=== PATIENT | female | born 1960 ===

== ENCOUNTER 2017-01-12 03:43 | Emergency (ER) | payer MEDICAID, OTHER ==
[2017-01-12 03:43] VITALS: BMI 54.4
[2017-01-12 03:50] VITALS: BP 117/86; PULSE 93; RESP 18; TEMP 98.6; O2SAT 98
--- NOTE | 2017-01-12 03:56 | ED PDOC ---
HPI: CCC, URI, Sore Throat Time Seen by Provider: 01/12/17 03:54 Chief Complaint (Nursing): ENT Problem Chief Complaint (Provider): ear pain History Per: Patient (56 y/o female here with left ear pain today. Patient has accidentally placed earbud deep within ear.) Past Medical History Reviewed: Historical Data, Nursing Documentation, Vital Signs Vital Signs: Last Vital Signs Temp 98.6 F 01/12/17 03:49 Pulse 93 H 01/12/17 03:49 Resp 18 01/12/17 03:49 BP 117/86 01/12/17 03:49 Pulse Ox 98 01/12/17 03:49 - Medical History PMH: Anxiety, Arthritis, Asthma, Back Problems (c-spine, l-spine herniated discs ), Depression, HTN, Schizophrenia Denies: HIV - Family History Family History: States: No Known Family Hx - Immunization History Hx Tetanus Toxoid Vaccination: No Hx Influenza Vaccination: No Hx Pneumococcal Vaccination: No - Home Medications Home Medications: Ambulatory Orders Medication Instructions Recorded Albuterol HFA [Ventolin HFA 90 2 puff IH [id number] PRN #1 puff 07/16/14 mcg/actuation (8 g)] Gabapentin [Neurontin] 300 mg PO TID 07/20/14 Latanoprost 0.005% Opht [Xalatan 1 drop EACHEYE HS 07/20/14 Opht] Bupropion HCl [Wellbutrin] 75 mg PO DAILY 09/03/15 DiphenhydrAMINE [Benadryl] 25 mg PO QID PRN 09/03/15 Etodolac 500 mg PO BID PRN 09/03/15 Naproxen 500 mg PO BID 09/03/15 Famotidine [Pepcid] 20 mg PO BID #0 tab 09/05/15 Multivitamin [Multi-Delyn Liquid] 5 ml PO DAILY #0 syr 09/05/15 Thiamine [Vitamin B1 Tab] 100 mg PO DAILY #0 tab 09/05/15 Albuterol 0.083% [Albuterol 3 ml IH Q4 PRN #50 neb 10/11/15 Sulfate 3 Ml] Albuterol HFA [Ventolin HFA 90 2 puff IH Q4H PRN #1 inh 10/11/15 mcg/actuation (8 g)] Azithromycin [Zithromax] 250 mg PO DAILY #6 dose 10/11/15 Promethazine/Dextromethorphan 120 ml PO Q6 PRN #10 ml 10/11/15 [Promethazine-Dm Syrup] Acetaminophen with Codeine 1 tab PO Q8 PRN #20 tab 11/11/15 [Tylenol with Codeine No. 3 300 mg-30 mg] traMADol [Ultram] 50 mg PO TID PRN #20 tab 11/14/15 Albuterol 0.083% [Albuterol 3 ml IH Q4 PRN #50 neb 04/28/16 Sulfate 3 Ml] Albuterol HFA [Ventolin HFA 90 2 puff IH Q4H PRN #1 inh 04/28/16 mcg/actuation (8 g)] Azithromycin [Zithromax] 250 mg PO DAILY #6 dose 04/28/16 Promethazine HCl/Codeine 10 ml PO Q6 PRN #120 ml 04/28/16 [Prometh-Codein 6.25-10 mg/5 ml] hydrOXYzine HCl [Atarax] 25 mg PO BID #10 tab 05/09/16 Triamcinolone 0.1% [Triamcinolone 0.1 .8 TP BID #0 tube 06/04/16 0.1% Cream] Cephalexin [cephalexin] 500 mg PO BID #14 cap 07/22/16 - Allergies Allergies/Adverse Reactions: Allergies Allergy/AdvReac Type Severity Reaction Status Date / Time prednisone Allergy unknown Verified 06/04/16 16:06 Review of Systems ROS Statement: Except As Marked, All Systems Reviewed And Found Negative ENT: Positive for: Ear Pain Physical Exam - Reviewed Nursing Documentation Reviewed: Yes Vital Signs Reviewed: Yes - Physical Exam Appears: Positive for: Well, Non-toxic, No Acute Distress Head Exam: Positive for: ATRAUMATIC, NORMAL INSPECTION, NORMOCEPHALIC Skin: Positive for: Normal Color, Warm, DRY Eye Exam: Positive for: EOMI, Normal appearance, PERRL ENT: Negative for: Normal ENT Inspection (right earbud within ear canal) Neck: Positive for: Normal, Painless ROM Cardiovascular/Chest: Positive for: Regular Rate, Rhythm Respiratory: Positive for: CNT, Normal Breath Sounds Gastrointestinal/Abdominal: Positive for: Normal Exam, Bowel Sounds, Soft Back: Positive for: Normal Inspection Extremity: Positive for: Normal ROM Neurologic/Psych: Positive for: Alert, Oriented - ECG O2 Sat by Pulse Oximetry: 98 - Progress ED Course And Treament: Verbal consent prior to removal of foreign body. Earbud removed without difficulty. Disposition - Clinical Impression Clinical Impression: Foreign body in ear - Patient ED Disposition Is Patient to be Admitted: No - Disposition Disposition: Routine/Home Disposition Time: 03:57 Condition: FAIR Instructions: Ear Foreign Body (ED)
== END 2017-01-12 04:08 | disposition home or self-care (01) ==
LOC: H.ER 03:43
DX: T16.9XXA Foreign body in ear, unspecified ear, initial encounter (principal); F20.9 Schizophrenia, unspecified; F32.9 Major depressive disorder, single episode, unspecified; F41.9 Anxiety disorder, unspecified; I10 Essential (primary) hypertension

== ENCOUNTER 2017-01-28 15:28 | Emergency (ER) | payer OTHER ==
[2017-01-28 15:29] VITALS: BMI 54.4
[2017-01-28 15:44] VITALS: BP 115/61; PULSE 93; RESP 18; TEMP 97.9; O2SAT 98
[2017-01-28] MEDS ORDERED: Albuterol-Ipratrop 3 mg / 0.5 (3 ml) UD INH STA (16:02)
[2017-01-28] MEDS ORDERED: Albuterol-Ipratrop 3 mg / 0.5 (3 ml) UD ONE (16:15)
--- NOTE | 2017-01-28 16:19 | ED PDOC ---
HPI: SOB/CHF/COPD Time Seen by Provider: 01/28/17 15:49 Chief Complaint (Nursing): Shortness Of Breath Chief Complaint (Provider): Shortness of Breath History Per: Patient History/Exam Limitations: no limitations Onset/Duration Of Symptoms: Days (3x) Current Symptoms Are (Timing): Still Present Initiating Event: Out Of Medications (patient is unable to use home nebulizer due to an issue with the equipment) Quality: Tightness (chest tightness) Current Respiratory Medications: See Home Med List Severity: Moderate Associated Symptoms: Other (rhinorrhea, chills, cough productive of green phlegm ). denies: Fever, Bloody Cough Additional Complaint(s): 56 year old female with a pertinent medical history of asthma, anxiety, and arthritis presents to the ED with complaints of a cough that started 3x days ago and has been worsening since onset. She reports that the cough is productive of green phlegm and she has associated symptoms of rhinorrhea, chills , and chest tightness (that is consistent with asthma). She denies having hematemesis and fevers. She reports that she has a home nebulizer, but has been having issues with the equipment so she is unable to use it. Of note: Patient also reports having a headache on the back left side of her head which radiates to her neck that started 1x week ago. She reports that it worsens when she moves it a certain way. Patient denies numbness and weakness, and injuries and trauma to the area. PMD: Antonia Green MD Past Medical History Reviewed: Historical Data, Nursing Documentation, Vital Signs Vital Signs: Last Vital Signs Temp 97.9 F 01/28/17 15:42 Pulse 93 H 01/28/17 15:42 Resp 18 01/28/17 15:42 BP 115/61 01/28/17 15:42 Pulse Ox 98 01/28/17 16:35 - Medical History PMH: Anxiety, Arthritis, Asthma, Back Problems (c-spine, l-spine herniated discs ), Depression, HTN, Schizophrenia Denies: HIV - Surgical History Surgical History: No Surg Hx - Family History Family History: States: No Known Family Hx - Social History Current smoker - smoking cessation education provided: Yes Alcohol: None Drugs: Denies - Immunization History Hx Tetanus Toxoid Vaccination: No Hx Influenza Vaccination: No Hx Pneumococcal Vaccination: No - Home Medications Home Medications: Ambulatory Orders Medication Instructions Recorded Albuterol HFA [Ventolin HFA 90 2 puff IH [id number] PRN #1 puff 07/16/14 mcg/actuation (8 g)] Gabapentin [Neurontin] 300 mg PO TID 07/20/14 Latanoprost 0.005% Opht [Xalatan 1 drop EACHEYE HS 07/20/14 Opht] Bupropion HCl [Wellbutrin] 75 mg PO DAILY 09/03/15 DiphenhydrAMINE [Benadryl] 25 mg PO QID PRN 09/03/15 Etodolac 500 mg PO BID PRN 09/03/15 Naproxen 500 mg PO BID 09/03/15 Famotidine [Pepcid] 20 mg PO BID #0 tab 09/05/15 Multivitamin [Multi-Delyn Liquid] 5 ml PO DAILY #0 syr 09/05/15 Thiamine [Vitamin B1 Tab] 100 mg PO DAILY #0 tab 09/05/15 Albuterol 0.083% [Albuterol 3 ml IH Q4 PRN #50 neb 10/11/15 Sulfate 3 Ml] Albuterol HFA [Ventolin HFA 90 2 puff IH Q4H PRN #1 inh 10/11/15 mcg/actuation (8 g)] Azithromycin [Zithromax] 250 mg PO DAILY #6 dose 10/11/15 Promethazine/Dextromethorphan 120 ml PO Q6 PRN #10 ml 10/11/15 [Promethazine-Dm Syrup] Acetaminophen with Codeine 1 tab PO Q8 PRN #20 tab 11/11/15 [Tylenol with Codeine No. 3 300 mg-30 mg] traMADol [Ultram] 50 mg PO TID PRN #20 tab 11/14/15 Albuterol 0.083% [Albuterol 3 ml IH Q4 PRN #50 neb 04/28/16 Sulfate 3 Ml] Albuterol HFA [Ventolin HFA 90 2 puff IH Q4H PRN #1 inh 04/28/16 mcg/actuation (8 g)] Azithromycin [Zithromax] 250 mg PO DAILY #6 dose 04/28/16 Promethazine HCl/Codeine 10 ml PO Q6 PRN #120 ml 10/08/16 [Prometh-Codein 6.25-10 mg/5 ml] hydrOXYzine HCl [Atarax] 25 mg PO BID #10 tab 05/09/16 Triamcinolone 0.1% [Triamcinolone 0.1 .8 TP BID #0 tube 06/04/16 0.1% Cream] Cephalexin [cephalexin] 500 mg PO BID #14 cap 07/22/16 Acetaminophen/Butalbital/Caf 1 tab PO TID PRN #15 tab 01/28/17 [Fioricet] Albuterol 0.083% [Albuterol 3 ml IH Q4 PRN #50 neb 01/28/17 Sulfate 3 Ml] Azithromycin [Zithromax] 250 mg PO DAILY #6 dose 01/28/17 - Allergies Allergies/Adverse Reactions: Allergies Allergy/AdvReac Type Severity Reaction Status Date / Time prednisone Allergy unknown Verified 06/04/16 16:06 Review of Systems ROS Statement: Except As Marked, All Systems Reviewed And Found Negative Constitutional: Positive for: Chills. Negative for: Fever ENT: Positive for: Nose Discharge (non bloody) Respiratory: Positive for: Cough (productive of green phlegm) Gastrointestinal: Negative for: Hematemesis Neurological: Positive for: Headache (back left side, radiates down to her neck) . Negative for: Weakness, Numbness Physical Exam - Reviewed Nursing Documentation Reviewed: Yes Vital Signs Reviewed: Yes - Physical Exam Appears: Positive for: Well, Non-toxic, In Acute Distress (mild respiratory distress, but patient does not appear to be in pain) Head Exam: Positive for: ATRAUMATIC (tenderness to palpation of the left occiput radiates down to left paraspinal cervical muscles), NORMOCEPHALIC Skin: Positive for: Normal Color, Warm, Dry Neck: Positive for: Supple. Negative for: Painless ROM (range of motion illicits pain) Cardiovascular/Chest: Positive for: Regular Rate, Rhythm Respiratory: Positive for: Wheezing (diffuse expiratory wheeze and rhonchi), Respiratory Distress (mild respiratory distress) Lymphatic: Negative for: Adenopathy Neurologic/Psych: Positive for: Alert, Oriented (3x) - ECG ECG Rhythm: Positive for: Normal QRS, Normal ST Segment, Sinus Rhythm (normal sinus rhythm at 94 beats per minute) O2 Sat by Pulse Oximetry: 98 (RA) Pulse Ox Interpretation: Normal Nebulizer Treatments/Peak Flow - Duonebs Number of Bronchodilator Doses given?: 3 - Pre/Post Peak Flow Pre Treatment Peak Flow: 3 Post treatment Peak Flow: 3 - Steroid Treatment Steroid: Not Clinically Indicated - Clinical Response Clinical Response: Improved Medical Decision Making Medical Decision Makin:49 Initial impression: 56 year old female with asthma exacerbation and a tension headache. Initial plan: * XRay chest 2 views * XRay cervical spine AP and lat * XRay skull 4 views * duoneb 9m INH * felxeril 10mg PO * tylenol 975mg PO * ultram 50mg PO * peak flow pre and post treatment 3x * reevaluation Accession No. : [id number] Patient Name / ID : VASHTI KEENAN / [id number] Exam Date : 01/28/2017 16:35:15 ( Approved ) Study Comment : Sex / Age : Y Creator : Deon Goodrich MD Dictator : Deon Goodrich MD [employer] Department Supervisor : Merchandise Processor : Deon Goodrich MD Approver2 : Report Date : 01/28/2017 17:49:38 My Comment : PROCEDURE: Skull series HISTORY: LEFT sided occipital pain COMPARISON: None TECHNIQUE: Standard protocol for this study/examination. FINDINGS: Unremarkable calvarium and skullbase. IMPRESSION: Negative seventy Accession No. : [id number] Patient Name / ID : VASHTI KEENAN / [id number] Exam Date : 01/28/2017 16:50:24 ( Approved ) Study Comment : Sex / Age : F Y Creator : Deon Goodrich MD Dictator : Deon Goodrich MD [employer] Department Supervisor : Merchandise Processor : Deon Goodrich MD Approver2 : Report Date : 01/28/2017 17:51:44 My Comment : HISTORY: Cough, shortness of breath. COMPARISON: 06/04/2016 TECHNIQUE: Chest PA and lateral FINDINGS: LUNGS: No active pulmonary disease. PLEURA: No significant pleural effusion identified. No pneumothorax apparent. CARDIOVASCULAR: No radiographic findings to suggest acute or significant cardiovascular disease. OSSEOUS STRUCTURES: No significant abnormalities. VISUALIZED UPPER ABDOMEN: Normal. OTHER FINDINGS: None. IMPRESSION: No active disease. No significant interval change compared to the prior examination(s). Cervical spine:Multilevel DJD, no dislocation Pt has known cervical spine herniation Scribe Attestation: Documented by Caitlyn Vivas, acting as a scribe for Mercy Pabon MD. Provider Scribe Attestation: All medical record entries made by the Scribe were at my direction and personally dictated by me. I have reviewed the chart and agree that the record accurately reflects my personal performance of the history, physical exam, medical decision making, and the department course for this patient. I have also personally directed, reviewed, and agree with the discharge instructions and disposition. Disposition - Clinical Impression Clinical Impression: Asthma exacerbation, Headache Counseled Patient/Family Regarding: Studies Performed, Diagnosis, Need For Followup, Rx Given - Disposition Referrals: Antonia Green MD [Medical Doctor] - 01/29/17 (SEE DR GREEN TOMORROW FOR REEVALUATION) Disposition: Routine/Home Disposition Time: 18:09 Condition: STABLE Prescriptions: Acetaminophen/Butalbital/Caf [Fioricet] 1 tab PO TID PRN #15 tab PRN Reason: Headache Albuterol 0.083% [Albuterol Sulfate 3 Ml] 3 ml IH Q4 PRN #50 neb PRN Reason: asthma Azithromycin [Zithromax] 250 mg PO DAILY #6 dose Instructions: Asthma (ED), Acute Bronchitis (ED), General Headache (ED)
--- NOTE | 2017-01-28 17:51 | RAD ---
PROCEDURE: Skull series HISTORY: LEFT sided occipital pain COMPARISON: None TECHNIQUE: Standard protocol for this study/examination. FINDINGS: Unremarkable calvarium and skullbase. IMPRESSION: Negative seventy
--- NOTE | 2017-01-28 17:53 | RAD ---
HISTORY: Cough, shortness of breath. COMPARISON: 06/04/2016 TECHNIQUE: Chest PA and lateral FINDINGS: LUNGS: No active pulmonary disease. PLEURA: No significant pleural effusion identified. No pneumothorax apparent. CARDIOVASCULAR: No radiographic findings to suggest acute or significant cardiovascular disease. OSSEOUS STRUCTURES: No significant abnormalities. VISUALIZED UPPER ABDOMEN: Normal. OTHER FINDINGS: None. IMPRESSION: No active disease. No significant interval change compared to the prior examination(s).
--- NOTE | 2017-01-29 12:40 | RAD ---
PROCEDURE: Cervical Spine Radiographs. HISTORY: Pain. COMPARISON: None. FINDINGS: BONES: Vertebral bodies are maintained in height. There is grade 1 retrolisthesis at C5-6, likely degenerative. Normal alignment is maintained elsewhere. There is straightening of the normal lordotic curvature indicating possible muscular spasm. The odontoid process is suboptimally evaluated. DISC SPACES: There is narrowing of the C5-6 and C6-7 intervertebral disc spaces consistent with degenerative disc disease. Osteophytes are seen about the C5-6 disc space. SOFT TISSUES: Normal. No prevertebral soft tissue swelling. OTHER FINDINGS: None. IMPRESSION: Degenerative disc disease at C5-6 and C6-7. Grade 1 retrolisthesis at C5-6. Possible muscular spasm. No acute fracture.
== END 2017-01-28 18:32 | disposition home or self-care (01) ==
LOC: H.ER 15:28
DX: J45.901 Unspecified asthma with (acute) exacerbation (principal); R51 Headache; F20.9 Schizophrenia, unspecified; I10 Essential (primary) hypertension; M50.321 Other cervical disc degeneration at C4-C5 level

== ENCOUNTER 2017-08-09 03:28 | Emergency (ER) | payer OTHER ==
[2017-08-09 03:28] VITALS: BMI 54.4
[2017-08-09] MEDS ORDERED: Albuterol-Ipratrop 3 mg / 0.5 (3 ml) UD INH STA ×3 (03:54→04:19)
[2017-08-09] MEDS ORDERED: Albuterol-Ipratrop 3 mg / 0.5 (3 ml) UD ONE ×2 (03:59→04:36)
[2017-08-09 04:17] LABS: VENOUS BLOOD GAS BASE EXCESS 0.6 mmol/L (0.0-2.0); VENOUS BLOOD GAS PCO2 36 mmHg (40-60); VENOUS BLOOD GAS PO2 49 mm/Hg (30-55); VENOUS BLOOD PH 7.44 (7.32-7.43)
[2017-08-09] MEDS ORDERED: Promethazine/Cod 6.25mg-10mg/5ml Syr UD PO STA (04:20)
[2017-08-09] MEDS ORDERED: Promethazine/Cod 6.25mg-10mg/5ml Syr UD ONE (04:36)
[2017-08-09 04:43] LABS: BLOOD UREA NITROGEN 9 mg/dl (7-17); CALCIUM 9.5 mg/dL (8.4-10.2); GFR AFRICAN-AMERICAN > 60; GFR NON-AFRICAN AMERICAN > 60
[2017-08-09 04:44] VITALS: O2SAT 96
[2017-08-09 04:47] LABS: BASO % 0.7 % (0.0-2.0); EOS % 0.2 % (0.0-4.0); HEMOGLOBIN 13.1 g/dL (12.0-16.0); LYMPH # 0.5 K/uL (1.0-4.3); LYMPH % 10.4 % (20.0-40.0); MEAN CELL VOLUME 97.6 fl (81.0-99.0); MEAN CORPUSCULAR HEMOGLOBIN 33.6 pg (27.0-31.0); MEAN CORPUSCULAR HGB CONC 34.4 g/dL (33.0-37.0); MEAN PLATELET VOLUME 7.6 fl (7.2-11.7); MONO # 0.5 K/uL (0.0-0.8); MONO % 9.4 % (0.0-10.0); NEUT # 3.9 K/uL (1.8-7.0); NEUT % 79.3 % (50.0-75.0); NRBC % 0.3 % (0.0-0.0); RBC 3.91 Mil/uL (3.80-5.20); RED CELL DISTRIBUTION WIDTH 12.5 % (11.5-14.5); WHITE BLOOD COUNT 4.9 K/uL (4.8-10.8)
--- NOTE | 2017-08-09 04:47 | ED PDOC ---
HPI: SOB/CHF/COPD Time Seen by Provider: 08/09/17 03:41 Chief Complaint (Nursing): Respiratory Distress Chief Complaint (Provider): Shortness of Breath History Per: Patient History/Exam Limitations: no limitations Onset/Duration Of Symptoms: Days (x3) Current Symptoms Are (Timing): Still Present Additional Complaint(s): 57 year old female presents to the emergency department complaining of fever, cough, wheezing, nasal congestion, and difficulty breathing for the past 2-3 days. Symptoms worsened tonight. Of note, patient is a smoker. Reports using her albuterol nebulizer since yesterday. Denies any associated chest pain. Cough is dry but intense. Patient reports history of bronchitis and asthma in the past. PMD: Dr. Jack Rivera Past Medical History Reviewed: Historical Data, Nursing Documentation, Vital Signs Vital Signs: Last Vital Signs Temp 100.2 F H 08/09/17 05:14 Pulse 121 H 08/09/17 05:14 Resp 18 08/09/17 05:14 BP 122/78 08/09/17 05:14 Pulse Ox 96 08/09/17 05:23 - Medical History PMH: Anxiety, Arthritis, Asthma, Back Problems (c-spine, l-spine herniated discs ), Depression, Gastritis, HTN, Schizophrenia Denies: HIV - Surgical History Other surgeries: Hysterectomy - Family History Family History: States: Unknown Family Hx - Social History Current smoker - smoking cessation education provided: Yes - Immunization History Hx Tetanus Toxoid Vaccination: No Hx Influenza Vaccination: No Hx Pneumococcal Vaccination: No - Home Medications Home Medications: Ambulatory Orders Medication Instructions Recorded Gabapentin [Neurontin] 300 mg PO TID 07/20/14 Latanoprost 0.005% Opht [Xalatan 1 drop EACHEYE HS 07/20/14 Opht] Bupropion HCl [Wellbutrin] 75 mg PO DAILY 09/03/15 DiphenhydrAMINE [Benadryl] 25 mg PO QID PRN 09/03/15 Etodolac 500 mg PO BID PRN 09/03/15 Naproxen 500 mg PO BID 09/03/15 Famotidine [Pepcid] 20 mg PO BID #0 tab 09/05/15 Multivitamin [Multi-Delyn Liquid] 5 ml PO DAILY #0 syr 09/05/15 Thiamine [Vitamin B1 Tab] 100 mg PO DAILY #0 tab 09/05/15 Albuterol HFA [Ventolin HFA 90 2 puff IH Q4H PRN #1 inh 10/11/15 mcg/actuation (8 g)] Azithromycin [Zithromax] 250 mg PO DAILY #6 dose 10/11/15 Promethazine/Dextromethorphan 120 ml PO Q6 PRN #10 ml 10/11/15 [Promethazine-Dm Syrup] Acetaminophen with Codeine 1 tab PO Q8 PRN #20 tab 11/11/15 [Tylenol with Codeine No. 3 300 mg-30 mg] traMADol [Ultram] 50 mg PO TID PRN #20 tab 11/14/15 Albuterol 0.083% [Albuterol 3 ml IH Q4 PRN #50 neb 04/28/16 Sulfate 3 Ml] Albuterol HFA [Ventolin HFA 90 2 puff IH Q4H PRN #1 inh 04/28/16 mcg/actuation (8 g)] hydrOXYzine HCl [Atarax] 25 mg PO BID #10 tab 05/09/16 Triamcinolone 0.1% [Triamcinolone 0.1 .8 TP BID #0 tube 06/04/16 0.1% Cream] Cephalexin [cephalexin] 500 mg PO BID #14 cap 07/22/16 Acetaminophen/Butalbital/Caf 1 tab PO TID PRN #15 tab 01/28/17 [Fioricet] Albuterol 0.083% [Albuterol 3 ml IH Q4 PRN #50 neb 01/28/17 Sulfate 3 Ml] Azithromycin [Zithromax] 250 mg PO DAILY #6 dose 01/28/17 Acetaminophen 650 mg PO Q6 PRN #50 tablet 08/09/17 Albuterol 0.083% [Albuterol 3 ml IH Q4 PRN #50 neb 08/09/17 Sulfate 3 Ml] Albuterol HFA [Ventolin HFA 90 2 puff IH [id number] PRN #1 puff 08/09/17 mcg/actuation (8 g)] Azithromycin [Zithromax] 250 mg PO DAILY #6 dose 08/09/17 Oseltamivir [Tamiflu] 75 mg PO BID #10 cap 08/09/17 Promethazine HCl/Codeine 10 ml PO Q6 PRN #120 ml 08/09/17 [Prometh-Codein 6.25-10 mg/5 ml] - Allergies Allergies/Adverse Reactions: Allergies Allergy/AdvReac Type Severity Reaction Status Date / Time prednisone Allergy unknown Verified 08/09/17 03:53 Review of Systems ROS Statement: Except As Marked, All Systems Reviewed And Found Negative Constitutional: Positive for: Fever ENT: Positive for: Nose Congestion Cardiovascular: Negative for: Chest Pain Respiratory: Positive for: Cough, Shortness of Breath, Wheezing. Negative for: Sputum Physical Exam - Reviewed Nursing Documentation Reviewed: Yes Vital Signs Reviewed: Yes - Physical Exam Appears: Positive for: Non-toxic, No Acute Distress Head Exam: Positive for: ATRAUMATIC, NORMAL INSPECTION, NORMOCEPHALIC Skin: Positive for: Normal Color, Warm, Dry Eye Exam: Positive for: EOMI, Normal appearance, PERRL Neck: Positive for: Normal, Painless ROM Cardiovascular/Chest: Positive for: Tachycardia (with regular rhythm) Respiratory: Positive for: Wheezing (mild wheezing bilaterally). Negative for: Respiratory Distress Gastrointestinal/Abdominal: Positive for: Normal Exam, Soft. Negative for: Tenderness Extremity: Positive for: Normal ROM. Negative for: Deformity Neurologic/Psych: Positive for: Alert, Oriented - Laboratory Results Result Diagrams: 08/09/17 04:06 08/09/17 04:06 - ECG ECG: Positive for: Interpreted By Me, Viewed By Me ECG Rhythm: Positive for: Normal QRS, Normal ST Segment, Sinus Rhythm, Sinus Tachycardia Rate: 121 O2 Sat by Pulse Oximetry: 96 (RA) Pulse Ox Interpretation: Normal - Radiology X-Ray: Interpreted by Me, Viewed By Me X-Ray Interpretation: No Acute Disease Medical Decision Making Medical Decision Making: Initial Impression: Dyspnea, fever, wheezing, and cough Differential includes URI, acute bronchitis, pneumonia, influenza Time: 03:49 Initial Plan: --VBG --EKG --BMP --CBC w/ differential --Chest x-ray --Duoneb 3ml INH x3 --Promethazine/Codeine 5 ml PO --Peak Flow pre/post treatment --Solu Medrol 125 mg IVP --Tylenol 650 mg PO --Blood culture --Influenza A B --Reevaluation Scribe Attestation: Documented by Supriya Beckwith, acting as a scribe for Molly uGtiérrez MD Provider Scribe Attestation: All medical record entries made by the Scribe were at my direction and personally dictated by me. I have reviewed the chart and agree that the record accurately reflects my personal performance of the history, physical exam, medical decision making, and the department course for this patient. I have also personally directed, reviewed, and agree with the discharge instructions and disposition. Disposition - Clinical Impression Clinical Impression: Acute bronchitis with chronic obstructive pulmonary disease (COPD), Influenza - Patient ED Disposition Is Patient to be Admitted: No Doctor Will See Patient In The: Office Counseled Patient/Family Regarding: Studies Performed, Diagnosis, Need For Followup - Disposition Referrals: Jack Rivera MD [Primary Care Provider] - Disposition: Routine/Home Disposition Time: 06:00 Condition: GOOD Additional Instructions: Take your medications as instructed. Follow up with your PCP in 2-3 days. Prescriptions: Albuterol HFA [Ventolin HFA 90 mcg/actuation (8 g)] 2 puff IH [id number] PRN #1 puff PRN Reason: Shortness Of Breath Acetaminophen 650 mg PO Q6 PRN #50 tablet PRN Reason: Fever >100.4 F Albuterol 0.083% [Albuterol Sulfate 3 Ml] 3 ml IH Q4 PRN #50 neb PRN Reason: asthma Azithromycin [Zithromax] 250 mg PO DAILY #6 dose Oseltamivir [Tamiflu] 75 mg PO BID #10 cap Promethazine HCl/Codeine [Prometh-Codein 6.25-10 mg/5 ml] 10 ml PO Q6 PRN #120 ml PRN Reason: SEVERE COUGH ONLY Instructions: Influenza (ED), COPD (Chronic Obstructive Pulmonary Disease) (ED)
[2017-08-09 04:57] VITALS: PULSE 121
[2017-08-09 05:15] VITALS: BP 122/78; RESP 18; TEMP 100.2
--- NOTE | 2017-08-09 11:20 | CARD ---
APPROVED REPORT EKG Measurement Heart [id number] <Conclusion> Sinus tachycardia Nonspecific ST abnormality Abnormal ECG
--- NOTE | 2017-08-09 11:49 | RAD ---
PROCEDURE: CHEST RADIOGRAPH, 1 VIEW HISTORY: dyspnea COMPARISON: Chest radiograph dated 01/28/2017. FINDINGS: LUNGS: Clear. PLEURA: No pneumothorax or pleural fluid seen. CARDIOVASCULAR: Cardiomediastinal silhouette within normal limits. OSSEOUS STRUCTURES: Unchanged. VISUALIZED UPPER ABDOMEN: Normal. OTHER FINDINGS: None. IMPRESSION: No active disease.
== END 2017-08-09 06:27 | disposition home or self-care (01) ==
LOC: H.ER 03:28
DX: J44.0 Chronic obstructive pulmonary disease with (acute) lower respiratory infection (principal); J11.1 Influenza due to unidentified influenza virus with other respiratory manifestations; F20.9 Schizophrenia, unspecified; F32.9 Major depressive disorder, single episode, unspecified; F41.9 Anxiety disorder, unspecified; I10 Essential (primary) hypertension

== ENCOUNTER 2017-08-18 16:07 | Emergency (ER) | payer MEDICAID, OTHER ==
[2017-08-18 16:08] VITALS: BMI 54.4
[2017-08-18 16:29] VITALS: BP 131/90; PULSE 71; RESP 16; TEMP 97.8; O2SAT 99
--- NOTE | 2017-08-18 16:41 | ED PDOC ---
HPI: General Adult Time Seen by Provider: 08/18/17 16:32 Chief Complaint (Nursing): ENT Problem Chief Complaint (Provider): Foreign Body History Per: Patient History/Exam Limitations: no limitations Onset/Duration Of Symptoms: Hrs (earlier today) Additional Complaint(s): 57 year old female presents to ED with complaints of possible foreign body in right ear since earlier today and has no relevant past medical history. Notes that she had her headphones in her ears and that when they fell off she could not find the right ear piece. Believes the right ear piece is stuck in her right ear. (-) pain, bleeding, or hearing changes. PCP: Does not remember Past Medical History Reviewed: Historical Data, Nursing Documentation, Vital Signs Vital Signs: Last Vital Signs Temp 97.8 F 08/18/17 16:26 Pulse 71 08/18/17 16:26 Resp 16 08/18/17 16:26 BP 131/90 08/18/17 16:26 Pulse Ox 99 08/18/17 16:41 - Medical History PMH: Anxiety, Arthritis, Asthma, Back Problems (c-spine, l-spine herniated discs ), Depression, Gastritis, HTN, Schizophrenia Denies: HIV - Family History Family History: States: Unknown Family Hx - Living Arrangements Living Arrangements: With Family - Immunization History Hx Tetanus Toxoid Vaccination: No Hx Influenza Vaccination: No Hx Pneumococcal Vaccination: No - Home Medications Home Medications: Ambulatory Orders Medication Instructions Recorded Gabapentin [Neurontin] 300 mg PO TID 07/20/14 Latanoprost 0.005% Opht [Xalatan 1 drop EACHEYE HS 07/20/14 Opht] Bupropion HCl [Wellbutrin] 75 mg PO DAILY 09/03/15 DiphenhydrAMINE [Benadryl] 25 mg PO QID PRN 09/03/15 Etodolac 500 mg PO BID PRN 09/03/15 Naproxen 500 mg PO BID 09/03/15 Famotidine [Pepcid] 20 mg PO BID #0 tab 09/05/15 Multivitamin [Multi-Delyn Liquid] 5 ml PO DAILY #0 syr 09/05/15 Thiamine [Vitamin B1 Tab] 100 mg PO DAILY #0 tab 09/05/15 Albuterol HFA [Ventolin HFA 90 2 puff IH Q4H PRN #1 inh 10/11/15 mcg/actuation (8 g)] Azithromycin [Zithromax] 250 mg PO DAILY #6 dose 10/11/15 Promethazine/Dextromethorphan 120 ml PO Q6 PRN #10 ml 10/11/15 [Promethazine-Dm Syrup] Acetaminophen with Codeine 1 tab PO Q8 PRN #20 tab 11/11/15 [Tylenol with Codeine No. 3 300 mg-30 mg] traMADol [Ultram] 50 mg PO TID PRN #20 tab 11/14/15 Albuterol 0.083% [Albuterol 3 ml IH Q4 PRN #50 neb 04/28/16 Sulfate 3 Ml] Albuterol HFA [Ventolin HFA 90 2 puff IH Q4H PRN #1 inh 04/28/16 mcg/actuation (8 g)] hydrOXYzine HCl [Atarax] 25 mg PO BID #10 tab 05/09/16 Triamcinolone 0.1% [Triamcinolone 0.1 .8 TP BID #0 tube 06/04/16 0.1% Cream] Cephalexin [cephalexin] 500 mg PO BID #14 cap 07/22/16 Acetaminophen/Butalbital/Caf 1 tab PO TID PRN #15 tab 01/28/17 [Fioricet] Albuterol 0.083% [Albuterol 3 ml IH Q4 PRN #50 neb 01/28/17 Sulfate 3 Ml] Azithromycin [Zithromax] 250 mg PO DAILY #6 dose 01/28/17 Acetaminophen 650 mg PO Q6 PRN #50 tablet 08/09/17 Albuterol 0.083% [Albuterol 3 ml IH Q4 PRN #50 neb 08/09/17 Sulfate 3 Ml] Albuterol HFA [Ventolin HFA 90 2 puff IH [id number] PRN #1 puff 08/09/17 mcg/actuation (8 g)] Azithromycin [Zithromax] 250 mg PO DAILY #6 dose 08/09/17 Oseltamivir [Tamiflu] 75 mg PO BID #10 cap 08/09/17 Promethazine HCl/Codeine 10 ml PO Q6 PRN #120 ml 08/09/17 [Prometh-Codein 6.25-10 mg/5 ml] - Allergies Allergies/Adverse Reactions: Allergies Allergy/AdvReac Type Severity Reaction Status Date / Time prednisone Allergy unknown Verified 08/09/17 03:53 Review of Systems ROS Statement: Except As Marked, All Systems Reviewed And Found Negative ENT: Positive for: Other ((+) possible foreign body in right ear. (-) hearing changes). Negative for: Ear Pain, Ear Discharge (no bleeding from ear) Physical Exam - Reviewed Nursing Documentation Reviewed: Yes Vital Signs Reviewed: Yes - Physical Exam Appears: Positive for: Non-toxic, No Acute Distress Skin: Positive for: Normal Color, Warm, Dry ENT: Positive for: Normal ENT Inspection, TM Is/Are (right TM intact.), Other ( Right ear canal clear, no foreign body present.) Neurologic/Psych: Positive for: Alert, Oriented. Negative for: Motor/Sensory Deficits - ECG O2 Sat by Pulse Oximetry: 99 (RA) Pulse Ox Interpretation: Normal Medical Decision Making Medical Decision Makin Initial impression: right ear foreign body sensation Scribe Attestation: Documented by Aria Wilson, acting as a scribe for Tito Saravia PA-C. Provider Scribe Attestation: All medical record entries made by the Scribe were at my direction and personally dictated by me. I have reviewed the chart and agree that the record accurately reflects my personal performance of the history, physical exam, medical decision making, and the department course for this patient. I have also personally directed, reviewed, and agree with the discharge instructions and disposition. Disposition - Clinical Impression Clinical Impression: Foreign body sensation in left ear canal - Patient ED Disposition Is Patient to be Admitted: No - Disposition Disposition: Routine/Home Disposition Time: 16:41 Condition: STABLE Forms: [employer] (K[place]itian)
== END 2017-08-18 16:53 | disposition home or self-care (01) ==
LOC: H.ER 16:07
DX: T16.1XXA Foreign body in right ear, initial encounter (principal); I10 Essential (primary) hypertension; J45.909 Unspecified asthma, uncomplicated; Z86.59 Personal history of other mental and behavioral disorders

== ENCOUNTER 2017-11-15 01:42 | Emergency (ER) | payer MEDICAID, OTHER ==
[2017-11-15 01:42] VITALS: BMI 54.4
[2017-11-15] MEDS ORDERED: Magnesium Sulfate 2 gm/50 ml 2 GM/50 ML BAG IVPB ONE (01:54)
[2017-11-15] MEDS ORDERED: Albuterol-Ipratrop 3 mg / 0.5 (3 ml) UD INH STA ×2 (01:54)
--- NOTE | 2017-11-15 02:01 | ED PDOC ---
HPI: SOB/CHF/COPD Time Seen by Provider: 11/15/17 01:52 Chief Complaint (Nursing): Shortness Of Breath History Per: Patient History/Exam Limitations: no limitations Onset/Duration Of Symptoms: Days Current Symptoms Are (Timing): Still Present Initiating Event: Upper Respiratory Illness Severity: None Additional Complaint(s): Hx of asthma, anxiety presenting with asthma exacerbation, states she has been sick for one month with cold symptoms of nasal congestion, cough, and runny nose , for the past week she has had worsening dry cough and "rib pain" that she thinks may be pneumonia, but denies chills and fever. Patient is an active heavy smoker. Past Medical History Reviewed: Historical Data, Nursing Documentation Vital Signs: Last Vital Signs Temp 98.3 F 11/15/17 01:50 Pulse 101 H 11/15/17 01:50 Resp 19 11/15/17 01:50 BP 104/68 11/15/17 01:50 Pulse Ox 92 L 11/15/17 04:00 - Medical History PMH: Anxiety, Arthritis, Asthma, Back Problems (c-spine, l-spine herniated discs ), Depression, Gastritis, HTN, Schizophrenia Denies: HIV - Family History Family History: States: Unknown Family Hx - Immunization History Hx Tetanus Toxoid Vaccination: No Hx Influenza Vaccination: No Hx Pneumococcal Vaccination: No - Home Medications Home Medications: Ambulatory Orders Medication Instructions Recorded Gabapentin [Neurontin] 300 mg PO TID 07/20/14 Latanoprost 0.005% Opht [Xalatan 1 drop EACHEYE HS 07/20/14 Opht] Bupropion HCl [Wellbutrin] 75 mg PO DAILY 09/03/15 DiphenhydrAMINE [Benadryl] 25 mg PO QID PRN 09/03/15 Etodolac 500 mg PO BID PRN 09/03/15 Naproxen 500 mg PO BID 09/03/15 Famotidine [Pepcid] 20 mg PO BID #0 tab 09/05/15 Multivitamin [Multi-Delyn Liquid] 5 ml PO DAILY #0 syr 09/05/15 Thiamine [Vitamin B1 Tab] 100 mg PO DAILY #0 tab 09/05/15 Albuterol HFA [Ventolin HFA 90 2 puff IH Q4H PRN #1 inh 10/11/15 mcg/actuation (8 g)] Azithromycin [Zithromax] 250 mg PO DAILY #6 dose 10/11/15 Promethazine/Dextromethorphan 120 ml PO Q6 PRN #10 ml 10/11/15 [Promethazine-Dm Solution] Acetaminophen with Codeine 1 tab PO Q8 PRN #20 tab 11/11/15 [Tylenol with Codeine No. 3 300 mg-30 mg] traMADol [Ultram] 50 mg PO TID PRN #20 tab 11/14/15 Albuterol 0.083% [Albuterol 3 ml IH Q4 PRN #50 neb 04/28/16 Sulfate 3 Ml] Albuterol HFA [Ventolin HFA 90 2 puff IH Q4H PRN #1 inh 04/28/16 mcg/actuation (8 g)] hydrOXYzine HCl [Atarax] 25 mg PO BID #10 tab 05/09/16 Triamcinolone 0.1% [Triamcinolone 0.1 .8 TP BID #0 tube 06/04/16 0.1% Cream] Cephalexin [cephalexin] 500 mg PO BID #14 cap 07/22/16 Acetaminophen/Butalbital/Caf 1 tab PO TID PRN #15 tab 01/28/17 [Fioricet] Albuterol 0.083% [Albuterol 3 ml IH Q4 PRN #50 neb 01/28/17 Sulfate 3 Ml] Azithromycin [Zithromax] 250 mg PO DAILY #6 dose 01/28/17 Acetaminophen 650 mg PO Q6 PRN #50 tablet 08/09/17 Albuterol 0.083% [Albuterol 3 ml IH Q4 PRN #50 neb 08/09/17 Sulfate 3 Ml] Albuterol HFA [Ventolin HFA 90 2 puff IH [id number] PRN #1 puff 08/09/17 mcg/actuation (8 g)] Azithromycin [Zithromax] 250 mg PO DAILY #6 dose 08/09/17 Oseltamivir [Tamiflu] 75 mg PO BID #10 cap 08/09/17 Promethazine HCl/Codeine 10 ml PO Q6 PRN #120 ml 08/09/17 [Prometh-Codein 6.25-10 mg/5 ml] Albuterol Sulfate [Ventolin Hfa] 1 puff IH Q4 PRN #1 ml 11/15/17 Benzonatate [Tessalon Perle] 100 mg PO TID #20 capsule 11/15/17 - Allergies Allergies/Adverse Reactions: Allergies Allergy/AdvReac Type Severity Reaction Status Date / Time prednisone Allergy unknown Verified 08/09/17 03:53 Review of Systems ROS Statement: Except As Marked, All Systems Reviewed And Found Negative Respiratory: Positive for: Cough, Shortness of Breath, Wheezing Physical Exam - Reviewed Nursing Documentation Reviewed: Yes Vital Signs Reviewed: Yes - Physical Exam Appears: Positive for: Well, Non-toxic, No Acute Distress Head Exam: Positive for: ATRAUMATIC, NORMAL INSPECTION, NORMOCEPHALIC Skin: Positive for: Normal Color, Warm, DRY Eye Exam: Positive for: EOMI, Normal appearance, PERRL ENT: Positive for: Normal ENT Inspection Neck: Positive for: Normal, Painless ROM Cardiovascular/Chest: Positive for: Regular Rate, Rhythm Respiratory: Positive for: Wheezing, Respiratory Distress (mild) Gastrointestinal/Abdominal: Positive for: Normal Exam, Soft Back: Positive for: Normal Inspection Extremity: Positive for: Normal ROM Neurologic/Psych: Positive for: Alert, Oriented - ECG O2 Sat by Pulse Oximetry: 92 Pulse Ox Interpretation: Abnormal Medical Decision Making Medical Decision MakinAM A/P: Hx of asthma, anxiety, psych d/o presenting with asthma exacerbation -patient having moderate exacerbation, likely secondary to URI and smoking -patient with some respiratory distress and mild hypoxia, will give futher treatments and Mag -cannot give steroids given allergy to prednisone -will continue to monitor 345 -Patient feeling much better, no longer wheezing -PAtient requesting cough medicine, will precribe tessalon perles -Advised patient to followup with PMd -Return precautions given Disposition - Clinical Impression Clinical Impression: Asthma attack - Patient ED Disposition Is Patient to be Admitted: No - Disposition Referrals: [facility] [Outside] Disposition: Routine/Home Disposition Time: 04:03 Condition: IMPROVED Prescriptions: Albuterol Sulfate [Ventolin Hfa] 1 puff IH Q4 PRN #1 ml PRN Reason: Wheezing Benzonatate [Tessalon Perle] 100 mg PO TID #20 capsule Instructions: Asthma in Adults Forms: [employer] ([place])
[2017-11-15] MEDS ORDERED: Albuterol-Ipratrop 3 mg / 0.5 (3 ml) UD ONE (02:02)
[2017-11-15] MEDS ORDERED: Magnesium Sulfate 2 gm/50 ml 2 GM/50 ML BAG ONE (02:02)
[2017-11-15 07:23] VITALS: RESP 24
[2017-11-15 07:24] VITALS: BP 109/51; PULSE 93; TEMP 98.4; O2SAT 95
--- NOTE | 2017-11-15 09:30 | RAD ---
HISTORY: asthma exacerbation COMPARISON: Chest radiograph dated 08/09/2017. FINDINGS: LUNGS: No active pulmonary disease. PLEURA: No significant pleural effusion identified, no pneumothorax apparent. CARDIOVASCULAR: Cardiomediastinal silhouette unchanged. OSSEOUS STRUCTURES: Unchanged. VISUALIZED UPPER ABDOMEN: Normal. OTHER FINDINGS: None. IMPRESSION: No active disease.
== END 2017-11-15 04:31 | disposition home or self-care (01) ==
LOC: H.ER 01:42
DX: J45.901 Unspecified asthma with (acute) exacerbation (principal)
CPT/HCPCS: 71045; 94150; 94640; 96365; 96375; 99285; J1885

== ENCOUNTER 2017-11-16 22:51 | Inpatient (IN) | payer OTHER ==
[2017-11-16 22:51] VITALS: BMI 54.4
[2017-11-16] MEDS ORDERED: Albuterol-Ipratrop 3 mg / 0.5 (3 ml) UD INH STA ×3 (23:34→23:35)
[2017-11-16] MEDS ORDERED: Albuterol-Ipratrop 3 mg / 0.5 (3 ml) UD ONE ×2 (23:55→23:56)
[2017-11-16 23:58] LABS: BASO # 0.1 K/uL (0.0-0.2); BASO % 0.6 % (0.0-2.0); EOS # 0.1 K/uL (0.0-0.7); EOS % 1.1 % (0.0-4.0); HEMOGLOBIN 12.2 g/dL (12.0-16.0); LYMPH % 18.9 % (20.0-40.0); MEAN CELL VOLUME 98.1 fl (81.0-99.0); MEAN CORPUSCULAR HEMOGLOBIN 33.9 pg (27.0-31.0); MEAN CORPUSCULAR HGB CONC 34.5 g/dL (33.0-37.0); MEAN PLATELET VOLUME 7.1 fl (7.2-11.7); MONO # 1.3 K/uL (0.0-0.8); MONO % 11.9 % (0.0-10.0); NEUT # 7.3 K/uL (1.8-7.0); NEUT % 67.5 % (50.0-75.0); NRBC % 0.1 % (0.0-0.0); RBC 3.6 Mil/uL (3.80-5.20); WHITE BLOOD COUNT 10.7 K/uL (4.8-10.8)
[2017-11-17] MEDS ORDERED: DiphenhydrAMINE 50 mg/ml Inj ONE (00:07)
[2017-11-17 00:12] LABS: BLOOD UREA NITROGEN 12 mg/dl (7-17); CALCIUM 9.4 mg/dL (8.4-10.2); GFR AFRICAN-AMERICAN > 60; GFR NON-AFRICAN AMERICAN > 60
[2017-11-17] MEDS ORDERED: Propofol 10 mg/ml 2,000 MG/200 ML VIAL ONE (00:52)
[2017-11-17] MEDS ORDERED: Albuterol-Ipratrop 3 mg / 0.5 (3 ml) UD ONE (00:55)
[2017-11-17] MEDS ORDERED: Magnesium Sulfate 2 gm/50 ml 2 GM/50 ML BAG IVPB ONE (01:12)
[2017-11-17] MEDS ORDERED: Propofol 10 mg/ml Inj (20 ML) IV STA (01:13)
[2017-11-17] MEDS ORDERED: Propofol 10 mg/ml 1,000 MG/100 ML VIAL IV SCH (01:15)
[2017-11-17] MEDS ORDERED: Fentanyl Citrate 2,500 MCG in Dextrose 5% In Water 200 ML IV SCH (01:30)
--- NOTE | 2017-11-17 01:37 | ED PDOC ---
HPI: SOB/CHF/COPD Time Seen by Provider: 11/16/17 23:05 Chief Complaint (Nursing): Shortness Of Breath History Per: Patient History/Exam Limitations: no limitations Onset/Duration Of Symptoms: Days Current Symptoms Are (Timing): Still Present Initiating Event: Upper Respiratory Illness Additional Complaint(s): HX of COPD, psych disorder presenting with shortness of breath x 1 day, was in the ER recently for similar, initially improved but then she states she got worse today. States that she was using her albuterol pump without relief as well as pain medication at home for rib pain. Denies fevers today, but states a few days ago she did have fever. States cough but cannot expectorate the phlegm. Of note, patient states she does not have allergy to prednisone/ steroid. Past Medical History Reviewed: Historical Data, Nursing Documentation, Vital Signs Vital Signs: Last Vital Signs Temp 98.2 F 11/16/17 23:01 Pulse 112 H 11/17/17 03:50 Resp 20 11/17/17 03:50 BP 64/44 L 11/17/17 03:50 Pulse Ox 97 11/17/17 06:12 - Medical History PMH: Anxiety, Arthritis, Asthma, Back Problems (c-spine, l-spine herniated discs ), Depression, Gastritis, HTN, Schizophrenia Denies: HIV - Family History Family History: States: Unknown Family Hx - Immunization History Hx Tetanus Toxoid Vaccination: No Hx Influenza Vaccination: No Hx Pneumococcal Vaccination: No - Home Medications Home Medications: Ambulatory Orders Medication Instructions Recorded Gabapentin [Neurontin] 300 mg PO TID 07/20/14 Latanoprost 0.005% Opht [Xalatan 1 drop EACHEYE HS 07/20/14 Opht] Bupropion HCl [Wellbutrin] 75 mg PO DAILY 09/03/15 DiphenhydrAMINE [Benadryl] 25 mg PO QID PRN 09/03/15 Etodolac 500 mg PO BID PRN 09/03/15 Naproxen 500 mg PO BID 09/03/15 Famotidine [Pepcid] 20 mg PO BID #0 tab 09/05/15 Multivitamin [Multi-Delyn Liquid] 5 ml PO DAILY #0 syr 09/05/15 Thiamine [Vitamin B1 Tab] 100 mg PO DAILY #0 tab 09/05/15 Albuterol HFA [Ventolin HFA 90 2 puff IH Q4H PRN #1 inh 10/11/15 mcg/actuation (8 g)] Azithromycin [Zithromax] 250 mg PO DAILY #6 dose 10/11/15 Promethazine/Dextromethorphan 120 ml PO Q6 PRN #10 ml 10/11/15 [Promethazine-Dm Solution] Acetaminophen with Codeine 1 tab PO Q8 PRN #20 tab 11/11/15 [Tylenol with Codeine No. 3 300 mg-30 mg] traMADol [Ultram] 50 mg PO TID PRN #20 tab 11/14/15 Albuterol 0.083% [Albuterol 3 ml IH Q4 PRN #50 neb 04/28/16 Sulfate 3 Ml] Albuterol HFA [Ventolin HFA 90 2 puff IH Q4H PRN #1 inh 04/28/16 mcg/actuation (8 g)] hydrOXYzine HCl [Atarax] 25 mg PO BID #10 tab 05/09/16 Triamcinolone 0.1% [Triamcinolone 0.1 .8 TP BID #0 tube 06/04/16 0.1% Cream] Cephalexin [cephalexin] 500 mg PO BID #14 cap 07/22/16 Acetaminophen/Butalbital/Caf 1 tab PO TID PRN #15 tab 01/28/17 [Fioricet] Albuterol 0.083% [Albuterol 3 ml IH Q4 PRN #50 neb 01/28/17 Sulfate 3 Ml] Azithromycin [Zithromax] 250 mg PO DAILY #6 dose 01/28/17 Acetaminophen 650 mg PO Q6 PRN #50 tablet 08/09/17 Albuterol 0.083% [Albuterol 3 ml IH Q4 PRN #50 neb 08/09/17 Sulfate 3 Ml] Albuterol HFA [Ventolin HFA 90 2 puff IH [id number] PRN #1 puff 08/09/17 mcg/actuation (8 g)] Azithromycin [Zithromax] 250 mg PO DAILY #6 dose 08/09/17 Oseltamivir [Tamiflu] 75 mg PO BID #10 cap 08/09/17 Promethazine HCl/Codeine 10 ml PO Q6 PRN #120 ml 08/09/17 [Prometh-Codein 6.25-10 mg/5 ml] Albuterol Sulfate [Ventolin Hfa] 1 puff IH Q4 PRN #1 ml 11/15/17 Benzonatate [Tessalon Perle] 100 mg PO TID #20 capsule 11/15/17 - Allergies Allergies/Adverse Reactions: Allergies Allergy/AdvReac Type Severity Reaction Status Date / Time prednisone Allergy unknown Verified 08/09/17 03:53 Review of Systems Respiratory: Positive for: Cough, Shortness of Breath Physical Exam - Physical Exam Appears: Positive for: Well, Non-toxic, No Acute Distress Head Exam: Positive for: ATRAUMATIC, NORMAL INSPECTION, NORMOCEPHALIC Skin: Positive for: Normal Color, Warm, DRY Eye Exam: Positive for: EOMI, Normal appearance, PERRL ENT: Positive for: Normal ENT Inspection Neck: Positive for: Normal, Painless ROM Cardiovascular/Chest: Positive for: Regular Rate, Rhythm Respiratory: Positive for: Rhonchi, Wheezing. Negative for: Respiratory Distress Gastrointestinal/Abdominal: Positive for: Normal Exam Neurologic/Psych: Positive for: Alert, director clinical operations II-XII, Oriented. Negative for: Motor/Sensory Deficits - Laboratory Results Result Diagrams: 11/17/17 03:33 11/17/17 03:33 - ECG O2 Sat by Pulse Oximetry: 97 Pulse Ox Interpretation: Normal - Critical Care Total Time (In Min): 240 Documented Critical Care: Time excludes all time spent performint seperately billable procedures Medical Decision Making Medical Decision MakinPM A/P: Patient with history of COPD and pysch disorder presenting with shortness of breath -Patient likely with COPD exacerbation, also possibly ACS/PNA/bronchitis -will provide treatments, check labs, EKG, CXR -likely will require admission 0000 Patient became increasingly labored in breathing, confused, was wandering the hallways and then collapsed. Patient was having agonal gasping and poor respiratory movement, patient then went into repiratory and cardiac arrest. Patient was immediatley intubated and high quality CPR initiated. 0200 Patient is starting to wake up, moving all extremeties, pupils reactive. Will place on propofol and levophed drip. Dr. Gillespie aware. 0400 Trop elevated but drawn s/p compressions, likely secondary to compressions, will repeat EKG [address] is broken, cannot obtain CTA. Will treat empirically for PE with lovenox. Disposition - Clinical Impression Clinical Impression: COPD (chronic obstructive pulmonary disease), Respiratory arrest - Patient ED Disposition Is Patient to be Admitted: Yes - Disposition Disposition Time: 02:00 Condition: CRITICAL Central Line Placement - Central Line Placement Indication: Emergent IV Access Central Line Placement: Right: Femoral The Area Was Thoroughly Prepared With: Betadine Procedure: Triple Lumen, Placed Using Standard Seldinger Technique, Sterile Dressing Placed Over Line, Procedure Tolerated Well Endotracheal Intubation - Endotracheal Intubation Intubated With ETT Size: 7 Blade Type Used: Curved Indication: Respiratory Failure Intubated: Orally Pre-Intubation Airway Assessment: Ventilated And Oxygenated, Does Not Appear To Have A Difficult Airway Post-Intubation Assessment: ETT Secured AT (cm): (24), Breath Sounds Equal Bilat , Placement Confirmed Via CXR, Color Change W/End Tidal CO2 Detector, Oxygen Saturation: (100)
--- NOTE | 2017-11-17 01:37 | CP.PCM.CON ---
History of Present Illness - History of Present Illness History of Present Illness: Attending: Kamari Ro MD Reason for Consult: Critical care management Chief Complaint: SOB/Cardiac Arrest The patient was seen and examined in the ED HPI: The hx was obtained from review of the medical records and discussion with the ED physician. This is a 57 years old female with hx of Anxiety, Depression, Gastritis, and Asthma. She was at the ED on 10/15/17 with SOB, treated and discharged. She returned on 10/16/17 referring that the Shortness of Breath initially improved but later became worse and associated with rib pain and a barking cough. She used her Albuterol pump without relief. No fever, headaches nor dizziness. In the ED she was treated with Duoneb with little relief. She became increasingly labored breathing and while wondering down the hallway, she collapsed with gasping respiration and went into respiratory and cardiac arrest. Code Blue was called in the ED and CPR was begun. She received two doses of Epinephrine before return of Pulse. She was intubated by the ED physician. PMH: Anxiety, Arthritis, Asthma, Back Problems (c-spine, l-spine herniated discs), Depression, Gastritis, HTN, Schizophrenia PSH: Tubal ligation; Hysterectomy; Bilateral cataract surgery SH: Live with family, No illegal drug use; Light smoker; occasional Alcohol FH: States: Unknown Family Hx Allergies: Prednisone Mediation: Reviewed Review of Systems - Review of Systems Systems not reviewed;Unavailable: Respiratory Distress Review of Systems: review of systems limited because the patient is intubated and sedated. - Constitutional Constitutional: absent: Fever - Respiratory Respiratory: Cough, Dyspnea - Gastrointestinal Gastrointestinal: absent: Vomiting Past Patient History - Infectious Disease Hx of Infectious Diseases: None - Past Medical History & Family History Past Medical History?: Yes - Past Social History Smoking Status: Light Smoker < 10 Cigarettes Daily Chewing Tobacco Use: No Cigar Use: No Alcohol: Occasional Home Situation {Lives}: With Family - CARDIAC Hx Hypertension: Yes - PULMONARY Hx Asthma: Yes - NEUROLOGICAL Hx Neurological Disorder: No - HEENT Hx HEENT Problems: Yes Hx Cataracts: Yes - RENAL Hx Chronic Kidney Disease: No - ENDOCRINE/METABOLIC Hx Endocrine Disorders: No - HEMATOLOGICAL/ONCOLOGICAL Hx Blood Disorders: No Hx Human Immunodeficiency Virus (HIV): No - INTEGUMENTARY Hx Dermatological Problems: No - MUSCULOSKELETAL/RHEUMATOLOGICAL Hx Arthritis: Yes - GASTROINTESTINAL Hx Gastritis: Yes - GENITOURINARY/GYNECOLOGICAL Hx Genitourinary Disorders: No - PSYCHIATRIC Hx Anxiety: Yes Hx Depression: Yes Hx Schizophrenia: Yes Hx Substance Use: No - SURGICAL HISTORY Hx Surgeries: Yes Hx Cataract Extraction: Yes (bilateral) Hx Hysterectomy: Yes Hx Tubal Ligation: Yes - ANESTHESIA Hx Anesthesia: Yes Hx Anesthesia Reactions: No Meds Allergies/Adverse Reactions: Allergies Allergy/AdvReac Type Severity Reaction Status Date / Time prednisone Allergy unknown Verified 08/09/17 03:53 - Medications Medications: Current Medications Propofol (Diprivan) 1,000 mg in 100 mls @ 2.245 mls/hr IV .Q24H PENELOPE; 5 MCG/KG/ MIN PRN Reason: Protocol Stop: 11/18/17 01:13 Magnesium Sulfate (Magnesium Sulfate 2 Gm/50 Ml Water) 2 gm in 50 mls @ 50 mls/ hr IVPB ONCE ONE PRN Reason: 2 GM/HR Stop: 11/17/17 02:11 Fentanyl Citrate 2,500 mcg/ (Dextrose) 250 mls @ 7.48 mls/hr IV .Q24H PENELOPE; 1 MCG/KG/HR PRN Reason: Protocol Physical Exam - Constitutional Additional comments: Intubated - Head Exam Head Exam: ATRAUMATIC, NORMAL INSPECTION, NORMOCEPHALIC - Eye Exam Eye Exam: absent: Periorbital swelling, Scleral icterus Additional comments: Pupils reacting sluggish to light - ENT Exam ENT Exam: Mucous Membranes Moist, Normal External Ear Exam - Neck Exam Neck exam: Positive for: Full Rom, Normal Inspection. Negative for: Lymphadenopathy, Thyromegaly - Respiratory Exam Respiratory Exam: absent: Rales Additional comments: Good air entry bilateral , diffuse rhonchi - Cardiovascular Exam Cardiovascular Exam: Tachycardia, REGULAR RHYTHM, +S1, +S2 - GI/Abdominal Exam Additional comments: Obese, Doft, decreased bowel sounds, no mass nor viceromegaleas. - Rectal Exam Rectal Exam: Deferred - Extremities Exam Extremities exam: Positive for: normal inspection. Negative for: pedal edema - Back Exam Back exam: NORMAL INSPECTION. absent: CVA tenderness (L), CVA tenderness (R) - Neurological Exam Additional comments: Intubated, sedated, no facial droop, motor tone conserved, DTR conserved - Psychiatric Exam Additional comments: Sedated, intubated - Skin Skin Exam: Dry, Intact, Normal Color, Warm Results - Vital Signs Recent Vital Signs: Last Vital Signs Temp 98.2 F 11/16/17 23:01 Pulse 94 H 11/16/17 23:01 Resp 18 11/16/17 23:01 BP 97/63 L 11/16/17 23:01 Pulse Ox 97 11/16/17 23:01 - Labs Result Diagrams: 11/17/17 03:33 11/17/17 03:33 Labs: Laboratory Results - last 24 hr 11/16/17 11/16/17 11/16/17 23:53 23:53 23:53 WBC 10.7 D RBC 3.60 L Hgb 12.2 Hct 35.3 MCV 98.1 MCH 33.9 H MCHC 34.5 RDW 12.0 Plt Count 211 MPV 7.1 L Neut % (Auto) 67.5 Lymph % (Auto) 18.9 L [place] % (Auto) 11.9 H Eos % (Auto) 1.1 Baso % (Auto) 0.6 Neut # (Auto) 7.3 H Lymph # (Auto) 2.0 [place] # (Auto) 1.3 H Eos # (Auto) 0.1 Baso # (Auto) 0.1 Sodium 141 Potassium 3.6 Chloride 101 Carbon Dioxide 20 L Anion Gap 24 H BUN 12 Creatinine 0.6 L Est GFR ( Amer) > 60 Est GFR (Non-Af Amer) > 60 Random Glucose 94 Calcium 9.4 Influenza Typ A,B (EIA) Negative for flu a/b - EKG Data EKG comments: 1st EKG before CODE NSR 94/min - Imaging and Cardiology Chest x-ray Status: Image reviewed by me Additional comment: ET above gómez No infiltrate Assessment & Plan - Assessment and Plan (Free Text) Assessment: #. Cardiopulmonary arrest #. Status Asthmaticus #. Lactic Acidosis #. Leukocytosis #. Hypokalemia Plan: 57 years old female with hx of Anxiety, Depression, Gastritis, and Asthma. She was at the ED on 10/15/17 with SOB, treated and discharged. She returned on referring worsening SOB. In the ED she was treated with Duoneb with little relief. While wondering down the hallway, she collapsed with gasping respiration and went into respiratory and cardiac arrest. Shana Wright was called in the ED and CPR was begun. She received two doses of Epinephrine before return of Pulse. She was intubated by the ED physician. #. Cardiopulmonary arrest most likely secondary to respiratory fatigue and arrest with return of Spontaneous Circulation after the second Epinephrine the patient is intubated. -Propofol for sedation - Levophed for hypotension - Consult cardiology Dr Abraham #. Status Asthmaticus with COPD? - Consult Dr Valentino Pulmonary - Duoneb [id number] and q2hrs PRN - No Steroids as patient has allergy to Prednisone - #. Lactic Acidosis secondary to the hypoperfusion during the Cardiac arrest - Sodium Bicarbonate - IV fluids - follow Lactate and Blood Gas #. Leukocytosis probably reactive as the initial count was within normal limits. r/o early Pneumonia - Blood Culture - Zosyn - levaquin - Procalcitonin #. Hypokalemia - IV fluids with Potassium - follow electrolytes. #. Stress ulcer prophylaxis with Pepcid #. DVT with SCD until INR and PTT are known #. Code Status: Full - Date & Time Date: 11/17/17 Time: 01:37
[2017-11-17 03:20] LABS: VENOUS BLOOD GAS BASE EXCESS -19.5 mmol/L (0.0-2.0); VENOUS BLOOD GAS PCO2 49 mmHg (40-60); VENOUS BLOOD GAS PO2 58 mm/Hg (30-55); VENOUS BLOOD PH 6.99 (7.32-7.43)
[2017-11-17 03:36] LABS: BASO % 0.1 % (0.0-2.0); EOS # 0.1 K/uL (0.0-0.7); EOS % 0.4 % (0.0-4.0); LYMPH # 4.3 K/uL (1.0-4.3); LYMPH % 17.9 % (20.0-40.0); MEAN CELL VOLUME 102.4 fl (81.0-99.0); MEAN CORPUSCULAR HEMOGLOBIN 33.5 pg (27.0-31.0); MEAN CORPUSCULAR HGB CONC 32.7 g/dL (33.0-37.0); MEAN PLATELET VOLUME 7.4 fl (7.2-11.7); MONO # 1.1 K/uL (0.0-0.8); MONO % 4.7 % (0.0-10.0); NEUT # 18.2 K/uL (1.8-7.0); NEUT % 76.9 % (50.0-75.0); NRBC % 0.2 % (0.0-0.0); RBC 3.88 Mil/uL (3.80-5.20); RED CELL DISTRIBUTION WIDTH 12.6 % (11.5-14.5); WHITE BLOOD COUNT 23.7 K/uL (4.8-10.8)
[2017-11-17 03:42] LABS: VENOUS BLOOD GAS BASE EXCESS -20.8 mmol/L (0.0-2.0); VENOUS BLOOD GAS PCO2 40 mmHg (40-60); VENOUS BLOOD GAS PO2 157 mm/Hg (30-55)
[2017-11-17 03:49] LABS: BLOOD UREA NITROGEN 11 mg/dl (7-17); GFR AFRICAN-AMERICAN > 60; GFR NON-AFRICAN AMERICAN 57
[2017-11-17] MEDS ORDERED: Sodium Bicarbonate 7.5% (0.9 MEQ/ML) 50ML INJ IV ONE ×2 (04:17→09:00)
[2017-11-17] MEDS ORDERED: Iodixanol 320 MG/ML 100 ML BOTTLE IV ONE (04:25)
[2017-11-17] MEDS ORDERED: Potassium Chloride 20 MEQ in Sodium Chloride 0.45% 1,000 ML IV SCH (04:30)
[2017-11-17] MEDS ORDERED: Cefepime 2 GM in Sodium Chloride 0.9% 100 ML IVPB STA (04:31)
[2017-11-17] MEDS ORDERED: Potassium Ch 20mEq in D5-1/2NS 1,000 ML IV SCH (05:00)
[2017-11-17] MEDS ORDERED: Enoxaparin 80 mg Syringe SC STA (05:38)
[2017-11-17 05:40] LABS: INR 1.3 (0.9-1.2); PARTIAL THROMBOPLASTIN TIME 36.5 Seconds (25.6-37.1); PROTHROMBIN TIME 14.6 Seconds (9.8-13.1)
[2017-11-17] MEDS ORDERED: Potassium Chloride 20 mEq 100 ML ONE (05:55)
[2017-11-17] MEDS ORDERED: levoFLOXacin 750 mg in D5W 150 ML BAG IVPB SCH (06:00)
[2017-11-17] MEDS: Albuterol-Ipratrop 3 mg / 0.5 (3 ml) UD INH SCH ×4 (07:42→19:00)
--- NOTE | 2017-11-17 08:17 | PCM.PROC ---
Procedures Attestation:: I certify that I have explained the specified Operation(s) or Procedure(s), risks, benefits and reasonable alternatives to the Patient and/or other person responsible. The opportunity was given to ask questions and all questions answered - Extubation Clinical Parameters: Spontaneous Respirations Weaning Criteria Met: No General Weaning Approaches: Spontaneous breathing trials and use of T-Piece Patient Condition: Patient has been successfully extubated and assessed Oxygen Therapy: O2 via Venti Mask Patient Tolerated Procedure: Well Additional Comments: Extreme agitation noted upon arrival to ICU, suspect extravasation of sedative meds into Left thigh circa left femoral vein TLC ( noted not to be sutured in place). Since patient is awake, very agitated despite Ativan 2 mg IVP- (if it did go in intravenously), and staurating well at lower FiO2 of 50% and agitatraion is not related to hypoxia, decision made to extubate at this time to prevent further injury to patient. ETT removed without complications, no immediate stridor noted, placed on 50% VM with SPO2 98%. No wheezing noted and states she is agitated due to back pain. Additional sedation with Haldol 5mg IVP given ( IV routs used after ICU nurse obtained satisfactory peripheral IV access, and Left Femoral TLC removed). After giving Morphine, patient became calm.
[2017-11-17] MEDS: Potassium Ch 20mEq in D5-1/2NS 1,000 ML IV SCH (08:43)
[2017-11-17] MEDS ORDERED: DOPamine 400mg/250ml D5W IV ONE (09:00)
--- NOTE | 2017-11-17 09:14 | RAD ---
HISTORY: post extubation COMPARISON: 11/17/2017 FINDINGS: LUNGS: The lungs are well inflated. The right lung is clear. There is airspace disease in the left lower lobe. PLEURA: Small left pleural effusion, no pneumothorax apparent. CARDIOVASCULAR: Normal. OSSEOUS STRUCTURES: There are apparent deformities in the left lateral ribs. VISUALIZED UPPER ABDOMEN: Normal. OTHER FINDINGS: None. IMPRESSION: Status post extubation, suspect left lower lobe atelectasis/pneumonia and small left pleural effusion. Apparent deformities in the left lateral ribs which may be projectional, however if there is a history of trauma dedicated rib radiographs are recommended to exclude fracture.
--- NOTE | 2017-11-17 09:17 | RAD ---
HISTORY: s/p intubation and NGT COMPARISON: 11/15/2017. FINDINGS: Endotracheal tube terminates 2.5 cm proximal to the gómez. The nasogastric tube terminates in the stomach. LUNGS: The lungs are well inflated and clear. PLEURA: No significant pleural effusion identified, no pneumothorax apparent. CARDIOVASCULAR: Normal. OSSEOUS STRUCTURES: No significant abnormalities. VISUALIZED UPPER ABDOMEN: Normal. OTHER FINDINGS: None. IMPRESSION: Endotracheal tube terminates 2.5 cm proximal to the gómez. Nasogastric tube terminates in the stomach. No acute findings.
[2017-11-17] MEDS: Albuterol 0.083% Inhal Sol (2.5 mg/3 mL) UD INH PRN ×2 (09:59→20:58)
[2017-11-17] MEDS ORDERED: HYDROmorphone 0.5 mg/0.5 ml ISec ONE (10:03)
[2017-11-17 10:05] LABS: ALB/GLOB RATIO 1.1 (1.0-2.1); ALBUMIN 2.7 g/dL (3.5-5.0); CALCIUM 7.2 mg/dL (8.4-10.2)
[2017-11-17] MEDS: HYDROmorphone 0.5 mg/0.5 ml ISec IVP PRN ×2 (10:10→15:57)
--- NOTE | 2017-11-17 15:02 | CP.PCM.HP ---
History of Present Illness - History of Present Illness History of Present Illness: CC: Worsening SOB and Chest Pain History of Present Illness: A 57 years old female with hx of Anxiety, Depression, Gastritis, and Asthma. She was at the ED on 10/15/17 with SOB, treated and discharged. She returned on referring that the Shortness of Breath initially improved but later became worse and associated with rib pain and a barking cough. She used her Albuterol pump without relief. No fever, headaches nor dizziness. In the ED she was treated with Duoneb with little relief. She became increasingly labored breathing and while wondering down the hallway, she collapsed with gasping respiration and went into respiratory and cardiac arrest. Code Blue was called in the ED and CPR was begun. She received two doses of Epinephrine before return of Pulse. She was intubated by the ED physician. Present on Admission - Present on Admission Any Indicators Present on Admission: No Review of Systems - Review of Systems All systems: reviewed and no additional remarkable complaints except Past Patient History - Infectious Disease Hx of Infectious Diseases: None - Past Medical History & Family History Past Medical History?: Yes Past Family History: Reviewed and not pertinent - Past Social History Smoking Status: Heavy Smoker > 10 Cigarettes Daily Alcohol: None Drugs: Denies - CARDIAC Hx Cardiac Disorders: Yes Hx Hypertension: Yes - PULMONARY Hx Respiratory Disorders: Yes Hx Asthma: Yes - NEUROLOGICAL Hx Neurological Disorder: No - HEENT Hx HEENT Problems: Yes Hx Cataracts: Yes - RENAL Hx Chronic Kidney Disease: No - ENDOCRINE/METABOLIC Hx Endocrine Disorders: No - HEMATOLOGICAL/ONCOLOGICAL Hx Blood Disorders: Yes Hx Human Immunodeficiency Virus (HIV): No - INTEGUMENTARY Hx Dermatological Problems: No - MUSCULOSKELETAL/RHEUMATOLOGICAL Hx Musculoskeletal Disorders: Yes Hx Arthritis: Yes Hx Back Pain: Yes Hx Falls: Yes Hx Herniated Disk: Yes - GASTROINTESTINAL Hx Gastrointestinal Disorders: Yes Hx Gastritis: Yes - GENITOURINARY/GYNECOLOGICAL Hx Genitourinary Disorders: No - PSYCHIATRIC Hx Psychophysiologic Disorder: Yes Hx Anxiety: Yes Hx Depression: Yes Hx Schizophrenia: Yes Hx Substance Use: Yes (quit > 20 years ago) - SURGICAL HISTORY Hx Surgeries: Yes Hx Cataract Extraction: Yes (bilateral) Hx Hysterectomy: Yes Hx Tubal Ligation: Yes - ANESTHESIA Hx Anesthesia: Yes Hx Anesthesia Reactions: No Meds Home Medications: Home Medication List Medication Instructions Recorded Confirmed Type Albuterol Sulfate [Ventolin Hfa] 0.09 mg IH PRN PRN #1 ml 11/17/17 Rx Allergies/Adverse Reactions: Allergies Allergy/AdvReac Type Severity Reaction Status Date / Time prednisone Allergy unknown Verified 08/09/17 03:53 Physical Exam - Constitutional Appears: In Acute Distress - Head Exam Head Exam: ATRAUMATIC, NORMAL INSPECTION, NORMOCEPHALIC - Eye Exam Eye Exam: EOMI, Normal appearance, PERRL Pupil Exam: NORMAL ACCOMODATION, PERRL - ENT Exam ENT Exam: Mucous Membranes Moist, Normal Exam - Neck Exam Neck exam: Positive for: Normal Inspection - Respiratory Exam Respiratory Exam: Decreased Breath Sounds, Prolonged Expiratory Phase, Wheezes, Respiratory Distress Additional comments: Intubated and MV - Cardiovascular Exam Cardiovascular Exam: REGULAR RHYTHM, +S1, +S2 - GI/Abdominal Exam GI & Abdominal Exam: Normal Bowel Sounds, Soft. absent: Tenderness - Extremities Exam Extremities exam: Positive for: normal inspection - Back Exam Back exam: NORMAL INSPECTION - Neurological Exam Neurological exam: Reflexes Normal Additional comments: Intubated and sedated. - Skin Skin Exam: Dry, Intact, Normal Color, Warm Results - Vital Signs Recent Vital Signs: Last Vital Signs Temp 97.7 F 11/17/17 12:00 Pulse 83 11/17/17 12:00 Resp 16 11/17/17 12:00 BP 93/60 L 11/17/17 12:00 Pulse Ox 100 11/17/17 12:00 - Labs Result Diagrams: 12/01/17 04:27 12/01/17 04:27 Labs: Laboratory Results - last 24 hr 11/16/17 11/16/17 11/16/17 23:53 23:53 23:53 WBC 10.7 D RBC 3.60 L Hgb 12.2 Hct 35.3 MCV 98.1 MCH 33.9 H MCHC 34.5 RDW 12.0 Plt Count 211 MPV 7.1 L Neut % (Auto) 67.5 Lymph % (Auto) 18.9 L [place] % (Auto) 11.9 H Eos % (Auto) 1.1 Baso % (Auto) 0.6 Neut # (Auto) 7.3 H Lymph # (Auto) 2.0 [place] # (Auto) 1.3 H Eos # (Auto) 0.1 Baso # (Auto) 0.1 PT INR APTT D-Dimer, Quantitative pO2 VBG pH VBG pCO2 VBG HCO3 VBG Total CO2 VBG O2 Sat (Calc) VBG Base Excess VBG Potassium Glucose Lactate FiO2 PEEP Crit Value Called To Crit Value Called By Crit Value Read Back Blood Gas Notified Time Sodium 141 Potassium 3.6 Chloride 101 Carbon Dioxide 20 L Anion Gap 24 H BUN 12 Creatinine 0.6 L Est GFR ( Amer) > 60 Est GFR (Non-Af Amer) > 60 Random Glucose 94 Calcium 9.4 Total Bilirubin AST ALT Alkaline Phosphatase Troponin I Total Protein Albumin Globulin Albumin/Globulin Ratio Venous Blood Potassium Influenza Typ A,B (EIA) Negative for flu a/b Blood Type Blood Type Confirm Antibody Screen BBK History Checked 11/17/17 11/17/17 11/17/17 02:45 03:15 03:30 WBC RBC Hgb Hct MCV MCH MCHC RDW Plt Count MPV Neut % (Auto) Lymph % (Auto) [place] % (Auto) Eos % (Auto) Baso % (Auto) Neut # (Auto) Lymph # (Auto) [place] # (Auto) Eos # (Auto) Baso # (Auto) PT INR APTT D-Dimer, Quantitative pO2 157 H 58 H VBG pH 7.00 L* 6.99 L* VBG pCO2 40 49 VBG HCO3 8.7 9.1 VBG Total CO2 11.1 L 13.3 L VBG O2 Sat (Calc) 100.4 H 79.3 H VBG Base Excess -20.8 L -19.5 L VBG Potassium 3.2 L 3.7 Glucose 112 H 104 Lactate 10.0 H* 10.0 H* FiO2 100.0 100.0 PEEP 5 5 Crit Value Called To Dr valeriano calabrese Crit Value Called By Deejay Villalba Crit Value Read Back Y Y Blood Gas Notified Time 332 320 Sodium 140.0 140.0 Potassium Chloride 109.0 H 108.0 H Carbon Dioxide Anion Gap BUN Creatinine Est GFR ( Amer) Est GFR (Non-Af Amer) Random Glucose Calcium Total Bilirubin AST ALT Alkaline Phosphatase Troponin I Total Protein Albumin Globulin Albumin/Globulin Ratio Venous Blood Potassium 3.2 L 3.7 Influenza Typ A,B (EIA) Blood Type A POSITIVE Blood Type Confirm Antibody Screen Negative BBK History Checked No verified bt 11/17/17 11/17/17 11/17/17 03:33 03:33 03:33 WBC 23.7 H D RBC 3.88 Hgb 13.0 Hct 39.7 MCV 102.4 H D MCH 33.5 H MCHC 32.7 L RDW 12.6 Plt Count 316 D MPV 7.4 Neut % (Auto) 76.9 H Lymph % (Auto) 17.9 L [place] % (Auto) 4.7 Eos % (Auto) 0.4 Baso % (Auto) 0.1 Neut # (Auto) 18.2 H Lymph # (Auto) 4.3 [place] # (Auto) 1.1 H Eos # (Auto) 0.1 Baso # (Auto) 0.0 PT 14.6 H INR 1.3 H APTT 36.5 D-Dimer, Quantitative 44279 H pO2 VBG pH VBG pCO2 VBG HCO3 VBG Total CO2 VBG O2 Sat (Calc) VBG Base Excess VBG Potassium Glucose Lactate FiO2 PEEP Crit Value Called To Crit Value Called By Crit Value Read Back Blood Gas Notified Time Sodium 140 Potassium 3.4 L Chloride 109 H Carbon Dioxide 10 L* D Anion Gap 24 H BUN 11 Creatinine 1.0 Est GFR ( Amer) > 60 Est GFR (Non-Af Amer) 57 Random Glucose 109 H Calcium 7.0 L Total Bilirubin AST ALT Alkaline Phosphatase Troponin I 0.3550 H* Total Protein Albumin Globulin Albumin/Globulin Ratio Venous Blood Potassium Influenza Typ A,B (EIA) Blood Type Blood Type Confirm Antibody Screen BBK History Checked 11/17/17 11/17/17 04:34 09:35 WBC RBC Hgb Hct MCV MCH MCHC RDW Plt Count MPV Neut % (Auto) Lymph % (Auto) [place] % (Auto) Eos % (Auto) Baso % (Auto) Neut # (Auto) Lymph # (Auto) [place] # (Auto) Eos # (Auto) Baso # (Auto) PT INR APTT D-Dimer, Quantitative pO2 VBG pH VBG pCO2 VBG HCO3 VBG Total CO2 VBG O2 Sat (Calc) VBG Base Excess VBG Potassium Glucose Lactate FiO2 PEEP Crit Value Called To Crit Value Called By Crit Value Read Back Blood Gas Notified Time Sodium 144 Potassium 3.6 Chloride 108 H Carbon Dioxide 12 L Anion Gap 28 H BUN 19 H Creatinine 1.3 H Est GFR ( Amer) 51 Est GFR (Non-Af Amer) 42 Random Glucose 278 H Calcium 7.2 L Total Bilirubin 0.7 AST 474 H ALT 143 H D Alkaline Phosphatase 76 Troponin I Total Protein 5.2 L Albumin 2.7 L D Globulin 2.5 Albumin/Globulin Ratio 1.1 Venous Blood Potassium Influenza Typ A,B (EIA) Blood Type Blood Type Confirm A POSITIVE Antibody Screen BBK History Checked - Imaging and Cardiology Chest x-ray Status: Report reviewed by me Additional comment: IMPRESSION: Endotracheal tube terminates 2.5 cm proximal to the gómez. Nasogastric tube terminates in the stomach. No acute findings. CT scan - chest Status: Report reviewed by me Additional comment: CHEST W/O CONTRAST: Exam Date: 11/17/17 IMPRESSION: 1. Bilateral acute displaced rib fractures as described. Correlation with clinical data is recommended if flail chest is clinically suspected. No significant pneumothorax is identified. There is a right apical focal lucency seen on image 16 series 3 may represent bullous disease versus tiny loculated pneumothorax. 2. Nonspecific colonic distention with air-fluid level. These findings are incompletely characterized on this examination. Correlation with clinical data is recommended if nonspecific colitis as clinically suspected. 3. Mild parabronchial cuffing, which can be seen with bronchitis, reactive airway disease or viral pneumonitis versus mild failure. Bibasilar nonspecific infiltrates and consolidation are present, consistent with atelectasis or pneumonia versus edema in a patient with COPD.Correlation with patient's clinical hydration status versus third spacing is recommended. Assessment & Plan (1) Respiratory arrest Assessment and Plan: Cardiac Arrest S/P Intubation on Mechanical Ventilation Multiple Displaced Rib Fractures with Possible Lung Contusions IV Pain Medication Sedation IV antibiotics CArdiology, Pulmonary and CT Surgery Consult Status: Acute Priority: High (2) Schizoaffective disorder Status: Chronic Priority: Medium (3) Chest wall pain Assessment and Plan: After CPR Control Pain Status: Acute Priority: High - Assessment and Plan (Free Text) Plan: D/w her children in detail about the POC, and. Total Time spent: 70 min
[2017-11-17] MEDS ORDERED: methylPREDNISolone 40 MG in Sodium Chloride 0.9% 50 ML IVPB SCH (17:00)
[2017-11-17] MEDS ORDERED: MethylPREDNISolone 40 mg Vial IVP SCH (17:00)
[2017-11-17] MEDS: Enoxaparin 80 mg Syringe SC SCH (22:01)
--- NOTE | 2017-11-17 22:08 | CP.PCM.CON ---
History of Present Illness - History of Present Illness History of Present Illness: Patient seen, chart examined; full consult to follow. ARF s/p CA s/p Code. Short downtime. COPD/B. Asthma Cont present treatment as per ICU. Will f/u. Past Patient History - Infectious Disease Hx of Infectious Diseases: None - Past Medical History & Family History Past Medical History?: Yes - Past Social History Smoking Status: Heavy Smoker > 10 Cigarettes Daily - CARDIAC Hx Cardiac Disorders: Yes Hx Hypertension: Yes - PULMONARY Hx Respiratory Disorders: Yes Hx Asthma: Yes - NEUROLOGICAL Hx Neurological Disorder: No - HEENT Hx HEENT Problems: Yes Hx Cataracts: Yes - RENAL Hx Chronic Kidney Disease: No - ENDOCRINE/METABOLIC Hx Endocrine Disorders: No - HEMATOLOGICAL/ONCOLOGICAL Hx Blood Disorders: Yes Hx Human Immunodeficiency Virus (HIV): No - INTEGUMENTARY Hx Dermatological Problems: No - MUSCULOSKELETAL/RHEUMATOLOGICAL Hx Musculoskeletal Disorders: Yes Hx Arthritis: Yes Hx Back Pain: Yes Hx Falls: Yes Hx Herniated Disk: Yes - GASTROINTESTINAL Hx Gastrointestinal Disorders: Yes Hx Gastritis: Yes - GENITOURINARY/GYNECOLOGICAL Hx Genitourinary Disorders: No - PSYCHIATRIC Hx Psychophysiologic Disorder: Yes Hx Anxiety: Yes Hx Depression: Yes Hx Schizophrenia: Yes Hx Substance Use: Yes (quit > 20 years ago) - SURGICAL HISTORY Hx Surgeries: Yes Hx Cataract Extraction: Yes (bilateral) Hx Hysterectomy: Yes Hx Tubal Ligation: Yes - ANESTHESIA Hx Anesthesia: Yes Hx Anesthesia Reactions: No Meds Home Medications: Home Medication List Medication Instructions Recorded Confirmed Type Albuterol Sulfate [Ventolin Hfa] 0.09 mg IH PRN PRN #1 ml 11/17/17 Rx Allergies/Adverse Reactions: Allergies Allergy/AdvReac Type Severity Reaction Status Date / Time prednisone Allergy unknown Verified 08/09/17 03:53 - Medications Medications: Current Medications Albuterol Sulfate (Albuterol 0.083% Inhal Han[place] (2.5 Mg/3 Ml) Ud) 2.5 mg INH RQ2 PRN PRN Reason: Shortness of Breath Last Admin: 11/17/17 20:58 Dose: 2.5 mg Albuterol/Ipratropium (Duoneb 3 Mg/0.5 Mg (3 Ml) Ud) 3 ml INH RQ4 [facility] Last Admin: 11/17/17 19:00 Dose: 3 ml Enoxaparin Sodium (Lovenox) 70 mg SC Q12 [facility] PRN Reason: Protocol Last Admin: 11/17/17 22:01 Dose: 70 mg Famotidine (Pepcid) 20 mg IVP DAILY [facility] Last Admin: 11/17/17 10:15 Dose: 20 mg Hydromorphone HCl (Dilaudid) 1 mg IVP Q4 PRN PRN Reason: Pain, moderate (4-7) Last Admin: 11/17/17 15:57 Dose: 1 mg Piperacillin Sod/Tazobactam (Sod 2.25 gm/ Sodium Chloride) 100 mls @ 100 mls/ hr IVPB Q6 [facility] PRN Reason: Protocol Last Admin: 11/17/17 22:02 Dose: 100 mls/hr Levofloxacin/Dextrose (Levaquin 750mg) 750 mg in 150 mls @ 100 mls/hr IVPB DAILY@0600 [facility] Potassium Chloride/Dextrose/Sod Cl (Potassium Chl 20 Meq In D5-1/2ns) 1,000 mls @ 125 mls/hr IV .Q8H [facility] Stop: 11/18/17 08:22 Last Admin: 11/17/17 08:43 Dose: 125 mls/hr Lorazepam (Ativan) 2 mg IVP Q4 PRN PRN Reason: Agitation Last Admin: 11/17/17 17:21 Dose: 2 mg Methylprednisolone (Solu-Medrol) 80 mg IV Q8 [facility] Morphine Sulfate (Morphine) 4 mg IVP Q4 PRN PRN Reason: Agitation Last Admin: 11/17/17 13:23 Dose: 4 mg Results - Vital Signs Recent Vital Signs: Last Vital Signs Temp 99.0 F 11/17/17 16:00 Pulse 95 H 11/17/17 18:00 Resp 12 11/17/17 18:00 BP 94/55 L 11/17/17 18:00 Pulse Ox 98 11/17/17 18:00 - Labs Result Diagrams: 11/17/17 03:33 11/17/17 09:35 Labs: Laboratory Results - last 24 hr 11/16/17 11/16/17 11/16/17 23:53 23:53 23:53 WBC 10.7 D RBC 3.60 L Hgb 12.2 Hct 35.3 MCV 98.1 MCH 33.9 H MCHC 34.5 RDW 12.0 Plt Count 211 MPV 7.1 L Neut % (Auto) 67.5 Lymph % (Auto) 18.9 L [place] % (Auto) 11.9 H Eos % (Auto) 1.1 Baso % (Auto) 0.6 Neut # (Auto) 7.3 H Lymph # (Auto) 2.0 [place] # (Auto) 1.3 H Eos # (Auto) 0.1 Baso # (Auto) 0.1 PT INR APTT D-Dimer, Quantitative pO2 VBG pH VBG pCO2 VBG HCO3 VBG Total CO2 VBG O2 Sat (Calc) VBG Base Excess VBG Potassium Glucose Lactate FiO2 PEEP Crit Value Called To Crit Value Called By Crit Value Read Back Blood Gas Notified Time Sodium 141 Potassium 3.6 Chloride 101 Carbon Dioxide 20 L Anion Gap 24 H BUN 12 Creatinine 0.6 L Est GFR ( Amer) > 60 Est GFR (Non-Af Amer) > 60 Random Glucose 94 Lactic Acid Calcium 9.4 Total Bilirubin AST ALT Alkaline Phosphatase Troponin I Total Protein Albumin Globulin Albumin/Globulin Ratio Procalcitonin Venous Blood Potassium Influenza Typ A,B (EIA) Negative for flu a/b Blood Type Blood Type Confirm Antibody Screen BBK History Checked 11/17/17 11/17/17 11/17/17 02:45 03:15 03:30 WBC RBC Hgb Hct MCV MCH MCHC RDW Plt Count MPV Neut % (Auto) Lymph % (Auto) [place] % (Auto) Eos % (Auto) Baso % (Auto) Neut # (Auto) Lymph # (Auto) [place] # (Auto) Eos # (Auto) Baso # (Auto) PT INR APTT D-Dimer, Quantitative pO2 157 H 58 H VBG pH 7.00 L* 6.99 L* VBG pCO2 40 49 VBG HCO3 8.7 9.1 VBG Total CO2 11.1 L 13.3 L VBG O2 Sat (Calc) 100.4 H 79.3 H VBG Base Excess -20.8 L -19.5 L VBG Potassium 3.2 L 3.7 Glucose 112 H 104 Lactate 10.0 H* 10.0 H* FiO2 100.0 100.0 PEEP 5 5 Crit Value Called To Dr valeriano calabrese Crit Value Called By Deejay Villalba Crit Value Read Back Y Y Blood Gas Notified Time 332 320 Sodium 140.0 140.0 Potassium Chloride 109.0 H 108.0 H Carbon Dioxide Anion Gap BUN Creatinine Est GFR ( Amer) Est GFR (Non-Af Amer) Random Glucose Lactic Acid Calcium Total Bilirubin AST ALT Alkaline Phosphatase Troponin I Total Protein Albumin Globulin Albumin/Globulin Ratio Procalcitonin Venous Blood Potassium 3.2 L 3.7 Influenza Typ A,B (EIA) Blood Type A POSITIVE Blood Type Confirm Antibody Screen Negative BBK History Checked No verified bt 11/17/17 11/17/17 11/17/17 03:33 03:33 03:33 WBC 23.7 H D RBC 3.88 Hgb 13.0 Hct 39.7 MCV 102.4 H D MCH 33.5 H MCHC 32.7 L RDW 12.6 Plt Count 316 D MPV 7.4 Neut % (Auto) 76.9 H Lymph % (Auto) 17.9 L [place] % (Auto) 4.7 Eos % (Auto) 0.4 Baso % (Auto) 0.1 Neut # (Auto) 18.2 H Lymph # (Auto) 4.3 [place] # (Auto) 1.1 H Eos # (Auto) 0.1 Baso # (Auto) 0.0 PT 14.6 H INR 1.3 H APTT 36.5 D-Dimer, Quantitative 80922 H pO2 VBG pH VBG pCO2 VBG HCO3 VBG Total CO2 VBG O2 Sat (Calc) VBG Base Excess VBG Potassium Glucose Lactate FiO2 PEEP Crit Value Called To Crit Value Called By Crit Value Read Back Blood Gas Notified Time Sodium 140 Potassium 3.4 L Chloride 109 H Carbon Dioxide 10 L* D Anion Gap 24 H BUN 11 Creatinine 1.0 Est GFR ( Amer) > 60 Est GFR (Non-Af Amer) 57 Random Glucose 109 H Lactic Acid Calcium 7.0 L Total Bilirubin AST ALT Alkaline Phosphatase Troponin I 0.3550 H* Total Protein Albumin Globulin Albumin/Globulin Ratio Procalcitonin Venous Blood Potassium Influenza Typ A,B (EIA) Blood Type Blood Type Confirm Antibody Screen BBK History Checked 11/17/17 11/17/17 11/17/17 04:34 08:35 09:35 WBC RBC Hgb Hct MCV MCH MCHC RDW Plt Count MPV Neut % (Auto) Lymph % (Auto) [place] % (Auto) Eos % (Auto) Baso % (Auto) Neut # (Auto) Lymph # (Auto) [place] # (Auto) Eos # (Auto) Baso # (Auto) PT INR APTT D-Dimer, Quantitative pO2 VBG pH VBG pCO2 VBG HCO3 VBG Total CO2 VBG O2 Sat (Calc) VBG Base Excess VBG Potassium Glucose Lactate FiO2 PEEP Crit Value Called To Crit Value Called By Crit Value Read Back Blood Gas Notified Time Sodium 144 Potassium 3.6 Chloride 108 H Carbon Dioxide 12 L Anion Gap 28 H BUN 19 H Creatinine 1.3 H Est GFR ( Amer) 51 Est GFR (Non-Af Amer) 42 Random Glucose 278 H Lactic Acid Calcium 7.2 L Total Bilirubin 0.7 AST 474 H ALT 143 H D Alkaline Phosphatase 76 Troponin I Total Protein 5.2 L Albumin 2.7 L D Globulin 2.5 Albumin/Globulin Ratio 1.1 Procalcitonin 12.63 H Venous Blood Potassium Influenza Typ A,B (EIA) Blood Type Blood Type Confirm A POSITIVE Antibody Screen BBK History Checked 11/17/17 19:40 WBC RBC Hgb Hct MCV MCH MCHC RDW Plt Count MPV Neut % (Auto) Lymph % (Auto) [place] % (Auto) Eos % (Auto) Baso % (Auto) Neut # (Auto) Lymph # (Auto) [place] # (Auto) Eos # (Auto) Baso # (Auto) PT INR APTT D-Dimer, Quantitative pO2 VBG pH VBG pCO2 VBG HCO3 VBG Total CO2 VBG O2 Sat (Calc) VBG Base Excess VBG Potassium Glucose Lactate FiO2 PEEP Crit Value Called To Crit Value Called By Crit Value Read Back Blood Gas Notified Time Sodium Potassium Chloride Carbon Dioxide Anion Gap BUN Creatinine Est GFR ( Amer) Est GFR (Non-Af Amer) Random Glucose Lactic Acid 2.2 H Calcium Total Bilirubin AST ALT Alkaline Phosphatase Troponin I Total Protein Albumin Globulin Albumin/Globulin Ratio Procalcitonin Venous Blood Potassium Influenza Typ A,B (EIA) Blood Type Blood Type Confirm Antibody Screen BBK History Checked
--- NOTE | 2017-11-17 23:48 | CP.PCM.CON ---
History of Present Illness - History of Present Illness History of Present Illness: SURGERY CONSULT NOTE FOR DR. ADAMS 57F with hx of Anxiety, Depression, Gastritis, and Asthma. She was at the ED on 10/15/17 with SOB, treated and discharged. She returned on 10/16/17 at night stating that the Shortness of Breath initially improved but later became worse and associated with rib pain and a barking cough. She used her Albuterol pump without relief. No fever, headaches nor dizziness. In the ED she was treated with Duoneb with little relief. She became increasingly labored breathing and while wondering down the hallway, she collapsed with gasping respiration and went into respiratory and cardiac arrest. Code Blue was called in the ED and CPR was begun. She received two doses of Epinephrine before return of Pulse. She was intubated by the ED physician. Patient was extubated in the morning of the and has been on a ventilatory mask at 50%. Due to complaints of continuous chest pain, CT scan was ordered which showed....... PMH: Anxiety, Arthritis, Asthma, Back Problems (c-spine, l-spine herniated discs), Depression, Gastritis, HTN, Schizophrenia PSH: Tubal ligation; Hysterectomy; Bilateral cataract surgery SH: Live with family, No illegal drug use; Light smoker; occasional Alcohol FH: States: Unknown Family Hx Allergies: Prednisone Past Patient History - Infectious Disease Hx of Infectious Diseases: None - Past Medical History & Family History Past Medical History?: Yes - Past Social History Smoking Status: Heavy Smoker > 10 Cigarettes Daily - CARDIAC Hx Cardiac Disorders: Yes Hx Hypertension: Yes - PULMONARY Hx Respiratory Disorders: Yes Hx Asthma: Yes - NEUROLOGICAL Hx Neurological Disorder: No - HEENT Hx HEENT Problems: Yes Hx Cataracts: Yes - RENAL Hx Chronic Kidney Disease: No - ENDOCRINE/METABOLIC Hx Endocrine Disorders: No - HEMATOLOGICAL/ONCOLOGICAL Hx Blood Disorders: Yes Hx Human Immunodeficiency Virus (HIV): No - INTEGUMENTARY Hx Dermatological Problems: No - MUSCULOSKELETAL/RHEUMATOLOGICAL Hx Musculoskeletal Disorders: Yes Hx Arthritis: Yes Hx Back Pain: Yes Hx Falls: Yes Hx Herniated Disk: Yes - GASTROINTESTINAL Hx Gastrointestinal Disorders: Yes Hx Gastritis: Yes - GENITOURINARY/GYNECOLOGICAL Hx Genitourinary Disorders: No - PSYCHIATRIC Hx Psychophysiologic Disorder: Yes Hx Anxiety: Yes Hx Depression: Yes Hx Schizophrenia: Yes Hx Substance Use: Yes (quit > 20 years ago) - SURGICAL HISTORY Hx Surgeries: Yes Hx Cataract Extraction: Yes (bilateral) Hx Hysterectomy: Yes Hx Tubal Ligation: Yes - ANESTHESIA Hx Anesthesia: Yes Hx Anesthesia Reactions: No Meds Home Medications: Home Medication List Medication Instructions Recorded Confirmed Type Albuterol Sulfate [Ventolin Hfa] 0.09 mg IH PRN PRN #1 ml 11/17/17 Rx Allergies/Adverse Reactions: Allergies Allergy/AdvReac Type Severity Reaction Status Date / Time prednisone Allergy unknown Verified 08/09/17 03:53 - Medications Medications: Current Medications Albuterol Sulfate (Albuterol 0.083% Inhal Hanane (2.5 Mg/3 Ml) Ud) 2.5 mg INH RQ2 PRN PRN Reason: Shortness of Breath Last Admin: 11/17/17 20:58 Dose: 2.5 mg Albuterol/Ipratropium (Duoneb 3 Mg/0.5 Mg (3 Ml) Ud) 3 ml INH RQ4 [facility] Last Admin: 11/17/17 19:00 Dose: 3 ml Enoxaparin Sodium (Lovenox) 70 mg SC Q12 [facility] PRN Reason: Protocol Last Admin: 11/17/17 22:01 Dose: 70 mg Famotidine (Pepcid) 20 mg IVP DAILY [facility] Last Admin: 11/17/17 10:15 Dose: 20 mg Piperacillin Sod/Tazobactam (Sod 2.25 gm/ Sodium Chloride) 100 mls @ 100 mls/ hr IVPB Q6 [facility] PRN Reason: Protocol Last Admin: 11/17/17 22:02 Dose: 100 mls/hr Levofloxacin/Dextrose (Levaquin 750mg) 750 mg in 150 mls @ 100 mls/hr IVPB DAILY@0600 [facility] Potassium Chloride/Dextrose/Sod Cl (Potassium Chl 20 Meq In D5-1/2ns) 1,000 mls @ 125 mls/hr IV .Q8H [facility] Stop: 11/18/17 08:22 Last Admin: 11/17/17 08:43 Dose: 125 mls/hr Lorazepam (Ativan) 2 mg IVP Q4 PRN PRN Reason: Agitation Last Admin: 11/17/17 17:21 Dose: 2 mg Methylprednisolone (Solu-Medrol) 80 mg IV Q8 [facility] Morphine Sulfate (Morphine) 4 mg IVP Q4 PRN PRN Reason: Agitation Last Admin: 11/17/17 13:23 Dose: 4 mg Morphine Sulfate (Morphine) 6 mg IVP Q4H PRN PRN Reason: pain scale 4-10 Last Admin: 11/17/17 22:26 Dose: 6 mg Physical Exam - Constitutional Appears: Non-toxic, No Acute Distress - Eye Exam Eye Exam: EOMI, PERRL - Respiratory Exam Respiratory Exam: Clear to Auscultation Bilateral, Wheezes - Cardiovascular Exam Cardiovascular Exam: REGULAR RHYTHM, +S1, +S2 Additional comments: left chest pain - GI/Abdominal Exam GI & Abdominal Exam: Soft. absent: Distended, Firm, Guarding, Rebound, Rigid, Tenderness - Extremities Exam Extremities exam: Negative for: pedal edema, tenderness - Neurological Exam Neurological exam: Alert - Psychiatric Exam Psychiatric exam: Normal Affect, Normal Mood - Skin Skin Exam: Dry, Intact, Normal Color, Warm Results - Vital Signs Recent Vital Signs: Last Vital Signs Temp 99.0 F 11/17/17 16:00 Pulse 95 H 11/17/17 18:00 Resp 12 11/17/17 18:00 BP 94/55 L 11/17/17 18:00 Pulse Ox 98 11/17/17 18:00 - Labs Result Diagrams: 11/17/17 03:33 11/17/17 09:35 Labs: Laboratory Results - last 24 hr 11/16/17 11/16/17 11/16/17 23:53 23:53 23:53 WBC 10.7 D RBC 3.60 L Hgb 12.2 Hct 35.3 MCV 98.1 MCH 33.9 H MCHC 34.5 RDW 12.0 Plt Count 211 MPV 7.1 L Neut % (Auto) 67.5 Lymph % (Auto) 18.9 L [place] % (Auto) 11.9 H Eos % (Auto) 1.1 Baso % (Auto) 0.6 Neut # (Auto) 7.3 H Lymph # (Auto) 2.0 [place] # (Auto) 1.3 H Eos # (Auto) 0.1 Baso # (Auto) 0.1 PT INR APTT D-Dimer, Quantitative pO2 VBG pH VBG pCO2 VBG HCO3 VBG Total CO2 VBG O2 Sat (Calc) VBG Base Excess VBG Potassium Glucose Lactate FiO2 PEEP Crit Value Called To Crit Value Called By Crit Value Read Back Blood Gas Notified Time Sodium 141 Potassium 3.6 Chloride 101 Carbon Dioxide 20 L Anion Gap 24 H BUN 12 Creatinine 0.6 L Est GFR ( Amer) > 60 Est GFR (Non-Af Amer) > 60 Random Glucose 94 Lactic Acid Calcium 9.4 Total Bilirubin AST ALT Alkaline Phosphatase Troponin I Total Protein Albumin Globulin Albumin/Globulin Ratio Procalcitonin Venous Blood Potassium Influenza Typ A,B (EIA) Negative for flu a/b Blood Type Blood Type Confirm Antibody Screen BBK History Checked 11/17/17 11/17/17 11/17/17 02:45 03:15 03:30 WBC RBC Hgb Hct MCV MCH MCHC RDW Plt Count MPV Neut % (Auto) Lymph % (Auto) [place] % (Auto) Eos % (Auto) Baso % (Auto) Neut # (Auto) Lymph # (Auto) [place] # (Auto) Eos # (Auto) Baso # (Auto) PT INR APTT D-Dimer, Quantitative pO2 157 H 58 H VBG pH 7.00 L* 6.99 L* VBG pCO2 40 49 VBG HCO3 8.7 9.1 VBG Total CO2 11.1 L 13.3 L VBG O2 Sat (Calc) 100.4 H 79.3 H VBG Base Excess -20.8 L -19.5 L VBG Potassium 3.2 L 3.7 Glucose 112 H 104 Lactate 10.0 H* 10.0 H* FiO2 100.0 100.0 PEEP 5 5 Crit Value Called To Dr valeriano calabrese Crit Value Called By Deejay Villalba Crit Value Read Back Y Y Blood Gas Notified Time 332 320 Sodium 140.0 140.0 Potassium Chloride 109.0 H 108.0 H Carbon Dioxide Anion Gap BUN Creatinine Est GFR ( Amer) Est GFR (Non-Af Amer) Random Glucose Lactic Acid Calcium Total Bilirubin AST ALT Alkaline Phosphatase Troponin I Total Protein Albumin Globulin Albumin/Globulin Ratio Procalcitonin Venous Blood Potassium 3.2 L 3.7 Influenza Typ A,B (EIA) Blood Type A POSITIVE Blood Type Confirm Antibody Screen Negative BBK History Checked No verified bt 11/17/17 11/17/17 11/17/17 03:33 03:33 03:33 WBC 23.7 H D RBC 3.88 Hgb 13.0 Hct 39.7 MCV 102.4 H D MCH 33.5 H MCHC 32.7 L RDW 12.6 Plt Count 316 D MPV 7.4 Neut % (Auto) 76.9 H Lymph % (Auto) 17.9 L [place] % (Auto) 4.7 Eos % (Auto) 0.4 Baso % (Auto) 0.1 Neut # (Auto) 18.2 H Lymph # (Auto) 4.3 [place] # (Auto) 1.1 H Eos # (Auto) 0.1 Baso # (Auto) 0.0 PT 14.6 H INR 1.3 H APTT 36.5 D-Dimer, Quantitative 17045 H pO2 VBG pH VBG pCO2 VBG HCO3 VBG Total CO2 VBG O2 Sat (Calc) VBG Base Excess VBG Potassium Glucose Lactate FiO2 PEEP Crit Value Called To Crit Value Called By Crit Value Read Back Blood Gas Notified Time Sodium 140 Potassium 3.4 L Chloride 109 H Carbon Dioxide 10 L* D Anion Gap 24 H BUN 11 Creatinine 1.0 Est GFR ( Amer) > 60 Est GFR (Non-Af Amer) 57 Random Glucose 109 H Lactic Acid Calcium 7.0 L Total Bilirubin AST ALT Alkaline Phosphatase Troponin I 0.3550 H* Total Protein Albumin Globulin Albumin/Globulin Ratio Procalcitonin Venous Blood Potassium Influenza Typ A,B (EIA) Blood Type Blood Type Confirm Antibody Screen BBK History Checked 11/17/17 11/17/17 11/17/17 04:34 08:35 09:35 WBC RBC Hgb Hct MCV MCH MCHC RDW Plt Count MPV Neut % (Auto) Lymph % (Auto) [place] % (Auto) Eos % (Auto) Baso % (Auto) Neut # (Auto) Lymph # (Auto) [place] # (Auto) Eos # (Auto) Baso # (Auto) PT INR APTT D-Dimer, Quantitative pO2 VBG pH VBG pCO2 VBG HCO3 VBG Total CO2 VBG O2 Sat (Calc) VBG Base Excess VBG Potassium Glucose Lactate FiO2 PEEP Crit Value Called To Crit Value Called By Crit Value Read Back Blood Gas Notified Time Sodium 144 Potassium 3.6 Chloride 108 H Carbon Dioxide 12 L Anion Gap 28 H BUN 19 H Creatinine 1.3 H Est GFR ( Amer) 51 Est GFR (Non-Af Amer) 42 Random Glucose 278 H Lactic Acid Calcium 7.2 L Total Bilirubin 0.7 AST 474 H ALT 143 H D Alkaline Phosphatase 76 Troponin I Total Protein 5.2 L Albumin 2.7 L D Globulin 2.5 Albumin/Globulin Ratio 1.1 Procalcitonin 12.63 H Venous Blood Potassium Influenza Typ A,B (EIA) Blood Type Blood Type Confirm A POSITIVE Antibody Screen BBK History Checked 11/17/17 19:40 WBC RBC Hgb Hct MCV MCH MCHC RDW Plt Count MPV Neut % (Auto) Lymph % (Auto) [place] % (Auto) Eos % (Auto) Baso % (Auto) Neut # (Auto) Lymph # (Auto) [place] # (Auto) Eos # (Auto) Baso # (Auto) PT INR APTT D-Dimer, Quantitative pO2 VBG pH VBG pCO2 VBG HCO3 VBG Total CO2 VBG O2 Sat (Calc) VBG Base Excess VBG Potassium Glucose Lactate FiO2 PEEP Crit Value Called To Crit Value Called By Crit Value Read Back Blood Gas Notified Time Sodium Potassium Chloride Carbon Dioxide Anion Gap BUN Creatinine Est GFR ( Amer) Est GFR (Non-Af Amer) Random Glucose Lactic Acid 2.2 H Calcium Total Bilirubin AST ALT Alkaline Phosphatase Troponin I Total Protein Albumin Globulin Albumin/Globulin Ratio Procalcitonin Venous Blood Potassium Influenza Typ A,B (EIA) Blood Type Blood Type Confirm Antibody Screen BBK History Checked Assessment & Plan - Assessment and Plan (Free Text) Assessment: 57F with asthmatic attack causing cardiac arrest presents with multiple left sided rib fractures Plan: - pain control - Incentive spirometer highly encouraged - ICU management for monitoring Further recs discuss with Dr. Leandro Harry, PGY2
[2017-11-18] MEDS: Albuterol-Ipratrop 3 mg / 0.5 (3 ml) UD INH SCH ×7 (00:41→23:04)
[2017-11-18] MEDS ORDERED: methylPREDNISolone 80 MG in Sodium Chloride 0.9% 50 ML IV SCH (01:00)
[2017-11-18] MEDS: Potassium Ch 20mEq in D5-1/2NS 1,000 ML IV SCH (01:35)
[2017-11-18] MEDS: Albuterol 0.083% Inhal Sol (2.5 mg/3 mL) UD INH PRN (02:20)
[2017-11-18 05:23] LABS: LYMPH # 0.4 K/uL (1.0-4.3); LYMPH % 4.3 % (20.0-40.0); MEAN CELL VOLUME 100.1 fl (81.0-99.0); MEAN CORPUSCULAR HEMOGLOBIN 34.2 pg (27.0-31.0); MEAN CORPUSCULAR HGB CONC 34.2 g/dL (33.0-37.0); MEAN PLATELET VOLUME 7.8 fl (7.2-11.7); MONO # 0.6 K/uL (0.0-0.8); MONO % 6.8 % (0.0-10.0); NEUT # 7.4 K/uL (1.8-7.0); NEUT % 88.9 % (50.0-75.0); PLATELET COUNT 125 K/uL (130-400); RBC 2.64 Mil/uL (3.80-5.20); RED CELL DISTRIBUTION WIDTH 12.1 % (11.5-14.5); WHITE BLOOD COUNT 8.3 K/uL (4.8-10.8)
[2017-11-18 05:40] LABS: CALCIUM 7.6 mg/dL (8.4-10.2)
--- NOTE | 2017-11-18 07:16 | RAD ---
HISTORY: f/u rib frxs, r/o left PNA COMPARISON: Portable chest 11/17/2017. FINDINGS: LUNGS: A mild left pleural effusion appears to have increased slightly, up to the left apex. No right pleural effusion. Underlying airspace disease not excluded at the left base laterally with none seen at the right. Multiple left rib fractures are again seen laterally with none seen at the right. No pneumothorax bilaterally. PLEURA: As above. CARDIOVASCULAR: Cardiac silhouette remains prominent appearing which is at least in part due to frontal technique. No pulmonary vascular derangement evident. OSSEOUS STRUCTURES: As above. VISUALIZED UPPER ABDOMEN: Normal. OTHER FINDINGS: None. IMPRESSION: Mild increase left pleural effusions noted with left rib fractures again evident at the mid chest laterally. Limited increase in small left pleural effusion noted. Underlying airspace disease left base difficult to exclude.
--- NOTE | 2017-11-18 07:27 | CP.CCUPN ---
CCU Subjective - Physician Review Events Since Last Encounter (Free Text): 11/18/17 15:08 The patient was seen and examined at the bedside, medical records reviewed, and management issues were discussed and formulated with the house staff. Events reviewed. 59 year old Active Heavy Smoker Female with PMHx of HTN, Arthritis, Asthma, Back Problems (c-spine, l-spine herniated discs), Depression, Gastritis, Anxiety and Schizophrenia Who presented to the ED with shortness of breath x 1 day, Patient became increasingly labored breathing and while wondering down the hallway in ER, she collapsed with gasping respiration and went into respiratory and cardiac arrest. Code Blue was called in the ED and CPR was begun. She received two doses of Epinephrine before return of Pulse. She was intubated by the ED physician. Last 24 hour events Patient Successfully extubated patient has been confused, agitated, otherwise hemodynamically stable Started on PRN Halodol and PRN Ativan Also Psych consult called Adequate saturation of 94-98% on 2L NC Stable respiratory status Afebrile 11/18/17 15:34 Patient sustained multiple Ribs fx and Chest wall contusion. Patient scheduled for CT Angio r/o left subclavian artery injury. CCU Objective - Vital Signs / Intake & Output Vital Signs (Last 4 hours): Vital Signs Temp Pulse Resp BP Pulse Ox 11/18/17 06:00 114 H 27 H 131/95 H 100 11/18/17 04:00 98.1 F 97 H 12 95/59 L 100 Intake and Output (Last 8hrs): Intake & Output 11/17/17 11/18/17 11/18/17 22:59 06:59 14:59 Intake Total 925 975 Output Total 400 600 Balance 525 375 Intake: IV 925 875 Intake, Piggyback 100 Output: Urine 400 600 Urethral (Thrasher) 400 600 Other: # Bowel Movements 1 - Physical Exam Physical Exam Limitations: Positive for: Altered Mental Status Head: Positive for: Atraumatic, Normocephalic Pupils: Positive for: PERRL, Sluggish Extroacular Muscles: Positive for: EOMI Conjunctiva: Positive for: Normal. Negative for: Injected, Icteric Mouth: Positive for: Moist Mucous Membranes Pharnyx: Positive for: Normal Nose (Internal): Positive for: Normal Inspection Neck: Positive for: Normal Range of Motion, Trachea Midline. Negative for: Meningeal Signs, MIDLINE TENDERNESS, Paraspinal Tenderness, JVD, Lymphadenopathy , Bruit, Other Respiratory/Chest: Positive for: Wheezes, Decreased Breath Sounds, Rales, Rhonchi. Negative for: Respiratory Distress, Accessory Muscle Use Cardiovascular: Positive for: Regular Rate and Rhythm, Normal S1, S2, Peripheal Pulses Present. Negative for: Murmurs, Irregular Rhythm, Tachycardic, Bradycardic Abdomen: Positive for: Normal Bowel Sounds. Negative for: Tenderness, Distention, Peritoneal Signs, Rebound, Guarding Upper Extremity: Positive for: Normal Inspection, NORMAL PULSES, Capillary Refill < 2s. Negative for: Cyanosis, Edema Lower Extremity: Positive for: Normal Inspection, NORMAL PULSES, Capillary Refill < 2 s. Negative for: Edema, CALF TENDERNESS Neurological: Positive for: GCS=15, CN II-XII Intact, Speech Normal, Motor Func Grossly Intact, Normal Sensory Function Psychiatric: Positive for: Alert, Oriented x 3 - Medications Active Medications: Active Medications Generic Name Dose Route Start Last Admin Trade Name Freq PRN Reason Stop Dose Admin Albuterol Sulfate 2.5 mg 11/17/17 05:10 11/18/17 02:20 Albuterol 0.083% Inhal Hanane (2.5 Mg/3 Ml) Ud INH 2.5 mg RQ2 PRN Administration Shortness of Breath Albuterol/Ipratropium 3 ml 11/17/17 04:00 11/18/17 04:49 Duoneb 3 Mg/0.5 Mg (3 Ml) Ud INH 3 ml RQ4 PENELOPE Administration Enoxaparin Sodium 70 mg 11/17/17 21:00 11/17/17 22:01 Lovenox SC 70 mg Q12 PENELOPE Administration Protocol Famotidine 20 mg 11/17/17 09:00 11/17/17 10:15 Pepcid IVP 20 mg DAILY PENELOPE Administration Piperacillin Sod/Tazobactam 100 mls @ 100 mls/hr 11/17/17 05:00 11/18/17 04: 59 Sod 2.25 gm/ Sodium Chloride IVPB 100 mls/hr Q6 PENELOPE Administration Protocol Levofloxacin/Dextrose 750 mg in 150 mls @ 100 mls/hr 11/17/17 06:00 11/18/17 05:00 Levaquin 750mg IVPB 100 mls/hr DAILY@0600 PENELOPE Administration Potassium Chloride/Dextrose/Sod Cl 1,000 mls @ 125 mls/hr 11/17/17 08:30 01:35 Potassium Chl 20 Meq In D5-1/2ns IV 11/18/17 08:22 125 mls/hr .Q8H PENELOPE Administration Lorazepam 2 mg 11/17/17 09:40 11/18/17 06:04 Ativan IVP 2 mg Q4 PRN Administration Agitation Methylprednisolone 80 mg 11/18/17 01:00 11/18/17 01:27 Solu-Medrol IV 80 mg Q8 PENELOPE Administration Morphine Sulfate 4 mg 11/17/17 07:43 11/17/17 13:23 Morphine IVP 4 mg Q4 PRN Administration Agitation Morphine Sulfate 6 mg 11/17/17 22:18 11/18/17 05:05 Morphine IVP 6 mg Q4H PRN Administration pain scale 4-10 - Patient Studies Lab Studies: Lab Studies 11/18/17 11/18/17 11/17/17 Range/Units 04:40 04:40 19:40 WBC 8.3 D (4.8-10.8) K/uL RBC 2.64 L (3.80-5.20) Mil/uL Hgb 9.0 L D (12.0-16.0) g/dL Hct 26.4 L (34.0-47.0) % MCV 100.1 H D (81.0-99.0) fl MCH 34.2 H (27.0-31.0) pg MCHC 34.2 (33.0-37.0) g/dL RDW 12.1 (11.5-14.5) % Plt Count 125 L D (130-400) K/uL MPV 7.8 (7.2-11.7) fl Neut % (Auto) 88.9 H (50.0-75.0) % Lymph % (Auto) 4.3 L (20.0-40.0) % [place] % (Auto) 6.8 (0.0-10.0) % Eos % (Auto) 0.0 (0.0-4.0) % Baso % (Auto) 0.0 (0.0-2.0) % Neut # (Auto) 7.4 H (1.8-7.0) K/uL Lymph # (Auto) 0.4 L (1.0-4.3) K/uL [place] # (Auto) 0.6 (0.0-0.8) K/uL Eos # (Auto) 0.0 (0.0-0.7) K/uL Baso # (Auto) 0.0 (0.0-0.2) K/uL Sodium 142 (132-148) mmol/l Potassium 3.7 (3.6-5.0) MMOL/L Chloride 110 H (98-107) mmol/L Carbon Dioxide 18 L (22-30) mmol/L Anion Gap 18 (10-20) BUN 28 H (7-17) mg/dl Creatinine 1.7 H (0.7-1.2) mg/dl Est GFR ( Amer) 37 Est GFR (Non-Af Amer) 31 Random Glucose 224 H (65-105) mg/dL Lactic Acid 2.2 H (0.7-2.1) MMOL/L Calcium 7.6 L (8.4-10.2) mg/dL Total Bilirubin (0.2-1.3) mg/dl AST (14-36) U/L ALT (9-52) U/L Alkaline Phosphatase (38-126) U/L Total Protein (6.3-8.2) G/DL Albumin (3.5-5.0) g/dL Globulin (2.2-3.9) gm/dL Albumin/Globulin Ratio (1.0-2.1) Procalcitonin (0.19-0.49) NG/ML 11/17/17 11/17/17 Range/Units 09:35 08:35 WBC (4.8-10.8) K/uL RBC (3.80-5.20) Mil/uL Hgb (12.0-16.0) g/dL Hct (34.0-47.0) % MCV (81.0-99.0) fl MCH (27.0-31.0) pg MCHC (33.0-37.0) g/dL RDW (11.5-14.5) % Plt Count (130-400) K/uL MPV (7.2-11.7) fl Neut % (Auto) (50.0-75.0) % Lymph % (Auto) (20.0-40.0) % [place] % (Auto) (0.0-10.0) % Eos % (Auto) (0.0-4.0) % Baso % (Auto) (0.0-2.0) % Neut # (Auto) (1.8-7.0) K/uL Lymph # (Auto) (1.0-4.3) K/uL [place] # (Auto) (0.0-0.8) K/uL Eos # (Auto) (0.0-0.7) K/uL Baso # (Auto) (0.0-0.2) K/uL Sodium 144 (132-148) mmol/l Potassium 3.6 (3.6-5.0) MMOL/L Chloride 108 H (98-107) mmol/L Carbon Dioxide 12 L (22-30) mmol/L Anion Gap 28 H (10-20) BUN 19 H (7-17) mg/dl Creatinine 1.3 H (0.7-1.2) mg/dl Est GFR ( Amer) 51 Est GFR (Non-Af Amer) 42 Random Glucose 278 H (65-105) mg/dL Lactic Acid (0.7-2.1) MMOL/L Calcium 7.2 L (8.4-10.2) mg/dL Total Bilirubin 0.7 (0.2-1.3) mg/dl AST 474 H (14-36) U/L ALT 143 H D (9-52) U/L Alkaline Phosphatase 76 (38-126) U/L Total Protein 5.2 L (6.3-8.2) G/DL Albumin 2.7 L D (3.5-5.0) g/dL Globulin 2.5 (2.2-3.9) gm/dL Albumin/Globulin Ratio 1.1 (1.0-2.1) Procalcitonin 12.63 H (0.19-0.49) NG/ML Laboratory Results - last 24 hr 11/17/17 11/17/17 11/17/17 08:35 09:35 19:40 WBC RBC Hgb Hct MCV MCH MCHC RDW Plt Count MPV Neut % (Auto) Lymph % (Auto) [place] % (Auto) Eos % (Auto) Baso % (Auto) Neut # (Auto) Lymph # (Auto) [place] # (Auto) Eos # (Auto) Baso # (Auto) Sodium 144 Potassium 3.6 Chloride 108 H Carbon Dioxide 12 L Anion Gap 28 H BUN 19 H Creatinine 1.3 H Est GFR ( Amer) 51 Est GFR (Non-Af Amer) 42 Random Glucose 278 H Lactic Acid 2.2 H Calcium 7.2 L Total Bilirubin 0.7 AST 474 H ALT 143 H D Alkaline Phosphatase 76 Total Protein 5.2 L Albumin 2.7 L D Globulin 2.5 Albumin/Globulin Ratio 1.1 Procalcitonin 12.63 H 11/18/17 11/18/17 04:40 04:40 WBC 8.3 D RBC 2.64 L Hgb 9.0 L D Hct 26.4 L MCV 100.1 H D MCH 34.2 H MCHC 34.2 RDW 12.1 Plt Count 125 L D MPV 7.8 Neut % (Auto) 88.9 H Lymph % (Auto) 4.3 L [place] % (Auto) 6.8 Eos % (Auto) 0.0 Baso % (Auto) 0.0 Neut # (Auto) 7.4 H Lymph # (Auto) 0.4 L [place] # (Auto) 0.6 Eos # (Auto) 0.0 Baso # (Auto) 0.0 Sodium 142 Potassium 3.7 Chloride 110 H Carbon Dioxide 18 L Anion Gap 18 BUN 28 H Creatinine 1.7 H Est GFR ( Amer) 37 Est GFR (Non-Af Amer) 31 Random Glucose 224 H Lactic Acid Calcium 7.6 L Total Bilirubin AST ALT Alkaline Phosphatase Total Protein Albumin Globulin Albumin/Globulin Ratio Procalcitonin EKG/Cardiology Studies: Cardiology / EKG Studies 11/17/17 07:30 EKG [ELECTROCARDIOGRAM] Routine Comment: Mode Of Transportation: PORTABLE Reason For Exam: Cardiac arrest Does Patient Have a Pacemaker?: No Review of Systems - Review of Systems Systems not reviewed;Unavailable: Psychotic - Cardiovascular Cardiovascular: Chest Pain (Pleuritic, sec to Rib fracture ). absent: Chest Pain at Rest, Chest Pain with Activity - Respiratory Respiratory: Dyspnea. absent: Cough, Hemoptysis, Dyspnea on Exertion, Wheezing , Snoring - Gastrointestinal Gastrointestinal: absent: Abdominal Pain, Coffee Ground Emesis, Melena, Nausea, Vomiting Critical Care Progress Note - Extremities/Vascular Does the Patient have a Central Venous Catheter?: No Does the Patient need a Central Venous Catheter?: No Does the Patient have a Thrasher Catheter?: Yes Does the Patient need a Thrasher Catheter?: Yes - Nutrition Nutrition: Nutrition Category Date Time Status NPO Diet [DIET] Diets 11/17/17 Breakfast Active Assessment/Plan (1) Respiratory arrest Current Visit: Yes Status: Acute Comment: S/P chest compression with Rib fractures Patient Successfully extubated No PTX Pain controlled Incentive spirometer (2) COPD exacerbation Current Visit: Yes Status: Acute Comment: Methylprednisolone (Solu-Medrol) 80 mg IV Q8 Albuterol/Ipratropium (Duoneb) 3 ml INH RQ4 PENELOPE (3) Schizophrenia Current Visit: No Status: Acute Comment: Seen by Psych, started on Bupropion HCl (Wellbutrin) 75 mg PO DAILY Continue PRN Ativan and Haldol (4) Chest wall pain Current Visit: No Status: Acute Comment: Patient sustained multiple Ribs fx and Chest wall contusion. Patient scheduled for CT Angio r/o left subclavian artery injury. PRN Morphine
--- NOTE | 2017-11-18 07:52 | CT ---
EXAM: CT Chest Without Intravenous Contrast CLINICAL HISTORY: 57 years old, female; Injury or trauma; Fall; Initial encounter; Blunt trauma (contusions or hematomas); Additional info: R/O rib FX TECHNIQUE: Axial computed tomography images of the chest without intravenous contrast. All CT scans at this facility use one or more dose reduction techniques, viz.: automated exposure control; ma/kV adjustment per patient size (including targeted exams where dose is matched to indication; i.e. head); or iterative reconstruction technique. 500 images are submitted. Coronal and sagittal reformatted images were created and reviewed. COMPARISON: CR - CHEST TWO VIEWS (PA/LAT) 2015-10-11 16:42 FINDINGS: Artifacts: Limited due to motion and misregistration artifacts. Limited by respiratory motion artifact. Lungs: Mild parabronchial cuffing, which can be seen with bronchitis, reactive airway disease or viral pneumonitis versus mild failure. Bibasilar nonspecific infiltrates and consolidation are present, consistent with atelectasis or pneumonia versus edema in a patient with COPD.Correlation with patient's clinical hydration status versus third spacing is recommended. There is right apical lucency seen on image 84 series 601 most likely representing chronic lung disease/below. Pleural space: Small bilateral pleural effusions. No pneumothorax. Heart: Small pericardial effusion. Mediastinum: Possible small hiatal hernia. Bones/joints: There are acute displaced multifocal areas of rib fractures involving third through seventh rib fractures. There are acute displaced anterior lateral right-sided rib fractures involving the right second third fourth and fifth ribs. There are old healed left-sided rib fractures. There is misregistration artifact involving the sternum seen on image 75 series 602 with artifactual fracture like deformity. Correlation with clinical examination is recommended if an acute fracture is clinically suspected. There is remote fracture deformity of right mid sternum. No dislocation. Soft tissues: Unremarkable. Vasculature: Unremarkable. No thoracic aortic aneurysm. Lymph nodes: There are subcentimeter shotty mediastinal right paratracheal and prevascular lymph nodes. Liver: Enlarged fatty liver. Gallbladder and bile ducts: Nonspecific gallbladder distention.If clinically warranted, a right upper quadrant ultrasound and correlation with LFTs and patient's n.p.o. status may be helpful for further assessment. Adrenals: Normal adrenal glands. Stomach and bowel: Nonspecific colonic distention with air-fluid level. These findings are incompletely characterized on this examination. Correlation with clinical data is recommended if colitis as clinically suspected. Duodenal diverticulum. Upper abdomen: Left diaphragmatic fat-containing hernia. IMPRESSION: 1. Bilateral acute displaced rib fractures as described. Correlation with clinical data is recommended if flail chest is clinically suspected. No significant pneumothorax is identified. There is a right apical focal lucency seen on image 16 series 3 may represent bullous disease versus tiny loculated pneumothorax. 2. Nonspecific colonic distention with air-fluid level. These findings are incompletely characterized on this examination. Correlation with clinical data is recommended if nonspecific colitis as clinically suspected. 3. Mild parabronchial cuffing, which can be seen with bronchitis, reactive airway disease or viral pneumonitis versus mild failure. Bibasilar nonspecific infiltrates and consolidation are present, consistent with atelectasis or pneumonia versus edema in a patient with COPD.Correlation with patient's clinical hydration status versus third spacing is recommended.
--- NOTE | 2017-11-18 08:56 | CARD ---
APPROVED REPORT EKG Measurement Heart [id number] <Conclusion> Sinus tachycardia Low voltage QRS Nonspecific ST abnormality Prolonged QT Abnormal ECG
--- NOTE | 2017-11-18 08:57 | CARD ---
APPROVED REPORT EKG Measurement Heart [id number] <Conclusion> Sinus tachycardia Nonspecific ST abnormality Abnormal ECG
--- NOTE | 2017-11-18 08:59 | CARD ---
APPROVED REPORT EKG Measurement Heart [id number] CT [id number] <Conclusion> Normal sinus rhythm Nonspecific ST and T wave abnormality Prolonged QT Abnormal ECG
[2017-11-18] MEDS ORDERED: Enoxaparin 40 mg Syringe SC SCH (09:00)
--- NOTE | 2017-11-18 09:33 | CP.PCM.PN ---
Subjective - Date & Time of Evaluation Date of Evaluation: 11/18/17 Time of Evaluation: 07:30 - Subjective Subjective: Cardiothoracic Surgery Note for Dr. Reeves Patient seen and examined at bedside. No acute event overnight. Patient resting in bed. Patient complaining of mild pain. No other complaints. Objective - Vital Signs/Intake and Output Vital Signs (last 24 hours): Temp Pulse Resp BP Pulse Ox 98.3 F 76 22 103/56 L 100 11/18/17 08:00 11/18/17 08:00 11/18/17 08:00 11/18/17 08:00 11/18/17 08:00 Intake and Output: 11/18/17 11/18/17 06:59 18:59 Intake Total 1350 250 Output Total 600 Balance 750 250 - Medications Medications: Current Medications Albuterol Sulfate (Albuterol 0.083% Inhal Hanane (2.5 Mg/3 Ml) Ud) 2.5 mg INH RQ2 PRN PRN Reason: Shortness of Breath Last Admin: 11/18/17 02:20 Dose: 2.5 mg Albuterol/Ipratropium (Duoneb 3 Mg/0.5 Mg (3 Ml) Ud) 3 ml INH RQ4 PENELOPE Last Admin: 11/18/17 07:47 Dose: 3 ml Enoxaparin Sodium (Lovenox) 70 mg SC Q12 PENELOPE PRN Reason: Protocol Last Admin: 11/17/17 22:01 Dose: 70 mg Famotidine (Pepcid) 20 mg IVP DAILY [facility] Last Admin: 11/18/17 08:49 Dose: 20 mg Haloperidol Lactate (Haldol) 2 mg IVP Q4 PRN PRN Reason: Agitation Piperacillin Sod/Tazobactam (Sod 2.25 gm/ Sodium Chloride) 100 mls @ 100 mls/ hr IVPB Q6 PENELOPE PRN Reason: Protocol Last Admin: 11/18/17 04:59 Dose: 100 mls/hr Levofloxacin/Dextrose (Levaquin 750mg) 750 mg in 150 mls @ 100 mls/hr IVPB DAILY@0600 [facility] Last Admin: 11/18/17 05:00 Dose: 100 mls/hr Lorazepam (Ativan) 2 mg IVP Q4 PRN PRN Reason: Agitation Last Admin: 11/18/17 06:04 Dose: 2 mg Methylprednisolone (Solu-Medrol) 80 mg IV Q8 PENELOPE Last Admin: 11/18/17 08:47 Dose: 80 mg Morphine Sulfate (Morphine) 4 mg IVP Q4 PRN PRN Reason: Agitation Last Admin: 11/17/17 13:23 Dose: 4 mg Morphine Sulfate (Morphine) 6 mg IVP Q4H PRN PRN Reason: pain scale 4-10 Last Admin: 11/18/17 08:37 Dose: 6 mg - Labs Labs: 11/18/17 04:40 11/18/17 04:40 PT 14.6 Seconds (9.8-13.1) H 11/17/17 03:33 INR 1.3 (0.9-1.2) H 11/17/17 03:33 APTT 36.5 Seconds (25.6-37.1) 11/17/17 03:33 - Constitutional Appears: No Acute Distress - Head Exam Head Exam: ATRAUMATIC, NORMOCEPHALIC - Eye Exam Eye Exam: EOMI, Normal appearance Pupil Exam: PERRL - ENT Exam ENT Exam: Mucous Membranes Moist - Respiratory Exam Respiratory Exam: NORMAL BREATHING PATTERN Additional comments: tender to palpation on left side - Cardiovascular Exam Cardiovascular Exam: Tachycardia - GI/Abdominal Exam GI & Abdominal Exam: Soft. absent: Tenderness - Neurological Exam Neurological Exam: Alert, Awake, Oriented x3 - Psychiatric Exam Psychiatric exam: Normal Affect, Normal Mood - Skin Skin Exam: Dry, Intact, Warm Assessment and Plan - Assessment and Plan (Free Text) Plan: 57F with asthmatic attack causing cardiac arrest presents with multiple left sided rib fractures - pain control - Incentive spirometer - ICU management - Further recommnedations as per Dr. Leandro Razo PGY1
[2017-11-18] MEDS: Enoxaparin 80 mg Syringe SC SCH ×2 (09:43→21:38)
[2017-11-18 10:10] LABS: BANDS 6 % (0-2); LYMPHOCYTE 6 % (20-50); METAMYELOCYTE 1 % (0-0); MONOCYTE 5 % (0-10); NEUTROPHIL 82 % (42-75); TOTAL CELLS COUNTED 100
[2017-11-18 10:11] LABS: ANISOCYTOSIS SLIGHT; HYPOCHROMIC SLIGHT; LARGE PLATELETS PRESENT; PLATELET ESTIMATE SLIGHTLY DECREASED (NORMAL); TOXIC GRANULATION PRESENT
--- NOTE | 2017-11-18 11:16 | CP.PCM.CON ---
History of Present Illness - History of Present Illness History of Present Illness: Psychiatry consult called to evaluate anxiety CC: Acute anxiety/agitation HPI: 57 yo female w/ h/o Anxiety and Depression, admitted to ICU s/p respiratory and cardiac arrest. Patient is only oriented to self at this time. She reports feeling depressed and anxious. No AH/VH/SI/HI. Patient's son was present during interview; he was able to confirm that the patient was taking Klonopin and Wellbutrin prior to admission and that the patient does not have a history of schizophrenia. He states that she is not currently at her baseline as she is acutely disoriented. PPHx: H/o depression/anxiety; h/o outpatient tx w/ Dr. Kirby and tx w/ Wellbutrin and Klonopin PMH: Anxiety, Arthritis, Asthma, Back Problems (c-spine, l-spine herniated discs), Depression, Gastritis, HTN PSH: Tubal ligation; Hysterectomy; Bilateral cataract surgery SH: Live with family, No illegal drug use; Light smoker; occasional Alcohol Allergies: Prednisone MSE: A + O x 1, lethargic, falling asleep during interview, speech coherent but slurred, +depressed/anxious mood, no AH/VH/SI/HI; poor I/J Impression: 57 yo female w/ h/o depression and anxiety, acutely delirious due to acute medical issues. Recommendations: -Restart Wellbutrin 75 mg PO Daily -Hold Klonopin and other benzodiazepines as they can cause respiratory depression when given with opiates -If patient acutely agitated can give Haldol 2 mg Q6 PO/IM/IV PRN acute agitation -No acute inpatient psychiatric admission indicated at this time Past Patient History - Infectious Disease Hx of Infectious Diseases: None - Past Medical History & Family History Past Medical History?: Yes - Past Social History Smoking Status: Heavy Smoker > 10 Cigarettes Daily - CARDIAC Hx Cardiac Disorders: Yes Hx Hypertension: Yes - PULMONARY Hx Respiratory Disorders: Yes Hx Asthma: Yes - NEUROLOGICAL Hx Neurological Disorder: No - HEENT Hx HEENT Problems: Yes Hx Cataracts: Yes - RENAL Hx Chronic Kidney Disease: No - ENDOCRINE/METABOLIC Hx Endocrine Disorders: No - HEMATOLOGICAL/ONCOLOGICAL Hx Blood Disorders: Yes Hx Human Immunodeficiency Virus (HIV): No - INTEGUMENTARY Hx Dermatological Problems: No - MUSCULOSKELETAL/RHEUMATOLOGICAL Hx Musculoskeletal Disorders: Yes Hx Arthritis: Yes Hx Back Pain: Yes Hx Falls: Yes Hx Herniated Disk: Yes - GASTROINTESTINAL Hx Gastrointestinal Disorders: Yes Hx Gastritis: Yes - GENITOURINARY/GYNECOLOGICAL Hx Genitourinary Disorders: No - PSYCHIATRIC Hx Psychophysiologic Disorder: Yes Hx Anxiety: Yes Hx Depression: Yes Hx Schizophrenia: Yes Hx Substance Use: Yes (quit > 20 years ago) - SURGICAL HISTORY Hx Surgeries: Yes Hx Cataract Extraction: Yes (bilateral) Hx Hysterectomy: Yes Hx Tubal Ligation: Yes - ANESTHESIA Hx Anesthesia: Yes Hx Anesthesia Reactions: No Meds Home Medications: Home Medication List Medication Instructions Recorded Confirmed Type Albuterol Sulfate [Ventolin Hfa] 0.09 mg IH PRN PRN #1 ml 11/17/17 Rx Allergies/Adverse Reactions: Allergies Allergy/AdvReac Type Severity Reaction Status Date / Time prednisone Allergy unknown Verified 08/09/17 03:53 - Medications Medications: Current Medications Albuterol Sulfate (Albuterol 0.083% Inhal Hanane (2.5 Mg/3 Ml) Ud) 2.5 mg INH RQ2 PRN PRN Reason: Shortness of Breath Last Admin: 11/18/17 02:20 Dose: 2.5 mg Albuterol/Ipratropium (Duoneb 3 Mg/0.5 Mg (3 Ml) Ud) 3 ml INH RQ4 PENELOPE Last Admin: 11/18/17 11:02 Dose: 3 ml Enoxaparin Sodium (Lovenox) 70 mg SC Q12 PENELOPE PRN Reason: Protocol Last Admin: 11/18/17 09:43 Dose: Not Given Famotidine (Pepcid) 20 mg IVP DAILY [facility] Last Admin: 11/18/17 08:49 Dose: 20 mg Haloperidol Lactate (Haldol) 2 mg IVP Q4 PRN PRN Reason: Agitation Last Admin: 11/18/17 09:52 Dose: 2 mg Piperacillin Sod/Tazobactam (Sod 2.25 gm/ Sodium Chloride) 100 mls @ 100 mls/ hr IVPB Q6 PENELOPE PRN Reason: Protocol Last Admin: 11/18/17 09:53 Dose: 100 mls/hr Levofloxacin/Dextrose (Levaquin 750mg) 750 mg in 150 mls @ 100 mls/hr IVPB DAILY@0600 [facility] Last Admin: 11/18/17 05:00 Dose: 100 mls/hr Lorazepam (Ativan) 2 mg IVP Q4 PRN PRN Reason: Agitation Last Admin: 11/18/17 10:09 Dose: 2 mg Methylprednisolone (Solu-Medrol) 80 mg IV Q8 PENELOPE Last Admin: 11/18/17 08:47 Dose: 80 mg Morphine Sulfate (Morphine) 4 mg IVP Q4 PRN PRN Reason: Agitation Last Admin: 11/17/17 13:23 Dose: 4 mg Morphine Sulfate (Morphine) 6 mg IVP Q4H PRN PRN Reason: pain scale 4-10 Last Admin: 11/18/17 08:37 Dose: 6 mg Nicotine (Nicoderm Cq) 1 patch TD DAILY [facility] Last Admin: 11/18/17 09:52 Dose: 1 patch Results - Vital Signs Recent Vital Signs: Last Vital Signs Temp 98.3 F 11/18/17 08:00 Pulse 110 H 11/18/17 10:00 Resp 24 11/18/17 10:00 BP 141/85 11/18/17 10:00 Pulse Ox 100 11/18/17 10:00 - Labs Result Diagrams: 11/18/17 04:40 11/18/17 04:40 Labs: Laboratory Results - last 24 hr 11/17/17 11/17/17 11/18/17 08:35 19:40 04:40 WBC 8.3 D RBC 2.64 L Hgb 9.0 L D Hct 26.4 L MCV 100.1 H D MCH 34.2 H MCHC 34.2 RDW 12.1 Plt Count 125 L D MPV 7.8 Neut % (Auto) 88.9 H Lymph % (Auto) 4.3 L [place] % (Auto) 6.8 Eos % (Auto) 0.0 Baso % (Auto) 0.0 Neut # (Auto) 7.4 H Lymph # (Auto) 0.4 L [place] # (Auto) 0.6 Eos # (Auto) 0.0 Baso # (Auto) 0.0 Neutrophils % (Manual) 82 H Band Neutrophils % 6 H Lymphocytes % (Manual) 6 L Monocytes % (Manual) 5 Metamyelocytes % 1 H Toxic Granulation Present Platelet Estimate Slightly decreased L Large Platelets Present Hypochromasia (manual) Slight Anisocytosis (manual) Slight Macrocytosis (manual) Slight Sodium Potassium Chloride Carbon Dioxide Anion Gap BUN Creatinine Est GFR ( Amer) Est GFR (Non-Af Amer) Random Glucose Lactic Acid 2.2 H Calcium Procalcitonin 12.63 H 11/18/17 04:40 WBC RBC Hgb Hct MCV MCH MCHC RDW Plt Count MPV Neut % (Auto) Lymph % (Auto) [place] % (Auto) Eos % (Auto) Baso % (Auto) Neut # (Auto) Lymph # (Auto) [place] # (Auto) Eos # (Auto) Baso # (Auto) Neutrophils % (Manual) Band Neutrophils % Lymphocytes % (Manual) Monocytes % (Manual) Metamyelocytes % Toxic Granulation Platelet Estimate Large Platelets Hypochromasia (manual) Anisocytosis (manual) Macrocytosis (manual) Sodium 142 Potassium 3.7 Chloride 110 H Carbon Dioxide 18 L Anion Gap 18 BUN 28 H Creatinine 1.7 H Est GFR ( Amer) 37 Est GFR (Non-Af Amer) 31 Random Glucose 224 H Lactic Acid Calcium 7.6 L Procalcitonin
--- NOTE | 2017-11-18 12:53 | CP.PCM.PN ---
Subjective - Date & Time of Evaluation Date of Evaluation: 11/18/17 Time of Evaluation: 12:50 - Subjective Subjective: Reason for consultation: s/p CPR for cardiac arrest. multiple rib fx left(3-7), chest pain Requested by Dr. Carrillo. 57 yo female presented to ED for sob due to asthma. In the ED, cardiac arrest, cpr, recovered, to ICU where she c/o of chest pain. CT without contrast: Right-fx ribs 4 and 5; Left-fx ribs 1 to 6. There appears to be a significant separation of ist rib fx site , left. No apparent intrathoracic organ injuries. Tenderness, soft tissue chest. Hb this am is 9 and repeat is 8.9. I would like to obtain ct angio of subclavian artery to r/o injury to the vessel. a/p: Ribs fx, left(1-6) and right(4-5). Chest wall contusion. r/o subclavian artery injury left. ct angio of subclavian artery. Pain meds and incentive spirometer. Objective - Vital Signs/Intake and Output Vital Signs (last 24 hours): Temp Pulse Resp BP Pulse Ox 98.3 F 110 H 24 141/85 100 11/18/17 08:00 11/18/17 10:00 11/18/17 10:00 11/18/17 10:00 11/18/17 10:00 Intake and Output: 11/18/17 11/18/17 06:59 18:59 Intake Total 1350 450 Output Total 600 Balance 750 450 - Medications Medications: Current Medications Albuterol Sulfate (Albuterol 0.083% Inhal Hanane (2.5 Mg/3 Ml) Ud) 2.5 mg INH RQ2 PRN PRN Reason: Shortness of Breath Last Admin: 11/18/17 02:20 Dose: 2.5 mg Albuterol/Ipratropium (Duoneb 3 Mg/0.5 Mg (3 Ml) Ud) 3 ml INH RQ4 [facility] Last Admin: 11/18/17 11:02 Dose: 3 ml Bupropion HCl (Wellbutrin) 75 mg PO DAILY [facility] Enoxaparin Sodium (Lovenox) 70 mg SC Q12 [facility] PRN Reason: Protocol Last Admin: 11/18/17 09:43 Dose: Not Given Famotidine (Pepcid) 20 mg IVP DAILY [facility] Last Admin: 11/18/17 08:49 Dose: 20 mg Haloperidol Lactate (Haldol) 2 mg IVP Q4 PRN PRN Reason: Agitation Last Admin: 11/18/17 09:52 Dose: 2 mg Piperacillin Sod/Tazobactam (Sod 2.25 gm/ Sodium Chloride) 100 mls @ 100 mls/ hr IVPB Q6 [facility] PRN Reason: Protocol Last Admin: 11/18/17 09:53 Dose: 100 mls/hr Levofloxacin/Dextrose (Levaquin 750mg) 750 mg in 150 mls @ 100 mls/hr IVPB DAILY@0600 [facility] Last Admin: 11/18/17 05:00 Dose: 100 mls/hr Lorazepam (Ativan) 2 mg IVP Q4 PRN PRN Reason: Agitation Last Admin: 11/18/17 10:09 Dose: 2 mg Methylprednisolone (Solu-Medrol) 80 mg IV Q8 [facility] Last Admin: 11/18/17 08:47 Dose: 80 mg Morphine Sulfate (Morphine) 4 mg IVP Q4 PRN PRN Reason: Agitation Last Admin: 11/17/17 13:23 Dose: 4 mg Morphine Sulfate (Morphine) 6 mg IVP Q4H PRN PRN Reason: pain scale 4-10 Last Admin: 11/18/17 08:37 Dose: 6 mg Nicotine (Nicoderm Cq) 1 patch TD DAILY [facility] Last Admin: 11/18/17 09:52 Dose: 1 patch - Labs Labs: 11/18/17 04:40 11/18/17 04:40 PT 14.6 Seconds (9.8-13.1) H 11/17/17 03:33 INR 1.3 (0.9-1.2) H 11/17/17 03:33 APTT 36.5 Seconds (25.6-37.1) 11/17/17 03:33
[2017-11-18 13:58] LABS: HEMOGLOBIN 8.9 g/dL (12.0-16.0); MEAN CELL VOLUME 98.4 fl (81.0-99.0); MEAN CORPUSCULAR HEMOGLOBIN 34.2 pg (27.0-31.0); MEAN CORPUSCULAR HGB CONC 34.8 g/dL (33.0-37.0); RBC 2.61 Mil/uL (3.80-5.20); RED CELL DISTRIBUTION WIDTH 12.3 % (11.5-14.5); WHITE BLOOD COUNT 9.4 K/uL (4.8-10.8)
--- NOTE | 2017-11-18 17:36 | CT ---
PROCEDURE: CT Chest without contrast HISTORY: R/O pleural effusion, follow up Rib Fx COMPARISON: Chest CT without contrast 11/17/2017. TECHNIQUE: Contiguous axial images were obtained through the chest without intravenous contrast enhancement. Sagittal and coronal reconstructions were performed. Radiation dose (DLP): 856.54 mGy-cm. This CT exam was performed using one or more of the following dose reduction techniques: Automated exposure control, adjustment of the mA and/or kV according to patient size, and/or use of iterative reconstruction technique. FINDINGS: Examination was initially ordered with intravenous contrast however the patient was experiencing worsening renal function and was agreed on discussion of this with the referring physician that evaluation for possible posttraumatic hemorrhage could be performed without intravenous contrast initially and if significant hemorrhage was encountered then contrast CT this is could be revisited at that point. Old left-sided rib fractures are reiterated with increased edema seen at the left breast and chest wall laterally. A limited amount of fluid or reaction is identified the left subclavian region and the left 1st, 2nd and 4th intercostal/sub costal spaces or possibly the local pleura with the interval change in soft tissue not involving a volume that would significantly changed the hematocrit level in this patient if these represent small hematomas. LUNGS: History motion degrades evaluation of the lungs bilaterally however mildly position are identified affecting the bilateral upper lobes and superior segment right lower lobe. Compression atelectasis is seen mildly affecting the left lower lobe. Central airways are clear. Trace biapical emphysema reiterated. MEDIASTINUM: Cardiomegaly stable without significant pericardial effusion evident. Thoracic inlet is unremarkable exclusive of left-sided rib fractures. The thoracic aorta remains normal caliber as well as the main pulmonary artery. PLEURA: Mild left pleural effusion has developed with the density that would not suggest hemoperitoneum (17 Hounsfield units).Trace right pleural effusion is evident slightly increased in the interval. No interval pneumothorax appreciated. BONES: As above. UPPER ABDOMEN: Grossly unremarkable. OTHER FINDINGS: None. IMPRESSION: Interval left 1st, 2nd and 4th intracostal/sub costal soft tissue density changes are appreciated with minimal left subclavian soft tissue changes potentially representing limited local hemorrhage. There is no moderate or large hemorrhagic fluid collection appreciate throughout the left chest however. Active changes are relatively prominent at the left chest wall laterally and anteriorly including the left breast. Multiple upper left rib fractures are reiterated. Mild left pleural effusion has developed with trace right pleural effusion again evident. Limited scattered bilateral upper lobe and right lower lobe superior segment infiltrates identified in the interval. Continued radiographic and possible CT follow-up advised. Trace biapical emphysema reiterated. Findings discussed with Dr. Carrillo with written down and read back verification 11/18/2017 5:26 p.m..
[2017-11-18 17:44] LABS: SQUAMOUS EPITHIAL 7 /hpf (0-5); URINE AMORPHOUS SEDIMENT OCC /ul (<OCC); URINE BACTERIA FEW (<OCC); URINE BILIRUBIN NEGATIVE (NEGATIVE); URINE BLOOD LARGE (NEGATIVE); URINE CLARITY TURBID (Clear); URINE COLOR AMBER (YELLOW); URINE GLUCOSE (UA) >=500 mg/dL (Normal); URINE LEUKOCYTE ESTERASE NEG Leu/uL (Negative); URINE PROTEIN 100 mg/dL (NEGATIVE); URINE UROBILINOGEN 0.2-1.0 mg/dL (0.2-1.0)
[2017-11-18 17:58] LABS: BARBITURATES, UR NEGATIVE (NEGATIVE); BENZODIAZEPINES, UR NEGATIVE (NEGATIVE); OPIATES, UR POSITIVE (NEGATIVE); PHENCYCLIDINE, UR NEGATIVE (NEGATIVE)
--- NOTE | 2017-11-18 19:59 | CP.PCM.PN ---
Subjective - Date & Time of Evaluation Date of Evaluation: 11/18/17 Time of Evaluation: 16:15 Objective - Vital Signs/Intake and Output Vital Signs (last 24 hours): Temp Pulse Resp BP Pulse Ox 98 F 104 H 18 125/85 100 11/18/17 16:00 11/18/17 17:21 11/18/17 16:00 11/18/17 17:21 11/18/17 16:00 Intake and Output: 11/18/17 11/19/17 18:59 06:59 Intake Total 1190 Balance 1190 - Medications Medications: Current Medications Albuterol Sulfate (Albuterol 0.083% Inhal Hanane (2.5 Mg/3 Ml) Ud) 2.5 mg INH RQ2 PRN PRN Reason: Shortness of Breath Last Admin: 11/18/17 02:20 Dose: 2.5 mg Albuterol/Ipratropium (Duoneb 3 Mg/0.5 Mg (3 Ml) Ud) 3 ml INH RQ4 [facility] Last Admin: 11/18/17 19:07 Dose: 3 ml Bupropion HCl (Wellbutrin) 75 mg PO DAILY [facility] Enoxaparin Sodium (Lovenox) 70 mg SC Q12 [facility] PRN Reason: Protocol Last Admin: 11/18/17 09:43 Dose: Not Given Famotidine (Pepcid) 20 mg IVP DAILY [facility] Last Admin: 11/18/17 08:49 Dose: 20 mg Haloperidol Lactate (Haldol) 2 mg IVP Q4 PRN PRN Reason: Agitation Last Admin: 11/18/17 09:52 Dose: 2 mg Piperacillin Sod/Tazobactam (Sod 2.25 gm/ Sodium Chloride) 100 mls @ 100 mls/ hr IVPB Q6 [facility] PRN Reason: Protocol Last Admin: 11/18/17 17:25 Dose: 100 mls/hr Levofloxacin/Dextrose (Levaquin 750mg) 750 mg in 150 mls @ 100 mls/hr IVPB DAILY@0600 [facility] Last Admin: 11/18/17 05:00 Dose: 100 mls/hr Lorazepam (Ativan) 2 mg IVP Q4 PRN PRN Reason: Agitation Last Admin: 11/18/17 10:09 Dose: 2 mg Methylprednisolone (Solu-Medrol) 80 mg IV Q8 [facility] Last Admin: 11/18/17 17:29 Dose: 80 mg Morphine Sulfate (Morphine) 4 mg IVP Q4 PRN PRN Reason: Agitation Last Admin: 11/17/17 13:23 Dose: 4 mg Morphine Sulfate (Morphine) 6 mg IVP Q4H PRN PRN Reason: pain scale 4-10 Last Admin: 11/18/17 17:58 Dose: 6 mg Nicotine (Nicoderm Cq) 1 patch TD DAILY [facility] Last Admin: 11/18/17 09:52 Dose: 1 patch - Labs Labs: 11/18/17 13:38 11/18/17 04:40 PT 14.6 Seconds (9.8-13.1) H 11/17/17 03:33 INR 1.3 (0.9-1.2) H 11/17/17 03:33 APTT 36.5 Seconds (25.6-37.1) 11/17/17 03:33
--- NOTE | 2017-11-18 20:44 | PN ---
DATE: 11/18/2017 NB. My consult yesterday with placed on the wrong patient and I requested from medical records to correct it SUBJECTIVE: The patient is experiencing sharp chest pain, mildly short of breath. No reported ventricular tachycardia. PHYSICAL EXAMINATION: VITAL SIGNS: Blood pressure 125/85, heart rate 104, temperature 98, and respirations 18. HEENT: Pale conjunctivae. CHEST: Bilateral rhonchi. HEART: S1 and S2 regular. ABDOMEN: Soft. EXTREMITIES: No edema. LABORATORY DATA: Hemoglobin and hematocrit 8.9 and 25.7 and white count and platelet count are within normal limits. BUN and creatinine are 28 and 1.7. Glucose 224. Chest CT scan, there is interval left second and fourth intercostal subcostal soft tissue density changes are appreciated with minimal left subclavian soft tissue changes presenting limited local hemorrhage. There is no moderate or large hemorrhagic fluid collection appreciated throughout the left chest; however, active changes are relatively prominent, anterior chest wall are laterally and anteriorly including the left breast. Multiple upper left rib fractures are reiterated. Mild left pleural effusion as developed with trace right pleural effusion. Limited scattered bilateral upper lobe and right lower lobe superior segment infiltrate. ASSESSMENT: 1. Status post respiratory failure. 2. Chronic obstructive lung disease. 3. Sinus tachycardia with nonspecific ST-segment changes and borderline elevated troponin. 4. Left rib fractures. RECOMMENDATIONS: Continue current albuterol inhaler. Continue Levaquin at 750 mg intravenously daily. Discontinue subcutaneous Lovenox because of possible hemorrhagic changes by the left chest wall. Continue current Solu-Medrol and IV Zosyn. We will follow the echo tomorrow; however, the chances of having the echo done probably are minimal because of the patient's excluded chest wall tenderness. The study may be limited to only subcostal views. $#DTPHYNAME DD: $#DTDICT $#TMDICT([facility]:mm:ss) DT: $#DTTRAN $#TMTRAN([facility]:mm:ss) Job # $#DOCID MTDD
[2017-11-19] MEDS: Albuterol-Ipratrop 3 mg / 0.5 (3 ml) UD INH SCH ×7 (05:30→23:51)
[2017-11-19 05:38] LABS: BASO % 0.1 % (0.0-2.0); HEMOGLOBIN 8.2 g/dL (12.0-16.0); LYMPH # 0.3 K/uL (1.0-4.3); LYMPH % 3.4 % (20.0-40.0); MEAN CELL VOLUME 101.4 fl (81.0-99.0); MEAN CORPUSCULAR HEMOGLOBIN 34.6 pg (27.0-31.0); MEAN CORPUSCULAR HGB CONC 34.1 g/dL (33.0-37.0); MEAN PLATELET VOLUME 7.7 fl (7.2-11.7); MONO # 0.6 K/uL (0.0-0.8); MONO % 6.9 % (0.0-10.0); NEUT # 8.4 K/uL (1.8-7.0); NEUT % 89.6 % (50.0-75.0); NRBC % 0.1 % (0.0-0.0); RBC 2.37 Mil/uL (3.80-5.20); RED CELL DISTRIBUTION WIDTH 12.5 % (11.5-14.5); WHITE BLOOD COUNT 9.4 K/uL (4.8-10.8)
[2017-11-19 05:39] LABS: CALCIUM 8.3 mg/dL (8.4-10.2)
--- NOTE | 2017-11-19 07:53 | CP.PCM.PN ---
Subjective - Date & Time of Evaluation Date of Evaluation: 11/19/17 Time of Evaluation: 06:50 - Subjective Subjective: Pt seen and examined. Agitated this AM despite medications. Moving constantly, especially when agitated. Kicked and struggled against staff. Says her chest feels better today. Tachycardic overnight to 140s. Hgb continues to decline, 8.2 from 8.9. Objective - Vital Signs/Intake and Output Vital Signs (last 24 hours): Temp Pulse Resp BP Pulse Ox 98.2 F 137 H 16 153/80 H 98 11/19/17 04:00 11/19/17 06:00 11/19/17 06:00 11/19/17 06:00 11/19/17 06:00 Intake and Output: 11/19/17 11/19/17 06:59 18:59 Intake Total 220 Balance 220 - Medications Medications: Current Medications Albuterol Sulfate (Albuterol 0.083% Inhal Hanane (2.5 Mg/3 Ml) Ud) 2.5 mg INH RQ2 PRN PRN Reason: Shortness of Breath Last Admin: 11/18/17 02:20 Dose: 2.5 mg Albuterol/Ipratropium (Duoneb 3 Mg/0.5 Mg (3 Ml) Ud) 3 ml INH RQ4 [facility] Last Admin: 11/19/17 07:06 Dose: Not Given Bupropion HCl (Wellbutrin) 75 mg PO DAILY [facility] Enoxaparin Sodium (Lovenox) 70 mg SC Q12 [facility] PRN Reason: Protocol Last Admin: 11/18/17 21:38 Dose: 70 mg Famotidine (Pepcid) 20 mg IVP DAILY [facility] Last Admin: 11/18/17 08:49 Dose: 20 mg Haloperidol Lactate (Haldol) 2 mg IVP Q4 PRN PRN Reason: Agitation Last Admin: 11/19/17 06:35 Dose: 2 mg Piperacillin Sod/Tazobactam (Sod 2.25 gm/ Sodium Chloride) 100 mls @ 100 mls/ hr IVPB Q6 [facility] PRN Reason: Protocol Last Admin: 11/19/17 05:51 Dose: 100 mls/hr Levofloxacin/Dextrose (Levaquin 750mg) 750 mg in 150 mls @ 100 mls/hr IVPB DAILY@0600 [facility] Last Admin: 11/19/17 05:51 Dose: 100 mls/hr Lorazepam (Ativan) 2 mg IVP Q4 PRN PRN Reason: Agitation Last Admin: 11/19/17 05:56 Dose: 2 mg Methylprednisolone (Solu-Medrol) 80 mg IV Q8 [facility] Last Admin: 11/19/17 00:27 Dose: 80 mg Morphine Sulfate (Morphine) 4 mg IVP Q4 PRN PRN Reason: Agitation Last Admin: 11/17/17 13:23 Dose: 4 mg Morphine Sulfate (Morphine) 6 mg IVP Q4H PRN PRN Reason: pain scale 4-10 Last Admin: 11/18/17 22:50 Dose: 6 mg Nicotine (Nicoderm Cq) 1 patch TD DAILY [facility] Last Admin: 11/18/17 09:52 Dose: 1 patch - Labs Labs: 11/19/17 04:20 11/19/17 04:20 PT 14.6 Seconds (9.8-13.1) H 11/17/17 03:33 INR 1.3 (0.9-1.2) H 11/17/17 03:33 APTT 36.5 Seconds (25.6-37.1) 11/17/17 03:33 - Constitutional Appears: Combative, Agitated - Head Exam Head Exam: ATRAUMATIC, NORMOCEPHALIC - Eye Exam Eye Exam: EOMI - Respiratory Exam Respiratory Exam: Chest Wall Tenderness (bilaterally). absent: Respiratory Distress, NORMAL BREATHING PATTERN (tachypnic this AM) - Cardiovascular Exam Cardiovascular Exam: Tachycardia - GI/Abdominal Exam GI & Abdominal Exam: Soft. absent: Distended, Tenderness - Extremities Exam Additional comments: radial pulses palpable B/L - Neurological Exam Neurological Exam: Alert, Awake - Skin Skin Exam: Dry, Warm Assessment and Plan - Assessment and Plan (Free Text) Assessment: 57F with R 4th and 5th rib fractures and left 1st-6th rib fractures s/p asthmatic attack causing cardiac arrest with CPR Plan: - Need to r/o subclavian artery injury left. - ct angio of subclavian artery if pt can be calmed down enough. - CXR in the meantime to check for opacification of lung field. - Continue Pain meds, ativan, haldol. - incentive spirometer
--- NOTE | 2017-11-19 09:53 | RAD ---
PROCEDURE: CHEST RADIOGRAPH, 1 VIEW HISTORY: R/O hemothorax COMPARISON: Chest radiograph dated 11/18/2017. FINDINGS: LUNGS: Worsening right upper, right lower and left upper lung infiltrates. PLEURA: Small left pneumothorax not excluded. No significant pleural fluid seen. CARDIOVASCULAR: Unchanged. OSSEOUS STRUCTURES: Multiple displaced left rib fractures, unchanged. VISUALIZED UPPER ABDOMEN: Normal. OTHER FINDINGS: None. IMPRESSION: Worsening right upper, right lower and left upper lung infiltrates. Small left pneumothorax not excluded.
[2017-11-19 09:59] LABS: ABG ALLEN TEST YES; ARTERIAL BLOOD GAS HCO3 20.7 mmol/L (21-28); ARTERIAL BLOOD GAS HEMOGLOBIN 8.3 g/dL (11.7-17.4); ARTERIAL BLOOD GAS O2 CAPACITY 11.5 mL/dL (16-24); ARTERIAL BLOOD GAS O2 CONTENT 11.2 ML/dL (15-23); ARTERIAL BLOOD GAS O2 SAT 97.4 % (95-98); ARTERIAL BLOOD GAS PCO2 42 mm/Hg (35-45); ARTERIAL BLOOD GAS PO2 70 mm/Hg (80-100)
[2017-11-19] MEDS ORDERED: Dextrose 5%/0.9% NS 1,000 ML IV SCH (11:15)
[2017-11-19] MEDS: levoFLOXacin 500 mg in D5W 500 MG/100 ML BAG IVPB SCH (11:52)
[2017-11-19] MEDS: Thiamine 100 mg/ml Inj IM SCH (11:53)
[2017-11-19 13:52] LABS: HEMOGLOBIN 7.9 g/dL (12.0-16.0); MEAN CELL VOLUME 99.7 fl (81.0-99.0); MEAN CORPUSCULAR HEMOGLOBIN 33.4 pg (27.0-31.0); MEAN CORPUSCULAR HGB CONC 33.5 g/dL (33.0-37.0); RBC 2.36 Mil/uL (3.80-5.20); RED CELL DISTRIBUTION WIDTH 12.4 % (11.5-14.5); WHITE BLOOD COUNT 11.9 K/uL (4.8-10.8)
[2017-11-19 13:54] LABS: CALCIUM 8.5 mg/dL (8.4-10.2)
--- NOTE | 2017-11-19 13:54 | PN ---
DATE: 11/19/2017 SUBJECTIVE: The patient is agitated, restless, and uncooperative. She is confused to place and she is in sinus tachycardia under monitor. PHYSICAL EXAMINATION: VITAL SIGNS: Blood pressure of 128/75, heart rate of 118, temperature of 97.7, and respirations of 30. HEENT: Pale conjunctivae. CHEST: Diffuse bilateral expiratory wheezing. HEART: S1 and S2 regular. ABDOMEN: Soft. EXTREMITIES: No edema. LABORATORY DATA: Today's hemoglobin and hematocrit are 8.2 and 24.1, white count of 9.4, and platelet count of 122,000. SMA-7; sodium of 140, potassium of 4.4, chloride of 112, CO2 of 19, glucose of 161, BUN of 28, and creatinine of 1.8. DIAGNOSTIC DATA: Today's chest x-ray revealed bilateral infiltrates, diffuse infiltrate of the right upper and middle lobes as well as segments of the lower lobe, and diffuse infiltrate of the left upper lobe. ASSESSMENT: 1. Status post respiratory failure. 2. Borderline troponin elevation. 3. Bilateral pneumonia. 4. Diffuse bronchospasm. 5. Multiple left rib fractures. 6. Prerenal azotemia. 7. EtOH abuse. RECOMMENDATIONS: The patient will receive Haldol 2 mg IM now for agitation. Continue IV Solu-Medrol, IV Levaquin, and p.r.n. IV Ativan. Start thiamine 100 mg intravenously daily and start normal saline at 60 mL an hour with thiamine 100 mg intravenously daily. echo could not be done today because of the patient's persistent agitated status. Aditya Abraham MD
[2017-11-19] MEDS ORDERED: Midazolam 2 MG/2 ML VIAL ONE (15:02)
[2017-11-19] MEDS ORDERED: PROPOFOL ONE (15:03)
--- NOTE | 2017-11-19 15:32 | PCM.ANES ---
Anesthesia Emergent Intubation - Diagnosis Working Diagnosis:: Respiratory Failure and Fracture Ribs - Consult Reason for Consult:: Inubation - Intubation Attempts Previous Number of Intubation Attempts:: 0 - Pre-Intubation Vital Signs Blood Pressure: 170/92 Heart Rate: 118 Respiratory Rate: 29 O2 Sat: 90 FIO2: 100 Oxygen Delivery Method: Ambu-Bag Level Of Consciousness: Lethargic Intubation Meds Given: Propofol - Airway Management Oropharyngeal Area Suctioned: Yes Inhalation: Yes Rapid Sequence: No Cricoid Pressure: Yes Possible Aspiration: No - Method of Intubation Intubation Method: Oral ETT ETT Size: 7.5 Easy: Yes (denures) Atramatic: Yes - Intubation Devices Vivian Blade Size Used: 3 - Placement Confirmation Breath Sounds Present & Equal Bilaterally: Yes Gurgling Sounds Not Audible at Epigastrum: Yes Positive EtCO2: Yes Portable CXR: Yes Recommendations: Ventilator - Post-Intubation Vital Signs Blood Pressure: 143/85 Heart Rate: 94 Respiratory Rate: 18 O2 Sat: 100 FIO2: 100
--- NOTE | 2017-11-19 15:58 | CP.PCM.PCO ---
Assessment/Plan - Problems Patient Problems: Problem List (Active/Current) Problem Status Onset Code COPD (chronic obstructive pulmonary disease) Acute J44.9 COPD exacerbation Acute J44.1 Respiratory arrest Acute R09.2 - Critical Care Critical Care Time (Mins): 35 Critical Care Narrative (Free Text): The patient was seen and examined at the bedside, medical records reviewed, and management issues were discussed and formulated with the house staff. Mrs. Guerrero is 59 year old Active Smoker Female with PMHx of HTN, Arthritis, Asthma, Back Problems (c-spine, l-spine herniated discs), Depression, Gastritis , Anxiety and Schizophrenia Who presented to the ED with shortness of breath x 1 day, Currently in the ICU with acute respiratory failure, bilateral rib fracture and acute kidney injury. Also she went into respiratory and cardiac arrest in ER. Last 24 hour events Patient noted with continued H/H drop and worsening of the bilateral infilterate concerning for lung Parenchymal bleeding. Its medical necessary to get chest CT angiogram to R/O intercostal, subclavian or any other vascular injury We fully aware of the renal function, she was started on IV fluids and her repeat Labs revealed Improvement of renal function BUN/Cr down to 27/1.6 Also we semi-electevely intubated her for respiratory distress, airway protection, difficult to control mental/Behavioural status, also to facilitate the rib fracture healing and the required tests Sb is sedated, orally intubated and mechanically ventilated. PRVC AC16 TV450 FiO2 50% PEEP5. Resp nonlabored spontaneous resp noted. Planning to continue IV Hydrations Broaden the antibiotics coverage I feel the benefits outweigh the renal risks of doing CT chest angiogram Discussed with the family, PMD, Pulmonary, Radiology and thoracic surgery Objective - Vital Signs / Intake & Output Vital Signs (Last 12hrs): Vital Signs Temp Pulse Resp BP Pulse Ox 11/19/17 16:00 97.5 F L 112 H 19 123/82 100 11/19/17 15:43 118 H 29 H 170/92 H 90 L 11/19/17 12:00 103 H 14 136/75 98 11/19/17 10:00 114 H 21 121/68 92 L 11/19/17 07:52 97.7 F 118 H 30 H 128/75 98 11/19/17 06:00 137 H 16 153/80 H 98 Intake and Output (Last 8hrs): Intake & Output 11/19/17 11/19/17 11/19/17 06:59 14:59 22:59 Intake Total 212 470 150 Balance 212 470 150 Weight 164 lb Intake: IV 12 250 100 Intake, Piggyback 200 100 50 Oral 120 - Physical Exam Head: Positive for: Atraumatic, Normocephalic Pupils: Positive for: PERRL, Sluggish Extroacular Muscles: Positive for: EOMI Conjunctiva: Positive for: Normal. Negative for: Injected, Icteric Mouth: Positive for: Moist Mucous Membranes Pharnyx: Positive for: Normal Nose (Internal): Positive for: Normal Inspection Neck: Positive for: Normal Range of Motion, Trachea Midline. Negative for: Meningeal Signs, MIDLINE TENDERNESS, Paraspinal Tenderness, JVD, Lymphadenopathy , Bruit, Other Respiratory/Chest: Positive for: Wheezes, Decreased Breath Sounds, Rales, Rhonchi. Negative for: Respiratory Distress, Accessory Muscle Use Cardiovascular: Positive for: Regular Rate and Rhythm, Normal S1, S2, Peripheal Pulses Present. Negative for: Murmurs, Irregular Rhythm, Tachycardic, Bradycardic Abdomen: Positive for: Normal Bowel Sounds. Negative for: Tenderness, Distention, Peritoneal Signs, Rebound, Guarding Upper Extremity: Positive for: Normal Inspection, NORMAL PULSES, Capillary Refill < 2s. Negative for: Cyanosis, Edema Lower Extremity: Positive for: Normal Inspection, NORMAL PULSES, Capillary Refill < 2 s. Negative for: Edema, CALF TENDERNESS - Medications Active Medications: Active Medications Generic Name Dose Route Start Last Admin Trade Name Freq PRN Reason Stop Dose Admin Albuterol Sulfate 2.5 mg 11/17/17 05:10 11/18/17 02:20 Albuterol 0.083% Inhal Hanane (2.5 Mg/3 Ml) Ud INH 2.5 mg RQ2 PRN Administration Shortness of Breath Albuterol/Ipratropium 3 ml 11/17/17 04:00 11/19/17 15:32 Duoneb 3 Mg/0.5 Mg (3 Ml) Ud INH 3 ml RQ4 PENELOPE Administration Bupropion HCl 75 mg 11/19/17 09:00 11/19/17 09:42 Wellbutrin PO 75 mg DAILY PENELOPE Administration Famotidine 20 mg 11/17/17 09:00 11/19/17 09:40 Pepcid IVP 20 mg DAILY PENELOPE Administration Haloperidol Lactate 2 mg 11/18/17 09:13 11/19/17 11:26 Haldol IVP 2 mg Q4 PRN Administration Agitation Piperacillin Sod/Tazobactam 100 mls @ 100 mls/hr 11/17/17 05:00 11/19/17 09: 49 Sod 2.25 gm/ Sodium Chloride IVPB 100 mls/hr Q6 PENELOPE Administration Protocol Levofloxacin/Dextrose 500 mg in 100 mls @ 100 mls/hr 11/19/17 11:15 11/19/17 11:52 Levaquin 500mg IVPB 100 mls/hr DAILY PENELOPE Administration Protocol Dextrose/Sodium Chloride 1,000 mls @ 50 mls/hr 11/19/17 11:15 11/19/17 11:49 Dextrose 5%/0.9% Ns 1000 Ml IV 11/20/17 11:11 50 mls/hr .Q20H PENELOPE Administration Lorazepam 2 mg 11/17/17 09:40 11/19/17 10:20 Ativan IVP 2 mg Q4 PRN Administration Agitation Methylprednisolone 80 mg 11/18/17 01:00 11/19/17 09:41 Solu-Medrol IV 80 mg Q8 PENELOPE Administration Morphine Sulfate 4 mg 11/17/17 07:43 11/17/17 13:23 Morphine IVP 4 mg Q4 PRN Administration Agitation Morphine Sulfate 6 mg 11/17/17 22:18 11/19/17 08:12 Morphine IVP 6 mg Q4H PRN Administration pain scale 4-10 Nicotine 1 patch 11/18/17 09:45 11/19/17 09:41 Nicoderm Cq TD 1 patch DAILY PENELOPE Administration Thiamine HCl 100 mg 11/19/17 11:15 11/19/17 11:53 Vitamin B1 Inj IM 100 mg DAILY PENELOPE Administration - Patient Studies Lab Studies: Lab Studies 11/19/17 11/19/17 11/19/17 Range/Units 13:35 13:35 09:51 WBC 11.9 H (4.8-10.8) K/uL RBC 2.36 L (3.80-5.20) Mil/uL Hgb 7.9 L (12.0-16.0) g/dL Hct 23.6 L (34.0-47.0) % MCV 99.7 H (81.0-99.0) fl MCH 33.4 H (27.0-31.0) pg MCHC 33.5 (33.0-37.0) g/dL RDW 12.4 (11.5-14.5) % Plt Count 124 L (130-400) K/uL MPV (7.2-11.7) fl Neut % (Auto) (50.0-75.0) % Lymph % (Auto) (20.0-40.0) % [place] % (Auto) (0.0-10.0) % Eos % (Auto) (0.0-4.0) % Baso % (Auto) (0.0-2.0) % Neut # (Auto) (1.8-7.0) K/uL Lymph # (Auto) (1.0-4.3) K/uL [place] # (Auto) (0.0-0.8) K/uL Eos # (Auto) (0.0-0.7) K/uL Baso # (Auto) (0.0-0.2) K/uL pCO2 42 (35-45) mm/Hg pO2 70 L (80-100) mm/Hg HCO3 20.7 L (21-28) mmol/L ABG pH 7.30 L (7.35-7.45) ABG Total CO2 22.0 (22-28) mmol/L ABG O2 Saturation 97.4 (95-98) % ABG O2 Content 11.2 L (15-23) ML/dL ABG Base Excess -5.4 L (-2.0-3.0) mmol/L ABG Hemoglobin 8.3 L (11.7-17.4) g/dL ABG Carboxyhemoglobin 1.9 H (0.5-1.5) % POC ABG HHb (Measured) 2.5 (0.0-5.0) % ABG Methemoglobin 0.7 (0.0-3.0) % ABG O2 Capacity 11.5 L (16-24) mL/dL Dwight Test Yes A-a O2 Difference 134.0 mm/Hg Hgb O2 Saturation 94.9 L (95.0-98.0) % Liter Flow 4 Vent Mode Nc FiO2 36.0 % Sodium 139 (132-148) mmol/l Potassium 4.4 (3.6-5.0) MMOL/L Chloride 110 H (98-107) mmol/L Carbon Dioxide 20 L (22-30) mmol/L Anion Gap 13 (10-20) BUN 27 H (7-17) mg/dl Creatinine 1.6 H (0.7-1.2) mg/dl Est GFR ( Amer) 40 Est GFR (Non-Af Amer) 33 Random Glucose 161 H (65-105) mg/dL Calcium 8.5 (8.4-10.2) mg/dL Urine Color (YELLOW) Urine Clarity (Clear) Urine pH (5.0-8.0) Ur Specific Mackey (1.003-1.030) Urine Protein (NEGATIVE) mg/dL Urine Glucose (UA) (Normal) mg/dL Urine Ketones (NEGATIVE) mg/dL Urine Blood (NEGATIVE) Urine Nitrate (NEGATIVE) Urine Bilirubin (NEGATIVE) Urine Urobilinogen (0.2-1.0) mg/dL Ur Leukocyte Esterase (Negative) Aurora/uL Urine RBC (Auto) (0-3) /hpf Urine Microscopic WBC (0-5) /hpf Ur Squamous Epith Cells (0-5) /hpf Amorphous Sediment (<OCC) /ul Urine Bacteria (<OCC) Urine Opiates Screen (NEGATIVE) Urine Methadone Screen (NEGATIVE) Ur Barbiturates Screen (NEGATIVE) Ur Phencyclidine Scrn (NEGATIVE) Ur Amphetamines Screen (NEGATIVE) U Benzodiazepines Scrn (NEGATIVE) U Oth Cocaine Metabols (NEGATIVE) U Cannabinoids Screen (NEGATIVE) 11/19/17 11/19/17 11/17/17 Range/Units 04:20 04:20 20:00 WBC 9.4 (4.8-10.8) K/uL RBC 2.37 L (3.80-5.20) Mil/uL Hgb 8.2 L (12.0-16.0) g/dL Hct 24.1 L (34.0-47.0) % MCV 101.4 H D (81.0-99.0) fl MCH 34.6 H (27.0-31.0) pg MCHC 34.1 (33.0-37.0) g/dL RDW 12.5 (11.5-14.5) % Plt Count 122 L (130-400) K/uL MPV 7.7 (7.2-11.7) fl Neut % (Auto) 89.6 H (50.0-75.0) % Lymph % (Auto) 3.4 L (20.0-40.0) % [place] % (Auto) 6.9 (0.0-10.0) % Eos % (Auto) 0.0 (0.0-4.0) % Baso % (Auto) 0.1 (0.0-2.0) % Neut # (Auto) 8.4 H (1.8-7.0) K/uL Lymph # (Auto) 0.3 L (1.0-4.3) K/uL [place] # (Auto) 0.6 (0.0-0.8) K/uL Eos # (Auto) 0.0 (0.0-0.7) K/uL Baso # (Auto) 0.0 (0.0-0.2) K/uL pCO2 (35-45) mm/Hg pO2 (80-100) mm/Hg HCO3 (21-28) mmol/L ABG pH (7.35-7.45) ABG Total CO2 (22-28) mmol/L ABG O2 Saturation (95-98) % ABG O2 Content (15-23) ML/dL ABG Base Excess (-2.0-3.0) mmol/L ABG Hemoglobin (11.7-17.4) g/dL ABG Carboxyhemoglobin (0.5-1.5) % POC ABG HHb (Measured) (0.0-5.0) % ABG Methemoglobin (0.0-3.0) % ABG O2 Capacity (16-24) mL/dL Dwight Test A-a O2 Difference mm/Hg Hgb O2 Saturation (95.0-98.0) % Liter Flow Vent Mode FiO2 % Sodium 140 (132-148) mmol/l Potassium 4.4 (3.6-5.0) MMOL/L Chloride 112 H (98-107) mmol/L Carbon Dioxide 19 L (22-30) mmol/L Anion Gap 13 (10-20) BUN 28 H (7-17) mg/dl Creatinine 1.8 H (0.7-1.2) mg/dl Est GFR ( Amer) 35 Est GFR (Non-Af Amer) 29 Random Glucose 161 H (65-105) mg/dL Calcium 8.3 L (8.4-10.2) mg/dL Urine Color (YELLOW) Urine Clarity (Clear) Urine pH (5.0-8.0) Ur Specific Mackey (1.003-1.030) Urine Protein (NEGATIVE) mg/dL Urine Glucose (UA) (Normal) mg/dL Urine Ketones (NEGATIVE) mg/dL Urine Blood (NEGATIVE) Urine Nitrate (NEGATIVE) Urine Bilirubin (NEGATIVE) Urine Urobilinogen (0.2-1.0) mg/dL Ur Leukocyte Esterase (Negative) Aurora/uL Urine RBC (Auto) (0-3) /hpf Urine Microscopic WBC (0-5) /hpf Ur Squamous Epith Cells (0-5) /hpf Amorphous Sediment (<OCC) /ul Urine Bacteria (<OCC) Urine Opiates Screen Positive H (NEGATIVE) Urine Methadone Screen Negative (NEGATIVE) Ur Barbiturates Screen Negative (NEGATIVE) Ur Phencyclidine Scrn Negative (NEGATIVE) Ur Amphetamines Screen Negative (NEGATIVE) U Benzodiazepines Scrn Negative (NEGATIVE) U Oth Cocaine Metabols Negative (NEGATIVE) U Cannabinoids Screen Negative (NEGATIVE) 11/17/17 Range/Units 20:00 WBC (4.8-10.8) K/uL RBC (3.80-5.20) Mil/uL Hgb (12.0-16.0) g/dL Hct (34.0-47.0) % MCV (81.0-99.0) fl MCH (27.0-31.0) pg MCHC (33.0-37.0) g/dL RDW (11.5-14.5) % Plt Count (130-400) K/uL MPV (7.2-11.7) fl Neut % (Auto) (50.0-75.0) % Lymph % (Auto) (20.0-40.0) % [place] % (Auto) (0.0-10.0) % Eos % (Auto) (0.0-4.0) % Baso % (Auto) (0.0-2.0) % Neut # (Auto) (1.8-7.0) K/uL Lymph # (Auto) (1.0-4.3) K/uL [place] # (Auto) (0.0-0.8) K/uL Eos # (Auto) (0.0-0.7) K/uL Baso # (Auto) (0.0-0.2) K/uL pCO2 (35-45) mm/Hg pO2 (80-100) mm/Hg HCO3 (21-28) mmol/L ABG pH (7.35-7.45) ABG Total CO2 (22-28) mmol/L ABG O2 Saturation (95-98) % ABG O2 Content (15-23) ML/dL ABG Base Excess (-2.0-3.0) mmol/L ABG Hemoglobin (11.7-17.4) g/dL ABG Carboxyhemoglobin (0.5-1.5) % POC ABG HHb (Measured) (0.0-5.0) % ABG Methemoglobin (0.0-3.0) % ABG O2 Capacity (16-24) mL/dL Dwight Test A-a O2 Difference mm/Hg Hgb O2 Saturation (95.0-98.0) % Liter Flow Vent Mode FiO2 % Sodium (132-148) mmol/l Potassium (3.6-5.0) MMOL/L Chloride (98-107) mmol/L Carbon Dioxide (22-30) mmol/L Anion Gap (10-20) BUN (7-17) mg/dl Creatinine (0.7-1.2) mg/dl Est GFR ( Amer) Est GFR (Non-Af Amer) Random Glucose (65-105) mg/dL Calcium (8.4-10.2) mg/dL Urine Color Irene (YELLOW) Urine Clarity Turbid (Clear) Urine pH 5.0 (5.0-8.0) Ur Specific Mackey 1.015 (1.003-1.030) Urine Protein 100 (NEGATIVE) mg/dL Urine Glucose (UA) >=500 (Normal) mg/dL Urine Ketones 20 (NEGATIVE) mg/dL Urine Blood Large (NEGATIVE) Urine Nitrate Negative (NEGATIVE) Urine Bilirubin Negative (NEGATIVE) Urine Urobilinogen 0.2-1.0 (0.2-1.0) mg/dL Ur Leukocyte Esterase Neg (Negative) Aurora/uL Urine RBC (Auto) 102 H (0-3) /hpf Urine Microscopic WBC 50 H (0-5) /hpf Ur Squamous Epith Cells 7 H (0-5) /hpf Amorphous Sediment Occ H (<OCC) /ul Urine Bacteria Few H (<OCC) Urine Opiates Screen (NEGATIVE) Urine Methadone Screen (NEGATIVE) Ur Barbiturates Screen (NEGATIVE) Ur Phencyclidine Scrn (NEGATIVE) Ur Amphetamines Screen (NEGATIVE) U Benzodiazepines Scrn (NEGATIVE) U Oth Cocaine Metabols (NEGATIVE) U Cannabinoids Screen (NEGATIVE)
[2017-11-19] MEDS ORDERED: Sodium Chloride 0.9% 100 ML ONE (16:39)
[2017-11-19] MEDS ORDERED: Iodixanol 320 MG/ML 100 ML BOTTLE IV ONE (16:39)
--- NOTE | 2017-11-19 16:41 | PN ---
DATE: 11/19/2017 CRITICAL CARE PROGRESS NOTE LOCATION: The patient in ICU bed 424. TIME SPENT: 45 minutes. SUBJECTIVE: The patient is seen and evaluated at the bedside. Past medical, surgical, social and family history reviewed. A 57-year-old moderately obese female with a history of asthma and major depression, admitted with progressively worsening shortness of breath, found on the floor unresponsive status post cardiopulmonary resuscitation and intubation, extubated on oxygen 4 liters nasal cannula. Overnight agitated, very combative, requiring Haldol and Ativan. Telemetry sinus rhythm. CT chest showed multiple rib fractures and possible small hemorrhage in the parenchyma. OBJECTIVE: GENERAL: This morning alert and awake, unable to follow commands, sedated from the previous medications required for agitation. VITAL SIGNS: Temperature 97.7, heart rate 118 and regular, blood pressure 128/75, mean arterial pressure of 92, respiratory rate 30, thoracoabdominal, saturation 98% on oxygen supplement 2 liters nasal cannula. INTAKE AND OUTPUT: Intake of 1410, output 1000, positive balance . HEENT: Pupils reactive. Conjunctivae pink. Sclerae are white. NECK: Supple. Trachea central. CHEST: Bilateral breath sounds, diminished in intensity. Scattered rhonchi. Tenderness over the left anterior chest wall, no subcutaneous emphysema. HEART: Rhythm regular. S1 and S2 normal. ABDOMEN: Bowel sounds present. Soft. Liver and spleen not palpable. Bladder not distended. EXTREMITIES: Trace edema. DP palpable. NEUROLOGIC: Remains wakeful, but agitated and combative. CURRENT MEDICATIONS: Albuterol inhalation 2.5 mg every 2 hours p.r.n., albuterol/Atrovent inhalation 2.5 mg in 3 mL every 4 hours, Wellbutrin 75 mg p.o. daily, Pepcid 20 mg IV daily, Haldol 2 mg IV every 4 hours p.r.n. for agitation, levofloxacin 750 mg IV daily, lorazepam 2 mg IV every 4 hours p.r.n., Solu-Medrol 80 mg IV every 8 hours, morphine 6 IV every 4 hours p.r.n., nicotine patch one patch daily, and Zosyn 2.25 g IV every 6 hours. LABORATORY DATA: WBC 9.4, hemoglobin 8.2, hematocrit 24.1, and platelet count 122,000. PT 14.6, INR 1.3, and PTT 36.5. D-dimer 13,008. ABG; pH of 7.30, pO2 of 70, pCO2 of 42, and oxygen saturation 97.4 on oxygen 4 liters nasal cannula. SMA-7; sodium 140, potassium 4.4, chloride 112, CO2 19, BUN 28, creatinine 1.8, calcium 8.3, and procalcitonin 12.63. Troponin 0.355. Urinalysis, RBC 102, WBC 15, urine bacteria few. Toxicology urine positive for opiates, serology influenza A and B negative. Microbiology, nasal smear MRSA negative. Chest x-ray from this morning, worsening right upper, right lower and left upper lung infiltrates, small left pneumothorax not excluded, no significant pleural effusion. CAT scan of the chest without contrast, interval left first, second and fourth intercostal/subcostal soft tissue density with minimal left subclavian soft tissue changes potentially representing limited local hemorrhage. No moderate or large hemorrhagic fluid collection throughout the left chest. Multiple upper left rib fractures, mild left pleural effusion with trace right pleural effusion present. IMPRESSION AND PLAN: 1. Neuro: Remains lethargic and combative, history of major depression. Remains combative and agitated, requiring multiple sedation. Status post brief "intubation" currently extubated. ABG consistent with [id number] hypoxemia, consistent to secondary altered mental status probably related to toxic, septic metabolic encephalopathy. Seen by psychiatry consult. Appreciate recommendations. 2. Pulmonary: Hypoxic respiratory failure status post intubation, extubated now, noted to have bilateral lung infiltrate, suspected focal hemorrhage versus aspiration pneumonia. History of asthma, small probable left apical pneumothorax. Continue DuoNeb every 6 hours, Solu-Medrol. Continue antibiotics Zosyn and levofloxacin, dose adjusted for renal insufficiency. 3. Cardiac: Telemetry sinus rhythm, no acute arrhythmias, status post brief cardiorespiratory arrest. 4. Hematology: Leukocytosis trending down, probably related to pneumonia or steroid. Anemia with further drop in hemoglobin from 12.2 on admission to 8.2 now. We will hold Lovenox secondary to drop in hemoglobin, suspected focal hemorrhage and thrombocytopenia. Closely monitor hemoglobin. Transfuse as needed. 5. Renal: Renal insufficiency. Continue gentle IV hydration with D5 normal at 40 mL/hour. 6. Infectious Disease: Suspected urinary tract infection and probable aspiration pneumonia. Continue antibiotics, dose adjusted for renal insufficiency. Seen by Psychiatry consult. 7. Suspected major depression: Continue with Haldol and Ativan as needed Wellbutrin and nicotine patch. 8. Continue GI prophylaxis and DVT prophylaxis with Venodyne boots, hold anticoagulation secondary to suspected focal parenchymal hemorrhage, drop in the hemoglobin and drop in the platelet count. Tito Rodriguez MD
--- NOTE | 2017-11-19 18:50 | CT ---
PROCEDURE: CT enterography chest, abdomen and pelvis HISTORY: suspected hemorrhage COMPARISON: CT chest 11/18/2017 TECHNIQUE: Contiguous 2.5 mm axial sections were acquired from the thoracic inlet to the pelvic floor, during rapid intravenous bolus administration of contrast material. Sagittal and coronal images were reformatted. Contrast administered: Visipaque 320, 90 mL Total exam DLP: 1014.93 mGy-cm This CT exam was performed using 1 or more of the following dose reduction techniques: Automated exposure control, adjustment of the mA and/or kV according to patient size, and/or use of iterative reconstruction technique. FINDINGS: There is increasing multifocal bilateral alveolar opacity, right greater than left. This is seen in the left upper lobe and in the right upper lobe and right lower lobe. This is nonspecific and may reflect pneumonia, ARDS, pulmonary edema. There is bilateral lower lobe compressive atelectasis secondary to small pleural effusions. There is trace right pleural effusion. There is small left pleural effusion. There is no pneumothorax. The thoracic aorta is normal in caliber. There is no evidence of dissection or transsection. The left subclavian artery appears intact. The left 1st through 7th ribs are fractured. There are 2 part fractures involving the 3rd through 6th ribs. There is fracture of the right 2nd 3rd and 4th ribs anteriorly. There is nondisplaced fracture of the sternal body. There is a hematoma about the left 2nd rib fracture, increased in size compared to the prior examination of 11/18/2017. The heart is normal in size. The main pulmonary artery is normal in diameter. There is no mediastinal or hilar lymphadenopathy. An endotracheal tube is seen appropriately positioned above the tracheal gómez. The liver is normal in size and contour. It is diffusely diminished in attenuation consistent with fatty infiltration. No focal mass. No biliary dilatation. The spleen is intact. Is normal in size. There is no pancreatic mass or pancreatic ductal dilatation. There is no adrenal mass. There is no renal mass, calculus or hydronephrosis. There are no abnormal bowel loops. There is no bowel obstruction. A normal appendix is not identified. There is no evidence of acute appendicitis. The urinary bladder is decompressed around a Thrasher catheter balloon. The uterus is unremarkable. There is no acute fracture. There is grade 1 anterolisthesis at the L5-S1 intervertebral disc space without evidence of spondylolysis. IMPRESSION: Increasing size of hematoma about the left anterior 2nd rib. Multiple bilateral rib fractures as detailed above. Nondisplaced sternal fracture. No pneumothorax. Small left pleural effusion and trace right pleural effusion. Multifocal pulmonary opacities, right greater than left common nonspecific. Increased from prior examination. No evidence of left subclavian arterial injury. . Endotracheal tube. No acute abdominal abnormality.
[2017-11-19] MEDS: Propofol 10 mg/ml 1,000 MG/100 ML VIAL IV SCH (18:54)
[2017-11-19] MEDS: Piperacillin/Tazobact 3.375 GM in Sodium Chloride 0.9% 100 ML IVPB SCH (20:11)
[2017-11-19 20:28] LABS: HEMOGLOBIN 7.6 g/dL (12.0-16.0); MEAN CELL VOLUME 99.9 fl (81.0-99.0); MEAN CORPUSCULAR HEMOGLOBIN 33.6 pg (27.0-31.0); MEAN CORPUSCULAR HGB CONC 33.6 g/dL (33.0-37.0); RBC 2.26 Mil/uL (3.80-5.20); RED CELL DISTRIBUTION WIDTH 12.4 % (11.5-14.5); WHITE BLOOD COUNT 10.9 K/uL (4.8-10.8)
[2017-11-19 20:41] LABS: CALCIUM 8.4 mg/dL (8.4-10.2)
--- NOTE | 2017-11-19 22:21 | CP.PCM.PN ---
Subjective - Date & Time of Evaluation Date of Evaluation: 11/19/17 Time of Evaluation: 17:25 Objective - Vital Signs/Intake and Output Vital Signs (last 24 hours): Temp Pulse Resp BP Pulse Ox 98.3 F 77 18 118/77 100 11/19/17 20:00 11/19/17 22:00 11/19/17 22:00 11/19/17 22:00 11/19/17 22:00 Intake and Output: 11/19/17 11/20/17 18:59 06:59 Intake Total 664 440 Output Total 750 Balance -86 440 - Medications Medications: Current Medications Albuterol Sulfate (Albuterol 0.083% Inhal Hanane (2.5 Mg/3 Ml) Ud) 2.5 mg INH RQ2 PRN PRN Reason: Shortness of Breath Last Admin: 11/18/17 02:20 Dose: 2.5 mg Albuterol/Ipratropium (Duoneb 3 Mg/0.5 Mg (3 Ml) Ud) 3 ml INH RQ4 PENELOPE Last Admin: 11/19/17 19:07 Dose: 3 ml Bupropion HCl (Wellbutrin) 75 mg PO DAILY [facility] Last Admin: 11/19/17 09:42 Dose: 75 mg Famotidine (Pepcid) 20 mg IVP DAILY [facility] Last Admin: 11/19/17 09:40 Dose: 20 mg Haloperidol Lactate (Haldol) 2 mg IVP Q4 PRN PRN Reason: Agitation Last Admin: 11/19/17 11:26 Dose: 2 mg Levofloxacin/Dextrose (Levaquin 500mg) 500 mg in 100 mls @ 100 mls/hr IVPB DAILY PENELOPE PRN Reason: Protocol Last Admin: 11/19/17 11:52 Dose: 100 mls/hr Dextrose/Sodium Chloride (Dextrose 5%/0.9% Ns 1000 Ml) 1,000 mls @ 50 mls/hr IV .Q20H PENELOPE Stop: 11/20/17 11:11 Last Admin: 11/19/17 11:49 Dose: 50 mls/hr Vancomycin HCl 750 mg/ Sodium (Chloride) 250 mls @ 250 mls/hr IVPB Q12H PENELOPE PRN Reason: Protocol Last Admin: 11/19/17 20:09 Dose: 250 mls/hr Piperacillin Sod/Tazobactam (Sod 3.375 gm/ Sodium Chloride) 100 mls @ 100 mls/ hr IVPB Q8 PENELOPE PRN Reason: Protocol Last Admin: 11/19/17 20:11 Dose: 100 mls/hr Propofol (Diprivan) 1,000 mg in 100 mls @ 2.232 mls/hr IV .Q24H PENELOPE; 5 MCG/KG/ MIN PRN Reason: Protocol Stop: 11/20/17 18:24 Last Titration: 11/19/17 18:57 Dose: 15 mcg/kg/min, 6.695 mls/hr Lorazepam (Ativan) 2 mg IVP Q4 PRN PRN Reason: Agitation Last Admin: 11/19/17 19:00 Dose: 2 mg Methylprednisolone (Solu-Medrol) 80 mg IV Q8 PENELOPE Last Admin: 11/19/17 20:10 Dose: 80 mg Morphine Sulfate (Morphine) 4 mg IVP Q4 PRN PRN Reason: Agitation Last Admin: 11/17/17 13:23 Dose: 4 mg Nicotine (Nicoderm Cq) 1 patch TD DAILY [facility] Last Admin: 11/19/17 09:41 Dose: 1 patch Thiamine HCl (Vitamin B1 Inj) 100 mg IM DAILY [facility] Last Admin: 11/19/17 11:53 Dose: 100 mg - Labs Labs: 11/19/17 20:08 11/19/17 20:08 PT 14.6 Seconds (9.8-13.1) H 11/17/17 03:33 INR 1.3 (0.9-1.2) H 11/17/17 03:33 APTT 36.5 Seconds (25.6-37.1) 11/17/17 03:33
[2017-11-20] MEDS: Albuterol-Ipratrop 3 mg / 0.5 (3 ml) UD INH SCH ×5 (04:45→19:24)
[2017-11-20 05:05] LABS: ABG ALLEN TEST YES; ARTERIAL BLOOD GAS HCO3 22.4 mmol/L (21-28); ARTERIAL BLOOD GAS HEMOGLOBIN 8.3 g/dL (11.7-17.4); ARTERIAL BLOOD GAS O2 CAPACITY 11.7 mL/dL (16-24); ARTERIAL BLOOD GAS O2 CONTENT 11.8 ML/dL (15-23); ARTERIAL BLOOD GAS O2 SAT 100.7 % (95-98); ARTERIAL BLOOD GAS PCO2 33 mm/Hg (35-45); ARTERIAL BLOOD GAS PH 7.41 (7.35-7.45); ARTERIAL BLOOD GAS PO2 189 mm/Hg (80-100); ARTERIAL BLOOD GAS TCO2 21.9 mmol/L (22-28)
[2017-11-20] MEDS: Piperacillin/Tazobact 3.375 GM in Sodium Chloride 0.9% 100 ML IVPB SCH ×3 (05:29→16:27)
[2017-11-20 05:37] LABS: HEMOGLOBIN 8.1 g/dL (12.0-16.0); MEAN CELL VOLUME 100.9 fl (81.0-99.0); MEAN CORPUSCULAR HEMOGLOBIN 33.7 pg (27.0-31.0); MEAN CORPUSCULAR HGB CONC 33.4 g/dL (33.0-37.0); RBC 2.41 Mil/uL (3.80-5.20); RED CELL DISTRIBUTION WIDTH 12.3 % (11.5-14.5); WHITE BLOOD COUNT 12.6 K/uL (4.8-10.8)
[2017-11-20 05:51] LABS: CALCIUM 8.6 mg/dL (8.4-10.2)
[2017-11-20] MEDS ORDERED: Fentanyl Citrate 2,500 MCG in Dextrose 5% In Water 200 ML IV SCH ×2 (06:45→22:30)
--- NOTE | 2017-11-20 07:43 | RAD ---
HISTORY: intubated COMPARISON: Portable chest 11/19/2017. FINDINGS: LUNGS: An endotracheal tube is in place terminating 2 cm of the gómez. Bilateral upper lobe infiltrates persist and are unchanged. Right basilar atelectasis or infiltrate is unchanged with none on the left. . PLEURA: No significant pleural effusion identified, no pneumothorax apparent. CARDIOVASCULAR: Cardiomegaly is stable. No pulmonary vascular congestion appreciable peer OSSEOUS STRUCTURES: No significant abnormalities. VISUALIZED UPPER ABDOMEN: Normal. OTHER FINDINGS: None. IMPRESSION: Stable left persistent infiltrates bilaterally predominantly at the bilateral upper lobes with infiltrate or atelectasis remaining in the right base. Stable cardiomegaly. ET tube in position.
[2017-11-20] MEDS: Thiamine 100 mg/ml Inj IM SCH (09:20)
[2017-11-20] MEDS: levoFLOXacin 500 mg in D5W 500 MG/100 ML BAG IVPB SCH (09:22)
[2017-11-20] MEDS ORDERED: Dextrose 5%/0.9% NS 1,000 ML IV SCH (10:01)
[2017-11-20 10:37] LABS: INR 1.2 (0.9-1.2); PARTIAL THROMBOPLASTIN TIME 25.1 Seconds (25.6-37.1); PROTHROMBIN TIME 13.3 Seconds (9.8-13.1)
[2017-11-20] MEDS: Propofol 10 mg/ml 1,000 MG/100 ML VIAL IV SCH ×2 (10:55→21:31)
[2017-11-20] MEDS ORDERED: Chlorhexidine Gluconate 1 APPL/PKT TP ONE (11:01)
--- NOTE | 2017-11-20 11:06 | CP.PCM.PN ---
Subjective - Date & Time of Evaluation Date of Evaluation: 11/20/17 Time of Evaluation: 10:00 - Subjective Subjective: CT Surgery Pt seen and examined. Intubated for airway protection and respiratory distress yesterday. Sedated. Had CTA with no evidence of injury to the L subclavian artery. Objective - Vital Signs/Intake and Output Vital Signs (last 24 hours): Temp Pulse Resp BP Pulse Ox 99.0 F 110 H 18 118/71 94 L 11/20/17 08:00 11/20/17 10:00 11/20/17 10:00 11/20/17 10:00 11/20/17 10:00 Intake and Output: 11/20/17 11/20/17 06:59 18:59 Intake Total 1370 144 Output Total 600 Balance 770 144 - Medications Medications: Current Medications Albuterol Sulfate (Albuterol 0.083% Inhal Hanane (2.5 Mg/3 Ml) Ud) 2.5 mg INH RQ2 PRN PRN Reason: Shortness of Breath Last Admin: 11/18/17 02:20 Dose: 2.5 mg Albuterol/Ipratropium (Duoneb 3 Mg/0.5 Mg (3 Ml) Ud) 3 ml INH RQ4 [facility] Last Admin: 11/20/17 07:44 Dose: 3 ml Bupropion HCl (Wellbutrin) 75 mg PO DAILY [facility] Last Admin: 11/19/17 09:42 Dose: 75 mg Chlordiazepoxide (Librium) 50 mg PO Q6 [facility] Last Admin: 11/20/17 10:54 Dose: 50 mg Famotidine (Pepcid) 20 mg IVP DAILY [facility] Last Admin: 11/20/17 09:20 Dose: 20 mg Folic Acid (Folic Acid) 1 mg PO DAILY [facility] Haloperidol Lactate (Haldol) 2 mg IVP Q4 PRN PRN Reason: Agitation Last Admin: 11/20/17 07:38 Dose: 2 mg Levofloxacin/Dextrose (Levaquin 500mg) 500 mg in 100 mls @ 100 mls/hr IVPB DAILY [facility] PRN Reason: Protocol Last Admin: 11/20/17 09:22 Dose: 100 mls/hr Vancomycin HCl 750 mg/ Sodium (Chloride) 250 mls @ 250 mls/hr IVPB Q12H [facility] PRN Reason: Protocol Last Admin: 11/20/17 05:52 Dose: 250 mls/hr Piperacillin Sod/Tazobactam (Sod 3.375 gm/ Sodium Chloride) 100 mls @ 100 mls/ hr IVPB Q8 [facility] PRN Reason: Protocol Last Admin: 11/20/17 09:21 Dose: 100 mls/hr Propofol (Diprivan) 1,000 mg in 100 mls @ 2.232 mls/hr IV .Q24H [facility]; 5 MCG/KG/ MIN PRN Reason: Protocol Stop: 11/20/17 18:24 Last Admin: 11/20/17 10:55 Dose: 15 mcg/kg/min, 6.695 mls/hr Fentanyl Citrate 2,500 mcg/ (Dextrose) 250 mls @ 3.71 mls/hr IV .Q24H [facility]; 0.5 MCG/KG/HR PRN Reason: Protocol Last Titration: 11/20/17 10:07 Dose: 2.5 mcg/kg/hr, 18.59 mls/hr Dextrose/Sodium Chloride (Dextrose 5%/0.9% Ns 1000 Ml) 1,000 mls @ 125 mls/hr IV .Q8H [facility] Stop: 11/20/17 11:11 Lorazepam (Ativan) 2 mg IVP Q4 PRN PRN Reason: Agitation Last Admin: 11/20/17 05:27 Dose: 2 mg Methylprednisolone (Solu-Medrol) 80 mg IV Q8 [facility] Last Admin: 11/20/17 09:20 Dose: 80 mg Morphine Sulfate (Morphine) 4 mg IVP Q4 PRN PRN Reason: Agitation Last Admin: 11/20/17 05:38 Dose: 4 mg Nicotine (Nicoderm Cq) 1 patch TD DAILY [facility] Last Admin: 11/20/17 09:22 Dose: 1 patch Thiamine HCl (Vitamin B1 Tab) 100 mg PO DAILY [facility] - Labs Labs: 11/20/17 04:45 11/20/17 04:45 PT 13.3 Seconds (9.8-13.1) H 11/20/17 10:15 INR 1.2 (0.9-1.2) 11/20/17 10:15 APTT 25.1 Seconds (25.6-37.1) L 11/20/17 10:15 - Constitutional Appears: No Acute Distress - Head Exam Head Exam: ATRAUMATIC, NORMOCEPHALIC - ENT Exam Additional comments: ETT in place - Respiratory Exam Respiratory Exam: absent: Accessory Muscle Use, Respiratory Distress (on vent) Additional comments: L chest hematoma/ecchymosis - Neurological Exam Additional comments: easily arousable even on sedation - Skin Skin Exam: Dry, Warm Assessment and Plan - Assessment and Plan (Free Text) Assessment: 57F with R 2-4th rib fractures and left 1st-7th rib fractures s/p asthmatic attack causing cardiac arrest with CPR Plan: Daily AM CXRs Maintain sedation, wean FiO2 as able. Watch effusions closely, may need drainage if increasing in size. D/W Dr. Leandro Goins PGY4
--- NOTE | 2017-11-20 13:27 | CP.PCM.PN ---
Subjective - Date & Time of Evaluation Date of Evaluation: 11/20/17 Time of Evaluation: 13:17 - Subjective Subjective: Pt s/e, Inbutated and sedated. vss. hb-8.1 and stable x [address] of chest with contrast: Large right and left infiltrates. Min effusion, left. An apple size hematoma(?) around left rib one and two fx sites. Subclavian artery visualized without evidence of any leaks(left radail pulse +). a/p: 1. Hb stabilized at 8.1 today. 2. Bilateral lung infiltrates. 3. Hematoma ? fx sites left. 4. Will evalutate for possible fx of ribs after extubation. 5. Consider pain consult for possible rib injection to control pain after extubation. 6 Continue current supportive care. Objective - Vital Signs/Intake and Output Vital Signs (last 24 hours): Temp Pulse Resp BP Pulse Ox 99.0 F 104 H 18 119/67 97 11/20/17 12:00 11/20/17 12:00 11/20/17 12:00 11/20/17 12:00 11/20/17 12:00 Intake and Output: 11/20/17 11/20/17 06:59 18:59 Intake Total 1370 144 Output Total 600 Balance 770 144 - Medications Medications: Current Medications Albuterol Sulfate (Albuterol 0.083% Inhal Hanane (2.5 Mg/3 Ml) Ud) 2.5 mg INH RQ2 PRN PRN Reason: Shortness of Breath Last Admin: 11/18/17 02:20 Dose: 2.5 mg Albuterol/Ipratropium (Duoneb 3 Mg/0.5 Mg (3 Ml) Ud) 3 ml INH RQ4 [facility] Last Admin: 11/20/17 11:09 Dose: 3 ml Bupropion HCl (Wellbutrin) 75 mg PO DAILY [facility] Last Admin: 11/20/17 12:43 Dose: 75 mg Chlordiazepoxide (Librium) 50 mg PO Q6 [facility] Last Admin: 11/20/17 10:54 Dose: 50 mg Famotidine (Pepcid) 20 mg PO DAILY [facility] Folic Acid (Folic Acid) 1 mg PO DAILY [facility]S AT [facility] Last Admin: 11/20/17 12:44 Dose: 1 mg Haloperidol Lactate (Haldol) 2 mg IVP Q4 PRN PRN Reason: Agitation Last Admin: 11/20/17 07:38 Dose: 2 mg Levofloxacin/Dextrose (Levaquin 500mg) 500 mg in 100 mls @ 100 mls/hr IVPB DAILY [facility] PRN Reason: Protocol Last Admin: 11/20/17 09:22 Dose: 100 mls/hr Vancomycin HCl 750 mg/ Sodium (Chloride) 250 mls @ 250 mls/hr IVPB Q12H [facility] PRN Reason: Protocol Last Admin: 11/20/17 05:52 Dose: 250 mls/hr Piperacillin Sod/Tazobactam (Sod 3.375 gm/ Sodium Chloride) 100 mls @ 100 mls/ hr IVPB Q8 [facility] PRN Reason: Protocol Last Admin: 11/20/17 09:21 Dose: 100 mls/hr Propofol (Diprivan) 1,000 mg in 100 mls @ 2.232 mls/hr IV .Q24H [facility]; 5 MCG/KG/ MIN PRN Reason: Protocol Stop: 11/20/17 18:24 Last Admin: 11/20/17 10:55 Dose: 15 mcg/kg/min, 6.695 mls/hr Fentanyl Citrate 2,500 mcg/ (Dextrose) 250 mls @ 3.71 mls/hr IV .Q24H [facility]; 0.5 MCG/KG/HR PRN Reason: Protocol Last Titration: 11/20/17 10:07 Dose: 2.5 mcg/kg/hr, 18.59 mls/hr Lorazepam (Ativan) 2 mg IVP Q4 PRN PRN Reason: Agitation Last Admin: 11/20/17 05:27 Dose: 2 mg Methylprednisolone (Solu-Medrol) 80 mg IV Q8 [facility]S [facility] Last Admin: 11/20/17 09:20 Dose: 80 mg Morphine Sulfate (Morphine) 4 mg IVP Q4 PRN PRN Reason: Agitation Last Admin: 11/20/17 05:38 Dose: 4 mg Nicotine (Nicoderm Cq) 1 patch TD DAILY [facility] 234 B[facility]S AT [facility] Last Admin: 11/20/17 09:22 Dose: 1 patch Thiamine HCl (Vitamin B1 Tab) 100 mg PO DAILY [facility] 234 B[facility]S AT [facility] - Labs Labs: 11/20/17 04:45 11/20/17 04:45 PT 13.3 Seconds (9.8-13.1) H 11/20/17 10:15 INR 1.2 (0.9-1.2) 05/02/18 10:15 APTT 25.1 Seconds (25.6-37.1) L 11/20/17 10:15
--- NOTE | 2017-11-20 14:14 | CP.CCUPN ---
CCU Subjective - Physician Review Subjective (Free Text): Events reviewed over the past 48H since my last exam. Now intubated yesterday for control of agitation, pain and Delirium; on high dose narcotics and anxiolytics. Started on Fentanyl drip. Other VS and I/Os reviewed. No fever spikes overnight, in postitgve fluid balance last 24h +0.68L. ROS: No other pertinent negs or positives on 10+ system review obtainable from intubated and sedated patient. PMSFH: All other Nursing and physician documentation reviewed to date; no new pertinent info noted relevant to current medical problems. EXAM- HEENT: no icterus, no gaze preference, pupils equal and reactive, no icterus NECK: No JVD, supple, carotids equal upstroke bilat/no bruits CHEST: decreased BS bases, no wheezes audible, crepitus over L upper and lateral chest, bilateral ecchymoses HEART: regular tachy, distant, S1S2, no rubs. ABD: soft, no distention, no tympany, no palp tenderness, BS hypoactive. EXT: No peripheral/ digital cyanosis, no calf tenderness or palpable cords, distal pulses intact and symmetrical. NEURO: no focal motor deficits SKIN: no rashes, warm and dry. LABS: WBC= 12.6 HGB= 8.1 PLTs= 136K INR= 1.2 Cz=716 K= 4.3 UB=476 HCO3= 19 BUN/Cr= 25/1.6 YG=753 7.41 / 33 /189 CXR: (my interp) bilateral upper lobe opacities, R worse than L; ETT position OK. IMPRESSION / MAJOR PROBLEMS NOW: 1. Bilateral / Multiple Rib fractures with bilateral pneumonitis 2. Cardio-Resp Arrest 3. COPD / Asthma Exacerb 4. Acute blood loss Anemia 5. Azotemia, r/o GRETCHEN 6. H/o ETOH Abuse PLAN: 1. Consider intercostal nerve block consult with Anesthesia; appreciate ThorSurg eval and recommendations. 2. Fentanyl drip while on MV support. 3. Ativan /Librium 4. Thiamine / Folate supplements. 5. Needs PICC line, no available access via IJ nor Subclavian, avoid groin as well. 6. Wean steroids down. 7. Lovenox finally stopped on 11/18, no clinical suspicion for acute PTE. Elevated ddimer due to asthma. 8. Start enteral nutritional support. CCU Objective - Vital Signs / Intake & Output Vital Signs (Last 4 hours): Vital Signs Temp Pulse Resp BP Pulse Ox 11/20/17 12:00 99.0 F 104 H 18 119/67 97 Intake and Output (Last 8hrs): Intake & Output 11/19/17 11/20/17 11/20/17 22:59 06:59 14:59 Intake Total 634 930 144 Output Total 750 600 Balance -116 330 144 Weight 164 lb Intake: IV 234 580 100 Intake, Piggyback 400 350 44 Output: Urine 750 600 Urethral (Thrasher) 750 600
--- NOTE | 2017-11-20 14:23 | PCM.SURG1 ---
Surgeon's Initial Post Op Note - Surgeon's Notes Surgeon: Dusty Peralta MD Supervisor Doping: NONE Type of Anesthesia: Local Pre-Operative Diagnosis: Poor venous access Operative Findings: US showed patent right basilic Post-Operative Diagnosis: Poor venous access Operation Performed: Dual lumen picc placement right basilic vein. Tip is in the SVC. Specimen/Specimens Removed: NONE Estimated Blood Loss: EBL {In ML}: 2 Blood Products Given: N/A Drains Used: No Drains Post-Op Condition: Poor Date of Surgery/Procedure: 11/20/17 Time of Surgery/Procedure: 14:20
[2017-11-20 17:23] LABS: HEMOGLOBIN 7.1 g/dL (12.0-16.0); MEAN CELL VOLUME 100.8 fl (81.0-99.0); MEAN CORPUSCULAR HEMOGLOBIN 33.3 pg (27.0-31.0); MEAN CORPUSCULAR HGB CONC 33.1 g/dL (33.0-37.0); RBC 2.14 Mil/uL (3.80-5.20); RED CELL DISTRIBUTION WIDTH 12.7 % (11.5-14.5); WHITE BLOOD COUNT 11.8 K/uL (4.8-10.8)
[2017-11-20] MEDS: Dextrose 5%/0.45% NS 1,000 ML IV SCH (20:16)
--- NOTE | 2017-11-20 22:23 | CP.PCM.PN ---
Subjective - Subjective Subjective: Acute Resp Failure PNA / Sepsis COPD/B. Asthma Ex. Rib bx with splinting (probably contributed to Resp Fail. S/ Patient sedated and intubated. O/ VSS Afebrile. PE: Somewaht distant bs. Less whezzing than Saturday. Labs: See Below: a/p Cont MV. Cont deep sedation. Provide systemic and oral analgesics to prevent splinting 2/2 rib fx. Nerve blocls. Cont IV Abs, and monitor WBC#, temp curve, and pancustures. PUT and DVT PX. Objective - Vital Signs/Intake and Output Vital Signs (last 24 hours): Temp Pulse Resp BP Pulse Ox 98.5 F 93 H 14 92/60 L 96 11/20/17 21:56 11/20/17 22:00 11/20/17 22:00 11/20/17 22:00 11/20/17 22:00 Intake and Output: 11/20/17 11/21/17 18:59 06:59 Intake Total 994 605 Output Total 450 Balance 544 605 - Medications Medications: Current Medications Albuterol Sulfate (Albuterol 0.083% Inhal Hanane (2.5 Mg/3 Ml) Ud) 2.5 mg INH RQ2 PRN PRN Reason: Shortness of Breath Last Admin: 11/18/17 02:20 Dose: 2.5 mg Albuterol/Ipratropium (Duoneb 3 Mg/0.5 Mg (3 Ml) Ud) 3 ml INH RQ4 [facility] Last Admin: 11/20/17 19:24 Dose: 3 ml Bupropion HCl (Wellbutrin) 75 mg PO DAILY [facility] Last Admin: 11/20/17 12:43 Dose: 75 mg Chlordiazepoxide (Librium) 50 mg PO Q6 [facility] Last Admin: 11/20/17 16:26 Dose: 50 mg Famotidine (Pepcid) 20 mg PO DAILY [facility] Folic Acid (Folic Acid) 1 mg PO DAILY [facility] Last Admin: 11/20/17 12:44 Dose: 1 mg Haloperidol Lactate (Haldol) 2 mg IVP Q4 PRN PRN Reason: Agitation Last Admin: 11/20/17 07:38 Dose: 2 mg Levofloxacin/Dextrose (Levaquin 500mg) 500 mg in 100 mls @ 100 mls/hr IVPB DAILY [facility] PRN Reason: Protocol Last Admin: 11/20/17 09:22 Dose: 100 mls/hr Vancomycin HCl 750 mg/ Sodium (Chloride) 250 mls @ 250 mls/hr IVPB Q12H [facility] PRN Reason: Protocol Last Admin: 11/20/17 17:15 Dose: 250 mls/hr Piperacillin Sod/Tazobactam (Sod 3.375 gm/ Sodium Chloride) 100 mls @ 100 mls/ hr IVPB Q8 [facility] PRN Reason: Protocol Last Admin: 11/20/17 16:27 Dose: 100 mls/hr Fentanyl Citrate 2,500 mcg/ (Dextrose) 250 mls @ 3.71 mls/hr IV .Q24H [facility]; 0.5 MCG/KG/HR PRN Reason: Protocol Last Titration: 11/20/17 21:01 Dose: Infused Dextrose/Sodium Chloride (Dextrose 5%/0.45% Ns 1000 Ml) 1,000 mls @ 100 mls/hr IV .Q10H [facility] Stop: 11/21/17 19:41 Last Admin: 11/20/17 20:16 Dose: 100 mls/hr Propofol (Diprivan) 1,000 mg in 100 mls @ 2.232 mls/hr IV .Q24H [facility]; 5 MCG/KG/ MIN PRN Reason: Protocol Stop: 11/21/17 19:45 Last Admin: 11/20/17 21:31 Dose: 25 mcg/kg/min, 11.158 mls/hr Lorazepam (Ativan) 2 mg IVP Q4 PRN PRN Reason: Agitation Last Admin: 11/20/17 21:12 Dose: 2 mg Methylprednisolone (Solu-Medrol) 80 mg IV Q8 [facility] Last Admin: 11/20/17 16:26 Dose: 80 mg Morphine Sulfate (Morphine) 4 mg IVP Q4 PRN PRN Reason: Agitation Last Admin: 11/20/17 05:38 Dose: 4 mg Nicotine (Nicoderm Cq) 1 patch TD DAILY [facility] Last Admin: 11/20/17 09:22 Dose: 1 patch Thiamine HCl (Vitamin B1 Tab) 100 mg PO DAILY [facility] - Labs Labs: 11/20/17 17:09 11/20/17 04:45 PT 13.3 Seconds (9.8-13.1) H 11/20/17 10:15 INR 1.2 (0.9-1.2) 11/20/17 10:15 APTT 25.1 Seconds (25.6-37.1) L 11/20/17 10:15
--- NOTE | 2017-11-20 23:32 | CP.PCM.PN ---
Subjective - Date & Time of Evaluation Date of Evaluation: 11/20/17 Time of Evaluation: 11:00 Objective - Vital Signs/Intake and Output Vital Signs (last 24 hours): Temp Pulse Resp BP Pulse Ox 98.2 F 86 14 91/57 L 97 11/20/17 22:11 11/20/17 23:00 11/20/17 23:00 11/20/17 23:00 11/20/17 23:00 Intake and Output: 11/20/17 11/21/17 18:59 06:59 Intake Total 994 585 Output Total 450 Balance 544 585 - Medications Medications: Current Medications Albuterol Sulfate (Albuterol 0.083% Inhal Hanane (2.5 Mg/3 Ml) Ud) 2.5 mg INH RQ2 PRN PRN Reason: Shortness of Breath Last Admin: 11/18/17 02:20 Dose: 2.5 mg Albuterol/Ipratropium (Duoneb 3 Mg/0.5 Mg (3 Ml) Ud) 3 ml INH RQ4 [facility] Last Admin: 11/20/17 19:24 Dose: 3 ml Bupropion HCl (Wellbutrin) 75 mg PO DAILY [facility] Last Admin: 11/20/17 12:43 Dose: 75 mg Chlordiazepoxide (Librium) 50 mg PO Q6 [facility] Last Admin: 11/20/17 22:30 Dose: 50 mg Famotidine (Pepcid) 20 mg PO DAILY [facility] Folic Acid (Folic Acid) 1 mg PO DAILY [facility] Last Admin: 11/20/17 12:44 Dose: 1 mg Haloperidol Lactate (Haldol) 2 mg IVP Q4 PRN PRN Reason: Agitation Last Admin: 11/20/17 07:38 Dose: 2 mg Levofloxacin/Dextrose (Levaquin 500mg) 500 mg in 100 mls @ 100 mls/hr IVPB DAILY [facility] PRN Reason: Protocol Last Admin: 11/20/17 09:22 Dose: 100 mls/hr Vancomycin HCl 750 mg/ Sodium (Chloride) 250 mls @ 250 mls/hr IVPB Q12H [facility] PRN Reason: Protocol Last Admin: 11/20/17 17:15 Dose: 250 mls/hr Piperacillin Sod/Tazobactam (Sod 3.375 gm/ Sodium Chloride) 100 mls @ 100 mls/ hr IVPB Q8 [facility] PRN Reason: Protocol Last Admin: 11/20/17 16:27 Dose: 100 mls/hr Dextrose/Sodium Chloride (Dextrose 5%/0.45% Ns 1000 Ml) 1,000 mls @ 100 mls/hr IV .Q10H [facility] Stop: 11/21/17 19:41 Last Admin: 11/20/17 20:16 Dose: 100 mls/hr Propofol (Diprivan) 1,000 mg in 100 mls @ 2.232 mls/hr IV .Q24H [facility]; 5 MCG/KG/ MIN PRN Reason: Protocol Stop: 11/21/17 19:45 Last Admin: 11/20/17 21:31 Dose: 25 mcg/kg/min, 11.158 mls/hr Fentanyl Citrate 2,500 mcg/ (Dextrose) 250 mls @ 2,231.67 mls/hr IV .Q7M [facility]; 5 MCG/KG/MIN PRN Reason: Protocol Lorazepam (Ativan) 2 mg IVP Q4 PRN PRN Reason: Agitation Last Admin: 11/20/17 21:12 Dose: 2 mg Methylprednisolone (Solu-Medrol) 80 mg IV Q8 [facility] Last Admin: 11/20/17 16:26 Dose: 80 mg Morphine Sulfate (Morphine) 4 mg IVP Q4 PRN PRN Reason: Agitation Last Admin: 11/20/17 05:38 Dose: 4 mg Nicotine (Nicoderm Cq) 1 patch TD DAILY [facility] Last Admin: 11/20/17 09:22 Dose: 1 patch Thiamine HCl (Vitamin B1 Tab) 100 mg PO DAILY [facility] - Labs Labs: 11/20/17 17:09 11/20/17 04:45 PT 13.3 Seconds (9.8-13.1) H 11/20/17 10:15 INR 1.2 (0.9-1.2) 11/20/17 10:15 APTT 25.1 Seconds (25.6-37.1) L 11/20/17 10:15
[2017-11-21] MEDS: Albuterol-Ipratrop 3 mg / 0.5 (3 ml) UD INH SCH ×7 (00:30→23:57)
[2017-11-21] MEDS: Piperacillin/Tazobact 3.375 GM in Sodium Chloride 0.9% 100 ML IVPB SCH ×3 (01:16→16:19)
[2017-11-21] MEDS: Fentanyl Citrate 2,500 MCG in Dextrose 5% In Water 200 ML IV SCH ×3 (04:11→18:37)
[2017-11-21 05:05] LABS: ABG ALLEN TEST YES; ARTERIAL BLOOD GAS HCO3 20.4 mmol/L (21-28); ARTERIAL BLOOD GAS O2 CAPACITY 13.6 mL/dL (16-24); ARTERIAL BLOOD GAS O2 CONTENT 13.1 ML/dL (15-23); ARTERIAL BLOOD GAS O2 SAT 96.3 % (95-98); ARTERIAL BLOOD GAS PCO2 56 mm/Hg (35-45); ARTERIAL BLOOD GAS PH 7.21 (7.35-7.45); ARTERIAL BLOOD GAS PO2 69 mm/Hg (80-100); ARTERIAL BLOOD GAS TCO2 24.1 mmol/L (22-28)
[2017-11-21 05:33] LABS: BASO % 0.1 % (0.0-2.0); HEMOGLOBIN 9.8 g/dL (12.0-16.0); LYMPH # 0.3 K/uL (1.0-4.3); LYMPH % 1.8 % (20.0-40.0); MEAN CELL VOLUME 98.1 fl (81.0-99.0); MEAN CORPUSCULAR HEMOGLOBIN 32.8 pg (27.0-31.0); MEAN CORPUSCULAR HGB CONC 33.4 g/dL (33.0-37.0); MEAN PLATELET VOLUME 7.5 fl (7.2-11.7); MONO # 1.2 K/uL (0.0-0.8); MONO % 6.6 % (0.0-10.0); NEUT % 91.5 % (50.0-75.0); NRBC % 0.1 % (0.0-0.0); PLATELET COUNT 140 K/uL (130-400); RBC 2.98 Mil/uL (3.80-5.20); RED CELL DISTRIBUTION WIDTH 14.8 % (11.5-14.5); WHITE BLOOD COUNT 17.5 K/uL (4.8-10.8)
[2017-11-21 05:38] LABS: ALB/GLOB RATIO 1.1 (1.0-2.1); ALBUMIN 3.1 g/dL (3.5-5.0); CALCIUM 8.3 mg/dL (8.4-10.2)
[2017-11-21] MEDS: Propofol 10 mg/ml 1,000 MG/100 ML VIAL IV SCH ×2 (05:52→14:22)
[2017-11-21 05:56] LABS: INR 1.1 (0.9-1.2); PARTIAL THROMBOPLASTIN TIME 24.9 Seconds (25.6-37.1); PROTHROMBIN TIME 12.7 Seconds (9.8-13.1)
--- NOTE | 2017-11-21 06:35 | CP.CCUPN ---
CCU Subjective - Physician Review Subjective (Free Text): Day#3 MV, on fentanyl drip for pain control and sedation. Rec'd 2 units PRBCs overnight, tube feeds started. Other VS and I/Os reviewed. No fever spikes overnight, in postitgve fluid balance last 24h +0.68L. ROS: No other pertinent negs or positives on 10+ system review obtainable from intubated and sedated patient. PMSFH: All other Nursing and physician documentation reviewed to date; no new pertinent info noted relevant to current medical problems. EXAM- HEENT: no icterus, no gaze preference, pupils equal and reactive, no icterus NECK: No JVD, supple, carotids equal upstroke bilat/no bruits CHEST: decreased BS bases, no wheezes audible, crepitus over L upper and lateral chest, bilateral ecchymoses HEART: regular tachy, distant, S1S2, no rubs. ABD: soft, no distention, no tympany, no palp tenderness, BS hypoactive. EXT: No peripheral/ digital cyanosis, no calf tenderness or palpable cords, distal pulses intact and symmetrical. NEURO: no focal motor deficits SKIN: no rashes, warm and dry. LABS: WBC= 17.5 HGB= 9.8 PLTs= 140K INR= 1.1 Lactate = 0.9 Wo=294 K= 3.9 QP=995 HCO3= 22 BUN/Cr= 20/1.5 FY=419 7.21 / 56 /69 CXR: (my interp) bilateral upper lobe opacities, R worse than L; ETT position OK - overall pattern unchanged. IMPRESSION / MAJOR PROBLEMS NOW: 1. Bilateral / Multiple Rib fractures with bilateral pneumonitis 2. s/p Cardio-Resp Arrest 3. COPD / Asthma Exacerb 4. Acute blood loss Anemia 5. Azotemia, r/o GRETCHEN 6. H/o ETOH Abuse PLAN: 1. Adjust MV for new hyperrcapnia, check repeat ABG. CXR representlung conutsed lung from rib fractures, imtiaz R side. 2. Maintain empiric abx covergae, sputum cx obtained yesterday. On Zosyn/ Vanco/Levaquin. 3. Consider intercostal nerve block consult with Anesthesia; appreciate ThorSurg eval and recommendations. 4. Ativan /Librium; Thiamine / Folate supplements. 5. Wean steroids down. 6. Lovenox finally stopped on 11/18 after PM dose, no clinical suspicion for acute PTE. Elevated ddimer due to asthma. CCU Objective - Vital Signs / Intake & Output Vital Signs (Last 4 hours): Vital Signs Temp Pulse Resp BP Pulse Ox 11/21/17 06:00 81 20 114/73 97 11/21/17 05:00 88 20 100/75 94 L 11/21/17 04:15 98.3 F 87 14 102/63 95 11/21/17 04:00 83 14 94/64 L 94 L 11/21/17 03:13 98.7 F 92 H 14 99/65 L 96 11/21/17 03:00 92 H 14 111/66 95 Intake and Output (Last 8hrs): Intake & Output 11/20/17 11/20/17 11/21/17 14:59 22:59 06:59 Intake Total 544 1035 1549.0 Output Total 450 400 Balance 417 529 7606.0 Weight 164 lb Intake: IV 300 755 719.0 Intake, Piggyback 244 250 Tube Feeding 30 120 Blood Product 650 Free Water Flush 60 Output: Urine 450 400 Urethral (Thrasher) 450 400
[2017-11-21 07:22] LABS: ANISOCYTOSIS SLIGHT; BANDS 2 % (0-2); LARGE PLATELETS PRESENT; LYMPHOCYTE 1 % (20-50); MONOCYTE 3 % (0-10); NEUTROPHIL 94 % (42-75); PLATELET ESTIMATE NORMAL (NORMAL); TOTAL CELLS COUNTED 100
[2017-11-21 07:23] LABS: HYPOCHROMIC SLIGHT
--- NOTE | 2017-11-21 08:34 | CP.PCM.PN ---
Subjective - Date & Time of Evaluation Date of Evaluation: 11/21/17 Time of Evaluation: 08:32 - Subjective Subjective: Surgery Pt seen and examined. Intubated and sedated. Getting tube feed. Objective - Vital Signs/Intake and Output Vital Signs (last 24 hours): Temp Pulse Resp BP Pulse Ox 97.9 F 92 H 16 120/70 94 L 11/21/17 08:00 11/21/17 08:00 11/21/17 08:00 11/21/17 08:00 11/21/17 08:00 Intake and Output: 11/21/17 11/21/17 06:59 18:59 Intake Total 2134.0 Output Total 400 Balance 1734.0 - Medications Medications: Current Medications Albuterol Sulfate (Albuterol 0.083% Inhal Hanane (2.5 Mg/3 Ml) Ud) 2.5 mg INH RQ2 PRN PRN Reason: Shortness of Breath Last Admin: 11/18/17 02:20 Dose: 2.5 mg Albuterol/Ipratropium (Duoneb 3 Mg/0.5 Mg (3 Ml) Ud) 3 ml INH RQ4 [facility] Last Admin: 11/21/17 07:43 Dose: 3 ml Bupropion HCl (Wellbutrin) 75 mg PO DAILY [facility] Last Admin: 11/20/17 12:43 Dose: 75 mg Chlordiazepoxide (Librium) 50 mg PO Q6 [facility] Last Admin: 11/21/17 04:05 Dose: 50 mg Famotidine (Pepcid) 20 mg PO DAILY [facility] Folic Acid (Folic Acid) 1 mg PO DAILY [facility] Last Admin: 11/20/17 12:44 Dose: 1 mg Haloperidol Lactate (Haldol) 2 mg IVP Q4 PRN PRN Reason: Agitation Last Admin: 11/20/17 07:38 Dose: 2 mg Levofloxacin/Dextrose (Levaquin 500mg) 500 mg in 100 mls @ 100 mls/hr IVPB DAILY [facility] PRN Reason: Protocol Last Admin: 11/20/17 09:22 Dose: 100 mls/hr Vancomycin HCl 750 mg/ Sodium (Chloride) 250 mls @ 250 mls/hr IVPB Q12H [facility] PRN Reason: Protocol Last Admin: 11/21/17 05:45 Dose: 250 mls/hr Piperacillin Sod/Tazobactam (Sod 3.375 gm/ Sodium Chloride) 100 mls @ 100 mls/ hr IVPB Q8 [facility] PRN Reason: Protocol Last Admin: 11/21/17 01:16 Dose: 100 mls/hr Dextrose/Sodium Chloride (Dextrose 5%/0.45% Ns 1000 Ml) 1,000 mls @ 100 mls/hr IV .Q10H [facility] Stop: 11/21/17 19:41 Last Admin: 11/20/17 20:16 Dose: 100 mls/hr Propofol (Diprivan) 1,000 mg in 100 mls @ 2.232 mls/hr IV .Q24H [facility]; 5 MCG/KG/ MIN PRN Reason: Protocol Stop: 11/21/17 19:45 Last Admin: 11/21/17 05:52 Dose: 20 mcg/kg/min, 8.927 mls/hr Fentanyl Citrate 2,500 mcg/ (Dextrose) 250 mls @ 37.19 mls/hr IV .Q6H44M [facility]; 5 MCG/KG/HR PRN Reason: Protocol Last Titration: 11/21/17 06:04 Dose: 5 mcg/kg/hr, 37.19 mls/hr Lidocaine (Lidoderm) 2 ea TD DAILY [facility] Lorazepam (Ativan) 2 mg IVP Q4 PRN PRN Reason: Agitation Last Admin: 11/21/17 05:45 Dose: 2 mg Methylprednisolone (Solu-Medrol) 80 mg IV Q8 [facility] Last Admin: 11/21/17 01:20 Dose: 80 mg Morphine Sulfate (Morphine) 4 mg IVP Q4 PRN PRN Reason: Agitation Last Admin: 11/20/17 05:38 Dose: 4 mg Nicotine (Nicoderm Cq) 1 patch TD DAILY [facility] Last Admin: 11/20/17 09:22 Dose: 1 patch Thiamine HCl (Vitamin B1 Tab) 100 mg PO DAILY [facility] - Labs Labs: 11/21/17 04:20 11/21/17 04:20 PT 12.7 Seconds (9.8-13.1) 11/21/17 04:20 INR 1.1 (0.9-1.2) 11/21/17 04:20 APTT 24.9 Seconds (25.6-37.1) L 11/21/17 04:20 - Constitutional Appears: Non-toxic, Chronically Ill - Head Exam Head Exam: ATRAUMATIC, NORMAL INSPECTION, NORMOCEPHALIC - Eye Exam Eye Exam: Normal appearance Pupil Exam: NORMAL ACCOMODATION - ENT Exam ENT Exam: Mucous Membranes Moist, Normal Exam - Neck Exam Neck Exam: Normal Inspection - Respiratory Exam Respiratory Exam: Respiratory Distress Additional comments: On vent. - Cardiovascular Exam Cardiovascular Exam: REGULAR RHYTHM - GI/Abdominal Exam GI & Abdominal Exam: Soft, Normal Bowel Sounds. absent: Distended, Tenderness - Exam Exam: NORMAL INSPECTION - Extremities Exam Extremities Exam: Normal Inspection - Back Exam Back Exam: NORMAL INSPECTION - Neurological Exam Neurological Exam: absent: Awake, Oriented x3 - Skin Skin Exam: Dry, Erythema. absent: Normal Color (L chest ecchymosis [id number]. ) Assessment and Plan - Assessment and Plan (Free Text) Assessment: b/l multiple rib fractures with hematoma on L side vss. hgb 7.1 -> 9.8 s/p 2prbc overnight ct of chest with contrast: Large right and left infiltrates. Min effusion, left. An apple size hematoma(?) around left rib one and two fx sites. Subclavian artery visualized without evidence of any leaks(left radail pulse +). a/p: 1. Hb stabilized at 9.8 today 2. Bilateral lung infiltrates. 3. Hematoma ? fx sites left. 4. Will evalutate for possible fx of ribs after extubation. 5. Consider pain consult for possible rib injection to control pain after extubation. Will ST[facility] Reeves
[2017-11-21] MEDS: levoFLOXacin 500 mg in D5W 500 MG/100 ML BAG IVPB SCH (09:11)
[2017-11-21] MEDS: Famotidine 40 MG/5 ML PO SCH (09:14)
[2017-11-21 09:25] LABS: ABG ALLEN TEST YES; ARTERIAL BLOOD GAS HCO3 21.8 mmol/L (21-28); ARTERIAL BLOOD GAS HEMOGLOBIN 9.8 g/dL (11.7-17.4); ARTERIAL BLOOD GAS O2 CAPACITY 13.4 mL/dL (16-24); ARTERIAL BLOOD GAS O2 CONTENT 12.5 ML/dL (15-23); ARTERIAL BLOOD GAS O2 SAT 93.5 % (95-98); ARTERIAL BLOOD GAS PCO2 35 mm/Hg (35-45); ARTERIAL BLOOD GAS PH 7.38 (7.35-7.45); ARTERIAL BLOOD GAS PO2 52 mm/Hg (80-100); ARTERIAL BLOOD GAS TCO2 21.8 mmol/L (22-28)
--- NOTE | 2017-11-21 09:50 | RAD ---
HISTORY: intubated COMPARISON: Karl FINDINGS: In situ ETT, tip of which lies approximately 3.2 cm above gómez. In situ NGT, tip of which overlies right parasagittal upper abdomen. No change right-sided PICC line. LUNGS: No bilateral infiltrates with suspected bilateral effusions PLEURA: As above. No pneumothorax apparent. CARDIOVASCULAR: Cardiomegaly unchanged. OSSEOUS STRUCTURES: No significant abnormalities. VISUALIZED UPPER ABDOMEN: Normal. OTHER FINDINGS: None. IMPRESSION: Support lines and tubes as above. Bilateral infiltrates with suspected bilateral effusions
--- NOTE | 2017-11-21 11:14 | VASCULAR ---
PROCEDURE: Date of procedure: 11/20/2017 Procedure: 1. Placement of a right arm PICC with ultrasound and fluoroscopic guidance, CPT 91212 2. PICC tip confirmation with spot radiograph and is in the superior vena cava Medications: 1 percent lidocaine Total Fluoro time: 7.3 seconds Radiation: 1.38 MGy EBL: 2 cc HISTORY: Ventilatory failure. TECHNIQUE: Following informed consent and procedure time-out, the patient was placed supine on the interventional table and the right arm prepped and draped in the usual sterile fashion. Ultrasound showed a patent and compressible right basilic vein. After the skin was anesthetized with lidocaine, the basilic vein was accessed with micro micropuncture technique using ultrasound guidance. A guidewire was then advanced under fluoroscopic guidance into the superior vena cava. An image documenting ultrasound guidance for vascular access was permanently saved. The length of the dual-lumen 5 Amharic PICC was trimmed to 33 centimeters and advanced through a peel-away sheath. The PICC was position with tip of PICC confirm a spot radiograph the superior vena cava. The PICC was secured to the patient's skin. The PICC was flushed. A biopatch and sterile dressing was applied. IMPRESSION: Placement of a dual-lumen 5 Amharic PICC trimmed to 33 centimeters via right basilic vein. The tip of the PICC is confirmed with spot radiograph and is in the superior vena cava.
[2017-11-21] MEDS: Lidocaine 5% Patch TD SCH (11:27)
[2017-11-21] MEDS ORDERED: Iodixanol 320 MG/ML 100 ML BOTTLE IV ONE (12:01)
--- NOTE | 2017-11-21 13:19 | CT ---
PROCEDURE: CT chest 11/19/2017 HISTORY: Abnormal chest x-ray. Status post code COMPARISON: Comparison made with CTA chest 11/19/2017. TECHNIQUE: Contiguous axial images were obtained through the chest with intravenous contrast enhancement. Sagittal and coronal reconstructions were performed. IV contrast: 320 cc Visipaque Radiation dose (DLP): 526.86 MGy-cm. This CT exam was performed using one or more of the following dose reduction techniques: Automated exposure control, adjustment of the mA and/or kV according to patient size, and/or use of iterative reconstruction technique. Note that this study is limited due to significant streak and beam hardening artifact arising from the upper extremities which have not been moved from the field of view. FINDINGS: In situ endotracheal tube tip of which lies well above gómez. There is also in situ NGT, the tip of which lies in the distal stomach region. LUNGS: There are increased patchy atelectatic and or infiltrate changes possibly a component of parenchymal contusions. . Small to medium size left-sided effusion. MEDIASTINUM: Heart size is within range of normal. No significant pericardial effusion. Ascending thoracic aorta measures approximately 3.24 cm and descending thoracic aorta measures approximately 2.1 cm. . Three-vessel arch. Origins of the great vessels are widely patent despite some very minimal plaque at the origin of the left subclavian artery. The visualized portions of the left subclavian artery appear intact so far as can be seen with no definitive evidence of significant contrast extravasation to suggest vascular injury. . The left subclavian vein is less well visualized due to timing of injection and significant artifact. No obvious pulling of contrast material. The descending thoracic aorta as well as abdominal aorta intact. Previously noted hematoma which it, the epicenter of which appears to be in the soft tissues surrounding the 1st 2nd and 3rd with extension into the subpleural space and the adjacent subcutaneous tissues of the upper chest wall appears to have diminished in size slightly. Pulmonary trunk measures approximately 2.642 cm. Although this exam was not dedicated to evaluate for pulmonary embolus. The visualized portions of the pulmonary trunk, right and left main as well as lobar and proximal segmental branches appear patent. The distal segmental and subsegmental branches poorly seen due to aforementioned artifact as well as patchy infiltrates and atelectasis PLEURA: As above. No evidence of pneumothorax. BONES: Note again made of multiple left rib fractures involving the 1st through 7th ribs and several right-sided anterolateral rib fractures. . There is also a fracture of the sternum. UPPER ABDOMEN: Fatty hepatic infiltration. OTHER FINDINGS: Note is made of diffuse infiltration changes in the left breast which may be secondary to recent compression during CPR. Clinical correlation recommended. IMPRESSION: No definitive radiographic evidence of vascular injury. Multiple bilateral rib fractures. Interval decrease in size left upper chest wall hematoma surrounding the left 1st 2nd and 3rd ribs. Multiple bilateral rib fractures with sternal fracture Interval increase in patchy consolidation changes both lung cox right side greater than left likely due to combination of atelectasis/edema and possibly parenchymal contusions. No evidence of pneumothorax. Small to medium size left effusion Infiltration changes seen in the left breast as above. . .
--- NOTE | 2017-11-21 13:37 | CP.PCM.PN ---
Subjective - Date & Time of Evaluation Date of Evaluation: 11/21/17 Time of Evaluation: 13:23 - Subjective Subjective: Pt s/e. Remains intubated and sedated.\ Hb dropped to 7 last night-transfused with 2units of packed rbc-hb is increased to 9.8 now. wbc-17k; vss Ct chest with contrast and angio done this am again to r/o vessel injuries of neck vessels and to evaluate the status of hematoma and lung contusion: No vessel injuries, slightly decreased hematoma, markedly increased lung infiltrates and some atelctasis bilat. and min pleural effusion(low density i.e not blood). I would recommend continue current care with daily cxr and daily labs. a/p: Hemodynamically stable-no evidence of acute bleeding. Fib rx , left and right. Pulmonary contusion-bilat. Pleural effusion, left-small. Hematoma-around fx 1,2,3 left-decreasing. Continue currrent supportive care. Objective - Vital Signs/Intake and Output Vital Signs (last 24 hours): Temp Pulse Resp BP Pulse Ox 97.9 F 85 14 131/78 97 11/21/17 08:00 11/21/17 11:00 11/21/17 11:00 11/21/17 11:00 11/21/17 11:00 Intake and Output: 11/21/17 11/21/17 06:59 18:59 Intake Total 2134.0 520 Output Total 400 Balance 1734.0 520 - Medications Medications: Current Medications Albuterol Sulfate (Albuterol 0.083% Inhal Hanane (2.5 Mg/3 Ml) Ud) 2.5 mg INH RQ2 PRN PRN Reason: Shortness of Breath Last Admin: 11/18/17 02:20 Dose: 2.5 mg Albuterol/Ipratropium (Duoneb 3 Mg/0.5 Mg (3 Ml) Ud) 3 ml INH RQ4 [facility] Last Admin: 11/21/17 11:13 Dose: 3 ml Bupropion HCl (Wellbutrin) 75 mg PO DAILY [facility] Last Admin: 11/21/17 09:16 Dose: 75 mg Chlordiazepoxide (Librium) 50 mg PO Q6 [facility] Last Admin: 11/21/17 12:51 Dose: 50 mg Famotidine (Pepcid) 20 mg PO DAILY [facility] Last Admin: 11/21/17 09:14 Dose: 20 mg Folic Acid (Folic Acid) 1 mg PO DAILY [facility] Last Admin: 11/21/17 09:11 Dose: 1 mg Haloperidol Lactate (Haldol) 2 mg IVP Q4 PRN PRN Reason: Agitation Last Admin: 11/20/17 07:38 Dose: 2 mg Levofloxacin/Dextrose (Levaquin 500mg) 500 mg in 100 mls @ 100 mls/hr IVPB DAILY [facility] PRN Reason: Protocol Last Admin: 11/21/17 09:11 Dose: 100 mls/hr Vancomycin HCl 750 mg/ Sodium (Chloride) 250 mls @ 250 mls/hr IVPB Q12H [facility] PRN Reason: Protocol Last Admin: 11/21/17 05:45 Dose: 250 mls/hr Piperacillin Sod/Tazobactam (Sod 3.375 gm/ Sodium Chloride) 100 mls @ 100 mls/ hr IVPB Q8 [facility] PRN Reason: Protocol Last Admin: 11/21/17 09:16 Dose: 100 mls/hr Dextrose/Sodium Chloride (Dextrose 5%/0.45% Ns 1000 Ml) 1,000 mls @ 100 mls/hr IV .Q10H [facility] Stop: 11/21/17 19:41 Last Admin: 11/20/17 20:16 Dose: 100 mls/hr Propofol (Diprivan) 1,000 mg in 100 mls @ 2.232 mls/hr IV .Q24H [facility]; 5 MCG/KG/ MIN PRN Reason: Protocol Stop: 11/21/17 19:45 Last Admin: 11/21/17 05:52 Dose: 20 mcg/kg/min, 8.927 mls/hr Fentanyl Citrate 2,500 mcg/ (Dextrose) 250 mls @ 37.19 mls/hr IV .Q6H44M [facility]; 5 MCG/KG/HR PRN Reason: Protocol Last Admin: 11/21/17 11:23 Dose: 5 mcg/kg/hr, 37.19 mls/hr Lidocaine (Lidoderm) 2 ea TD DAILY [facility] Last Admin: 11/21/17 11:27 Dose: 2 ea Lorazepam (Ativan) 2 mg IVP Q4 PRN PRN Reason: Agitation Last Admin: 11/21/17 11:34 Dose: 2 mg Methylprednisolone (Solu-Medrol) 80 mg IV Q8 [facility] Last Admin: 11/21/17 09:15 Dose: 80 mg Morphine Sulfate (Morphine) 4 mg IVP Q4 PRN PRN Reason: Agitation Last Admin: 11/20/17 05:38 Dose: 4 mg Nicotine (Nicoderm Cq) 1 patch TD DAILY [facility] Last Admin: 11/21/17 09:14 Dose: 1 patch Thiamine HCl (Vitamin B1 Tab) 100 mg PO DAILY [facility] Last Admin: 11/21/17 09:15 Dose: 100 mg - Labs Labs: 11/21/17 04:20 11/21/17 04:20 PT 12.7 Seconds (9.8-13.1) 11/21/17 04:20 INR 1.1 (0.9-1.2) 11/21/17 04:20 APTT 24.9 Seconds (25.6-37.1) L 11/21/17 04:20
[2017-11-21] MEDS: Dextrose 5%/0.45% NS 1,000 ML IV SCH (16:14)
--- NOTE | 2017-11-21 23:14 | CP.PCM.PN ---
Subjective - Date & Time of Evaluation Date of Evaluation: 11/21/17 Time of Evaluation: 15:10 Objective - Vital Signs/Intake and Output Vital Signs (last 24 hours): Temp Pulse Resp BP Pulse Ox 97.4 F L 99 H 20 122/68 96 11/21/17 19:21 11/21/17 22:00 11/21/17 22:00 11/21/17 22:00 11/21/17 22:00 Intake and Output: 11/21/17 11/22/17 18:59 06:59 Intake Total 3531 716.6 Output Total 400 Balance 3131 716.6 - Medications Medications: Current Medications Albuterol Sulfate (Albuterol 0.083% Inhal Hanane (2.5 Mg/3 Ml) Ud) 2.5 mg INH RQ2 PRN PRN Reason: Shortness of Breath Last Admin: 11/18/17 02:20 Dose: 2.5 mg Albuterol/Ipratropium (Duoneb 3 Mg/0.5 Mg (3 Ml) Ud) 3 ml INH RQ4 [facility] Last Admin: 11/21/17 19:11 Dose: 3 ml Bupropion HCl (Wellbutrin) 75 mg PO DAILY [facility] Last Admin: 11/21/17 09:16 Dose: 75 mg Chlordiazepoxide (Librium) 50 mg PO Q6 [facility] Last Admin: 11/21/17 21:12 Dose: 50 mg Famotidine (Pepcid) 20 mg PO DAILY [facility] Last Admin: 11/21/17 09:14 Dose: 20 mg Folic Acid (Folic Acid) 1 mg PO DAILY [facility] Last Admin: 11/21/17 09:11 Dose: 1 mg Haloperidol Lactate (Haldol) 2 mg IVP Q4 PRN PRN Reason: Agitation Last Admin: 11/20/17 07:38 Dose: 2 mg Levofloxacin/Dextrose (Levaquin 500mg) 500 mg in 100 mls @ 100 mls/hr IVPB DAILY [facility] PRN Reason: Protocol Last Admin: 11/21/17 09:11 Dose: 100 mls/hr Vancomycin HCl 750 mg/ Sodium (Chloride) 250 mls @ 250 mls/hr IVPB Q12H [facility] PRN Reason: Protocol Last Admin: 11/21/17 17:42 Dose: 250 mls/hr Piperacillin Sod/Tazobactam (Sod 3.375 gm/ Sodium Chloride) 100 mls @ 100 mls/ hr IVPB Q8 [facility] PRN Reason: Protocol Last Admin: 11/21/17 16:19 Dose: 100 mls/hr Fentanyl Citrate 2,500 mcg/ (Dextrose) 250 mls @ 37.19 mls/hr IV .Q6H44M [facility]; 5 MCG/KG/HR PRN Reason: Protocol Last Admin: 11/21/17 18:37 Dose: 5 mcg/kg/hr, 37.19 mls/hr Lidocaine (Lidoderm) 2 ea TD DAILY [facility] Last Admin: 11/21/17 11:27 Dose: 2 ea Lorazepam (Ativan) 2 mg IVP Q4 PRN PRN Reason: Agitation Last Admin: 11/21/17 22:36 Dose: 2 mg Methylprednisolone (Solu-Medrol) 80 mg IV Q8 [facility] Last Admin: 11/21/17 16:17 Dose: 80 mg Morphine Sulfate (Morphine) 4 mg IVP Q4 PRN PRN Reason: Agitation Last Admin: 11/20/17 05:38 Dose: 4 mg Nicotine (Nicoderm Cq) 1 patch TD DAILY [facility] Last Admin: 11/21/17 09:14 Dose: 1 patch Thiamine HCl (Vitamin B1 Tab) 100 mg PO DAILY [facility] Last Admin: 11/21/17 09:15 Dose: 100 mg - Labs Labs: 11/21/17 04:20 11/21/17 04:20 PT 12.7 Seconds (9.8-13.1) 11/21/17 04:20 INR 1.1 (0.9-1.2) 11/21/17 04:20 APTT 24.9 Seconds (25.6-37.1) L 11/21/17 04:20 Assessment and Plan (1) Respiratory arrest Status: Acute (2) Schizoaffective disorder Status: Acute (3) Chest wall pain Status: Acute
[2017-11-22] MEDS: Piperacillin/Tazobact 3.375 GM in Sodium Chloride 0.9% 100 ML IVPB SCH ×3 (01:44→16:15)
[2017-11-22] MEDS: Propofol 10 mg/ml 1,000 MG/100 ML VIAL IV SCH ×4 (01:45→21:17)
[2017-11-22] MEDS: Fentanyl Citrate 2,500 MCG in Dextrose 5% In Water 200 ML IV SCH ×4 (01:49→23:10)
[2017-11-22] MEDS ORDERED: Sodium Chloride 0.45% 1,000 ML IV SCH (04:45)
[2017-11-22] MEDS: Albuterol-Ipratrop 3 mg / 0.5 (3 ml) UD INH SCH ×6 (05:18→23:55)
[2017-11-22 05:29] LABS: HEMOGLOBIN 9.5 g/dL (12.0-16.0); MEAN CELL VOLUME 97.6 fl (81.0-99.0); MEAN CORPUSCULAR HEMOGLOBIN 32.7 pg (27.0-31.0); MEAN CORPUSCULAR HGB CONC 33.5 g/dL (33.0-37.0); RBC 2.9 Mil/uL (3.80-5.20); RED CELL DISTRIBUTION WIDTH 15.1 % (11.5-14.5); WHITE BLOOD COUNT 13.3 K/uL (4.8-10.8)
[2017-11-22 05:42] LABS: ABG ALLEN TEST YES; ARTERIAL BLOOD GAS HCO3 21.2 mmol/L (21-28); ARTERIAL BLOOD GAS HEMOGLOBIN 9.5 g/dL (11.7-17.4); ARTERIAL BLOOD GAS O2 CAPACITY 13.1 mL/dL (16-24); ARTERIAL BLOOD GAS PCO2 45 mm/Hg (35-45); ARTERIAL BLOOD GAS PH 7.29 (7.35-7.45); ARTERIAL BLOOD GAS PO2 84 mm/Hg (80-100)
[2017-11-22 05:49] LABS: ALB/GLOB RATIO 0.9 (1.0-2.1); ALBUMIN 2.7 g/dL (3.5-5.0); CALCIUM 7.8 mg/dL (8.4-10.2)
--- NOTE | 2017-11-22 06:47 | RAD ---
PROCEDURE: CHEST RADIOGRAPH, 1 VIEW HISTORY: pt intubated COMPARISON: November 21, 2017. FINDINGS: LUNGS: Modest interval improvement and right upper lobe infiltrate. Stable right lower lobe infiltrate and left upper lobe infiltrate. PLEURA: No pneumothorax or pleural fluid seen. CARDIOVASCULAR: Cardiomegaly. No evidence of acute, significant cardiovascular disease. OSSEOUS STRUCTURES: No significant abnormalities. VISUALIZED UPPER ABDOMEN: Normal. OTHER FINDINGS: Stable, satisfactory position ventilatory, vascular and nasogastric apparatus. IMPRESSION: Modest interval improvement right upper lobe infiltrate. Remaining infiltrates are approximately stable.
--- NOTE | 2017-11-22 06:54 | CP.CCUPN ---
CCU Subjective - Physician Review Subjective (Free Text): Day#4 MV, on fentanyl drip for pain control and sedation. Unable to be completely weaned off Propofol sedation. Other VS and I/Os reviewed. No fever spikes overnight. ROS: No other pertinent negs or positives on 10+ system review obtainable from intubated and sedated patient. PMSFH: All other Nursing and physician documentation reviewed to date; no new pertinent info noted relevant to current medical problems. EXAM- HEENT: no icterus, no gaze preference, pupils equal and reactive NECK: No JVD, supple, carotids equal upstroke bilat/no bruits CHEST: decreased BS bases, no wheezes audible, crepitus over L upper and lateral chest, bilateral ecchymoses HEART: regular tachy, distant, S1S2, no rubs. ABD: soft, no distention, no tympany, no palp tenderness, BS hypoactive. EXT: No peripheral/ digital cyanosis, no calf tenderness or palpable cords, distal pulses intact and symmetrical. NEURO: no focal motor deficits SKIN: no rashes, warm and dry. LABS: WBC= 13.3 HGB= 9.5 PLTs= 143K Lactate = 0.9 yesterday Cr=682 K= 3.6 ZP=948 HCO3= 21 BUN/Cr= 20/1.4 HM=999 7.29 / 45 /84 CXR: (my interp) bilateral upper lobe opacities, R worse than L, R lung volume overall decreased, R basilar lobar atelectasis; ETT position OK. IMPRESSION / MAJOR PROBLEMS NOW: 1. Bilateral / Multiple Rib fractures with bilateral pneumonitis 2. s/p Cardio-Resp Arrest 3. COPD / Asthma Exacerb 4. Acute blood loss Anemia 5. Azotemia, r/o GRETCHEN 6. H/o ETOH Abuse PLAN: 1. Adjusted MV for new hyperrcapnia, follow repeat ABG. CXR representing lung contused lung from rib fractures, imtiaz R side. Monitor lung expansion to prevent further contusion. So far, no new hemopneumothorax. Discussed with ThorSurg. TVs adjusted for IBW. 2. Maintain empiric abx coverage, sputum cx ordered on 11/20/17 "cancelled." Repeat ordered today. On Zosyn/Vanco/Levaquin. 3. Consider intercostal nerve block consult with Anesthesia; appreciate ThorSurg eval and recommendations. 4. Ativan /Librium; Thiamine / Folate supplements. 5. Wean steroids down. 6. Lovenox finally stopped on 11/18 after PM dose, no clinical suspicion for acute PTE. Elevated ddimer due to asthma. CCU Objective - Vital Signs / Intake & Output Vital Signs (Last 4 hours): Vital Signs Temp Pulse Resp BP Pulse Ox 11/22/17 06:00 88 20 111/65 96 11/22/17 05:00 86 21 101/67 97 11/22/17 04:00 99.4 F 88 20 100/57 L 98 11/22/17 03:00 94 H 21 106/60 96 Intake and Output (Last 8hrs): Intake & Output 11/21/17 11/21/17 11/22/17 14:59 22:59 06:59 Intake Total 620 3627.6 1973.1 Output Total 400 1000 Balance 620 3227.6 973.1 Intake: IV 270 2392.6 1233.1 Intake, Piggyback 200 350 Oral 105 Tube Feeding 480 440 Free Water Flush 150 300 300 Output: Urine 400 1000 Urethral (Thrasher) 400 1000 Other: # Bowel Movements 1 1
[2017-11-22] MEDS ORDERED: Sodium Chloride 3% for Inhalation 4 ML VIAL.NEB IH PRN (06:57)
--- NOTE | 2017-11-22 07:33 | CP.PCM.PN ---
Subjective - Date & Time of Evaluation Date of Evaluation: 11/22/17 Time of Evaluation: 06:50 - Subjective Subjective: CT Surgery Pt seen and examined. Intubated and sedated. No acute events overnight, some agitation. Hgb stable. WBC trending down. Objective - Vital Signs/Intake and Output Vital Signs (last 24 hours): Temp Pulse Resp BP Pulse Ox 99.4 F 88 20 111/65 96 11/22/17 04:00 11/22/17 06:00 11/22/17 06:00 11/22/17 06:00 11/22/17 06:00 Intake and Output: 11/22/17 11/22/17 06:59 18:59 Intake Total 2689.7 Output Total 1000 Balance 1689.7 - Medications Medications: Current Medications Albuterol Sulfate (Albuterol 0.083% Inhal Hanane (2.5 Mg/3 Ml) Ud) 2.5 mg INH RQ2 PRN PRN Reason: Shortness of Breath Last Admin: 11/18/17 02:20 Dose: 2.5 mg Albuterol/Ipratropium (Duoneb 3 Mg/0.5 Mg (3 Ml) Ud) 3 ml INH RQ4 [facility] Last Admin: 11/22/17 07:11 Dose: 3 ml Bupropion HCl (Wellbutrin) 75 mg PO DAILY [facility] Last Admin: 11/21/17 09:16 Dose: 75 mg Chlordiazepoxide (Librium) 50 mg PO Q6 [facility] Last Admin: 11/22/17 04:28 Dose: 50 mg Famotidine (Pepcid) 20 mg PO DAILY [facility] Last Admin: 11/21/17 09:14 Dose: 20 mg Folic Acid (Folic Acid) 1 mg PO DAILY [facility] Last Admin: 11/21/17 09:11 Dose: 1 mg Haloperidol Lactate (Haldol) 2 mg IVP Q4 PRN PRN Reason: Agitation Last Admin: 11/20/17 07:38 Dose: 2 mg Levofloxacin/Dextrose (Levaquin 500mg) 500 mg in 100 mls @ 100 mls/hr IVPB DAILY [facility] PRN Reason: Protocol Last Admin: 11/21/17 09:11 Dose: 100 mls/hr Vancomycin HCl 750 mg/ Sodium (Chloride) 250 mls @ 250 mls/hr IVPB Q12H [facility] PRN Reason: Protocol Last Admin: 11/22/17 05:41 Dose: 250 mls/hr Piperacillin Sod/Tazobactam (Sod 3.375 gm/ Sodium Chloride) 100 mls @ 100 mls/ hr IVPB Q8 [facility] PRN Reason: Protocol Last Admin: 11/22/17 01:44 Dose: 100 mls/hr Fentanyl Citrate 2,500 mcg/ (Dextrose) 250 mls @ 37.19 mls/hr IV .Q6H44M [facility]; 5 MCG/KG/HR PRN Reason: Protocol Last Titration: 11/22/17 05:44 Dose: 5 mcg/kg/hr, 37.19 mls/hr Sodium Chloride (Sodium Chloride 0.45%) 1,000 mls @ 100 mls/hr IV .Q10H [facility] Stop: 11/23/17 04:35 Last Admin: 11/22/17 05:41 Dose: 100 mls/hr Lidocaine (Lidoderm) 2 ea TD DAILY [facility] Last Admin: 11/21/17 11:27 Dose: 2 ea Lorazepam (Ativan) 2 mg IVP Q4 PRN PRN Reason: Agitation Last Admin: 11/22/17 04:47 Dose: 2 mg Methylprednisolone (Solu-Medrol) 80 mg IV Q8 [facility] Last Admin: 11/22/17 01:43 Dose: 80 mg Morphine Sulfate (Morphine) 4 mg IVP Q4 PRN PRN Reason: Agitation Last Admin: 11/20/17 05:38 Dose: 4 mg Nicotine (Nicoderm Cq) 1 patch TD DAILY [facility] Last Admin: 11/21/17 09:14 Dose: 1 patch Thiamine HCl (Vitamin B1 Tab) 100 mg PO DAILY [facility] Last Admin: 11/21/17 09:15 Dose: 100 mg - Labs Labs: 11/22/17 05:20 11/22/17 05:20 PT 12.7 Seconds (9.8-13.1) 11/21/17 04:20 INR 1.1 (0.9-1.2) 11/21/17 04:20 APTT 24.9 Seconds (25.6-37.1) L 11/21/17 04:20 - Constitutional Appears: Non-toxic, No Acute Distress - Head Exam Head Exam: ATRAUMATIC, NORMOCEPHALIC - ENT Exam Additional comments: trachea midline - Respiratory Exam Respiratory Exam: absent: Accessory Muscle Use, Respiratory Distress (on vent) Additional comments: ETT in place - Cardiovascular Exam Additional comments: L chest wall and breast ecchymosis - GI/Abdominal Exam GI & Abdominal Exam: Soft. absent: Distended, Guarding, Rigid, Tenderness - Neurological Exam Additional comments: intubated and sedated - Skin Skin Exam: Dry, Warm Assessment and Plan - Assessment and Plan (Free Text) Assessment: 57F with R 2-4th rib fractures and left 1st-7th rib fractures s/p asthmatic attack causing cardiac arrest with CPR -B/L Pulmonary contusion. -Pleural effusion, left-small. -Hematoma around ribfx 1,2,3 left-decreasing. Plan: AM CXRs. Continue currrent supportive care. Wean FiO2 as able. D/W Dr. Leandro Goins PGY4
--- NOTE | 2017-11-22 08:55 | PQF GENQUE ---
Dr. Ro, 6 queries as follows: Consultants documented the following information with no mention of these diagnoses in your documentation. Please indicate in your next progress note your agreement with consultants or provide clarification that these diagnoses are not a current condition. 1. Diagnosis:PNA/Sepsis Documented by:Trading Specialist Location:11/20 progress note 2. If in agreemment ; Type of Pneumonia if known? ---POA? 3. Diagnosis: Toxic Septic Metabolic Encephalopathy Documented by:Toucher Up Location: 11/19 progress note 4. If in agreement was Sepsis: POA? 5. Etiology of Sepsis if known: Causative Organism if known 6 Diagnosis:.R 2-4th rib fractures and left 1st-7th rib fractures :B/L Pulmonary contusion. -Pleural effusion, left-small. -Hematoma around ribfx 1,2, 3 left Documented by Thoracic Surgeon Location: 11/22 progress note ABG: lactate:10->10 WBC: 10.7->23.7-.8.3 : Band 6 Pulse:94->.126->124 B/P:97/63->145/122->80/53->68/45 Respirations:18->24->26-> 26->25 11/17 CXR: Impression: Status post extubation, suspect left lower lobe atelectasis/pneumonia and small left pleural effusion. Apparent deformities in the left lateral ribs which may be projectional, however if there is a history of trauma dedicated rib radiographs are recommended to exclude fracture. 11/19 Angio Chest:Impression: Increasing size of hematoma about the left anterior 2nd rib. Multiple bilateral rib fractures as detailed above. Nondisplaced sternal fracture. No pneumothorax. Small left pleural effusion and trace right pleural effusion. Multifocal pulmonary opacities, right greater than left common nonspecific. Increased from prior examination. No evidence of left subclavian arterial injury. . Endotracheal tube. No acute abdominal abnormality. 11/19 Toucher Up note documentation includes: Impression and Plan: ABG consistent with [id number] hypoxemia, consistent to secondary altered mental status probably related to toxic, septic metabolic 11/22 Cardio Thoracic Surgery; R 2-4th rib fractures and left 1st-7th rib fractures s/p asthmatic attack causing cardiac arrest with CPR -B/L Pulmonary contusion. -Pleural effusion, left-small. -Hematoma around ribfx 1,2,3 left-decreasing IVAB'S, IVF's, monitored in ICU, Intubated->vent This form is a permanent part of the medical record Clarification of your documentation is requested to better reflect the severity of illness and intensity of treatment of your patient. Indicators present [] Specify: [] [] Specify: [] [] Specify: [] [] Specify: [] Location in the medical record that reflects the above clinical findings: [] Treatment Provided: [] PHYSICIAN'S RESPONSE Based on your medical judgment of the clinical indicators outlined above please clarify the following: [] Practitioner response [] If unable to determine, please check the box, sign and date. Present On Admission (POA) Indicator: [] Present at the time of admission [] Not present at the time of admission [] Clinically Undetermined In responding to this query, please exercise your independent professional judgment. The fact that a question is asked does not imply that any particular answer is desired or expected. Thank you for your clarification on this documentation. If you have any questions please call. * Thank you, Kaila Reynoso RN ext. #[phone] MTDD
[2017-11-22] MEDS: levoFLOXacin 500 mg in D5W 500 MG/100 ML BAG IVPB SCH (09:19)
[2017-11-22] MEDS: Lidocaine 5% Patch TD SCH (09:21)
[2017-11-22] MEDS: Famotidine 40 MG/5 ML PO SCH (09:22)
--- NOTE | 2017-11-22 11:57 | CP.PCM.PN ---
Subjective - Date & Time of Evaluation Date of Evaluation: 11/22/17 Time of Evaluation: 11:46 - Subjective Subjective: Pt s/e. Remains intubated and sedated.vss. wbc-13k hb-9.5 cxr-infiltrates stable.ie Not getting any worse a/p: 1. s/p cardiac arrest and resuscitation. 2. Pulmonary contusion. 3. Bilat, rib fxs. 4. Hematoma(extrapleural)-due to rib fxs left.-stable. 5, blood loss-stable. 6. Continue current care with daily cxr and labs. Objective - Vital Signs/Intake and Output Vital Signs (last 24 hours): Temp Pulse Resp BP Pulse Ox 98.9 F 90 20 93/56 L 97 11/22/17 08:00 11/22/17 10:00 11/22/17 10:00 11/22/17 10:00 11/22/17 10:00 Intake and Output: 11/22/17 11/22/17 06:59 18:59 Intake Total 2689.7 455.3 Output Total 1000 Balance 1689.7 455.3 - Medications Medications: Current Medications Albuterol Sulfate (Albuterol 0.083% Inhal Hanane (2.5 Mg/3 Ml) Ud) 2.5 mg INH RQ2 PRN PRN Reason: Shortness of Breath Last Admin: 11/18/17 02:20 Dose: 2.5 mg Albuterol/Ipratropium (Duoneb 3 Mg/0.5 Mg (3 Ml) Ud) 3 ml INH RQ4 [facility] Last Admin: 11/22/17 11:13 Dose: 3 ml Bupropion HCl (Wellbutrin) 75 mg PO DAILY [facility] Last Admin: 11/22/17 09:24 Dose: 75 mg Chlordiazepoxide (Librium) 50 mg PO Q6 [facility] Last Admin: 11/22/17 09:21 Dose: 50 mg Famotidine (Pepcid) 20 mg PO DAILY [facility] Last Admin: 11/22/17 09:22 Dose: 20 mg Folic Acid (Folic Acid) 1 mg PO DAILY [facility] Last Admin: 11/22/17 09:18 Dose: 1 mg Haloperidol Lactate (Haldol) 2 mg IVP Q4 PRN PRN Reason: Agitation Last Admin: 11/20/17 07:38 Dose: 2 mg Vancomycin HCl 750 mg/ Sodium (Chloride) 250 mls @ 250 mls/hr IVPB Q12H [facility] PRN Reason: Protocol Last Admin: 11/22/17 05:41 Dose: 250 mls/hr Piperacillin Sod/Tazobactam (Sod 3.375 gm/ Sodium Chloride) 100 mls @ 100 mls/ hr IVPB Q8 [facility] PRN Reason: Protocol Last Admin: 11/22/17 09:24 Dose: 100 mls/hr Fentanyl Citrate 2,500 mcg/ (Dextrose) 250 mls @ 37.19 mls/hr IV .Q6H44M [facility]; 5 MCG/KG/HR PRN Reason: Protocol Last Admin: 11/22/17 09:16 Dose: 5 mcg/kg/hr, 37.19 mls/hr Sodium Chloride (Sodium Chloride 0.45%) 1,000 mls @ 100 mls/hr IV .Q10H [facility] Stop: 11/23/17 04:35 Last Admin: 11/22/17 05:41 Dose: 100 mls/hr Lidocaine (Lidoderm) 2 ea TD DAILY [facility] Last Admin: 11/22/17 09:21 Dose: 2 ea Lorazepam (Ativan) 2 mg IVP Q4 PRN PRN Reason: Agitation Last Admin: 11/22/17 04:47 Dose: 2 mg Methylprednisolone (Solu-Medrol) 80 mg IV Q8 [facility] Last Admin: 11/22/17 09:23 Dose: 80 mg Morphine Sulfate (Morphine) 4 mg IVP Q4 PRN PRN Reason: Agitation Last Admin: 11/20/17 05:38 Dose: 4 mg Nicotine (Nicoderm Cq) 1 patch TD DAILY [facility] Last Admin: 11/22/17 09:22 Dose: 1 patch Thiamine HCl (Vitamin B1 Tab) 100 mg PO DAILY [facility] Last Admin: 11/22/17 09:23 Dose: 100 mg - Labs Labs: 11/22/17 05:20 11/22/17 05:20 PT 12.7 Seconds (9.8-13.1) 11/21/17 04:20 INR 1.1 (0.9-1.2) 11/21/17 04:20 APTT 24.9 Seconds (25.6-37.1) L 11/21/17 04:20
--- NOTE | 2017-11-22 13:29 | PN ---
DATE: 11/22/2017 SUBJECTIVE: The patient is currently sedated on the ventilator. PHYSICAL EXAMINATION: VITAL SIGNS: Blood pressure 193/56, heart rate 90, temperature 98.9, and respirations 20. HEENT: Pale conjunctivae. CHEST: Diffuse bilateral rhonchi. HEART: S1 and S2 regular. EXTREMITIES: No edema. LABORATORY DATA: Hemoglobin and hematocrit are 9.5 and 28.4, white count 15.3, and platelet count 143,000. SMA-7; sodium 136, potassium 3.6, chloride 106, CO2 21, glucose 250, BUN 20, and creatinine 1.4. Yesterday's chest CT scan revealed no definite radiographic evidence of vascular injury. Multiple bilateral rib fractures. Interval decrease in the size of left upper chest wall hematoma surrounding the first, second and third ribs. Multiple bilateral rib fractures with sternal fracture. consolidative changes both lung cox, right side greater than left likely due to combination of atelectasis/edema and possibly parenchymal contusions. No evidence of pneumothorax. Txmhg-[id number] size left effusion. Infiltration changes seen in the left breast. ASSESSMENT: 1. Respiratory failure. 2. Bilateral rib fracture. 3. Prerenal azotemia. 4. Borderline troponin elevation. 5. Anemia. RECOMMENDATIONS: Continue current Ativan 2 mg intravenously every 4 hours p.r.n. Continue fentanyl infusion. Continue Haldol 2 mg intravenously every 6 hours p.r.n. Continue Librium at 50 mg p.o. every 6 hours, Zosyn at 3.375 g intravenously every 8 hours, Solu-Medrol 80 mg intravenously every 8 hours, vancomycin mg intravenously every 12 hours, and thiamine 100 mg daily. I discussed the case with histotechnologist supervisor for bedside echocardiography study at least subcostal views given the patient's bilateral rib as well as sternal fractures with possible adjacent hematoma. I will repeat 12-lead EKG today. Aditya Abraham MD
--- NOTE | 2017-11-22 18:16 | CARD ---
APPROVED REPORT EXAM: Two-dimensional and M-mode echocardiogram with Doppler and color Doppler. Other Information Quality : GoodRhythm : NSR INDICATION Dyspnea COPD 2D DIMENSIONS IVSd1.26 (0.7-1.1cm)LVDd4.57 (3.9-5.9cm) LVOT Diameter1.99 (1.8-2.4cm)PWd1.11 (0.7-1.1cm) IVSs1.26 (0.8-1.2cm)LVDs3.38 (2.5-4.0cm) FS (%) 25.9 %PWs1.14 (0.8-1.2cm) LVEF (%)55.0 (>50%) M-Mode DIMENSIONS Left Atrium (MM)3.53 (2.5-4.0cm)IVSd0.88 (0.7-1.1cm) Aortic Root3.15 (2.2-3.7cm)LVDd5.59 (4.0-5.6cm) Aortic Cusp Exc.1.91 (1.5-2.0cm)PWd0.74 (0.7-1.1cm) IVSs1.18 cmFS (%) 31 % LVDs3.85 (2.0-3.8cm)PWs1.26 cm Mitral Valve MV E Paaarvgy83.5cm/sMV DECEL [id number] A Tamvfjpq04.0cm/s MV AFP36zsM/A ratio1.3MVA (PHT)4.31cm2 TDI E/Lateral E'0.0E/Medial E'0.0 Pulmonary Valve PV Peak Dcaokfgq57.3cm/s Tricuspid Valve TR Peak Gqrupure972zm/sRAP [id number] Peak Gr.27mmHg [id number] LEFT VENTRICLE The left ventricle is normal size. There is borderline concentric left ventricular hypertrophy. The left ventricular function is normal. The left ventricular ejection fraction is within the normal range. There is normal LV segmental wall motion. Transmitral Doppler flow pattern is abnormal. RIGHT VENTRICLE The right ventricle is normal size. There is normal right ventricular wall thickness. The right ventricular systolic function is normal. ATRIA The left atrium size is normal. The right atrium size is normal. AORTIC VALVE The aortic valve is not well visualized. No aortic regurgitation is present. There is no aortic valvular stenosis. MITRAL VALVE The mitral valve is mildly thickened. There is no mitral valve stenosis. There is no mitral valve regurgitation noted. TRICUSPID VALVE The tricuspid valve is normal in structure. There is mild tricuspid regurgitation. There is mild pulmonary hypertension. PULMONIC VALVE The pulmonary valve is normal in structure. There is no pulmonic valvular regurgitation. GREAT VESSELS The aortic root is normal in size. The IVC is normal in size and collapses >50% with inspiration. PERICARDIAL EFFUSION The pericardium appears normal. <Conclusion> The left ventricle is normal size. There is borderline concentric left ventricular hypertrophy. The left ventricular function is normal. The left ventricular ejection fraction is within the normal range. There is normal LV segmental wall motion. Transmitral Doppler flow pattern is abnormal. There is mild tricuspid regurgitation. There is mild pulmonary hypertension.
--- NOTE | 2017-11-22 18:39 | CARD ---
APPROVED REPORT EKG Measurement Heart [id number] WI [id number] <Conclusion> Normal sinus rhythm Normal ECG
--- NOTE | 2017-11-22 23:32 | CP.PCM.PN ---
Subjective - Date & Time of Evaluation Date of Evaluation: 11/22/17 Time of Evaluation: 16:30 Objective - Vital Signs/Intake and Output Vital Signs (last 24 hours): Temp Pulse Resp BP Pulse Ox 98.9 F 92 H 20 98/56 L 99 11/22/17 20:00 11/22/17 21:58 11/22/17 21:58 11/22/17 21:00 11/22/17 21:58 Intake and Output: 11/22/17 11/23/17 18:59 06:59 Intake Total 3767.3 887.3 Output Total 1300 800 Balance 2467.3 87.3 - Medications Medications: Current Medications Albuterol Sulfate (Albuterol 0.083% Inhal Hanane (2.5 Mg/3 Ml) Ud) 2.5 mg INH RQ2 PRN PRN Reason: Shortness of Breath Last Admin: 11/18/17 02:20 Dose: 2.5 mg Albuterol/Ipratropium (Duoneb 3 Mg/0.5 Mg (3 Ml) Ud) 3 ml INH RQ4 [facility] Last Admin: 11/22/17 19:08 Dose: 3 ml Bupropion HCl (Wellbutrin) 75 mg PO DAILY [facility] Last Admin: 11/22/17 09:24 Dose: 75 mg Chlordiazepoxide (Librium) 50 mg PO Q6 [facility] Last Admin: 11/22/17 21:25 Dose: 50 mg Famotidine (Pepcid) 20 mg PO DAILY [facility] Last Admin: 11/22/17 09:22 Dose: 20 mg Folic Acid (Folic Acid) 1 mg PO DAILY [facility] Last Admin: 11/22/17 09:18 Dose: 1 mg Haloperidol Lactate (Haldol) 2 mg IVP Q4 PRN PRN Reason: Agitation Last Admin: 11/22/17 21:21 Dose: 2 mg Vancomycin HCl 750 mg/ Sodium (Chloride) 250 mls @ 250 mls/hr IVPB Q12H [facility] PRN Reason: Protocol Last Admin: 11/22/17 18:10 Dose: 250 mls/hr Piperacillin Sod/Tazobactam (Sod 3.375 gm/ Sodium Chloride) 100 mls @ 100 mls/ hr IVPB Q8 [facility] PRN Reason: Protocol Last Admin: 11/22/17 16:15 Dose: 100 mls/hr Fentanyl Citrate 2,500 mcg/ (Dextrose) 250 mls @ 37.19 mls/hr IV .Q6H44M [facility]; 5 MCG/KG/HR PRN Reason: Protocol Last Admin: 11/22/17 23:10 Dose: 5 mcg/kg/hr, 37.19 mls/hr Propofol (Diprivan) 1,000 mg in 100 mls @ 2.232 mls/hr IV .Q24H [facility]; 5 MCG/KG/ MIN PRN Reason: Protocol Stop: 11/23/17 14:20 Last Titration: 11/22/17 23:12 Dose: 15 mcg/kg/min, 6.695 mls/hr Propofol (Diprivan) 1,000 mg in 100 mls @ 8.927 mls/hr IV .[id number] [facility]; 20 MCG/ KG/MIN PRN Reason: Protocol Stop: 11/23/17 22:51 Fentanyl Citrate 2,500 mcg/ (Dextrose) 250 mls @ 37.19 mls/hr IV .Q6H44M [facility]; 5 MCG/KG/HR PRN Reason: Protocol Lidocaine (Lidoderm) 2 ea TD DAILY [facility] Last Admin: 11/22/17 09:21 Dose: 2 ea Lorazepam (Ativan) 2 mg IVP Q4 PRN PRN Reason: Agitation Last Admin: 11/22/17 04:47 Dose: 2 mg Methylprednisolone (Solu-Medrol) 40 mg IV Q8 [facility] Morphine Sulfate (Morphine) 4 mg IVP Q4 PRN PRN Reason: Agitation Last Admin: 11/20/17 05:38 Dose: 4 mg Nicotine (Nicoderm Cq) 1 patch TD DAILY [facility] Last Admin: 11/22/17 09:22 Dose: 1 patch Thiamine HCl (Vitamin B1 Tab) 100 mg PO DAILY [facility] Last Admin: 11/22/17 09:23 Dose: 100 mg - Labs Labs: 11/22/17 05:20 11/22/17 05:20 PT 12.7 Seconds (9.8-13.1) 11/21/17 04:20 INR 1.1 (0.9-1.2) 11/21/17 04:20 APTT 24.9 Seconds (25.6-37.1) L 11/21/17 04:20 Assessment and Plan (1) Respiratory arrest Status: Acute (2) Schizoaffective disorder Status: Acute (3) Chest wall pain Status: Acute
[2017-11-23] MEDS: Piperacillin/Tazobact 3.375 GM in Sodium Chloride 0.9% 100 ML IVPB SCH ×3 (01:00→17:18)
[2017-11-23] MEDS ORDERED: Sodium Chloride 0.9% 500 ML IV ONE (01:21)
[2017-11-23] MEDS: MethylPREDNISolone 40 mg Vial IV SCH ×4 (01:46→17:19)
[2017-11-23] MEDS: Albuterol-Ipratrop 3 mg / 0.5 (3 ml) UD INH SCH ×6 (05:14→23:25)
[2017-11-23 05:26] LABS: BASO % 0.1 % (0.0-2.0); EOS % 0.2 % (0.0-4.0); HEMOGLOBIN 9.4 g/dL (12.0-16.0); LYMPH # 0.5 K/uL (1.0-4.3); LYMPH % 3.5 % (20.0-40.0); MEAN CELL VOLUME 98.6 fl (81.0-99.0); MEAN CORPUSCULAR HEMOGLOBIN 32.2 pg (27.0-31.0); MEAN CORPUSCULAR HGB CONC 32.6 g/dL (33.0-37.0); MEAN PLATELET VOLUME 7.6 fl (7.2-11.7); MONO # 0.9 K/uL (0.0-0.8); NEUT # 11.7 K/uL (1.8-7.0); NEUT % 89.2 % (50.0-75.0); NRBC % 0.1 % (0.0-0.0); RBC 2.93 Mil/uL (3.80-5.20); RED CELL DISTRIBUTION WIDTH 14.5 % (11.5-14.5)
[2017-11-23 05:52] LABS: ABG ALLEN TEST YES; ARTERIAL BLOOD GAS O2 SAT 99.1 % (95-98); ARTERIAL BLOOD GAS PCO2 48 mm/Hg (35-45); ARTERIAL BLOOD GAS PH 7.25 (7.35-7.45); ARTERIAL BLOOD GAS PO2 127 mm/Hg (80-100); ARTERIAL BLOOD GAS TCO2 22.5 mmol/L (22-28)
[2017-11-23] MEDS: Fentanyl Citrate 2,500 MCG in Dextrose 5% In Water 200 ML IV SCH ×3 (06:02→22:00)
[2017-11-23 06:23] LABS: ALB/GLOB RATIO 0.9 (1.0-2.1); ALBUMIN 2.6 g/dL (3.5-5.0); CALCIUM 8.2 mg/dL (8.4-10.2)
[2017-11-23 09:01] LABS: WHITE BLOOD COUNT 13.1 K/uL (4.8-10.8)
--- NOTE | 2017-11-23 09:26 | CP.PCM.PN ---
Subjective - Date & Time of Evaluation Date of Evaluation: 11/23/17 Time of Evaluation: 09:21 - Subjective Subjective: SURGERY NOTE FOR DR. DOSHI 57F seen and examined at bedside. Patient currently on 2.5 of levo. Remains intubated, on pain control, fentanyl gtt. Objective - Vital Signs/Intake and Output Vital Signs (last 24 hours): Temp Pulse Resp BP Pulse Ox 98.8 F 85 20 99/57 L 99 11/23/17 04:00 11/23/17 07:00 11/23/17 07:00 11/23/17 07:00 11/23/17 07:00 Intake and Output: 11/23/17 11/23/17 06:59 18:59 Intake Total 2840.0 Output Total 1450 Balance 1390.0 - Medications Medications: Current Medications Albuterol Sulfate (Albuterol 0.083% Inhal Hanane (2.5 Mg/3 Ml) Ud) 2.5 mg INH RQ2 PRN PRN Reason: Shortness of Breath Last Admin: 11/18/17 02:20 Dose: 2.5 mg Albuterol/Ipratropium (Duoneb 3 Mg/0.5 Mg (3 Ml) Ud) 3 ml INH RQ4 [facility] Last Admin: 11/23/17 07:26 Dose: 3 ml Bupropion HCl (Wellbutrin) 75 mg PO DAILY [facility] Last Admin: 11/22/17 09:24 Dose: 75 mg Chlordiazepoxide (Librium) 50 mg PO Q6 [facility] Last Admin: 11/23/17 05:00 Dose: 50 mg Folic Acid (Folic Acid) 1 mg PO DAILY [facility] Last Admin: 11/22/17 09:18 Dose: 1 mg Haloperidol Lactate (Haldol) 2 mg IVP Q4 PRN PRN Reason: Agitation Last Admin: 11/22/17 21:21 Dose: 2 mg Vancomycin HCl 750 mg/ Sodium (Chloride) 250 mls @ 250 mls/hr IVPB Q12H [facility] PRN Reason: Protocol Last Admin: 11/23/17 06:33 Dose: 250 mls/hr Piperacillin Sod/Tazobactam (Sod 3.375 gm/ Sodium Chloride) 100 mls @ 100 mls/ hr IVPB Q8 [facility] PRN Reason: Protocol Last Admin: 11/23/17 01:00 Dose: 100 mls/hr Fentanyl Citrate 2,500 mcg/ (Dextrose) 250 mls @ 37.19 mls/hr IV .Q6H44M [facility]; 5 MCG/KG/HR PRN Reason: Protocol Last Admin: 11/22/17 23:10 Dose: 5 mcg/kg/hr, 37.19 mls/hr Propofol (Diprivan) 1,000 mg in 100 mls @ 8.927 mls/hr IV .[id number] [facility]; 20 MCG/ KG/MIN PRN Reason: Protocol Stop: 11/23/17 22:51 Fentanyl Citrate 2,500 mcg/ (Dextrose) 250 mls @ 37.19 mls/hr IV .Q6H44M [facility]; 5 MCG/KG/HR PRN Reason: Protocol Last Admin: 11/23/17 06:02 Dose: 5 mcg/kg/hr, 37.19 mls/hr Norepinephrine Bitartrate 8 mg (/ Dextrose) 258 mls @ 4.83 mls/hr IV .Q24H [facility] ; 2.5 MCG/MIN PRN Reason: Protocol Stop: 11/24/17 03:39 Last Admin: 11/23/17 04:45 Dose: 2.5 mcg/min, 4.83 mls/hr Lidocaine (Lidoderm) 2 ea TD DAILY [facility] Last Admin: 11/22/17 09:21 Dose: 2 ea Lorazepam (Ativan) 2 mg IVP Q4 PRN PRN Reason: Agitation Last Admin: 11/22/17 04:47 Dose: 2 mg Methylprednisolone (Solu-Medrol) 40 mg IV Q8 [facility] Last Admin: 11/23/17 01:46 Dose: 40 mg Morphine Sulfate (Morphine) 4 mg IVP Q4 PRN PRN Reason: Agitation Last Admin: 11/20/17 05:38 Dose: 4 mg Nicotine (Nicoderm Cq) 1 patch TD DAILY [facility] Last Admin: 11/22/17 09:22 Dose: 1 patch Thiamine HCl (Vitamin B1 Tab) 100 mg PO DAILY [facility] Last Admin: 11/22/17 09:23 Dose: 100 mg - Labs Labs: 11/23/17 04:40 11/23/17 04:40 PT 12.7 Seconds (9.8-13.1) 11/21/17 04:20 INR 1.1 (0.9-1.2) 11/21/17 04:20 APTT 24.9 Seconds (25.6-37.1) L 11/21/17 04:20 - Constitutional Appears: Other (intubated, sedated) - Respiratory Exam Additional comments: intubated on PRVC - Cardiovascular Exam Cardiovascular Exam: REGULAR RHYTHM, +S1, +S2 Additional comments: Left chest ecchymosis improving - GI/Abdominal Exam GI & Abdominal Exam: Soft. absent: Distended, Firm, Guarding, Rigid, Tenderness , Rebound - Extremities Exam Extremities Exam: absent: Pedal Edema, Tenderness - Skin Skin Exam: Dry, Intact, Normal Color, Warm Assessment and Plan - Assessment and Plan (Free Text) Assessment: 57F with R 2-4th rib fractures and left 1st-7th rib fractures s/p asthmatic attack causing cardiac arrest with CPR -B/L Pulmonary contusion. -Pleural effusion, left-small. -Hematoma around ribfx 1,2,3 left-decreasing. Plan: - daily CXR - monitor ecchymosis - monitor hgb Further recs as per Dr Leandro Harry, PGY2
[2017-11-23] MEDS: Lidocaine 5% Patch TD SCH (09:51)
[2017-11-23] MEDS ORDERED: Propofol 10 mg/ml 1,000 MG/100 ML VIAL ONE (10:06)
[2017-11-23] MEDS: Propofol 10 mg/ml 1,000 MG/100 ML VIAL IV SCH ×2 (10:10→17:14)
--- NOTE | 2017-11-23 10:23 | RAD ---
HISTORY: reevaluate COMPARISON: Chest radiograph dated 11/22/2017. FINDINGS: LUNGS: Improved left upper lobe aeration. Grossly similar right upper and lower lobe infiltrates. PLEURA: No significant pleural effusion identified, no pneumothorax apparent. CARDIOVASCULAR: Cardiomediastinal silhouette stably enlarged. OSSEOUS STRUCTURES: Unchanged. VISUALIZED UPPER ABDOMEN: Normal. OTHER FINDINGS: Endotracheal, enteric tubes, unchanged. Right upper extremity PICC, unchanged. IMPRESSION: Improved left upper lobe aeration. Grossly similar right upper lower lobe infiltrates.
--- NOTE | 2017-11-23 11:38 | CP.CCUPN ---
CCU Subjective - Physician Review Events Since Last Encounter (Free Text): 11/23/17 11:35 Still requiring Levophed, on lower dose, will taper off , if possible Took her off from propofol this AM but got very agitated and restless and had to put back on it, now sedated and calm, BP is also stable, BP was low yesterday when propofol was Dced. CCU Objective - Vital Signs / Intake & Output Intake and Output (Last 8hrs): Intake & Output 11/22/17 11/23/17 11/23/17 22:59 06:59 14:59 Intake Total 4032 1970.0 Output Total 2100 650 Balance 1932 1320.0 Intake: IV 2502 880.0 Intake, Piggyback 350 350 Tube Feeding 880 440 Free Water Flush 300 300 Output: Urine 2100 650 Urethral (Thrasher) 2100 650 Other: # Bowel Movements 1 1 - Physical Exam Narrative Physical Exam (Free Text): 11/23/17 11:38 P/E neck: No jvd Lungs: decreased breath sounds , bases Abdomen: soft, non-tender Ext; No edema Heart: S1 S2 regular, SR, no gallop Head: Positive for: Atraumatic, Normocephalic Pupils: Positive for: PERRL, Sluggish Extroacular Muscles: Positive for: EOMI Conjunctiva: Positive for: Normal. Negative for: Injected, Icteric Mouth: Positive for: Moist Mucous Membranes Pharnyx: Positive for: Normal Nose (Internal): Positive for: Normal Inspection Neck: Positive for: Normal Range of Motion, Trachea Midline. Negative for: Meningeal Signs, MIDLINE TENDERNESS, Paraspinal Tenderness, JVD, Lymphadenopathy , Bruit, Other Respiratory/Chest: Positive for: Wheezes, Decreased Breath Sounds, Rales, Rhonchi. Negative for: Respiratory Distress, Accessory Muscle Use Cardiovascular: Positive for: Regular Rate and Rhythm, Normal S1, S2, Peripheal Pulses Present. Negative for: Murmurs, Irregular Rhythm, Tachycardic, Bradycardic Abdomen: Positive for: Normal Bowel Sounds. Negative for: Tenderness, Distention, Peritoneal Signs, Rebound, Guarding Upper Extremity: Positive for: Normal Inspection, NORMAL PULSES, Capillary Refill < 2s. Negative for: Cyanosis, Edema Lower Extremity: Positive for: Normal Inspection, NORMAL PULSES, Capillary Refill < 2 s. Negative for: Edema, CALF TENDERNESS Neurological: Positive for: GCS=15, CN II-XII Intact, Speech Normal, Motor Func Grossly Intact, Normal Sensory Function Psychiatric: Positive for: Alert, Oriented x 3 - Medications Active Medications: Active Medications Generic Name Dose Route Start Last Admin Trade Name Freq PRN Reason Stop Dose Admin Albuterol Sulfate 2.5 mg 11/17/17 05:10 11/18/17 02:20 Albuterol 0.083% Inhal Hanane (2.5 Mg/3 Ml) Ud INH 2.5 mg RQ2 PRN Administration Shortness of Breath Albuterol/Ipratropium 3 ml 11/17/17 04:00 11/23/17 11:11 Duoneb 3 Mg/0.5 Mg (3 Ml) Ud INH 3 ml RQ4 [facility] Administration Bupropion HCl 75 mg 11/19/17 09:00 11/23/17 09:54 Wellbutrin PO 75 mg DAILY [facility] Administration Chlordiazepoxide 50 mg 11/20/17 10:00 11/23/17 09:53 Librium PO 50 mg Q6 [facility] Administration Folic Acid 1 mg 11/20/17 10:00 11/23/17 09:48 Folic Acid PO 1 mg DAILY [facility] Administration Haloperidol Lactate 2 mg 11/18/17 09:13 11/22/17 21:21 Haldol IVP 2 mg Q4 PRN Administration Agitation Vancomycin HCl 750 mg/ Sodium 250 mls @ 250 mls/hr 11/19/17 18:15 11/23/17 06 :33 Chloride IVPB 250 mls/hr Q12H [facility] Administration Protocol Piperacillin Sod/Tazobactam 100 mls @ 100 mls/hr 11/19/17 18:15 11/23/17 09: 54 Sod 3.375 gm/ Sodium Chloride IVPB 100 mls/hr Q8 [facility] Administration Protocol Fentanyl Citrate 2,500 mcg/ 250 mls @ 37.19 mls/hr 11/21/17 04:02 11/22/17 23 :10 Dextrose IV 5 mcg/kg/hr .Q6H44M [facility] 37.19 mls/hr Protocol Administration 5 MCG/KG/HR Propofol 1,000 mg in 100 mls @ 8.927 mls/hr 11/22/17 23:00 Diprivan IV 11/23/17 22:51 .[id number] [facility] Protocol 20 MCG/KG/MIN Fentanyl Citrate 2,500 mcg/ 250 mls @ 37.19 mls/hr 11/22/17 23:00 11/23/17 06 :02 Dextrose IV 5 mcg/kg/hr .Q6H44M [facility] 37.19 mls/hr Protocol Administration 5 MCG/KG/HR Norepinephrine Bitartrate 8 mg 258 mls @ 4.83 mls/hr 11/23/17 03:40 11/23/17 04:45 / Dextrose IV 11/24/17 03:39 2.5 mcg/min .Q24H ONE 4.83 mls/hr Protocol Administration 2.5 MCG/MIN Lidocaine 2 ea 11/21/17 09:00 11/23/17 09:51 Lidoderm TD Not Given DAILY [facility] Lorazepam 2 mg 11/17/17 09:40 11/22/17 04:47 Ativan IVP 2 mg Q4 PRN Administration Agitation Methylprednisolone 40 mg 11/22/17 12:22 11/23/17 09:56 Solu-Medrol IV 40 mg Q8 [facility] Administration Morphine Sulfate 4 mg 11/17/17 07:43 11/20/17 05:38 Morphine IVP 4 mg Q4 PRN Administration Agitation Nicotine 1 patch 11/18/17 09:45 11/23/17 09:53 Nicoderm Cq TD 1 patch DAILY [facility] Administration Thiamine HCl 100 mg 11/21/17 09:00 11/23/17 09:54 Vitamin B1 Tab PO 100 mg DAILY [facility] Administration - Patient Studies Lab Studies: Microbiology Studies 11/22/17 12:15 Gram Stain - Final Trachasp Lab Studies 11/23/17 11/23/17 11/23/17 Range/Units 05:11 04:40 04:40 WBC 13.1 H (4.8-10.8) K/uL RBC 2.93 L (3.80-5.20) Mil/uL Hgb 9.4 L (12.0-16.0) g/dL Hct 28.9 L (34.0-47.0) % MCV 98.6 (81.0-99.0) fl MCH 32.2 H (27.0-31.0) pg MCHC 32.6 L (33.0-37.0) g/dL RDW 14.5 (11.5-14.5) % Plt Count 147 (130-400) K/uL MPV 7.6 (7.2-11.7) fl Neut % (Auto) 89.2 H (50.0-75.0) % Lymph % (Auto) 3.5 L (20.0-40.0) % Lanier % (Auto) 7.0 (0.0-10.0) % Eos % (Auto) 0.2 (0.0-4.0) % Baso % (Auto) 0.1 (0.0-2.0) % Neut # (Auto) 11.7 H (1.8-7.0) K/uL Lymph # (Auto) 0.5 L (1.0-4.3) K/uL Lanier # (Auto) 0.9 H (0.0-0.8) K/uL Eos # (Auto) 0.0 (0.0-0.7) K/uL Baso # (Auto) 0.0 (0.0-0.2) K/uL pCO2 48 H (35-45) mm/Hg pO2 127 H (80-100) mm/Hg HCO3 20.0 L (21-28) mmol/L ABG pH 7.25 L (7.35-7.45) ABG Total CO2 22.5 (22-28) mmol/L ABG O2 Saturation 99.1 H (95-98) % ABG Base Excess -6.4 L (-2.0-3.0) mmol/L Dwight Test Yes ABG Potassium 3.6 (3.6-5.2) mmol/L A-a O2 Difference 170.0 mm/Hg Glucose 260 H (65-105) mg/dL Lactate 1.1 (0.7-2.1) mmol/L Mechanical Rate 20 FiO2 50.0 % Tidal Volume 400 PEEP 3 Sodium 137.0 138 (132-148) mmol/l Potassium 3.7 (3.6-5.0) MMOL/L Chloride 111.0 H 108 H (98-107) mmol/L Carbon Dioxide 21 L (22-30) mmol/L Anion Gap 13 (10-20) BUN 26 H (7-17) mg/dl Creatinine 1.4 H (0.7-1.2) mg/dl Est GFR ( Amer) 47 Est GFR (Non-Af Amer) 39 Random Glucose 195 H (65-105) mg/dL Calcium 8.2 L (8.4-10.2) mg/dL Total Bilirubin 0.5 (0.2-1.3) mg/dl AST 28 (14-36) U/L ALT 56 H (9-52) U/L Alkaline Phosphatase 48 (38-126) U/L Total Protein 5.4 L (6.3-8.2) G/DL Albumin 2.6 L (3.5-5.0) g/dL Globulin 2.8 (2.2-3.9) gm/dL Albumin/Globulin Ratio 0.9 L (1.0-2.1) Arterial Blood Potassium 3.6 (3.6-5.2) mmol/L Laboratory Results - last 24 hr 11/23/17 11/23/17 11/23/17 04:40 04:40 05:11 WBC 13.1 H RBC 2.93 L Hgb 9.4 L Hct 28.9 L MCV 98.6 MCH 32.2 H MCHC 32.6 L RDW 14.5 Plt Count 147 MPV 7.6 Neut % (Auto) 89.2 H Lymph % (Auto) 3.5 L Lanier % (Auto) 7.0 Eos % (Auto) 0.2 Baso % (Auto) 0.1 Neut # (Auto) 11.7 H Lymph # (Auto) 0.5 L Lanier # (Auto) 0.9 H Eos # (Auto) 0.0 Baso # (Auto) 0.0 pCO2 48 H pO2 127 H HCO3 20.0 L ABG pH 7.25 L ABG Total CO2 22.5 ABG O2 Saturation 99.1 H ABG Base Excess -6.4 L Dwight Test Yes ABG Potassium 3.6 A-a O2 Difference 170.0 Glucose 260 H Lactate 1.1 Mechanical Rate 20 FiO2 50.0 Tidal Volume 400 PEEP 3 Sodium 138 137.0 Potassium 3.7 Chloride 108 H 111.0 H Carbon Dioxide 21 L Anion Gap 13 BUN 26 H Creatinine 1.4 H Est GFR ( Amer) 47 Est GFR (Non-Af Amer) 39 Random Glucose 195 H Calcium 8.2 L Total Bilirubin 0.5 AST 28 ALT 56 H Alkaline Phosphatase 48 Total Protein 5.4 L Albumin 2.6 L Globulin 2.8 Albumin/Globulin Ratio 0.9 L Arterial Blood Potassium 3.6 Critical Care Progress Note - Nutrition Nutrition: Nutrition Category Date Time Status Liquid Diet [DIET] Diets 11/18/17 Dinner Active Assessment/Plan - Assessment and Plan (Free Text) Assessment: IMPRESSION / MAJOR PROBLEMS NOW: 1. Bilateral / Multiple Rib fractures with bilateral pneumonitis 2. s/p Cardio-Resp Arrest : on MV 3. COPD / Asthma Exacerb O MV 4 Azotemia, r/o GRETCHEN : improving 5. H/o ETOH Abuse\ 6- Hypotension: sedation , blood loss 7-Blood loss anemia PLAN: 1. vent setting adjusted, has mild hyperrcapnia, VT 500, Rate 20/m, Fio: 0.5 and PEE: 5 follow repeat ABG. CXR representing lung contused lung from rib fractures, imtiaz R side.. 2. Maintain empiric abx coverage, . On Zosyn/Vanco/Levaquin. 3. Ativan /Librium; Thiamine / Folate supplements. 5. Weaning steroids down. 6. Lovenox finally stopped on 11/18 after PM dose, no clinical suspicion for acute PTE. Elevated ddimer due to asthma. 7- On tube feeding at goal 55 cc/h.
--- NOTE | 2017-11-23 23:57 | CP.PCM.PN ---
Subjective - Date & Time of Evaluation Date of Evaluation: 11/23/17 Time of Evaluation: 11:20 Objective - Vital Signs/Intake and Output Vital Signs (last 24 hours): Temp Pulse Resp BP Pulse Ox 98.8 F 79 20 103/60 97 11/23/17 20:00 11/23/17 23:00 11/23/17 23:00 11/23/17 23:00 11/23/17 23:00 Intake and Output: 11/23/17 11/24/17 18:59 06:59 Intake Total 350 660 Output Total 400 Balance 350 260 - Medications Medications: Current Medications Albuterol Sulfate (Albuterol 0.083% Inhal Hanane (2.5 Mg/3 Ml) Ud) 2.5 mg INH RQ2 PRN PRN Reason: Shortness of Breath Last Admin: 11/18/17 02:20 Dose: 2.5 mg Albuterol/Ipratropium (Duoneb 3 Mg/0.5 Mg (3 Ml) Ud) 3 ml INH RQ4 [facility] Last Admin: 11/23/17 23:25 Dose: 3 ml Bupropion HCl (Wellbutrin) 75 mg PO DAILY [facility] Last Admin: 11/23/17 09:54 Dose: 75 mg Chlordiazepoxide (Librium) 50 mg PO Q6 [facility] Last Admin: 11/23/17 22:45 Dose: 50 mg Folic Acid (Folic Acid) 1 mg PO DAILY [facility] Last Admin: 11/23/17 09:48 Dose: 1 mg Haloperidol Lactate (Haldol) 2 mg IVP Q4 PRN PRN Reason: Agitation Last Admin: 11/23/17 21:00 Dose: 2 mg Vancomycin HCl 750 mg/ Sodium (Chloride) 250 mls @ 250 mls/hr IVPB Q12H [facility] PRN Reason: Protocol Last Admin: 11/23/17 17:17 Dose: 250 mls/hr Piperacillin Sod/Tazobactam (Sod 3.375 gm/ Sodium Chloride) 100 mls @ 100 mls/ hr IVPB Q8 [facility] PRN Reason: Protocol Last Admin: 11/23/17 17:18 Dose: 100 mls/hr Fentanyl Citrate 2,500 mcg/ (Dextrose) 250 mls @ 37.19 mls/hr IV .Q6H44M [facility]; 5 MCG/KG/HR PRN Reason: Protocol Last Admin: 11/22/17 23:10 Dose: 5 mcg/kg/hr, 37.19 mls/hr Fentanyl Citrate 2,500 mcg/ (Dextrose) 250 mls @ 37.19 mls/hr IV .Q6H44M [facility]; 5 MCG/KG/HR PRN Reason: Protocol Last Admin: 11/23/17 22:00 Dose: 5 mcg/kg/hr, 37.19 mls/hr Norepinephrine Bitartrate 8 mg (/ Dextrose) 258 mls @ 4.83 mls/hr IV .Q24H ONE ; 2.5 MCG/MIN PRN Reason: Protocol Stop: 11/24/17 03:39 Last Admin: 11/23/17 04:45 Dose: 2.5 mcg/min, 4.83 mls/hr Lidocaine (Lidoderm) 2 ea TD DAILY [facility] Last Admin: 11/23/17 09:51 Dose: Not Given Lorazepam (Ativan) 2 mg IVP Q4 PRN PRN Reason: Agitation Last Admin: 11/22/17 04:47 Dose: 2 mg Methylprednisolone (Solu-Medrol) 40 mg IV Q8 [facility] Last Admin: 11/23/17 17:19 Dose: 40 mg Morphine Sulfate (Morphine) 4 mg IVP Q4 PRN PRN Reason: Agitation Last Admin: 11/20/17 05:38 Dose: 4 mg Nicotine (Nicoderm Cq) 1 patch TD DAILY [facility] Last Admin: 11/23/17 09:53 Dose: 1 patch Thiamine HCl (Vitamin B1 Tab) 100 mg PO DAILY [facility] Last Admin: 11/23/17 09:54 Dose: 100 mg - Labs Labs: 11/23/17 04:40 11/23/17 04:40 PT 12.7 Seconds (9.8-13.1) 11/21/17 04:20 INR 1.1 (0.9-1.2) 11/21/17 04:20 APTT 24.9 Seconds (25.6-37.1) L 11/21/17 04:20 Assessment and Plan (1) Respiratory arrest Status: Acute (2) Schizoaffective disorder Status: Acute (3) Chest wall pain Status: Acute
[2017-11-24] MEDS: Piperacillin/Tazobact 3.375 GM in Sodium Chloride 0.9% 100 ML IVPB SCH ×3 (00:56→17:25)
[2017-11-24] MEDS: MethylPREDNISolone 40 mg Vial IV SCH ×3 (01:30→17:24)
[2017-11-24] MEDS: Albuterol-Ipratrop 3 mg / 0.5 (3 ml) UD INH SCH ×6 (05:12→23:28)
[2017-11-24 05:45] LABS: ABG ALLEN TEST YES; ARTERIAL BLOOD GAS HCO3 23.3 mmol/L (21-28); ARTERIAL BLOOD GAS HEMOGLOBIN 10.4 g/dL (11.7-17.4); ARTERIAL BLOOD GAS O2 CAPACITY 14.5 mL/dL (16-24); ARTERIAL BLOOD GAS O2 CONTENT 14.4 ML/dL (15-23); ARTERIAL BLOOD GAS O2 SAT 99.2 % (95-98); ARTERIAL BLOOD GAS PCO2 36 mm/Hg (35-45); ARTERIAL BLOOD GAS PO2 123 mm/Hg (80-100); ARTERIAL BLOOD GAS TCO2 23.4 mmol/L (22-28)
[2017-11-24] MEDS: Fentanyl Citrate 2,500 MCG in Dextrose 5% In Water 200 ML IV SCH ×3 (05:52→20:39)
[2017-11-24 06:32] LABS: HEMOGLOBIN 10.1 g/dL (12.0-16.0); MEAN CORPUSCULAR HEMOGLOBIN 32.5 pg (27.0-31.0); MEAN CORPUSCULAR HGB CONC 33.5 g/dL (33.0-37.0); RBC 3.11 Mil/uL (3.80-5.20); RED CELL DISTRIBUTION WIDTH 14.4 % (11.5-14.5); WHITE BLOOD COUNT 12.8 K/uL (4.8-10.8)
[2017-11-24 06:43] LABS: CALCIUM 8.4 mg/dL (8.4-10.2)
[2017-11-24] MEDS: Propofol 10 mg/ml 1,000 MG/100 ML VIAL IV SCH (07:59)
[2017-11-24] MEDS: Lidocaine 5% Patch TD SCH (08:00)
--- NOTE | 2017-11-24 09:05 | CP.PCM.PN ---
Subjective - Date & Time of Evaluation Date of Evaluation: 11/24/17 Time of Evaluation: 09:02 - Subjective Subjective: SURGERY PROGRESS NOTE FOR DR. DOSHI 57F seen and examined at bedside. Patient is intubated and sedated on same 2.5 dose of levophed. Patient becomes agitated off sedated. Objective - Vital Signs/Intake and Output Vital Signs (last 24 hours): Temp Pulse Resp BP Pulse Ox 98.3 F 77 16 120/69 98 11/24/17 07:40 11/24/17 07:40 11/24/17 07:40 11/24/17 07:40 11/24/17 07:40 Intake and Output: 11/24/17 11/24/17 06:59 18:59 Intake Total 3 73 Output Total 1150 Balance 873 73 - Medications Medications: Current Medications Albuterol Sulfate (Albuterol 0.083% Inhal Hanane (2.5 Mg/3 Ml) Ud) 2.5 mg INH RQ2 PRN PRN Reason: Shortness of Breath Last Admin: 11/18/17 02:20 Dose: 2.5 mg Albuterol/Ipratropium (Duoneb 3 Mg/0.5 Mg (3 Ml) Ud) 3 ml INH RQ4 [facility] Last Admin: 11/24/17 07:48 Dose: 3 ml Bupropion HCl (Wellbutrin) 75 mg PO DAILY [facility] Last Admin: 11/24/17 08:03 Dose: 75 mg Chlordiazepoxide (Librium) 50 mg PO Q6 [facility] Last Admin: 11/24/17 04:38 Dose: 50 mg Folic Acid (Folic Acid) 1 mg PO DAILY [facility] Last Admin: 11/24/17 08:00 Dose: 1 mg Haloperidol Lactate (Haldol) 2 mg IVP Q4 PRN PRN Reason: Agitation Last Admin: 11/23/17 21:00 Dose: 2 mg Vancomycin HCl 750 mg/ Sodium (Chloride) 250 mls @ 250 mls/hr IVPB Q12H [facility] PRN Reason: Protocol Last Admin: 11/24/17 05:36 Dose: 250 mls/hr Piperacillin Sod/Tazobactam (Sod 3.375 gm/ Sodium Chloride) 100 mls @ 100 mls/ hr IVPB Q8 [facility] PRN Reason: Protocol Last Admin: 11/24/17 08:03 Dose: 100 mls/hr Fentanyl Citrate 2,500 mcg/ (Dextrose) 250 mls @ 37.19 mls/hr IV .Q6H44M [facility]; 5 MCG/KG/HR PRN Reason: Protocol Last Admin: 11/24/17 05:52 Dose: 5 mcg/kg/hr, 37.19 mls/hr Fentanyl Citrate 2,500 mcg/ (Dextrose) 250 mls @ 37.19 mls/hr IV .Q6H44M [facility]; 5 MCG/KG/HR PRN Reason: Protocol Last Admin: 11/23/17 22:00 Dose: 5 mcg/kg/hr, 37.19 mls/hr Lidocaine (Lidoderm) 2 ea TD DAILY [facility] Last Admin: 11/24/17 08:00 Dose: 2 ea Lorazepam (Ativan) 2 mg IVP Q4 PRN PRN Reason: Agitation Last Admin: 11/24/17 04:30 Dose: 2 mg Methylprednisolone (Solu-Medrol) 40 mg IV Q8 [facility] Last Admin: 11/24/17 08:02 Dose: 40 mg Morphine Sulfate (Morphine) 4 mg IVP Q4 PRN PRN Reason: Agitation Last Admin: 11/20/17 05:38 Dose: 4 mg Nicotine (Nicoderm Cq) 1 patch TD DAILY [facility] Last Admin: 11/24/17 08:01 Dose: 1 patch Thiamine HCl (Vitamin B1 Tab) 100 mg PO DAILY [facility] Last Admin: 11/24/17 08:02 Dose: 100 mg - Labs Labs: 11/24/17 05:00 11/24/17 05:00 PT 12.7 Seconds (9.8-13.1) 11/21/17 04:20 INR 1.1 (0.9-1.2) 11/21/17 04:20 APTT 24.9 Seconds (25.6-37.1) L 11/21/17 04:20 - Constitutional Appears: Other (intubated) - Respiratory Exam Respiratory Exam: Clear to Ausculation Bilateral, NORMAL BREATHING PATTERN - Cardiovascular Exam Cardiovascular Exam: REGULAR RHYTHM, +S1, +S2 Additional comments: chest wall tenderness, improving eccyhmosis - GI/Abdominal Exam GI & Abdominal Exam: Soft. absent: Distended, Firm, Guarding, Rigid, Tenderness - Extremities Exam Extremities Exam: absent: Pedal Edema, Tenderness - Skin Skin Exam: Dry, Intact, Normal Color, Warm Additional comments: ecchymosis on left chest wall Assessment and Plan - Assessment and Plan (Free Text) Assessment: 57F with R 2-4th rib fractures and left 1st-7th rib fractures s/p asthmatic attack causing cardiac arrest with CPR -B/L Pulmonary contusion. -Pleural effusion, left-small. -Hematoma around rib fx 1,2,3 left-decreasing. Plan: - attempt to wean - daily CXR - monitor ecchymosis - monitor hgb Further recs as per Dr Leandro Harry, PGY2
--- NOTE | 2017-11-24 09:19 | RAD ---
HISTORY: reevaluate COMPARISON: Chest radiograph dated 11/23/2017 FINDINGS: LUNGS: Pulmonary vascular congestion. Left basilar atelectasis. Right upper and lower lobe infiltrates redemonstrated PLEURA: Small bilateral pleural effusions. . CARDIOVASCULAR: Cardiomediastinal silhouette stably enlarged. OSSEOUS STRUCTURES: Unchanged. VISUALIZED UPPER ABDOMEN: Normal. OTHER FINDINGS: Endotracheal color enteric tubes unchanged. Right upper extremity PICC, unchanged. . IMPRESSION: Grossly similar right upper and lower lobe infiltrates. Pulmonary vascular congestion with small probable bilateral pleural effusions.
--- NOTE | 2017-11-24 09:31 | CP.CCUPN ---
CCU Subjective - Physician Review Events Since Last Encounter (Free Text): 11/24/17 09:28 sedated, intubated, Levophed weaned off but SBP is now 90, will continue low dose levophed, no increase in WBCs, no fever but again has not been easy to decrease the sedation, gets very agitated, will try again , gradually. Has lower and upper ext, edema CCU Objective - Vital Signs / Intake & Output Vital Signs (Last 4 hours): Vital Signs Temp Pulse Resp BP Pulse Ox 11/24/17 07:40 98.3 F 77 16 120/69 98 11/24/17 07:00 77 16 120/69 98 11/24/17 06:00 80 20 133/73 98 Intake and Output (Last 8hrs): Intake & Output 11/23/17 11/24/17 11/24/17 22:59 06:59 14:59 Intake Total 820 1303 73 Output Total 400 750 Balance 420 553 73 Weight 205 lb Intake: IV 450 673 73 Tube Feeding 220 220 Free Water Flush 150 410 Output: Urine 400 750 Urethral (Thrasher) 400 750 Other: # Bowel Movements 1 - Physical Exam Narrative Physical Exam (Free Text): 11/24/17 09:30 P/E Neck: No JVD Lungs: decreased breath sounds, basis Abdomen: soft, non-tender Ext: + 2 edema Heart: No gallop Head: Positive for: Atraumatic, Normocephalic Pupils: Positive for: PERRL, Sluggish Extroacular Muscles: Positive for: EOMI Conjunctiva: Positive for: Normal. Negative for: Injected, Icteric Mouth: Positive for: Moist Mucous Membranes Pharnyx: Positive for: Normal Nose (Internal): Positive for: Normal Inspection Neck: Positive for: Normal Range of Motion, Trachea Midline. Negative for: Meningeal Signs, MIDLINE TENDERNESS, Paraspinal Tenderness, JVD, Lymphadenopathy , Bruit, Other Respiratory/Chest: Positive for: Wheezes, Decreased Breath Sounds, Rales, Rhonchi. Negative for: Respiratory Distress, Accessory Muscle Use Cardiovascular: Positive for: Regular Rate and Rhythm, Normal S1, S2, Peripheal Pulses Present. Negative for: Murmurs, Irregular Rhythm, Tachycardic, Bradycardic Abdomen: Positive for: Normal Bowel Sounds. Negative for: Tenderness, Distention, Peritoneal Signs, Rebound, Guarding Upper Extremity: Positive for: Normal Inspection, NORMAL PULSES, Capillary Refill < 2s. Negative for: Cyanosis, Edema Lower Extremity: Positive for: Normal Inspection, NORMAL PULSES, Capillary Refill < 2 s. Negative for: Edema, CALF TENDERNESS Neurological: Positive for: GCS=15, CN II-XII Intact, Speech Normal, Motor Func Grossly Intact, Normal Sensory Function Psychiatric: Positive for: Alert, Oriented x 3 - Medications Active Medications: Active Medications Generic Name Dose Route Start Last Admin Trade Name Freq PRN Reason Stop Dose Admin Albuterol Sulfate 2.5 mg 11/17/17 05:10 11/18/17 02:20 Albuterol 0.083% Inhal Hanane (2.5 Mg/3 Ml) Ud INH 2.5 mg RQ2 PRN Administration Shortness of Breath Albuterol/Ipratropium 3 ml 11/17/17 04:00 11/24/17 07:48 Duoneb 3 Mg/0.5 Mg (3 Ml) Ud INH 3 ml RQ4 [facility] Administration Bupropion HCl 75 mg 11/19/17 09:00 11/24/17 08:03 Wellbutrin PO 75 mg DAILY [facility] Administration Chlordiazepoxide 50 mg 11/20/17 10:00 11/24/17 04:38 Librium PO 50 mg Q6 [facility] Administration Folic Acid 1 mg 11/20/17 10:00 11/24/17 08:00 Folic Acid PO 1 mg DAILY [facility] Administration Haloperidol Lactate 2 mg 11/18/17 09:13 11/23/17 21:00 Haldol IVP 2 mg Q4 PRN Administration Agitation Vancomycin HCl 750 mg/ Sodium 250 mls @ 250 mls/hr 11/19/17 18:15 11/24/17 05 :36 Chloride IVPB 250 mls/hr Q12H [facility] Administration Protocol Piperacillin Sod/Tazobactam 100 mls @ 100 mls/hr 11/19/17 18:15 11/24/17 08: 03 Sod 3.375 gm/ Sodium Chloride IVPB 100 mls/hr Q8 [facility] Administration Protocol Fentanyl Citrate 2,500 mcg/ 250 mls @ 37.19 mls/hr 11/21/17 04:02 11/24/17 05 :52 Dextrose IV 5 mcg/kg/hr .Q6H44M [facility] 37.19 mls/hr Protocol Administration 5 MCG/KG/HR Fentanyl Citrate 2,500 mcg/ 250 mls @ 37.19 mls/hr 11/22/17 23:00 11/23/17 22 :00 Dextrose IV 5 mcg/kg/hr .Q6H44M [facility] 37.19 mls/hr Protocol Administration 5 MCG/KG/HR Lidocaine 2 ea 11/21/17 09:00 11/24/17 08:00 Lidoderm TD 2 ea DAILY [facility] Administration Lorazepam 2 mg 11/17/17 09:40 11/24/17 04:30 Ativan IVP 2 mg Q4 PRN Administration Agitation Methylprednisolone 40 mg 11/22/17 12:22 11/24/17 08:02 Solu-Medrol IV 40 mg Q8 [facility] Administration Morphine Sulfate 4 mg 11/17/17 07:43 11/20/17 05:38 Morphine IVP 4 mg Q4 PRN Administration Agitation Nicotine 1 patch 11/18/17 09:45 11/24/17 08:01 Nicoderm Cq TD 1 patch DAILY [facility] Administration Thiamine HCl 100 mg 11/21/17 09:00 11/24/17 08:02 Vitamin B1 Tab PO 100 mg DAILY [facility] Administration - Patient Studies Lab Studies: Lab Studies 11/24/17 11/24/17 11/24/17 Range/Units 05:19 05:00 05:00 WBC 12.8 H (4.8-10.8) K/uL RBC 3.11 L (3.80-5.20) Mil/uL Hgb 10.1 L (12.0-16.0) g/dL Hct 30.2 L (34.0-47.0) % MCV 97.0 (81.0-99.0) fl MCH 32.5 H (27.0-31.0) pg MCHC 33.5 (33.0-37.0) g/dL RDW 14.4 (11.5-14.5) % Plt Count 162 (130-400) K/uL pCO2 36 (35-45) mm/Hg pO2 123 H (80-100) mm/Hg HCO3 23.3 (21-28) mmol/L ABG pH 7.40 (7.35-7.45) ABG Total CO2 23.4 (22-28) mmol/L ABG O2 Saturation 99.2 H (95-98) % ABG O2 Content 14.4 L (15-23) ML/dL ABG Base Excess -2.1 L (-2.0-3.0) mmol/L ABG Hemoglobin 10.4 L (11.7-17.4) g/dL ABG Carboxyhemoglobin 1.3 (0.5-1.5) % POC ABG HHb (Measured) 0.8 (0.0-5.0) % ABG Methemoglobin 1.1 (0.0-3.0) % ABG O2 Capacity 14.5 L (16-24) mL/dL Dwight Test Yes A-a O2 Difference 189.0 mm/Hg Hgb O2 Saturation 96.8 (95.0-98.0) % Vent Mode A/c Mechanical Rate 20 FiO2 50.0 % Tidal Volume 500 PEEP 3 Sodium 140 (132-148) mmol/l Potassium 3.5 L (3.6-5.0) MMOL/L Chloride 107 (98-107) mmol/L Carbon Dioxide 23 (22-30) mmol/L Anion Gap 14 (10-20) BUN 28 H (7-17) mg/dl Creatinine 1.4 H (0.7-1.2) mg/dl Est GFR ( Amer) 47 Est GFR (Non-Af Amer) 39 Random Glucose 267 H (65-105) mg/dL Calcium 8.4 (8.4-10.2) mg/dL Phosphorus 3.5 (2.5-4.5) mg/dl Magnesium 2.2 (1.6-2.3) MG/DL Laboratory Results - last 24 hr 11/24/17 11/24/17 11/24/17 05:00 05:00 05:19 WBC 12.8 H RBC 3.11 L Hgb 10.1 L Hct 30.2 L MCV 97.0 MCH 32.5 H MCHC 33.5 RDW 14.4 Plt Count 162 pCO2 36 pO2 123 H HCO3 23.3 ABG pH 7.40 ABG Total CO2 23.4 ABG O2 Saturation 99.2 H ABG O2 Content 14.4 L ABG Base Excess -2.1 L ABG Hemoglobin 10.4 L ABG Carboxyhemoglobin 1.3 POC ABG HHb (Measured) 0.8 ABG Methemoglobin 1.1 ABG O2 Capacity 14.5 L Dwight Test Yes A-a O2 Difference 189.0 Hgb O2 Saturation 96.8 Vent Mode A/c Mechanical Rate 20 FiO2 50.0 Tidal Volume 500 PEEP 3 Sodium 140 Potassium 3.5 L Chloride 107 Carbon Dioxide 23 Anion Gap 14 BUN 28 H Creatinine 1.4 H Est GFR ( Amer) 47 Est GFR (Non-Af Amer) 39 Random Glucose 267 H Calcium 8.4 Phosphorus 3.5 Magnesium 2.2 EKG/Cardiology Studies: Cardiology / EKG Studies 11/24/17 08:00 ELECTROCARDIOGRAM Routine Comment: QT INTERVAL Mode Of Transportation: PORTABLE Reason For Exam: reevaluate Critical Care Progress Note - Nutrition Nutrition: Nutrition Category Date Time Status Liquid Diet [DIET] Diets 11/18/17 Dinner Active Assessment/Plan - Assessment and Plan (Free Text) Assessment: IMPRESSION 1. Bilateral / Multiple Rib fractures with bilateral pneumonitis, still has left UL infiltrate, but no fever, no leukocytosis now ( 12 K ) 2. s/p Cardio-Resp Arrest : on MV 3. 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 H/o ETOH Abuse\ 6- Hypotension: sedation , blood loss 7-Blood loss anemia PLAN: 1. Will try to decrease sedation and will switch to PSV, if tolerated , currently on , VT 500, Rate 20/m, Fio: 0.5 and PEE: 5 follow repeat ABG. CXR representing lung contused lung from rib fractures, imtiaz R side..ABG from this morning showed improved resp acidosis. 2. Maintain empiric abx coverage, . On Zosyn/Vanco, completed a week of levaquin, will not renew. 3. Ativan /Librium; Thiamine / Folate supplements. 5. Weaning steroids down. 6. Lovenox finally stopped on 11/18 after PM dose, no clinical suspicion for acute PTE. Elevated ddimer due to asthma. 7- On tube feeding at goal 55 cc/h. 8- Lasix 40 mg IV daily.
[2017-11-24] MEDS: Fluconazole IV 200mg/100 ml NS 100 ML IVPB SCH (22:59)
[2017-11-25] MEDS: MethylPREDNISolone 40 mg Vial IV SCH ×3 (00:24→16:25)
[2017-11-25] MEDS: Piperacillin/Tazobact 3.375 GM in Sodium Chloride 0.9% 100 ML IVPB SCH ×2 (00:25→08:20)
[2017-11-25] MEDS ORDERED: Fentanyl Citrate 2,500 MCG in Dextrose 5% In Water 200 ML IV SCH (03:00)
[2017-11-25] MEDS: Albuterol-Ipratrop 3 mg / 0.5 (3 ml) UD INH SCH ×5 (05:10→19:00)
[2017-11-25 05:13] LABS: ABG ALLEN TEST YES; ARTERIAL BLOOD GAS HCO3 25.8 mmol/L (21-28); ARTERIAL BLOOD GAS HEMOGLOBIN 11.7 g/dL (11.7-17.4); ARTERIAL BLOOD GAS O2 CAPACITY 16.1 mL/dL (16-24); ARTERIAL BLOOD GAS O2 CONTENT 15.9 ML/dL (15-23); ARTERIAL BLOOD GAS O2 SAT 98.5 % (95-98); ARTERIAL BLOOD GAS PCO2 45 mm/Hg (35-45); ARTERIAL BLOOD GAS PH 7.38 (7.35-7.45); ARTERIAL BLOOD GAS PO2 98 mm/Hg (80-100)
[2017-11-25 05:43] LABS: CALCIUM 8.4 mg/dL (8.4-10.2); MEAN CELL VOLUME 96.9 fl (81.0-99.0); MEAN CORPUSCULAR HEMOGLOBIN 32.7 pg (27.0-31.0); MEAN CORPUSCULAR HGB CONC 33.7 g/dL (33.0-37.0); RBC 3.06 Mil/uL (3.80-5.20); RED CELL DISTRIBUTION WIDTH 14.1 % (11.5-14.5); WHITE BLOOD COUNT 13.6 K/uL (4.8-10.8)
--- NOTE | 2017-11-25 07:03 | RAD ---
HISTORY: reevaluate COMPARISON: Portable chest 11/24/2017. FINDINGS: LUNGS: Endotracheal and nasogastric tubes do not appear significantly changed in position with right PICC also stable. Patchy airspace disease developing in the left apex and is borderline the mid to inferior right lung zone. Retrocardiac atelectasis is noted. PLEURA: No significant pleural effusion identified, no pneumothorax apparent. CARDIOVASCULAR: Borderline pulmonary vascular congestion pattern with cardiac size remaining prominent appearing. OSSEOUS STRUCTURES: No significant abnormalities. VISUALIZED UPPER ABDOMEN: Normal. OTHER FINDINGS: None. IMPRESSION: Patchy airspace disease has developed at the left apex with likely atelectasis in the retrocardiac left base. Developing airspace disease seen the mid right lung zone with underlying pulmonary vascular congestion in question though borderline.
[2017-11-25] MEDS: Fluconazole IV 200mg/100 ml NS 100 ML IVPB SCH (08:15)
[2017-11-25] MEDS: Lidocaine 5% Patch TD SCH (08:18)
--- NOTE | 2017-11-25 08:35 | PN ---
DATE: 11/24/2017 SUBJECTIVE: The patient is still on the vent with FiO2 of 40%. She is on low-dose Levophed. No report of ventricular arrhythmia. PHYSICAL EXAMINATION: VITAL SIGNS: Blood pressure 120/72, heart rate 79, temperature 98.9, and respirations 16. HEENT: Normocephalic. HEART: S1 and S2 regular. LUNGS: Diminished breath sounds over the bases. EXTREMITIES: 1+ edema. LABORATORY DATA: Hemoglobin and hematocrit 10.1 and , white count 12.8, and platelet count 162,000. SMA-7; sodium of 140, potassium 3.5, chloride 107, CO2 23, glucose 267, BUN 28, and creatinine 1.4. Echocardiographic study revealed normal left and right ventricular systolic function, mild pulmonary hypertension. EKG done on Saturday revealed normal sinus rhythm, heart rate of 81. Today's chest x-ray report grossly similar right upper lobe and lower lobe infiltrate, pulmonary vascular congestion, small probable bilateral pleural effusion. . ASSESSMENT: 1. Respiratory failure. 2. Pneumonia. 3. Mild pulmonary hypertension. 4. Chronic obstructive lung disease. 5. Uncontrolled diabetes mellitus. 6. Hypokalemia. 7. Hypotension. RECOMMENDATIONS: Continue current low-dose Levophed. Continue albuterol inhaler. Continue Lasix 20 mg intravenously once a day and 50 mg every 6 hours. Continue IV Zosyn and IV vancomycin as well as oral thiamine. The case was discussed with the family members at the bedside including the son and daughter as well as with the primary physician, Dr. Ro and no further cardiac workup is indicated. Aditya Abraham MD
--- NOTE | 2017-11-25 12:43 | CP.PCM.PN ---
Subjective - Date & Time of Evaluation Date of Evaluation: 11/25/17 Time of Evaluation: 12:40 - Subjective Subjective: Pt s/e. Intubated and sedated. vss. wbc-13k Hb-10 this am. cxr-satable. a/p: Clinically stable. Continue current care. Objective - Vital Signs/Intake and Output Vital Signs (last 24 hours): Temp Pulse Resp BP Pulse Ox 99.3 F 95 H 11 L 117/74 95 11/25/17 11:47 11/25/17 12:00 11/25/17 12:00 11/25/17 12:00 11/25/17 12:00 Intake and Output: 11/25/17 11/25/17 06:59 18:59 Intake Total 2123.0 570 Output Total 1900 1000 Balance 223.0 -430 - Medications Medications: Current Medications Albuterol Sulfate (Albuterol 0.083% Inhal Hanane (2.5 Mg/3 Ml) Ud) 2.5 mg INH RQ2 PRN PRN Reason: Shortness of Breath Last Admin: 11/18/17 02:20 Dose: 2.5 mg Albuterol/Ipratropium (Duoneb 3 Mg/0.5 Mg (3 Ml) Ud) 3 ml INH RQ4 [facility] Last Admin: 11/25/17 11:37 Dose: 3 ml Bupropion HCl (Wellbutrin) 75 mg PO DAILY [facility] Last Admin: 11/25/17 08:19 Dose: 75 mg Chlordiazepoxide (Librium) 50 mg PO Q8H [facility] Last Admin: 11/24/17 22:45 Dose: 50 mg Folic Acid (Folic Acid) 1 mg PO DAILY [facility] Last Admin: 11/25/17 08:15 Dose: 1 mg Furosemide (Lasix) 40 mg IVP DAILY [facility] Last Admin: 11/25/17 08:17 Dose: 40 mg Haloperidol Lactate (Haldol) 2 mg IVP Q4 PRN PRN Reason: Agitation Last Admin: 11/25/17 05:27 Dose: 2 mg Norepinephrine Bitartrate 8 mg (/ Dextrose) 258 mls @ 4.83 mls/hr IV .Q24H [facility] ; 2.5 MCG/MIN PRN Reason: Protocol Fluconazole (Diflucan Iv 200 Mg/100 Ml Ns) 100 mls @ 100 mls/hr IVPB DAILY [facility] PRN Reason: Protocol Last Admin: 11/25/17 08:15 Dose: 100 mls/hr Fentanyl Citrate 2,500 mcg/ (Dextrose) 250 mls @ 41.84 mls/hr IV .Q5H59M [facility]; 4.5 MCG/KG/HR PRN Reason: Protocol Last Titration: 11/25/17 09:23 Dose: 0 mcg/kg/hr, 0 mls/hr Lidocaine (Lidoderm) 2 ea TD DAILY [facility] Last Admin: 11/25/17 08:18 Dose: 2 ea Lorazepam (Ativan) 2 mg IVP Q4 PRN PRN Reason: Agitation Last Admin: 11/25/17 00:32 Dose: 2 mg Methylprednisolone (Solu-Medrol) 40 mg IV Q8 [facility] Last Admin: 11/25/17 08:19 Dose: 40 mg Nicotine (Nicoderm Cq) 1 patch TD DAILY [facility] Last Admin: 11/25/17 08:18 Dose: 1 patch Thiamine HCl (Vitamin B1 Tab) 100 mg PO DAILY [facility] Last Admin: 11/25/17 08:19 Dose: 100 mg - Labs Labs: 11/25/17 04:10 11/25/17 04:10 PT 12.7 Seconds (9.8-13.1) 11/21/17 04:20 INR 1.1 (0.9-1.2) 11/21/17 04:20 APTT 24.9 Seconds (25.6-37.1) L 11/21/17 04:20
[2017-11-25] MEDS: Enoxaparin 30 mg Syringe SC SCH (15:27)
--- NOTE | 2017-11-25 15:27 | CP.CCUPN ---
CCU Subjective - Physician Review Events Since Last Encounter (Free Text): 11/25/17 15:17 sedated on vent. CCU Objective - Vital Signs / Intake & Output Vital Signs (Last 4 hours): Vital Signs Temp Pulse Resp BP Pulse Ox 11/25/17 14:03 97 H 7 L 118/74 94 L 11/25/17 12:00 95 H 11 L 117/74 95 11/25/17 11:47 99.3 F Intake and Output (Last 8hrs): Intake & Output 11/25/17 11/25/17 11/25/17 06:59 14:59 22:59 Intake Total 1313.0 720 Output Total 700 3200 Balance 613.0 -2480 Weight 205 lb Intake: IV 683.0 220 Intake, Piggyback 200 Tube Feeding 330 Free Water Flush 300 300 Output: Urine 700 3200 Urethral (Khoury) 700 3200 - Physical Exam Head: Positive for: Atraumatic, Normocephalic Pupils: Positive for: PERRL, Sluggish Extroacular Muscles: Positive for: EOMI Conjunctiva: Positive for: Normal. Negative for: Injected, Icteric Mouth: Positive for: Moist Mucous Membranes Pharnyx: Positive for: Normal Nose (Internal): Positive for: Normal Inspection Neck: Positive for: Normal Range of Motion, Trachea Midline. Negative for: Meningeal Signs, MIDLINE TENDERNESS, Paraspinal Tenderness, JVD, Lymphadenopathy , Bruit, Other Respiratory/Chest: Positive for: Wheezes, Decreased Breath Sounds, Rales, Rhonchi. Negative for: Respiratory Distress, Accessory Muscle Use Cardiovascular: Positive for: Regular Rate and Rhythm, Normal S1, S2, Peripheal Pulses Present. Negative for: Murmurs, Irregular Rhythm, Tachycardic, Bradycardic Abdomen: Positive for: Normal Bowel Sounds. Negative for: Tenderness, Distention, Peritoneal Signs, Rebound, Guarding Upper Extremity: Positive for: Normal Inspection, NORMAL PULSES, Capillary Refill < 2s. Negative for: Cyanosis, Edema Lower Extremity: Positive for: Normal Inspection, NORMAL PULSES, Capillary Refill < 2 s. Negative for: Edema, CALF TENDERNESS Neurological: Positive for: GCS=15, CN II-XII Intact, Speech Normal, Motor Func Grossly Intact, Normal Sensory Function Psychiatric: Positive for: Alert, Oriented x 3 - Medications Active Medications: Active Medications Generic Name Dose Route Start Last Admin Trade Name Freq PRN Reason Stop Dose Admin Albuterol Sulfate 2.5 mg 11/17/17 05:10 11/18/17 02:20 Albuterol 0.083% Inhal Hanane (2.5 Mg/3 Ml) Ud INH 2.5 mg RQ2 PRN Administration Shortness of Breath Albuterol/Ipratropium 3 ml 11/17/17 04:00 11/25/17 15:17 Duoneb 3 Mg/0.5 Mg (3 Ml) Ud INH 3 ml RQ4 [facility]OPE Administration Bupropion HCl 75 mg 11/19/17 09:00 11/25/17 08:19 Wellbutrin PO 75 mg DAILY [facility] Administration Chlordiazepoxide 50 mg 11/24/17 21:45 11/25/17 13:12 Librium PO 50 mg Q8H [facility] Administration Enoxaparin Sodium 30 mg 11/25/17 13:00 Lovenox SC DAILY [facility] Protocol Folic Acid 1 mg 11/20/17 10:00 11/25/17 08:15 Folic Acid PO 1 mg DAILY [facility] Administration Furosemide 40 mg 11/24/17 09:45 11/25/17 08:17 Lasix IVP 40 mg DAILY [facility] Administration Haloperidol Lactate 2 mg 11/18/17 09:13 11/25/17 05:27 Haldol IVP 2 mg Q4 PRN Administration Agitation Norepinephrine Bitartrate 8 mg 258 mls @ 4.83 mls/hr 11/24/17 21:45 / Dextrose IV .Q24H [facility] Protocol 2.5 MCG/MIN Fluconazole 100 mls @ 100 mls/hr 11/24/17 22:00 11/25/17 08:15 Diflucan Iv 200 Mg/100 Ml Ns IVPB 100 mls/hr DAILY [facility] Administration Protocol Fentanyl Citrate 2,500 mcg/ 250 mls @ 41.84 mls/hr 11/25/17 03:00 11/25/17 09 :23 Dextrose IV 0 mcg/kg/hr .Q5H59M [facility] 0 mls/hr Protocol Titration 4.5 MCG/KG/HR Lidocaine 2 ea 11/21/17 09:00 11/25/17 08:18 Lidoderm TD 2 ea DAILY [facility] Administration Lorazepam 2 mg 11/17/17 09:40 11/25/17 00:32 Ativan IVP 2 mg Q4 PRN Administration Agitation Methylprednisolone 40 mg 11/22/17 12:22 11/25/17 08:19 Solu-Medrol IV 40 mg Q8 [facility] Administration Nicotine 1 patch 11/18/17 09:45 11/25/17 08:18 Nicoderm Cq TD 1 patch DAILY [facility] Administration Pantoprazole Sodium 40 mg 11/26/17 09:00 Protonix Susp NG DAILY [facility] Thiamine HCl 100 mg 11/21/17 09:00 11/25/17 08:19 Vitamin B1 Tab PO 100 mg DAILY [facility] Administration - Patient Studies Lab Studies: Microbiology Studies 11/22/17 12:15 Gram Stain - Final Trachasp Sputum Culture - Final Yeast Species Lab Studies 11/25/17 11/25/17 11/25/17 Range/Units 05:01 04:10 04:10 WBC 13.6 H (4.8-10.8) K/uL RBC 3.06 L (3.80-5.20) Mil/uL Hgb 10.0 L (12.0-16.0) g/dL Hct 29.7 L (34.0-47.0) % MCV 96.9 (81.0-99.0) fl MCH 32.7 H (27.0-31.0) pg MCHC 33.7 (33.0-37.0) g/dL RDW 14.1 (11.5-14.5) % Plt Count 180 (130-400) K/uL pCO2 45 (35-45) mm/Hg pO2 98 (80-100) mm/Hg HCO3 25.8 (21-28) mmol/L ABG pH 7.38 (7.35-7.45) ABG Total CO2 28.0 (22-28) mmol/L ABG O2 Saturation 98.5 H (95-98) % ABG O2 Content 15.9 (15-23) ML/dL ABG Base Excess 1.1 (-2.0-3.0) mmol/L ABG Hemoglobin 11.7 (11.7-17.4) g/dL ABG Carboxyhemoglobin 1.5 (0.5-1.5) % POC ABG HHb (Measured) 1.5 (0.0-5.0) % ABG Methemoglobin 1.1 (0.0-3.0) % ABG O2 Capacity 16.1 (16-24) mL/dL Dwight Test Yes A-a O2 Difference 131.0 mm/Hg Hgb O2 Saturation 95.8 (95.0-98.0) % Vent Mode A/c Mechanical Rate 16 FiO2 40.0 % Tidal Volume 500 PEEP 3 Sodium 139 (132-148) mmol/l Potassium 4.2 (3.6-5.0) MMOL/L Chloride 102 (98-107) mmol/L Carbon Dioxide 26 (22-30) mmol/L Anion Gap 15 (10-20) BUN 31 H (7-17) mg/dl Creatinine 1.4 H (0.7-1.2) mg/dl Est GFR ( Amer) 47 Est GFR (Non-Af Amer) 39 Random Glucose 383 H (65-105) mg/dL Calcium 8.4 (8.4-10.2) mg/dL Vancomycin Trough (5.0-10.0) ug/mL 11/25/17 Range/Units 04:10 WBC (4.8-10.8) K/uL RBC (3.80-5.20) Mil/uL Hgb (12.0-16.0) g/dL Hct (34.0-47.0) % MCV (81.0-99.0) fl MCH (27.0-31.0) pg MCHC (33.0-37.0) g/dL RDW (11.5-14.5) % Plt Count (130-400) K/uL pCO2 (35-45) mm/Hg pO2 (80-100) mm/Hg HCO3 (21-28) mmol/L ABG pH (7.35-7.45) ABG Total CO2 (22-28) mmol/L ABG O2 Saturation (95-98) % ABG O2 Content (15-23) ML/dL ABG Base Excess (-2.0-3.0) mmol/L ABG Hemoglobin (11.7-17.4) g/dL ABG Carboxyhemoglobin (0.5-1.5) % POC ABG HHb (Measured) (0.0-5.0) % ABG Methemoglobin (0.0-3.0) % ABG O2 Capacity (16-24) mL/dL Dwight Test A-a O2 Difference mm/Hg Hgb O2 Saturation (95.0-98.0) % Vent Mode Mechanical Rate FiO2 % Tidal Volume PEEP Sodium (132-148) mmol/l Potassium (3.6-5.0) MMOL/L Chloride (98-107) mmol/L Carbon Dioxide (22-30) mmol/L Anion Gap (10-20) BUN (7-17) mg/dl Creatinine (0.7-1.2) mg/dl Est GFR ( Amer) Est GFR (Non-Af Amer) Random Glucose (65-105) mg/dL Calcium (8.4-10.2) mg/dL Vancomycin Trough 26.9 H (5.0-10.0) ug/mL Laboratory Results - last 24 hr 11/25/17 11/25/17 11/25/17 04:10 04:10 04:10 WBC 13.6 H RBC 3.06 L Hgb 10.0 L Hct 29.7 L MCV 96.9 MCH 32.7 H MCHC 33.7 RDW 14.1 Plt Count 180 pCO2 pO2 HCO3 ABG pH ABG Total CO2 ABG O2 Saturation ABG O2 Content ABG Base Excess ABG Hemoglobin ABG Carboxyhemoglobin POC ABG HHb (Measured) ABG Methemoglobin ABG O2 Capacity Dwight Test A-a O2 Difference Hgb O2 Saturation Vent Mode Mechanical Rate FiO2 Tidal Volume PEEP Sodium 139 Potassium 4.2 Chloride 102 Carbon Dioxide 26 Anion Gap 15 BUN 31 H Creatinine 1.4 H Est GFR ( Amer) 47 Est GFR (Non-Af Amer) 39 Random Glucose 383 H Calcium 8.4 Vancomycin Trough 26.9 H 11/25/17 05:01 WBC RBC Hgb Hct MCV MCH MCHC RDW Plt Count pCO2 45 pO2 98 HCO3 25.8 ABG pH 7.38 ABG Total CO2 28.0 ABG O2 Saturation 98.5 H ABG O2 Content 15.9 ABG Base Excess 1.1 ABG Hemoglobin 11.7 ABG Carboxyhemoglobin 1.5 POC ABG HHb (Measured) 1.5 ABG Methemoglobin 1.1 ABG O2 Capacity 16.1 Dwight Test Yes A-a O2 Difference 131.0 Hgb O2 Saturation 95.8 Vent Mode A/c Mechanical Rate 16 FiO2 40.0 Tidal Volume 500 PEEP 3 Sodium Potassium Chloride Carbon Dioxide Anion Gap BUN Creatinine Est GFR ( Amer) Est GFR (Non-Af Amer) Random Glucose Calcium Vancomycin Trough Review of Systems - Review of Systems Systems not reviewed;Unavailable: Intubated Critical Care Progress Note - Nutrition Nutrition: Nutrition Category Date Time Status Liquid Diet [DIET] Diets 11/18/17 Dinner Active Assessment/Plan (1) Respiratory arrest Assessment and plan: 57yo F. PMHx Anxiety, Depression, ETOH abuse, Gastritis, and Asthma. p/w asthma exacerbation that progressed to respiratory failure with cardiac arrest. Intubated (11/17), reintubated (11/19). Neuro: alert. sedated with fentanyl gtt, ativan/haldol prn. sedation vacation. Pulm: acute respiratory failure on PRVC. COPD on Solumedrol 40 IV q8h. Starting PS trials again. No intervention planned as per Thoracic surgery. CV: hemodynamically stable Hem:no acute issues Renal: diuresing on lasix 40m IV q12h. Endo: elevated BS while on steroids, SISS for coverge. GI: NPO, Jevity ID: Diflucan for yeast found in sputum. Blood cultures - sent off. DVT proph - Lovenox GI proph - protonix khoury for strict I/O's during acute illness Code status - full code Critical Care Time spent 35 minutes Multi-disciplinary rounds were performed with house staff, nursing, speech therapy, respiratory therapy, pharmacy and nutrition with integrated input from the primary team/attending and other consulting services. The documented time is cumulative and includes review of patient data/exams/labs/chart review and examination of the patient on rounds and throughout the day; time is exclusive of any procedures or teaching time. Current Visit: Yes Status: Acute Comment: S/P chest compression with Rib fractures Patient Successfully extubated No PTX Pain controlled Incentive spirometer
[2017-11-25] MEDS: Insulin Lispro (humaLOG) 100 Units/ml Inj SC SCH ×2 (16:23→21:57)
--- NOTE | 2017-11-25 22:41 | CP.PCM.PN ---
Subjective - Date & Time of Evaluation Date of Evaluation: 11/25/17 Time of Evaluation: 16:10 Objective - Vital Signs/Intake and Output Vital Signs (last 24 hours): Temp Pulse Resp BP Pulse Ox 98.9 F 86 16 166/82 H 100 11/25/17 20:00 11/25/17 20:00 11/25/17 20:00 11/25/17 20:00 11/25/17 20:00 Intake and Output: 11/25/17 11/26/17 18:59 06:59 Intake Total 1724 260 Output Total 3200 Balance -1476 260 - Medications Medications: Current Medications Albuterol Sulfate (Albuterol 0.083% Inhal Hanane (2.5 Mg/3 Ml) Ud) 2.5 mg INH RQ2 PRN PRN Reason: Shortness of Breath Last Admin: 11/18/17 02:20 Dose: 2.5 mg Albuterol/Ipratropium (Duoneb 3 Mg/0.5 Mg (3 Ml) Ud) 3 ml INH RQ4 [facility]EL[facility] Last Admin: 11/25/17 19:00 Dose: 3 ml Bupropion HCl (Wellbutrin) 75 mg PO DAILY [facility] Last Admin: 11/25/17 08:19 Dose: 75 mg Chlordiazepoxide (Librium) 50 mg PO Q8H [facility] Last Admin: 11/25/17 21:33 Dose: 50 mg Enoxaparin Sodium (Lovenox) 30 mg SC DAILY [facility] PRN Reason: Protocol Last Admin: 11/25/17 15:27 Dose: 30 mg Folic Acid (Folic Acid) 1 mg PO DAILY [facility] Last Admin: 11/25/17 08:15 Dose: 1 mg Furosemide (Lasix) 40 mg IVP DAILY [facility] Last Admin: 11/25/17 08:17 Dose: 40 mg Haloperidol Lactate (Haldol) 2 mg IVP Q4 PRN PRN Reason: Agitation Last Admin: 11/25/17 05:27 Dose: 2 mg Fluconazole (Diflucan Iv 200 Mg/100 Ml Ns) 100 mls @ 100 mls/hr IVPB DAILY P[facility]OPE PRN Reason: Protocol Last Admin: 11/25/17 08:15 Dose: 100 mls/hr Fentanyl Citrate 2,500 mcg/ (Dextrose) 250 mls @ 41.84 mls/hr IV .Q5H59M PENELOPE; 4.5 MCG/KG/HR PRN Reason: Protocol Last Titration: 11/25/17 09:23 Dose: 0 mcg/kg/hr, 0 mls/hr Insulin Human Lispro (Humalog) 0 units SC Q6H [facility]OPE PRN Reason: Protocol Last Admin: 11/25/17 21:57 Dose: 2 units Lidocaine (Lidoderm) 2 ea TD DAILY [facility] Last Admin: 11/25/17 08:18 Dose: 2 ea Lorazepam (Ativan) 2 mg IVP Q4 PRN PRN Reason: Agitation Last Admin: 11/25/17 21:35 Dose: 2 mg Methylprednisolone (Solu-Medrol) 40 mg IV Q8 [facility] Last Admin: 11/25/17 16:25 Dose: 40 mg Nicotine (Nicoderm Cq) 1 patch TD DAILY [facility] Last Admin: 11/25/17 08:18 Dose: 1 patch Pantoprazole Sodium (Protonix Susp) 40 mg NG DAILY [facility] Thiamine HCl (Vitamin B1 Tab) 100 mg PO DAILY [facility] Last Admin: 11/25/17 08:19 Dose: 100 mg - Labs Labs: 11/25/17 04:10 11/25/17 04:10 PT 12.7 Seconds (9.8-13.1) 11/21/17 04:20 INR 1.1 (0.9-1.2) 11/21/17 04:20 APTT 24.9 Seconds (25.6-37.1) L 11/21/17 04:20 Assessment and Plan (1) Respiratory arrest Status: Acute (2) Schizoaffective disorder Status: Acute (3) Chest wall pain Status: Acute
[2017-11-26] MEDS: MethylPREDNISolone 40 mg Vial IV SCH ×2 (00:24→08:42)
[2017-11-26] MEDS: Albuterol-Ipratrop 3 mg / 0.5 (3 ml) UD INH SCH ×7 (00:45→23:35)
[2017-11-26] MEDS: Insulin Lispro (humaLOG) 100 Units/ml Inj SC SCH ×4 (04:22→16:45)
[2017-11-26 05:44] LABS: ABG ALLEN TEST YES; ARTERIAL BLOOD GAS HCO3 31.6 mmol/L (21-28); ARTERIAL BLOOD GAS HEMOGLOBIN 9.9 g/dL (11.7-17.4); ARTERIAL BLOOD GAS O2 CAPACITY 13.8 mL/dL (16-24); ARTERIAL BLOOD GAS O2 CONTENT 13.6 ML/dL (15-23); ARTERIAL BLOOD GAS O2 SAT 98.9 % (95-98); ARTERIAL BLOOD GAS PCO2 47 mm/Hg (35-45); ARTERIAL BLOOD GAS PH 7.46 (7.35-7.45); ARTERIAL BLOOD GAS PO2 103 mm/Hg (80-100); ARTERIAL BLOOD GAS TCO2 34.8 mmol/L (22-28)
[2017-11-26 06:10] LABS: HEMOGLOBIN 9.6 g/dL (12.0-16.0); MEAN CELL VOLUME 96.8 fl (81.0-99.0); MEAN CORPUSCULAR HEMOGLOBIN 32.9 pg (27.0-31.0); MEAN CORPUSCULAR HGB CONC 33.9 g/dL (33.0-37.0); RBC 2.92 Mil/uL (3.80-5.20); RED CELL DISTRIBUTION WIDTH 13.8 % (11.5-14.5)
[2017-11-26 06:26] LABS: CALCIUM 8.6 mg/dL (8.4-10.2)
--- NOTE | 2017-11-26 08:02 | RAD ---
HISTORY: ETT placement COMPARISON: Portable chest 11/25/2017. FINDINGS: LUNGS: Endotracheal and nasogastric tubes are unchanged in position as well as right PICC catheter. Airspace disease is decreased at the left base and left apex and is borderline increased at the mid right lung zone as well. PLEURA: No prior pleural effusion bilaterally or pneumothorax either. CARDIOVASCULAR: Cardiac silhouette is stable with trace pulmonary venous congestion pattern remaining. OSSEOUS STRUCTURES: No significant abnormalities. VISUALIZED UPPER ABDOMEN: Normal. OTHER FINDINGS: None. IMPRESSION: Diminished airspace disease left apex and base and mildly increased at the mid right lung zone. Diminishing pulmonary venous congestion.
[2017-11-26] MEDS: Lidocaine 5% Patch TD SCH (08:41)
[2017-11-26] MEDS: Enoxaparin 30 mg Syringe SC SCH (08:41)
[2017-11-26] MEDS: Pantoprazole 40 mg Susp UD NG SCH (08:42)
[2017-11-26] MEDS: Fluconazole IV 200mg/100 ml NS 100 ML IVPB SCH (10:03)
--- NOTE | 2017-11-26 11:52 | CP.PCM.PN ---
Subjective - Date & Time of Evaluation Date of Evaluation: 11/26/17 Time of Evaluation: 11:48 - Subjective Subjective: pt s/e at bedside. Intubated-sedated. vss. tMax-100 wbc-11k Hb-9.6 is stabe. cxr-grossly unchanged. a/p: Pulmonary contusion. Rib Fxs Resp failure. Continue current Rx. Objective - Vital Signs/Intake and Output Vital Signs (last 24 hours): Temp Pulse Resp BP Pulse Ox 98.2 F 116 H 18 156/106 H 97 11/26/17 08:04 11/26/17 10:02 11/26/17 10:02 11/26/17 10:02 11/26/17 10:02 Intake and Output: 11/26/17 11/26/17 06:59 18:59 Intake Total 960 250 Output Total 1900 1500 Balance -940 -1250 - Medications Medications: Current Medications Albuterol Sulfate (Albuterol 0.083% Inhal Hanane (2.5 Mg/3 Ml) Ud) 2.5 mg INH RQ2 PRN PRN Reason: Shortness of Breath Last Admin: 11/18/17 02:20 Dose: 2.5 mg Albuterol/Ipratropium (Duoneb 3 Mg/0.5 Mg (3 Ml) Ud) 3 ml INH RQ4 [facility] Last Admin: 11/26/17 11:29 Dose: 3 ml Bupropion HCl (Wellbutrin) 75 mg PO DAILY [facility] Last Admin: 11/26/17 08:43 Dose: 75 mg Chlordiazepoxide (Librium) 50 mg PO Q8H [facility] Last Admin: 11/26/17 05:28 Dose: 50 mg Enoxaparin Sodium (Lovenox) 30 mg SC DAILY [facility] PRN Reason: Protocol Last Admin: 11/26/17 08:41 Dose: 30 mg Folic Acid (Folic Acid) 1 mg PO DAILY [facility] Last Admin: 11/26/17 08:40 Dose: 1 mg Furosemide (Lasix) 40 mg IVP DAILY [facility] Last Admin: 11/26/17 08:40 Dose: 40 mg Haloperidol Lactate (Haldol) 2 mg IVP Q4 PRN PRN Reason: Agitation Last Admin: 11/26/17 08:47 Dose: 2 mg Fluconazole (Diflucan Iv 200 Mg/100 Ml Ns) 100 mls @ 100 mls/hr IVPB DAILY [facility] PRN Reason: Protocol Last Admin: 11/26/17 10:03 Dose: 100 mls/hr Fentanyl Citrate 2,500 mcg/ (Dextrose) 250 mls @ 41.84 mls/hr IV .Q5H59M P[facility]ELOPE; 4.5 MCG/KG/HR PRN Reason: Protocol Last Titration: 11/25/17 09:23 Dose: 0 mcg/kg/hr, 0 mls/hr Insulin Human Lispro (Humalog) 0 units SC Q6H [facility] PRN Reason: Protocol Ketorolac Tromethamine (Toradol) 30 mg IVP Q6 PRN PRN Reason: Pain, moderate (4-7) Lactobacillus Acidophilus (Bacid Acidophilus) 1 cap PO BID [facility] Lidocaine (Lidoderm) 2 ea TD DAILY [facility] Last Admin: 11/26/17 08:41 Dose: 2 ea Lorazepam (Ativan) 2 mg IVP Q4 PRN PRN Reason: Agitation Last Admin: 11/26/17 11:12 Dose: 2 mg Methylprednisolone (Solu-Medrol) 40 mg IV Q24H [facility] Nicotine (Nicoderm Cq) 1 patch TD DAILY [facility] Last Admin: 11/26/17 08:42 Dose: 1 patch Pantoprazole Sodium (Protonix Susp) 40 mg NG DAILY [facility] Last Admin: 11/26/17 08:42 Dose: 40 mg Thiamine HCl (Vitamin B1 Tab) 100 mg PO DAILY [facility] Last Admin: 11/26/17 08:43 Dose: 100 mg - Labs Labs: 11/26/17 05:55 11/26/17 05:55 PT 12.7 Seconds (9.8-13.1) 11/21/17 04:20 INR 1.1 (0.9-1.2) 11/21/17 04:20 APTT 24.9 Seconds (25.6-37.1) L 11/21/17 04:20
--- NOTE | 2017-11-26 14:54 | CP.CCUPN ---
CCU Subjective - Physician Review Events Since Last Encounter (Free Text): 11/26/17 14:43 alert, agitated, cooperative. CCU Objective - Vital Signs / Intake & Output Vital Signs (Last 4 hours): Vital Signs Temp Pulse Resp BP Pulse Ox 11/26/17 14:00 98 H 20 148/103 H 99 11/26/17 12:00 97.8 F 112 H 20 147/80 97 Intake and Output (Last 8hrs): Intake & Output 11/25/17 11/26/17 11/26/17 22:59 06:59 14:59 Intake Total 1374 590 400 Output Total 1900 1500 Balance 1374 -1310 -1100 Intake: IV 194 Intake, Piggyback 100 Tube Feeding 880 440 Free Water Flush 300 150 300 Output: Urine 1900 1500 Urethral (Khoury) 1900 1500 Other: # Bowel Movements 1 4 1 - Physical Exam Head: Positive for: Atraumatic, Normocephalic Pupils: Positive for: PERRL, Sluggish Extroacular Muscles: Positive for: EOMI Conjunctiva: Positive for: Normal. Negative for: Injected, Icteric Mouth: Positive for: Moist Mucous Membranes Pharnyx: Positive for: Normal Nose (Internal): Positive for: Normal Inspection Neck: Positive for: Normal Range of Motion, Trachea Midline. Negative for: Meningeal Signs, MIDLINE TENDERNESS, Paraspinal Tenderness, JVD, Lymphadenopathy , Bruit, Other Respiratory/Chest: Positive for: Wheezes, Decreased Breath Sounds, Rales, Rhonchi. Negative for: Respiratory Distress, Accessory Muscle Use Cardiovascular: Positive for: Regular Rate and Rhythm, Normal S1, S2, Peripheal Pulses Present. Negative for: Murmurs, Irregular Rhythm, Tachycardic, Bradycardic Abdomen: Positive for: Normal Bowel Sounds. Negative for: Tenderness, Distention, Peritoneal Signs, Rebound, Guarding Upper Extremity: Positive for: Normal Inspection, NORMAL PULSES, Capillary Refill < 2s. Negative for: Cyanosis, Edema Lower Extremity: Positive for: Normal Inspection, NORMAL PULSES, Capillary Refill < 2 s. Negative for: Edema, CALF TENDERNESS Neurological: Positive for: GCS=15, CN II-XII Intact, Speech Normal, Motor Func Grossly Intact, Normal Sensory Function Psychiatric: Positive for: Alert, Oriented x 3 - Medications Active Medications: Active Medications Generic Name Dose Route Start Last Admin Trade Name Freq PRN Reason Stop Dose Admin Albuterol Sulfate 2.5 mg 11/17/17 05:10 11/18/17 02:20 Albuterol 0.083% Inhal Hanane (2.5 Mg/3 Ml) Ud INH 2.5 mg RQ2 PRN Administration Shortness of Breath Albuterol/Ipratropium 3 ml 11/17/17 04:00 11/26/17 11:29 Duoneb 3 Mg/0.5 Mg (3 Ml) Ud INH 3 ml RQ4 PENELOPE Administration Bupropion HCl 75 mg 11/19/17 09:00 11/26/17 08:43 Wellbutrin PO 75 mg DAILY PENELOPE Administration Chlordiazepoxide 50 mg 11/24/17 21:45 11/26/17 12:47 Librium PO 50 mg Q8H PENELOPE Administration Enoxaparin Sodium 30 mg 11/25/17 13:00 11/26/17 08:41 Lovenox SC 30 mg DAILY PENELOPE Administration Protocol Folic Acid 1 mg 11/20/17 10:00 11/26/17 08:40 Folic Acid PO 1 mg DAILY PENELOPE Administration Furosemide 40 mg 11/24/17 09:45 11/26/17 08:40 Lasix IVP 40 mg DAILY PENELOPE Administration Haloperidol Lactate 2 mg 11/18/17 09:13 11/26/17 14:10 Haldol IVP 2 mg Q4 PRN Administration Agitation Fluconazole 100 mls @ 100 mls/hr 11/24/17 22:00 11/26/17 10:03 Diflucan Iv 200 Mg/100 Ml Ns IVPB 100 mls/hr DAILY P[facility]ELOPE Administration Protocol Fentanyl Citrate 2,500 mcg/ 250 mls @ 41.84 mls/hr 11/25/17 03:00 11/25/17 09 :23 Dextrose IV 0 mcg/kg/hr .Q5H59M PENELOPE 0 mls/hr Protocol Titration 4.5 MCG/KG/HR Insulin Human Lispro 0 units 11/26/17 11:41 11/26/17 12:27 Humalog SC Not Given Q6H P[facility]ELOPE Protocol Ketorolac Tromethamine 30 mg 11/26/17 11:15 11/26/17 12:31 Toradol IVP 30 mg Q6 PRN Administration Pain, moderate (4-7) Lactobacillus Acidophilus 1 cap 11/26/17 17:00 Bacid Acidophilus PO BID P[facility]ELOPE Lidocaine 2 ea 11/21/17 09:00 11/26/17 08:41 Lidoderm TD 2 ea DAILY [facility]OPE Administration Lorazepam 2 mg 11/17/17 09:40 11/26/17 11:12 Ativan IVP 2 mg Q4 PRN Administration Agitation Methylprednisolone 40 mg 11/27/17 10:00 Solu-Medrol IV Q24H P[facility]OPE Nicotine 1 patch 11/18/17 09:45 11/26/17 08:42 Nicoderm Cq TD 1 patch DAILY [facility]OPE Administration Pantoprazole Sodium 40 mg 11/26/17 09:00 11/26/17 08:42 Protonix Susp NG 40 mg DAILY [facility]OPE Administration Thiamine HCl 100 mg 11/21/17 09:00 11/26/17 08:43 Vitamin B1 Tab PO 100 mg DAILY PENELOPE Administration - Patient Studies Lab Studies: Lab Studies 11/26/17 11/26/17 11/26/17 Range/Units 05:55 05:55 05:22 WBC 11.0 H (4.8-10.8) K/uL RBC 2.92 L (3.80-5.20) Mil/uL Hgb 9.6 L (12.0-16.0) g/dL Hct 28.3 L (34.0-47.0) % MCV 96.8 (81.0-99.0) fl MCH 32.9 H (27.0-31.0) pg MCHC 33.9 (33.0-37.0) g/dL RDW 13.8 (11.5-14.5) % Plt Count 160 (130-400) K/uL pCO2 47 H (35-45) mm/Hg pO2 103 H (80-100) mm/Hg HCO3 31.6 H (21-28) mmol/L ABG pH 7.46 H (7.35-7.45) ABG Total CO2 34.8 H (22-28) mmol/L ABG O2 Saturation 98.9 H (95-98) % ABG O2 Content 13.6 L (15-23) ML/dL ABG Base Excess 8.5 H (-2.0-3.0) mmol/L ABG Hemoglobin 9.9 L (11.7-17.4) g/dL ABG Carboxyhemoglobin 1.3 (0.5-1.5) % POC ABG HHb (Measured) 1.1 (0.0-5.0) % ABG Methemoglobin 1.2 (0.0-3.0) % ABG O2 Capacity 13.8 L (16-24) mL/dL Dwight Test Yes A-a O2 Difference 123.0 mm/Hg Hgb O2 Saturation 96.3 (95.0-98.0) % Vent Mode Prvc ac Mechanical Rate 16 FiO2 40.0 % Tidal Volume 500 PEEP 5 Sodium 142 (132-148) mmol/l Potassium 3.7 (3.6-5.0) MMOL/L Chloride 101 (98-107) mmol/L Carbon Dioxide 30 (22-30) mmol/L Anion Gap 15 (10-20) BUN 38 H (7-17) mg/dl Creatinine 1.3 H (0.7-1.2) mg/dl Est GFR ( Amer) 51 Est GFR (Non-Af Amer) 42 POC Glucose (mg/dL) (65-110) mg/dL Random Glucose 261 H (65-105) mg/dL Calcium 8.6 (8.4-10.2) mg/dL 11/26/17 11/25/17 11/25/17 Range/Units 04:19 21:41 16:20 WBC (4.8-10.8) K/uL RBC (3.80-5.20) Mil/uL Hgb (12.0-16.0) g/dL Hct (34.0-47.0) % MCV (81.0-99.0) fl MCH (27.0-31.0) pg MCHC (33.0-37.0) g/dL RDW (11.5-14.5) % Plt Count (130-400) K/uL pCO2 (35-45) mm/Hg pO2 (80-100) mm/Hg HCO3 (21-28) mmol/L ABG pH (7.35-7.45) ABG Total CO2 (22-28) mmol/L ABG O2 Saturation (95-98) % ABG O2 Content (15-23) ML/dL ABG Base Excess (-2.0-3.0) mmol/L ABG Hemoglobin (11.7-17.4) g/dL ABG Carboxyhemoglobin (0.5-1.5) % POC ABG HHb (Measured) (0.0-5.0) % ABG Methemoglobin (0.0-3.0) % ABG O2 Capacity (16-24) mL/dL Dwight Test A-a O2 Difference mm/Hg Hgb O2 Saturation (95.0-98.0) % Vent Mode Mechanical Rate FiO2 % Tidal Volume PEEP Sodium (132-148) mmol/l Potassium (3.6-5.0) MMOL/L Chloride (98-107) mmol/L Carbon Dioxide (22-30) mmol/L Anion Gap (10-20) BUN (7-17) mg/dl Creatinine (0.7-1.2) mg/dl Est GFR ( Amer) Est GFR (Non-Af Amer) POC Glucose (mg/dL) 237 H 307 H 332 H (65-110) mg/dL Random Glucose (65-105) mg/dL Calcium (8.4-10.2) mg/dL Laboratory Results - last 24 hr 11/25/17 11/25/17 11/26/17 16:20 21:41 04:19 WBC RBC Hgb Hct MCV MCH MCHC RDW Plt Count pCO2 pO2 HCO3 ABG pH ABG Total CO2 ABG O2 Saturation ABG O2 Content ABG Base Excess ABG Hemoglobin ABG Carboxyhemoglobin POC ABG HHb (Measured) ABG Methemoglobin ABG O2 Capacity Dwight Test A-a O2 Difference Hgb O2 Saturation Vent Mode Mechanical Rate FiO2 Tidal Volume PEEP Sodium Potassium Chloride Carbon Dioxide Anion Gap BUN Creatinine Est GFR ( Amer) Est GFR (Non-Af Amer) POC Glucose (mg/dL) 332 H 307 H 237 H Random Glucose Calcium 11/26/17 11/26/17 11/26/17 05:22 05:55 05:55 WBC 11.0 H RBC 2.92 L Hgb 9.6 L Hct 28.3 L MCV 96.8 MCH 32.9 H MCHC 33.9 RDW 13.8 Plt Count 160 pCO2 47 H pO2 103 H HCO3 31.6 H ABG pH 7.46 H ABG Total CO2 34.8 H ABG O2 Saturation 98.9 H ABG O2 Content 13.6 L ABG Base Excess 8.5 H ABG Hemoglobin 9.9 L ABG Carboxyhemoglobin 1.3 POC ABG HHb (Measured) 1.1 ABG Methemoglobin 1.2 ABG O2 Capacity 13.8 L Dwight Test Yes A-a O2 Difference 123.0 Hgb O2 Saturation 96.3 Vent Mode Prvc ac Mechanical Rate 16 FiO2 40.0 Tidal Volume 500 PEEP 5 Sodium 142 Potassium 3.7 Chloride 101 Carbon Dioxide 30 Anion Gap 15 BUN 38 H Creatinine 1.3 H Est GFR ( Amer) 51 Est GFR (Non-Af Amer) 42 POC Glucose (mg/dL) Random Glucose 261 H Calcium 8.6 Fingerstick Blood Sugar Results: 318 Review of Systems - Review of Systems Systems not reviewed;Unavailable: Intubated Critical Care Progress Note - Nutrition Nutrition: Nutrition Category Date Time Status Liquid Diet [DIET] Diets 11/18/17 Dinner Active Assessment/Plan (1) Respiratory arrest Assessment and plan: 57yo F. PMHx Anxiety, Depression, ETOH abuse, Gastritis, and Asthma. p/w asthma exacerbation that progressed to respiratory failure with cardiac arrest. Intubated (11/17), reintubated (11/19). Neuro: alert, follows commands. ativan/haldol prn. Toradol prn for pain. Pulm: acute respiratory failure on PRVC. COPD, decreased Solumedrol 40 IV q24h. Tolerating PS trials x 2 days for many hours each time, possible extubation tomorrow. No intervention planned as per Thoracic surgery. CV: hemodynamically stable Hem:no acute issues Renal: diuresing on lasix 40m IV daily. Endo: elevated BS while on steroids, increased SISS for coverge. GI: NPO, Jevity@55, free water flushes 150ml q4h. ID: Diflucan for yeast found in sputum. Blood cultures - sent off. DVT proph - Lovenox GI proph - protonix khoury for strict I/O's during acute illness Code status - full code Critical Care Time spent 35 minutes Multi-disciplinary rounds were performed with house staff, nursing, speech therapy, respiratory therapy, pharmacy and nutrition with integrated input from the primary team/attending and other consulting services. The documented time is cumulative and includes review of patient data/exams/labs/chart review and examination of the patient on rounds and throughout the day; time is exclusive of any procedures or teaching time. Current Visit: Yes Status: Acute Comment: S/P chest compression with Rib fractures Patient Successfully extubated No PTX Pain controlled Incentive spirometer
[2017-11-26] MEDS ORDERED: Lactobacillus Acidophilus 500 MU Cap PO SCH (17:00)
--- NOTE | 2017-11-26 22:43 | CP.PCM.PN ---
Subjective - Date & Time of Evaluation Date of Evaluation: 11/26/17 Time of Evaluation: 16:00 Objective - Vital Signs/Intake and Output Vital Signs (last 24 hours): Temp Pulse Resp BP Pulse Ox 99.4 F 83 16 141/82 100 11/26/17 20:00 11/26/17 22:00 11/26/17 22:00 11/26/17 22:00 11/26/17 22:00 Intake and Output: 11/26/17 11/27/17 18:59 06:59 Intake Total 1330 205 Output Total 1900 Balance -570 205 - Medications Medications: Current Medications Albuterol Sulfate (Albuterol 0.083% Inhal Hanane (2.5 Mg/3 Ml) Ud) 2.5 mg INH RQ2 PRN PRN Reason: Shortness of Breath Last Admin: 11/18/17 02:20 Dose: 2.5 mg Albuterol/Ipratropium (Duoneb 3 Mg/0.5 Mg (3 Ml) Ud) 3 ml INH RQ4 PENELOPE Last Admin: 11/26/17 19:06 Dose: 3 ml Bupropion HCl (Wellbutrin) 75 mg PO DAILY [facility]ELOPE Last Admin: 11/26/17 08:43 Dose: 75 mg Chlordiazepoxide (Librium) 50 mg PO Q8H [facility]OPE Last Admin: 11/26/17 21:11 Dose: 50 mg Enoxaparin Sodium (Lovenox) 30 mg SC DAILY P[facility]ELOPE PRN Reason: Protocol Last Admin: 11/26/17 08:41 Dose: 30 mg Folic Acid (Folic Acid) 1 mg PO DAILY P[facility]ELOPE Last Admin: 11/26/17 08:40 Dose: 1 mg Furosemide (Lasix) 40 mg IVP DAILY [facility]ELOPE Last Admin: 11/26/17 08:40 Dose: 40 mg Haloperidol Lactate (Haldol) 2 mg IVP Q4 PRN PRN Reason: Agitation Last Admin: 11/26/17 22:08 Dose: 2 mg Fluconazole (Diflucan Iv 200 Mg/100 Ml Ns) 100 mls @ 100 mls/hr IVPB DAILY PENELOPE PRN Reason: Protocol Last Admin: 11/26/17 10:03 Dose: 100 mls/hr Fentanyl Citrate 2,500 mcg/ (Dextrose) 250 mls @ 41.84 mls/hr IV .Q5H59M PENELOPE; 4.5 MCG/KG/HR PRN Reason: Protocol Last Titration: 11/25/17 09:23 Dose: 0 mcg/kg/hr, 0 mls/hr Insulin Human Lispro (Humalog) 0 units SC Q6H PENELOPE PRN Reason: Protocol Last Admin: 11/26/17 16:45 Dose: 8 units Ketorolac Tromethamine (Toradol) 30 mg IVP Q6 PRN PRN Reason: Pain, moderate (4-7) Last Admin: 11/26/17 12:31 Dose: 30 mg Lactobacillus Acidophilus (Bacid Acidophilus) 1 cap PO BID REPLACED BY [facility] Last Admin: 11/26/17 16:44 Dose: 1 cap Lidocaine (Lidoderm) 2 ea TD DAILY REPLACED BY [facility] Last Admin: 11/26/17 08:41 Dose: 2 ea Lorazepam (Ativan) 2 mg IVP Q4 PRN PRN Reason: Agitation Last Admin: 11/26/17 20:05 Dose: 2 mg Methylprednisolone (Solu-Medrol) 40 mg IV Q24H REPLACED BY [facility] Nicotine (Nicoderm Cq) 1 patch TD DAILY REPLACED BY [facility] Last Admin: 11/26/17 08:42 Dose: 1 patch Pantoprazole Sodium (Protonix Susp) 40 mg NG DAILY REPLACED BY [facility] Last Admin: 11/26/17 08:42 Dose: 40 mg Thiamine HCl (Vitamin B1 Tab) 100 mg PO DAILY REPLACED BY [facility] Last Admin: 11/26/17 08:43 Dose: 100 mg - Labs Labs: 11/26/17 05:55 11/26/17 05:55 PT 12.7 Seconds (9.8-13.1) 11/21/17 04:20 INR 1.1 (0.9-1.2) 11/21/17 04:20 APTT 24.9 Seconds (25.6-37.1) L 11/21/17 04:20 Assessment and Plan (1) Respiratory arrest Status: Acute (2) Schizoaffective disorder Status: Acute (3) Chest wall pain Status: Acute
[2017-11-26] MEDS ORDERED: Morphine 4 MG/ML VIAL IVP STA (23:13)
[2017-11-27] MEDS: Insulin Lispro (humaLOG) 100 Units/ml Inj SC SCH ×4 (00:14→17:35)
[2017-11-27] MEDS ORDERED: Propofol 10 mg/ml 1,000 MG/100 ML VIAL ONE (00:38)
[2017-11-27] MEDS ORDERED: Propofol 10 mg/ml 1,000 MG/100 ML VIAL IV SCH (00:45)
[2017-11-27] MEDS: Albuterol-Ipratrop 3 mg / 0.5 (3 ml) UD INH SCH ×6 (04:29→23:35)
[2017-11-27 04:44] LABS: ABG ALLEN TEST YES; ARTERIAL BLOOD GAS HCO3 36.4 mmol/L (21-28); ARTERIAL BLOOD GAS HEMOGLOBIN 9.2 g/dL (11.7-17.4); ARTERIAL BLOOD GAS O2 CAPACITY 12.7 mL/dL (16-24); ARTERIAL BLOOD GAS O2 CONTENT 12.4 ML/dL (15-23); ARTERIAL BLOOD GAS O2 SAT 97.8 % (95-98); ARTERIAL BLOOD GAS PCO2 44 mm/Hg (35-45); ARTERIAL BLOOD GAS PH 7.55 (7.35-7.45); ARTERIAL BLOOD GAS PO2 73 mm/Hg (80-100); ARTERIAL BLOOD GAS TCO2 39.9 mmol/L (22-28)
[2017-11-27 05:39] LABS: HEMOGLOBIN 9.3 g/dL (12.0-16.0); RBC 2.82 Mil/uL (3.80-5.20); RED CELL DISTRIBUTION WIDTH 13.9 % (11.5-14.5)
[2017-11-27 06:03] LABS: CALCIUM 8.2 mg/dL (8.4-10.2)
--- NOTE | 2017-11-27 08:01 | RAD ---
PROCEDURE: CHEST RADIOGRAPH, 1 VIEW HISTORY: intubated COMPARISON: Portable chest 11/26/2017. FINDINGS: LUNGS: Endotracheal tube is not simply changed in position as well as nasogastric tube and right PICC. Left apical and basilar airspace disease unchanged but is diminished at the mid to inferior right lung zone. PLEURA: Smaller pleural effusion is suggested in the interval. None is seen the right. No definite pneumothorax bilaterally. CARDIOVASCULAR: Cardiomediastinal silhouette is stable with borderline pulmonary venous congestion remaining. OSSEOUS STRUCTURES: Multiple left rib fractures reiterated. VISUALIZED UPPER ABDOMEN: Normal. OTHER FINDINGS: None. IMPRESSION: Diminished airspace disease mid to inferior right lung zone but no interval change in airspace disease left apex and left base. Minimal left pleural effusion is now on questioned at the left base laterally. Multiple left rib fractures again evident.
--- NOTE | 2017-11-27 08:15 | CP.PCM.PN ---
Subjective - Date & Time of Evaluation Date of Evaluation: 11/24/17 Time of Evaluation: 19:20 Objective - Vital Signs/Intake and Output Vital Signs (last 24 hours): Temp Pulse Resp BP Pulse Ox 99.2 F 97 H 10 L 106/60 97 11/27/17 07:59 11/27/17 07:59 11/27/17 07:59 11/27/17 07:59 11/27/17 07:59 Intake and Output: 11/27/17 11/27/17 06:59 18:59 Intake Total 995 Output Total 650 Balance 345 - Medications Medications: Current Medications Albuterol Sulfate (Albuterol 0.083% Inhal Hanane (2.5 Mg/3 Ml) Ud) 2.5 mg INH RQ2 PRN PRN Reason: Shortness of Breath Last Admin: 11/18/17 02:20 Dose: 2.5 mg Albuterol/Ipratropium (Duoneb 3 Mg/0.5 Mg (3 Ml) Ud) 3 ml INH RQ4 PENELOPE Last Admin: 11/27/17 08:07 Dose: 3 ml Bupropion HCl (Wellbutrin) 75 mg PO DAILY [facility]ELOPE Last Admin: 11/26/17 08:43 Dose: 75 mg Chlordiazepoxide (Librium) 50 mg PO Q8H [facility]ELOPE Last Admin: 11/27/17 05:34 Dose: 50 mg Enoxaparin Sodium (Lovenox) 30 mg SC DAILY PENELOPE PRN Reason: Protocol Last Admin: 11/26/17 08:41 Dose: 30 mg Folic Acid (Folic Acid) 1 mg PO DAILY PENELOPE Last Admin: 11/26/17 08:40 Dose: 1 mg Furosemide (Lasix) 40 mg IVP DAILY P[facility]ELOPE Last Admin: 11/26/17 08:40 Dose: 40 mg Haloperidol Lactate (Haldol) 2 mg IVP Q4 PRN PRN Reason: Agitation Last Admin: 11/26/17 22:08 Dose: 2 mg Fluconazole (Diflucan Iv 200 Mg/100 Ml Ns) 100 mls @ 100 mls/hr IVPB DAILY PENELOPE PRN Reason: Protocol Last Admin: 11/26/17 10:03 Dose: 100 mls/hr Fentanyl Citrate 2,500 mcg/ (Dextrose) 250 mls @ 41.84 mls/hr IV .Q5H59M PENELOPE; 4.5 MCG/KG/HR PRN Reason: Protocol Last Titration: 11/25/17 09:23 Dose: 0 mcg/kg/hr, 0 mls/hr Propofol (Diprivan) 1,000 mg in 100 mls @ 2.79 mls/hr IV .Q24H PENELOPE; 5 MCG/KG/ MIN PRN Reason: Protocol Stop: 11/28/17 00:34 Last Titration: 11/27/17 04:10 Dose: 20 mcg/kg/min, 11.158 mls/hr Insulin Human Lispro (Humalog) 0 units SC Q6H PENELOPE PRN Reason: Protocol Last Admin: 11/27/17 06:21 Dose: 6 units Ketorolac Tromethamine (Toradol) 30 mg IVP Q6 PRN PRN Reason: Pain, moderate (4-7) Last Admin: 11/26/17 12:31 Dose: 30 mg Lactobacillus Acidophilus (Bacid Acidophilus) 1 cap PO BID ON LICENSE OF [facility] Last Admin: 11/26/17 16:44 Dose: 1 cap Lidocaine (Lidoderm) 2 ea TD DAILY ON LICENSE OF [facility] Last Admin: 11/26/17 08:41 Dose: 2 ea Lorazepam (Ativan) 2 mg IVP Q4 PRN PRN Reason: Agitation Last Admin: 11/26/17 20:05 Dose: 2 mg Methylprednisolone (Solu-Medrol) 40 mg IV Q24H ON LICENSE OF [facility] Nicotine (Nicoderm Cq) 1 patch TD DAILY ON LICENSE OF [facility] Last Admin: 11/26/17 08:42 Dose: 1 patch Pantoprazole Sodium (Protonix Susp) 40 mg NG DAILY ON LICENSE OF [facility] Last Admin: 11/26/17 08:42 Dose: 40 mg Thiamine HCl (Vitamin B1 Tab) 100 mg PO DAILY ON LICENSE OF [facility] Last Admin: 11/26/17 08:43 Dose: 100 mg - Labs Labs: 11/27/17 04:30 11/27/17 04:30 PT 12.7 Seconds (9.8-13.1) 11/21/17 04:20 INR 1.1 (0.9-1.2) 11/21/17 04:20 APTT 24.9 Seconds (25.6-37.1) L 11/21/17 04:20 Assessment and Plan (1) Respiratory arrest Status: Acute (2) Schizoaffective disorder Status: Acute (3) Chest wall pain Status: Acute
[2017-11-27] MEDS: Fluconazole IV 200mg/100 ml NS 100 ML IVPB SCH (09:30)
[2017-11-27] MEDS: Enoxaparin 30 mg Syringe SC SCH (09:32)
[2017-11-27] MEDS: Lidocaine 5% Patch TD SCH (09:32)
[2017-11-27] MEDS: Pantoprazole 40 mg Susp UD NG SCH (09:33)
[2017-11-27] MEDS: MethylPREDNISolone 40 mg Vial IV SCH (09:33)
[2017-11-27] MEDS: Dexmedetomidine Hydrochloride 400 MCG in Sodium Chloride 0.9% 96 ML IV SCH (10:49)
--- NOTE | 2017-11-27 12:15 | CP.CCUPN ---
CCU Subjective - Physician Review Subjective (Free Text): At RASS neg 3 and breathing 16 on AC 16, on Propofol up to 20 mcg dose after Fenatnyl drip stopped. BP borderline at this dose level of Propofol. Other VS and I/Os reviewed. T max 100.3F overnight, fluid balance negative 0.2L last 24H. ROS: No other pertinent negs or positives on 10+ system review obtainable from intubated and sedated patient. PMSFH: All other Nursing and physician documentation reviewed to date; no new pertinent info noted relevant to current medical problems. EXAM- HEENT: no icterus, no gaze preference, pupils equal and reactive NECK: No JVD, supple, carotids equal upstroke bilat/no bruits CHEST: decreased BS bases, no wheezes audible, crepitus over L upper and lateral chest, bilateral ecchymoses HEART: regular tachy, distant, S1S2, no rubs. ABD: soft, no distention, no tympany, no palp tenderness, BS hypoactive. EXT: No peripheral/ digital cyanosis, no calf tenderness or palpable cords, distal pulses intact and symmetrical. NEURO: no focal motor deficits SKIN: no rashes, warm and dry. LABS: WBC= 8.0 HGB= 9.3 PLTs= 158K My=267 K= 3.2 CL=99 HCO3= 35 BUN/Cr= 45/1.3 RX=648 7.55 / 44 / 73 CXR: (my interp) marked im[provement in bilateral lung expansion and resolution of previous upper lobe opacities; ETT position OK. IMPRESSION / MAJOR PROBLEMS NOW: 1. Bilateral / Multiple Rib fractures with bilateral pneumonitis 2. s/p Cardio-Resp Arrest 3. COPD / Asthma Exacerb 4. Acute blood loss Anemia 5. Azotemia, r/o GRETCHEN 6. H/o ETOH Abuse PLAN: 1. Would resume some form of narcotic analgesia- will stop Propofol, resume low dose Fentanyl drip and add Precedex for anxiolysis. 2. Post-hypercapneic alkalosis noted, decrease AC to 10, follow serial ABGs, otherwise not ready for extubation today. K needs to be repleted before extubation as well. 3. Continue DuoNebs, and IV steroids ( in Taper). 4. Only on Diflucan now. Renew Zosyn / Vanco, would keep until extubated. CCU Objective - Vital Signs / Intake & Output Vital Signs (Last 4 hours): Vital Signs BP 11/27/17 09:31 113/70 Intake and Output (Last 8hrs): Intake & Output 11/26/17 11/27/17 11/27/17 22:59 06:59 14:59 Intake Total 1135 790 100 Output Total 400 650 Balance 735 140 100 Weight 85 lb Intake: IV 120 50 0 Intake, Piggyback 100 Tube Feeding 715 440 Free Water Flush 300 300 Output: Urine 400 500 Urethral (Thrasher) 400 500 Stool 150 Emesis 0 Other: # Bowel Movements 1
--- NOTE | 2017-11-27 15:10 | CP.PCM.PN ---
Subjective - Date & Time of Evaluation Date of Evaluation: 11/27/17 Time of Evaluation: 15:06 - Subjective Subjective: Pt s/e and d/w daughter about overall clinical progress. Remains intubated and sedated. vss. hb-9.3 wbc-8k cxr shows some improvement of lung density. a/p: 1. Clinically improving. 2. Continue current care. 3. ct with contrast on Saturday next wk 4. d/w Dr [place]. Objective - Vital Signs/Intake and Output Vital Signs (last 24 hours): Temp Pulse Resp BP Pulse Ox 98.4 F 76 15 116/68 99 11/27/17 12:00 11/27/17 14:00 11/27/17 14:00 11/27/17 14:00 11/27/17 14:00 Intake and Output: 11/27/17 11/27/17 06:59 18:59 Intake Total 995 500 Output Total 650 900 Balance 345 -400 - Medications Medications: Current Medications Albuterol Sulfate (Albuterol 0.083% Inhal Hanane (2.5 Mg/3 Ml) Ud) 2.5 mg INH RQ2 PRN PRN Reason: Shortness of Breath Last Admin: 11/18/17 02:20 Dose: 2.5 mg Albuterol/Ipratropium (Duoneb 3 Mg/0.5 Mg (3 Ml) Ud) 3 ml INH RQ4 [facility]OPE Last Admin: 11/27/17 11:11 Dose: 3 ml Bupropion HCl (Wellbutrin) 75 mg PO DAILY [facility] Last Admin: 11/27/17 09:34 Dose: 75 mg Chlordiazepoxide (Librium) 50 mg PO Q8H [facility] Last Admin: 11/27/17 05:34 Dose: 50 mg Enoxaparin Sodium (Lovenox) 30 mg SC DAILY [facility]ELOEP PRN Reason: Protocol Last Admin: 11/27/17 09:32 Dose: 30 mg Folic Acid (Folic Acid) 1 mg PO DAILY [facility] Last Admin: 11/27/17 09:31 Dose: 1 mg Furosemide (Lasix) 40 mg IVP DAILY [facility] Last Admin: 11/27/17 09:31 Dose: 40 mg Haloperidol Lactate (Haldol) 2 mg IVP Q4 PRN PRN Reason: Agitation Last Admin: 11/26/17 22:08 Dose: 2 mg Fluconazole (Diflucan Iv 200 Mg/100 Ml Ns) 100 mls @ 100 mls/hr IVPB DAILY [facility]OPE PRN Reason: Protocol Last Admin: 11/27/17 09:30 Dose: 100 mls/hr Fentanyl Citrate 2,500 mcg/ (Dextrose) 250 mls @ 41.84 mls/hr IV .Q5H59M [facility]ELOPE; 4.5 MCG/KG/HR PRN Reason: Protocol Last Titration: 11/25/17 09:23 Dose: 0 mcg/kg/hr, 0 mls/hr Dexmedetomidine HCl 400 mcg/ (Sodium Chloride) 100 mls @ 4.64 mls/hr IV .[id number] PENELOPE; 0.2 MCG/KG/HR PRN Reason: Protocol Last Titration: 11/27/17 11:11 Dose: 0.3 mcg/kg/hr, 6.97 mls/hr Vancomycin HCl 750 mg/ Sodium (Chloride) 250 mls @ 166.667 mls/hr IVPB DAILY P[facility]ELOPE PRN Reason: Protocol Piperacillin Sod/Tazobactam (Sod 2.25 gm/ Sodium Chloride) 100 mls @ 100 mls/ hr IVPB Q6 [facility]OPE PRN Reason: Protocol Last Admin: 11/27/17 14:04 Dose: 100 mls/hr Insulin Human Lispro (Humalog) 0 units SC Q6H [facility]OPE PRN Reason: Protocol Last Admin: 11/27/17 11:34 Dose: 4 units Ketorolac Tromethamine (Toradol) 30 mg IVP Q6 PRN PRN Reason: Pain, moderate (4-7) Last Admin: 11/26/17 12:31 Dose: 30 mg Lidocaine (Lidoderm) 2 ea TD DAILY [facility] Last Admin: 11/27/17 09:32 Dose: 2 ea Lorazepam (Ativan) 2 mg IVP Q4 PRN PRN Reason: Agitation Last Admin: 11/26/17 20:05 Dose: 2 mg Methylprednisolone (Solu-Medrol) 40 mg IV Q24H [facility] Last Admin: 11/27/17 09:33 Dose: 40 mg Nicotine (Nicoderm Cq) 1 patch TD DAILY [facility] Last Admin: 11/27/17 09:33 Dose: 1 patch Pantoprazole Sodium (Protonix Susp) 40 mg NG DAILY [facility] Last Admin: 11/27/17 09:33 Dose: 40 mg Thiamine HCl (Vitamin B1 Tab) 100 mg PO DAILY [facility] Last Admin: 11/27/17 09:34 Dose: 100 mg - Labs Labs: 11/27/17 04:30 11/27/17 04:30 PT 12.7 Seconds (9.8-13.1) 11/21/17 04:20 INR 1.1 (0.9-1.2) 11/21/17 04:20 APTT 24.9 Seconds (25.6-37.1) L 11/21/17 04:20
[2017-11-27] MEDS ORDERED: Acetaminophen 650mg/20.3ml solution UD PO PRN (21:09)
--- NOTE | 2017-11-27 21:38 | CP.PCM.PN ---
Subjective - Date & Time of Evaluation Date of Evaluation: 11/27/17 Time of Evaluation: 11:05 Objective - Vital Signs/Intake and Output Vital Signs (last 24 hours): Temp Pulse Resp BP Pulse Ox 100.9 F H 95 H 17 134/76 99 11/27/17 20:00 11/27/17 20:00 11/27/17 20:00 11/27/17 20:00 11/27/17 20:00 Intake and Output: 11/27/17 11/28/17 18:59 06:59 Intake Total 1560 Output Total 1400 Balance 160 - Medications Medications: Current Medications Acetaminophen (Tylenol 650mg/20.3ml Solution Ud) 650 mg PO Q6 PRN PRN Reason: temp > 100.6 Albuterol Sulfate (Albuterol 0.083% Inhal Hanane (2.5 Mg/3 Ml) Ud) 2.5 mg INH RQ2 PRN PRN Reason: Shortness of Breath Last Admin: 11/18/17 02:20 Dose: 2.5 mg Albuterol/Ipratropium (Duoneb 3 Mg/0.5 Mg (3 Ml) Ud) 3 ml INH RQ4 [facility] Last Admin: 11/27/17 19:04 Dose: 3 ml Bupropion HCl (Wellbutrin) 75 mg PO DAILY [facility] Last Admin: 11/27/17 09:34 Dose: 75 mg Chlordiazepoxide (Librium) 50 mg PO Q8H [facility] Last Admin: 11/27/17 13:45 Dose: Not Given Enoxaparin Sodium (Lovenox) 30 mg SC DAILY [facility] PRN Reason: Protocol Last Admin: 11/27/17 09:32 Dose: 30 mg Folic Acid (Folic Acid) 1 mg PO DAILY [facility] Last Admin: 11/27/17 09:31 Dose: 1 mg Furosemide (Lasix) 40 mg IVP DAILY [facility] Last Admin: 11/27/17 09:31 Dose: 40 mg Haloperidol Lactate (Haldol) 2 mg IVP Q4 PRN PRN Reason: Agitation Last Admin: 11/27/17 20:04 Dose: 2 mg Fluconazole (Diflucan Iv 200 Mg/100 Ml Ns) 100 mls @ 100 mls/hr IVPB DAILY [facility] PRN Reason: Protocol Last Admin: 11/27/17 09:30 Dose: 100 mls/hr Fentanyl Citrate 2,500 mcg/ (Dextrose) 250 mls @ 41.84 mls/hr IV .[id number] [facility]; 4.5 MCG/KG/HR PRN Reason: Protocol Last Titration: 11/25/17 09:23 Dose: 0 mcg/kg/hr, 0 mls/hr Dexmedetomidine HCl 400 mcg/ (Sodium Chloride) 100 mls @ 4.64 mls/hr IV .[id number] [facility]; 0.2 MCG/KG/HR PRN Reason: Protocol Last Titration: 11/27/17 16:03 Dose: 0.5 mcg/kg/hr, 11.62 mls/hr Piperacillin Sod/Tazobactam (Sod 2.25 gm/ Sodium Chloride) 100 mls @ 100 mls/ hr IVPB 0200,0800,1400,2000 [facility] PRN Reason: Protocol Vancomycin HCl 750 mg/ Sodium (Chloride) 250 mls @ 166.667 mls/hr IVPB DAILY@ 1600 [facility] PRN Reason: Protocol Insulin Human Lispro (Humalog) 0 units SC Q6H [facility] PRN Reason: Protocol Last Admin: 11/27/17 17:35 Dose: 8 units Ketorolac Tromethamine (Toradol) 30 mg IVP Q6 PRN PRN Reason: Pain, moderate (4-7) Last Admin: 11/26/17 12:31 Dose: 30 mg Lidocaine (Lidoderm) 2 ea TD DAILY [facility] Last Admin: 11/27/17 09:32 Dose: 2 ea Lorazepam (Ativan) 2 mg IVP Q4 PRN PRN Reason: Agitation Last Admin: 11/26/17 20:05 Dose: 2 mg Methylprednisolone (Solu-Medrol) 40 mg IV Q24H [facility] Last Admin: 11/27/17 09:33 Dose: 40 mg Nicotine (Nicoderm Cq) 1 patch TD DAILY [facility] Last Admin: 11/27/17 09:33 Dose: 1 patch Pantoprazole Sodium (Protonix Susp) 40 mg NG DAILY [facility] Last Admin: 11/27/17 09:33 Dose: 40 mg Thiamine HCl (Vitamin B1 Tab) 100 mg PO DAILY [facility] Last Admin: 11/27/17 09:34 Dose: 100 mg - Labs Labs: 11/27/17 04:30 11/27/17 04:30 PT 12.7 Seconds (9.8-13.1) 11/21/17 04:20 INR 1.1 (0.9-1.2) 11/21/17 04:20 APTT 24.9 Seconds (25.6-37.1) L 11/21/17 04:20 Assessment and Plan (1) Respiratory arrest Status: Acute (2) Schizoaffective disorder Status: Acute (3) Chest wall pain Status: Acute
[2017-11-28] MEDS: Insulin Lispro (humaLOG) 100 Units/ml Inj SC SCH ×5 (00:37→22:48)
[2017-11-28] MEDS: Albuterol-Ipratrop 3 mg / 0.5 (3 ml) UD INH SCH ×6 (04:02→23:29)
[2017-11-28 04:10] LABS: ABG ALLEN TEST YES; ARTERIAL BLOOD GAS HCO3 36.7 mmol/L (21-28); ARTERIAL BLOOD GAS O2 CAPACITY 13.9 mL/dL (16-24); ARTERIAL BLOOD GAS O2 CONTENT 13.7 ML/dL (15-23); ARTERIAL BLOOD GAS O2 SAT 98.5 % (95-98); ARTERIAL BLOOD GAS PCO2 46 mm/Hg (35-45); ARTERIAL BLOOD GAS PH 7.54 (7.35-7.45); ARTERIAL BLOOD GAS PO2 85 mm/Hg (80-100); ARTERIAL BLOOD GAS TCO2 40.7 mmol/L (22-28)
[2017-11-28] MEDS: Dexmedetomidine Hydrochloride 400 MCG in Sodium Chloride 0.9% 96 ML IV SCH ×3 (05:44→23:15)
[2017-11-28 06:04] LABS: HEMOGLOBIN 9.8 g/dL (12.0-16.0); MEAN CELL VOLUME 97.8 fl (81.0-99.0); MEAN CORPUSCULAR HGB CONC 33.7 g/dL (33.0-37.0); RBC 2.99 Mil/uL (3.80-5.20); RED CELL DISTRIBUTION WIDTH 13.8 % (11.5-14.5)
[2017-11-28 06:23] LABS: ALBUMIN 2.8 g/dL (3.5-5.0)
[2017-11-28] MEDS: Fluconazole IV 200mg/100 ml NS 100 ML IVPB SCH (08:18)
[2017-11-28] MEDS: Lidocaine 5% Patch TD SCH (08:20)
[2017-11-28] MEDS: Pantoprazole 40 mg Susp UD NG SCH (08:21)
[2017-11-28] MEDS: Enoxaparin 30 mg Syringe SC SCH (08:22)
--- NOTE | 2017-11-28 09:46 | RAD ---
PROCEDURE: CHEST RADIOGRAPH, 1 VIEW HISTORY: vdrf COMPARISON: Chest radiograph dated 11/27/2017. FINDINGS: LUNGS: Pulmonary vascular congestion and small bilateral pleural effusions. PLEURA: No pneumothorax or pleural fluid seen. CARDIOVASCULAR: Normal. OSSEOUS STRUCTURES: Displaced left rib fractures redemonstrated. Unchanged. VISUALIZED UPPER ABDOMEN: Normal. OTHER FINDINGS: Endotracheal, enteric tubes, unchanged. Right upper extremity PICC, unchanged. IMPRESSION: Stable pulmonary vascular congestion and small bilateral pleural effusion
--- NOTE | 2017-11-28 10:47 | CP.CCUPN ---
CCU Subjective - Physician Review Subjective (Free Text): At RASS neg 3 on Precedex at 0.7 mcg dose, breathing 11 on AC 10, tolerated SBT on low level CPAP PS. Other VS and I/Os reviewed. T max 100.9F last 24H. ROS: No other pertinent negs or positives on 10+ system review obtainable from intubated and sedated patient. PMSFH: All other Nursing and physician documentation reviewed to date; no new pertinent info noted relevant to current medical problems. EXAM- HEENT: no icterus, no gaze preference, pupils equal and reactive NECK: No JVD, supple, carotids equal upstroke bilat/no bruits CHEST: decreased BS bases, no wheezes audible, decreased crepitus over L upper and lateral chest, bilateral ecchymoses HEART: regular tachy, distant, S1S2, no rubs. ABD: soft, no distention, no tympany, no palp tenderness, BS hypoactive. EXT: No peripheral/ digital cyanosis, no calf tenderness or palpable cords, distal pulses intact and symmetrical. NEURO: no focal motor deficits, withdraws x 4 limbs to pain. SKIN: no rashes, warm and dry. LABS: WBC= 8.0 HGB= 9.8 PLTs= 165K Fj=012 K= 3.4 IZ=120 HCO3= 37 BUN/Cr= 46/1.4 FZ=478 7.54 / 46 / 85 CXR: (my interp) no new chnages over recent improvement in bilateral lung expansion and resolution of previous upper lobe opacities; ETT position OK. IMPRESSION / MAJOR PROBLEMS NOW: 1. Bilateral / Multiple Rib fractures with bilateral pneumonitis 2. s/p Cardio-Resp Arrest 3. COPD / Asthma Exacerb 4. Acute blood loss Anemia 5. Azotemia, r/o GRETCHEN 6. H/o ETOH Abuse PLAN: 1. Precedex drip at 0.7 mcg dose, now decreased to half as family remains at bedside helping to calm patient. 2. Change Fentanyl drip to prn IV Morphine. 3. Tolerating CPAP PS trials today. 4. Increased free water via tube feeds, will make Lasix IV PRN for now. 5. Watch Temps, on Zosyn / Vanco. CCU Objective - Vital Signs / Intake & Output Vital Signs (Last 4 hours): Vital Signs Temp Pulse Resp BP Pulse Ox 11/28/17 08:19 113/70 11/28/17 08:00 99.2 F 85 12 113/67 98 Intake and Output (Last 8hrs): Intake & Output 11/27/17 11/28/17 11/28/17 22:59 06:59 14:59 Intake Total 1430 840 0 Output Total 500 700 Balance 930 140 0 Intake: IV 0 100 0 Intake, Piggyback 250 Tube Feeding 880 440 Free Water Flush 300 300 Output: Urine 500 700 Urethral (Thrasher) 500 700 Stool 0 Other: # Bowel Movements 1 0
[2017-11-28] MEDS: MethylPREDNISolone 40 mg Vial IV SCH (12:09)
--- NOTE | 2017-11-28 12:35 | CARD ---
APPROVED REPORT EKG Measurement Heart [id number] OK [id number] <Conclusion> Normal sinus rhythm Normal ECG
--- NOTE | 2017-11-28 12:50 | CP.PCM.PN ---
Subjective - Date & Time of Evaluation Date of Evaluation: 11/28/17 Time of Evaluation: 12:46 - Subjective Subjective: Patient is clinically sable vss okxu=704+ Wbcs 8.0 hb- 9.8 cxr-improving a/p:continue current care chest ct on saturday. Objective - Vital Signs/Intake and Output Vital Signs (last 24 hours): Temp Pulse Resp BP Pulse Ox 99.2 F 88 18 80/53 L 98 11/28/17 12:00 11/28/17 12:00 11/28/17 12:00 11/28/17 12:00 11/28/17 12:00 Intake and Output: 11/28/17 11/28/17 06:59 18:59 Intake Total 1210 350 Output Total 700 Balance 510 350 - Medications Medications: Current Medications Acetaminophen (Tylenol 650mg/20.3ml Solution Ud) 650 mg PO Q6 PRN PRN Reason: temp > 100.6 Last Admin: 11/27/17 21:58 Dose: 650 mg Albuterol Sulfate (Albuterol 0.083% Inhal Hanane (2.5 Mg/3 Ml) Ud) 2.5 mg INH RQ2 PRN PRN Reason: Shortness of Breath Last Admin: 11/18/17 02:20 Dose: 2.5 mg Albuterol/Ipratropium (Duoneb 3 Mg/0.5 Mg (3 Ml) Ud) 3 ml INH RQ4 [facility] Last Admin: 11/28/17 11:36 Dose: 3 ml Bupropion HCl (Wellbutrin) 75 mg PO DAILY [facility] Last Admin: 11/28/17 09:37 Dose: 75 mg Chlordiazepoxide (Librium) 50 mg PO Q8@0600,1400,2200 [facility] Last Admin: 11/28/17 05:07 Dose: 50 mg Enoxaparin Sodium (Lovenox) 30 mg SC DAILY [facility] PRN Reason: Protocol Last Admin: 11/28/17 08:22 Dose: 30 mg Folic Acid (Folic Acid) 1 mg PO DAILY [facility] Last Admin: 11/28/17 08:18 Dose: 1 mg Furosemide (Lasix) 40 mg IVP DAILY [facility] Last Admin: 11/28/17 08:19 Dose: 40 mg Haloperidol Lactate (Haldol) 2 mg IVP Q4 PRN PRN Reason: Agitation Last Admin: 11/28/17 00:28 Dose: 2 mg Fluconazole (Diflucan Iv 200 Mg/100 Ml Ns) 100 mls @ 100 mls/hr IVPB DAILY [facility] PRN Reason: Protocol Last Admin: 11/28/17 08:18 Dose: 100 mls/hr Fentanyl Citrate 2,500 mcg/ (Dextrose) 250 mls @ 41.84 mls/hr IV .Q5H59M [facility]; 4.5 MCG/KG/HR PRN Reason: Protocol Last Titration: 11/25/17 09:23 Dose: 0 mcg/kg/hr, 0 mls/hr Dexmedetomidine HCl 400 mcg/ (Sodium Chloride) 100 mls @ 4.64 mls/hr IV .[id number] [facility]; 0.2 MCG/KG/HR PRN Reason: Protocol Last Titration: 11/28/17 09:30 Dose: 0.7 mcg/kg/hr, 16.27 mls/hr Piperacillin Sod/Tazobactam (Sod 2.25 gm/ Sodium Chloride) 100 mls @ 100 mls/ hr IVPB 0200,0800,1400,2000 [facility] PRN Reason: Protocol Last Admin: 11/28/17 08:20 Dose: 100 mls/hr Vancomycin HCl 750 mg/ Sodium (Chloride) 250 mls @ 166.667 mls/hr IVPB DAILY@ 1600 [facility] PRN Reason: Protocol Insulin Human Lispro (Humalog) 0 units SC Q6H [facility] PRN Reason: Protocol Last Admin: 11/28/17 12:08 Dose: 4 units Ketorolac Tromethamine (Toradol) 30 mg IVP Q6 PRN PRN Reason: Pain, moderate (4-7) Last Admin: 11/28/17 08:41 Dose: 30 mg Lidocaine (Lidoderm) 2 ea TD DAILY [facility] Last Admin: 11/28/17 08:20 Dose: 2 ea Lorazepam (Ativan) 2 mg IVP Q4 PRN PRN Reason: Agitation Last Admin: 11/28/17 04:37 Dose: 2 mg Methylprednisolone (Solu-Medrol) 40 mg IV Q24H [facility] Last Admin: 11/28/17 12:09 Dose: 40 mg Nicotine (Nicoderm Cq) 1 patch TD DAILY [facility] Last Admin: 11/28/17 08:19 Dose: 1 patch Pantoprazole Sodium (Protonix Susp) 40 mg NG DAILY [facility] Last Admin: 11/28/17 08:21 Dose: 40 mg Thiamine HCl (Vitamin B1 Tab) 100 mg PO DAILY [facility] Last Admin: 11/28/17 08:21 Dose: 100 mg - Labs Labs: 11/28/17 04:30 11/28/17 04:30 PT 12.7 Seconds (9.8-13.1) 11/21/17 04:20 INR 1.1 (0.9-1.2) 11/21/17 04:20 APTT 24.9 Seconds (25.6-37.1) L 11/21/17 04:20
[2017-11-28] MEDS: Potassium Chloride 20 mEq 100 ML IVPB SCH (19:57)
--- NOTE | 2017-11-28 22:43 | CP.PCM.PN ---
Subjective - Date & Time of Evaluation Date of Evaluation: 11/28/17 Time of Evaluation: 13:50 Objective - Vital Signs/Intake and Output Vital Signs (last 24 hours): Temp Pulse Resp BP Pulse Ox 98.9 F 78 22 152/88 H 99 11/28/17 20:00 11/28/17 22:00 11/28/17 22:00 11/28/17 22:00 11/28/17 22:00 Intake and Output: 11/28/17 11/29/17 18:59 06:59 Intake Total 1350 511 Output Total 1200 Balance 150 511 - Medications Medications: Current Medications Acetaminophen (Tylenol 650mg/20.3ml Solution Ud) 650 mg PO Q6 PRN PRN Reason: temp > 100.6 Last Admin: 11/27/17 21:58 Dose: 650 mg Albuterol Sulfate (Albuterol 0.083% Inhal Hanane (2.5 Mg/3 Ml) Ud) 2.5 mg INH RQ2 PRN PRN Reason: Shortness of Breath Last Admin: 11/18/17 02:20 Dose: 2.5 mg Albuterol/Ipratropium (Duoneb 3 Mg/0.5 Mg (3 Ml) Ud) 3 ml INH RQ4 [facility] Last Admin: 11/28/17 19:14 Dose: 3 ml Bupropion HCl (Wellbutrin) 75 mg PO DAILY [facility] Last Admin: 11/28/17 09:37 Dose: 75 mg Chlordiazepoxide (Librium) 50 mg PO Q8@0600,1400,2200 [facility] Last Admin: 11/28/17 15:58 Dose: Not Given Folic Acid (Folic Acid) 1 mg PO DAILY [facility] Last Admin: 11/28/17 08:18 Dose: 1 mg Furosemide (Lasix) 40 mg IVP DAILY [facility] Last Admin: 11/28/17 08:19 Dose: 40 mg Haloperidol Lactate (Haldol) 2 mg IVP Q4 PRN PRN Reason: Agitation Last Admin: 11/28/17 00:28 Dose: 2 mg Fluconazole (Diflucan Iv 200 Mg/100 Ml Ns) 100 mls @ 100 mls/hr IVPB DAILY [facility] PRN Reason: Protocol Last Admin: 11/28/17 08:18 Dose: 100 mls/hr Fentanyl Citrate 2,500 mcg/ (Dextrose) 250 mls @ 41.84 mls/hr IV .Q5H59M [facility]; 4.5 MCG/KG/HR PRN Reason: Protocol Last Titration: 11/25/17 09:23 Dose: 0 mcg/kg/hr, 0 mls/hr Dexmedetomidine HCl 400 mcg/ (Sodium Chloride) 100 mls @ 4.64 mls/hr IV .[id number] [facility]; 0.2 MCG/KG/HR PRN Reason: Protocol Last Titration: 11/28/17 19:56 Dose: 0.8 mcg/kg/hr, 18.59 mls/hr Piperacillin Sod/Tazobactam (Sod 2.25 gm/ Sodium Chloride) 100 mls @ 100 mls/ hr IVPB 0200,0800,1400,2000 [facility] PRN Reason: Protocol Last Admin: 11/28/17 20:08 Dose: 100 mls/hr Vancomycin HCl 750 mg/ Sodium (Chloride) 250 mls @ 166.667 mls/hr IVPB DAILY@ 1600 [facility] PRN Reason: Protocol Last Admin: 11/28/17 18:25 Dose: 166.667 mls/hr Insulin Human Lispro (Humalog) 0 units SC Q6H [facility] PRN Reason: Protocol Last Admin: 11/28/17 18:18 Dose: 6 units Ketorolac Tromethamine (Toradol) 30 mg IVP Q6 PRN PRN Reason: Pain, moderate (4-7) Last Admin: 11/28/17 08:41 Dose: 30 mg Lidocaine (Lidoderm) 2 ea TD DAILY [facility] Last Admin: 11/28/17 08:20 Dose: 2 ea Lorazepam (Ativan) 2 mg IVP Q4 PRN PRN Reason: Agitation Last Admin: 11/28/17 15:56 Dose: 2 mg Methylprednisolone (Solu-Medrol) 40 mg IV Q24H [facility] Last Admin: 11/28/17 12:09 Dose: 40 mg Nicotine (Nicoderm Cq) 1 patch TD DAILY [facility] Last Admin: 11/28/17 08:19 Dose: 1 patch Pantoprazole Sodium (Protonix Susp) 40 mg NG DAILY [facility] Last Admin: 11/28/17 08:21 Dose: 40 mg Thiamine HCl (Vitamin B1 Tab) 100 mg PO DAILY [facility] Last Admin: 11/28/17 08:21 Dose: 100 mg - Labs Labs: 11/28/17 04:30 11/28/17 04:30 PT 12.7 Seconds (9.8-13.1) 11/21/17 04:20 INR 1.1 (0.9-1.2) 11/21/17 04:20 APTT 24.9 Seconds (25.6-37.1) L 11/21/17 04:20 Assessment and Plan (1) Respiratory arrest Status: Acute (2) Schizoaffective disorder Status: Acute (3) Chest wall pain Status: Acute
[2017-11-29] MEDS: Potassium Chloride 20 mEq 100 ML IVPB SCH (00:13)
[2017-11-29] MEDS: Albuterol-Ipratrop 3 mg / 0.5 (3 ml) UD INH SCH ×3 (04:36→11:00)
[2017-11-29 04:43] LABS: ABG ALLEN TEST YES; ARTERIAL BLOOD GAS HCO3 33.9 mmol/L (21-28); ARTERIAL BLOOD GAS HEMOGLOBIN 9.8 g/dL (11.7-17.4); ARTERIAL BLOOD GAS O2 CAPACITY 13.6 mL/dL (16-24); ARTERIAL BLOOD GAS O2 CONTENT 13.5 ML/dL (15-23); ARTERIAL BLOOD GAS O2 SAT 99.1 % (95-98); ARTERIAL BLOOD GAS PCO2 46 mm/Hg (35-45); ARTERIAL BLOOD GAS PO2 111 mm/Hg (80-100); ARTERIAL BLOOD GAS TCO2 37.3 mmol/L (22-28)
[2017-11-29 05:24] LABS: HEMOGLOBIN 9.8 g/dL (12.0-16.0); MEAN CELL VOLUME 97.4 fl (81.0-99.0); MEAN CORPUSCULAR HGB CONC 33.9 g/dL (33.0-37.0); RBC 2.96 Mil/uL (3.80-5.20); RED CELL DISTRIBUTION WIDTH 13.5 % (11.5-14.5); WHITE BLOOD COUNT 8.6 K/uL (4.8-10.8)
[2017-11-29] MEDS: Dexmedetomidine Hydrochloride 400 MCG in Sodium Chloride 0.9% 96 ML IV SCH (05:39)
[2017-11-29] MEDS: Insulin Lispro (humaLOG) 100 Units/ml Inj SC SCH ×4 (05:47→22:59)
[2017-11-29 05:57] LABS: CALCIUM 7.9 mg/dL (8.4-10.2)
--- NOTE | 2017-11-29 07:52 | RAD ---
HISTORY: ETT placement COMPARISON: Portable chest 11/28/2017. FINDINGS: LUNGS: Endotracheal tube and right PICC are unchanged in position. Nasogastric tube is again identified placed with the tip turning in the abdomen. Left basilar atelectasis or infiltrate not excluded. None is seen the right. PLEURA: No right pleural effusion appear trace of pleural effusion is in question. No pneumothorax bilaterally. CARDIOVASCULAR: Pulmonary vascular congestion pattern persists. The slightly increased bilaterally. OSSEOUS STRUCTURES: Patient rotated toward the right obscuring the multiple left rib fractures present in this patient. VISUALIZED UPPER ABDOMEN: Normal. OTHER FINDINGS: None. IMPRESSION: Persistent if not slightly worsened pulmonary vascular congestion. Trace of pleural effusion suggested. No right pleural effusion evident. Continued clinical and radiographic monitor advised.
[2017-11-29] MEDS: Fluconazole IV 200mg/100 ml NS 100 ML IVPB SCH (09:45)
[2017-11-29] MEDS: Lidocaine 5% Patch TD SCH (09:46)
[2017-11-29] MEDS: MethylPREDNISolone 40 mg Vial IV SCH (09:48)
[2017-11-29] MEDS: Pantoprazole 40 mg Susp UD NG SCH (09:48)
--- NOTE | 2017-11-29 12:13 | PN ---
DATE: 11/29/2017 SUBJECTIVE: The patient is continued on Precedex, on support. She tolerated CPAP yesterday. No reported ventricular arrhythmia. PHYSICAL EXAMINATION: VITAL SIGNS: Blood pressure 130/77, heart rate 84, temperature 100, and respirations 23. HEENT: Pale conjunctivae. CHEST: Bilateral rhonchi. HEART: S1 and S2 regular. EXTREMITIES: Trace leg edema. LABORATORY DATA: Hemoglobin and hematocrit are 9.8 and 28.8. White count and platelet count are within normal limits. SMA-7; sodium 141, potassium 4.2, chloride 98, CO2 34, glucose 200, BUN 48, and creatinine 1.4. Chest x-ray revealed bilateral alveolar infiltrate and cardiomegaly. Blood culture is negative after 3 days. ASSESSMENT: 1. Respiratory failure. 2. Chronic obstructive pulmonary disease. 3. Multiple left-sided rib fractures. 4. Mild pulmonary hypertension. 5. Prerenal azotemia. RECOMMENDATIONS: Continue current albuterol inhaler. Continue IV fluconazole, IV Haldol p.r.n., Zosyn 2.25 g intravenously every 6 hours, vancomycin 750 mg intravenously daily, and thiamine 100 mg once a day to optimize intravenous . Aditya Abraham MD
--- NOTE | 2017-11-29 12:46 | CP.PCM.PN ---
Subjective - Date & Time of Evaluation Date of Evaluation: 11/29/17 Time of Evaluation: 12:44 - Subjective Subjective: Pt s/e. Clinically stable. vss hb-9.8 wbc-8.6 cxr-unchanged. a/p: continue current care. ct chest-Saturday. Objective - Vital Signs/Intake and Output Vital Signs (last 24 hours): Temp Pulse Resp BP Pulse Ox 100 F H 84 23 130/77 99 11/29/17 08:00 11/29/17 08:00 11/29/17 08:00 11/29/17 09:51 11/29/17 08:00 Intake and Output: 11/29/17 11/29/17 06:59 18:59 Intake Total 2175 Output Total 700 Balance 1475 - Medications Medications: Current Medications Acetaminophen (Tylenol 650mg/20.3ml Solution Ud) 650 mg PO Q6 PRN PRN Reason: temp > 100.6 Last Admin: 11/27/17 21:58 Dose: 650 mg Bupropion HCl (Wellbutrin) 75 mg PO DAILY [facility] Last Admin: 11/29/17 09:49 Dose: 75 mg Chlordiazepoxide (Librium) 50 mg PO Q8@0600,1400,2200 [facility] Last Admin: 11/29/17 05:41 Dose: 50 mg Folic Acid (Folic Acid) 1 mg PO DAILY [facility] Last Admin: 11/29/17 09:46 Dose: 1 mg Furosemide (Lasix) 40 mg IVP DAILY [facility] Last Admin: 11/29/17 09:51 Dose: 40 mg Haloperidol Lactate (Haldol) 2 mg IVP Q4 PRN PRN Reason: Agitation Last Admin: 11/28/17 00:28 Dose: 2 mg Fluconazole (Diflucan Iv 200 Mg/100 Ml Ns) 100 mls @ 100 mls/hr IVPB DAILY [facility] PRN Reason: Protocol Last Admin: 11/29/17 09:45 Dose: 100 mls/hr Fentanyl Citrate 2,500 mcg/ (Dextrose) 250 mls @ 41.84 mls/hr IV .Q5H59M [facility]; 4.5 MCG/KG/HR PRN Reason: Protocol Last Titration: 11/25/17 09:23 Dose: 0 mcg/kg/hr, 0 mls/hr Dexmedetomidine HCl 400 mcg/ (Sodium Chloride) 100 mls @ 4.64 mls/hr IV .[id number] [facility]; 0.2 MCG/KG/HR PRN Reason: Protocol Last Admin: 11/29/17 05:39 Dose: 0.9 mcg/kg/hr, 20.92 mls/hr Piperacillin Sod/Tazobactam (Sod 2.25 gm/ Sodium Chloride) 100 mls @ 100 mls/ hr IVPB 0200,0800,1400,2000 [facility] PRN Reason: Protocol Last Admin: 11/29/17 09:49 Dose: 100 mls/hr Vancomycin HCl 750 mg/ Sodium (Chloride) 250 mls @ 166.667 mls/hr IVPB DAILY@ 1600 [facility] PRN Reason: Protocol Last Admin: 11/28/17 18:25 Dose: 166.667 mls/hr Insulin Human Lispro (Humalog) 0 units SC Q6H [facility] PRN Reason: Protocol Last Admin: 11/29/17 05:47 Dose: 4 units Ketorolac Tromethamine (Toradol) 30 mg IVP Q6 PRN PRN Reason: Pain, moderate (4-7) Last Admin: 11/28/17 08:41 Dose: 30 mg Lidocaine (Lidoderm) 2 ea TD DAILY [facility] Last Admin: 11/29/17 09:46 Dose: Not Given Lorazepam (Ativan) 2 mg IVP Q4 PRN PRN Reason: Agitation Last Admin: 11/28/17 15:56 Dose: 2 mg Methylprednisolone (Solu-Medrol) 40 mg IV Q24H [facility] Last Admin: 11/29/17 09:48 Dose: 40 mg Nicotine (Nicoderm Cq) 1 patch TD DAILY [facility] Last Admin: 11/29/17 09:52 Dose: 1 patch Pantoprazole Sodium (Protonix Susp) 40 mg NG DAILY [facility] Last Admin: 11/29/17 09:48 Dose: 40 mg Thiamine HCl (Vitamin B1 Tab) 100 mg PO DAILY [facility] Last Admin: 11/29/17 09:49 Dose: 100 mg - Labs Labs: 11/29/17 04:30 11/29/17 04:30 PT 12.7 Seconds (9.8-13.1) 11/21/17 04:20 INR 1.1 (0.9-1.2) 11/21/17 04:20 APTT 24.9 Seconds (25.6-37.1) L 11/21/17 04:20
--- NOTE | 2017-11-29 13:09 | CP.CCUPN ---
CCU Subjective - Physician Review Subjective (Free Text): Sedated at negative RASS level of 3 on Precedex at 0.9 mcg dose, does not appear to need Fenatnyl and has been off this the past 2 days, breathing 16 on AC 15, tolerated SBT on low level CPAP PS yesterday for up to 2 hours. Does not open eyes when stimulated, but children states she follows their commands. Other VS and I/Os reviewed. Hypotensive yesterday after lasix, none exhibited today and has diuresed over 2000ml urine already as of 100PM. ROS: No other pertinent negs or positives on 10+ system review obtainable from intubated and sedated patient. PMSFH: All other Nursing and physician documentation reviewed to date; no new pertinent info noted relevant to current medical problems. EXAM- HEENT: no icterus, no gaze preference, pupils equal and reactive NECK: No JVD, supple, carotids equal upstroke bilat/no bruits CHEST: decreased BS bases, no wheezes audible, decreased crepitus over L upper and lateral chest, bilateral ecchymoses HEART: regular tachy, distant, S1S2, no rubs. ABD: soft, no distention, no tympany, no palp tenderness, BS hypoactive. EXT: No peripheral/ digital cyanosis, no calf tenderness or palpable cords, distal pulses intact and symmetrical. NEURO: no focal motor deficits, minimally withdraws x 4 limbs to pain. SKIN: no rashes, warm and dry. LABS: WBC= 8.6 HGB= 9.8 PLTs= 148K Bv=564 K= 4.2 CL=98 HCO3= 34 BUN/Cr= 48/1.4 NQ=182 7.50 / 46 / 111 CXR: (my interp) hypoexpanded lung cox, resulting in carline congestive changes; ETT position OK. IMPRESSION / MAJOR PROBLEMS NOW: 1. Bilateral / Multiple Rib fractures with bilateral pneumonitis 2. s/p Cardio-Resp Arrest 3. COPD / Asthma Exacerb 4. Acute blood loss Anemia 5. Azotemia, r/o GRETCHEN 6. H/o ETOH Abuse PLAN: 1. Stop Fenatnyl, wean Precedex drip. 2. Vent wean protocol initiated; CPAP PS trials today. 3. Increased free water via tube feeds, will make Lasix IV PRN for now. 4. Watch Temps, on Zosyn / Kario. CCU Objective - Vital Signs / Intake & Output Vital Signs (Last 4 hours): Vital Signs BP 11/29/17 09:51 130/77 Intake and Output (Last 8hrs): Intake & Output 11/28/17 11/29/17 11/29/17 22:59 06:59 14:59 Intake Total 1371 1254 Output Total 1200 700 Balance 171 554 Intake: IV 146 154 Intake, Piggyback 650 100 Tube Feeding 275 400 Free Water Flush 300 600 Output: Urine 1200 700 Urethral (Thrasher) 1200 700 Other: # Bowel Movements 0
[2017-11-29 13:31] LABS: SQUAMOUS EPITHIAL < 1 /hpf (0-5); URINE BACTERIA RARE (<OCC); URINE BILIRUBIN NEGATIVE (NEGATIVE); URINE BLOOD NEGATIVE (NEGATIVE); URINE CLARITY SLIGHTY-CLOUDY (Clear); URINE COLOR YELLOW (YELLOW); URINE GLUCOSE (UA) 150 mg/dL (Normal); URINE LEUKOCYTE ESTERASE NEG Leu/uL (Negative); URINE PROTEIN NEGATIVE (NEGATIVE); URINE UROBILINOGEN 0.2-1.0 mg/dL (0.2-1.0)
--- NOTE | 2017-11-29 23:31 | CP.PCM.PN ---
Subjective - Date & Time of Evaluation Date of Evaluation: 11/29/17 Time of Evaluation: 15:10 Objective - Vital Signs/Intake and Output Vital Signs (last 24 hours): Temp Pulse Resp BP Pulse Ox 100 F H 84 23 130/77 99 11/29/17 08:00 11/29/17 08:00 11/29/17 08:00 11/29/17 09:51 11/29/17 08:00 Intake and Output: 11/29/17 11/30/17 18:59 06:59 Intake Total 4 500 Output Total 1999 Balance -1996 -300 - Medications Medications: Current Medications Acetaminophen (Tylenol 650mg/20.3ml Solution Ud) 650 mg PO Q6 PRN PRN Reason: temp > 100.6 Last Admin: 11/27/17 21:58 Dose: 650 mg Bupropion HCl (Wellbutrin) 75 mg PO DAILY [facility] Last Admin: 11/29/17 09:49 Dose: 75 mg Chlordiazepoxide (Librium) 50 mg PO Q8@0600,1400,2200 [facility] Last Admin: 11/29/17 22:48 Dose: 50 mg Folic Acid (Folic Acid) 1 mg PO DAILY [facility] Last Admin: 11/29/17 09:46 Dose: 1 mg Furosemide (Lasix) 40 mg IVP DAILY [facility] Last Admin: 11/29/17 09:51 Dose: 40 mg Haloperidol Lactate (Haldol) 2 mg IVP Q4 PRN PRN Reason: Agitation Last Admin: 11/29/17 17:28 Dose: 2 mg Dexmedetomidine HCl 400 mcg/ (Sodium Chloride) 100 mls @ 4.64 mls/hr IV .[id number] [facility]; 0.2 MCG/KG/HR PRN Reason: Protocol Last Titration: 11/29/17 17:46 Dose: 0.81 mcg/kg/hr, 18.9 mls/hr Piperacillin Sod/Tazobactam (Sod 2.25 gm/ Sodium Chloride) 100 mls @ 100 mls/ hr IVPB 0200,0800,1400,2000 [facility] PRN Reason: Protocol Last Admin: 11/29/17 21:00 Dose: 100 mls/hr Vancomycin HCl 750 mg/ Sodium (Chloride) 250 mls @ 166.667 mls/hr IVPB DAILY@ 1600 [facility] PRN Reason: Protocol Last Admin: 11/29/17 16:30 Dose: 166.667 mls/hr Insulin Human Lispro (Humalog) 0 units SC Q6H [facility] PRN Reason: Protocol Last Admin: 11/29/17 22:59 Dose: 2 units Ketorolac Tromethamine (Toradol) 30 mg IVP Q6 PRN PRN Reason: Pain, moderate (4-7) Last Admin: 11/29/17 22:48 Dose: 30 mg Lidocaine (Lidoderm) 2 ea TD DAILY [facility] Last Admin: 11/29/17 09:46 Dose: Not Given Lorazepam (Ativan) 2 mg IVP Q4 PRN PRN Reason: Agitation Last Admin: 11/28/17 15:56 Dose: 2 mg Methylprednisolone (Solu-Medrol) 40 mg IV Q24H [facility] Last Admin: 11/29/17 09:48 Dose: 40 mg Nicotine (Nicoderm Cq) 1 patch TD DAILY [facility] Last Admin: 11/29/17 09:52 Dose: 1 patch Pantoprazole Sodium (Protonix Susp) 40 mg NG DAILY [facility] Last Admin: 11/29/17 09:48 Dose: 40 mg Thiamine HCl (Vitamin B1 Tab) 100 mg PO DAILY [facility] Last Admin: 11/29/17 09:49 Dose: 100 mg - Labs Labs: 11/29/17 04:30 11/29/17 04:30 PT 12.7 Seconds (9.8-13.1) 11/21/17 04:20 INR 1.1 (0.9-1.2) 11/21/17 04:20 APTT 24.9 Seconds (25.6-37.1) L 11/21/17 04:20 Assessment and Plan (1) Respiratory arrest Status: Acute (2) Schizoaffective disorder Status: Acute (3) Chest wall pain Status: Acute
[2017-11-30] MEDS: Dexmedetomidine Hydrochloride 400 MCG in Sodium Chloride 0.9% 96 ML IV SCH ×2 (00:21→06:48)
[2017-11-30 05:04] LABS: ABG ALLEN TEST YES; ARTERIAL BLOOD GAS HCO3 35.6 mmol/L (21-28); ARTERIAL BLOOD GAS HEMOGLOBIN 10.3 g/dL (11.7-17.4); ARTERIAL BLOOD GAS O2 CAPACITY 14.2 mL/dL (16-24); ARTERIAL BLOOD GAS O2 SAT 98.5 % (95-98); ARTERIAL BLOOD GAS PCO2 48 mm/Hg (35-45); ARTERIAL BLOOD GAS PH 7.51 (7.35-7.45); ARTERIAL BLOOD GAS PO2 87 mm/Hg (80-100); ARTERIAL BLOOD GAS TCO2 39.8 mmol/L (22-28)
[2017-11-30] MEDS: Insulin Lispro (humaLOG) 100 Units/ml Inj SC SCH ×4 (05:26→22:30)
[2017-11-30 05:28] LABS: HEMOGLOBIN 9.9 g/dL (12.0-16.0); MEAN CELL VOLUME 97.4 fl (81.0-99.0); MEAN CORPUSCULAR HEMOGLOBIN 33.4 pg (27.0-31.0); MEAN CORPUSCULAR HGB CONC 34.2 g/dL (33.0-37.0); RBC 2.98 Mil/uL (3.80-5.20); RED CELL DISTRIBUTION WIDTH 13.4 % (11.5-14.5)
[2017-11-30] MEDS: Pantoprazole 40 mg Susp UD NG SCH (08:27)
[2017-11-30] MEDS: MethylPREDNISolone 40 mg Vial IV SCH (09:07)
[2017-11-30] MEDS: Lidocaine 5% Patch TD SCH (09:07)
--- NOTE | 2017-11-30 09:36 | RAD ---
HISTORY: reevaluate COMPARISON: 11/29/2017 FINDINGS: LUNGS: Improvement in bilateral interstitial changes. PLEURA: No significant pleural effusion identified, no pneumothorax apparent. CARDIOVASCULAR: Normal. OSSEOUS STRUCTURES: No significant abnormalities. VISUALIZED UPPER ABDOMEN: Normal. OTHER FINDINGS: ETT above the gómez. Right PICC line tip in the SVC. IMPRESSION: Improved bilateral interstitial changes.
[2017-11-30] MEDS ORDERED: Potassium Chloride 20 mEq/15 ml LIQ UD PO ONE (10:59)
--- NOTE | 2017-11-30 11:34 | CP.CCUPN ---
CCU Subjective - Physician Review Events Since Last Encounter (Free Text): 11/30/17 11:33 alert, following commands. CCU Objective - Vital Signs / Intake & Output Vital Signs (Last 4 hours): Vital Signs Temp Pulse Resp BP Pulse Ox 11/30/17 10:00 81 23 87/56 L 96 11/30/17 09:00 75 21 82/53 L 100 11/30/17 08:32 96/59 L 11/30/17 08:00 98.5 F 81 14 96/59 L 100 Intake and Output (Last 8hrs): Intake & Output 11/29/17 11/30/17 11/30/17 22:59 06:59 14:59 Intake Total 596 1500 669 Output Total 400 700 120 Balance 196 800 549 Weight 187 lb Intake: IV 96 200 149 Intake, Piggyback 20 Tube Feeding 200 400 200 Free Water Flush 300 900 300 Output: Urine 400 700 120 Urethral (Khoury) 400 700 120 - Physical Exam Head: Positive for: Atraumatic, Normocephalic Pupils: Positive for: PERRL, Sluggish Extroacular Muscles: Positive for: EOMI Conjunctiva: Positive for: Normal. Negative for: Injected, Icteric Mouth: Positive for: Moist Mucous Membranes Pharnyx: Positive for: Normal Nose (Internal): Positive for: Normal Inspection Neck: Positive for: Normal Range of Motion, Trachea Midline. Negative for: Meningeal Signs, MIDLINE TENDERNESS, Paraspinal Tenderness, JVD, Lymphadenopathy , Bruit, Other Respiratory/Chest: Positive for: Wheezes, Decreased Breath Sounds, Rales, Rhonchi. Negative for: Respiratory Distress, Accessory Muscle Use Cardiovascular: Positive for: Regular Rate and Rhythm, Normal S1, S2, Peripheal Pulses Present. Negative for: Murmurs, Irregular Rhythm, Tachycardic, Bradycardic Abdomen: Positive for: Normal Bowel Sounds. Negative for: Tenderness, Distention, Peritoneal Signs, Rebound, Guarding Upper Extremity: Positive for: Normal Inspection, NORMAL PULSES, Capillary Refill < 2s. Negative for: Cyanosis, Edema Lower Extremity: Positive for: Normal Inspection, NORMAL PULSES, Capillary Refill < 2 s. Negative for: Edema, CALF TENDERNESS Neurological: Positive for: GCS=15, CN II-XII Intact, Speech Normal, Motor Func Grossly Intact, Normal Sensory Function Psychiatric: Positive for: Alert, Oriented x 3 - Medications Active Medications: Active Medications Generic Name Dose Route Start Last Admin Trade Name Freq PRN Reason Stop Dose Admin Acetaminophen 650 mg 11/27/17 21:09 11/27/17 21:58 Tylenol 650mg/20.3ml Solution Ud PO 650 mg Q6 PRN Administration temp > 100.6 Acetazolamide 250 mg 11/30/17 16:00 Diamox 500 Mg Inj IV 12/01/17 10:01 Q6 [facility] Bupropion HCl 75 mg 11/19/17 09:00 11/30/17 08:30 Wellbutrin PO 75 mg DAILY [facility] Administration Folic Acid 1 mg 11/20/17 10:00 11/30/17 08:27 Folic Acid PO 1 mg DAILY [facility] Administration Furosemide 40 mg 11/24/17 09:45 11/30/17 08:32 Lasix IVP 40 mg DAILY [facility] Administration Haloperidol Lactate 2 mg 11/18/17 09:13 11/29/17 17:28 Haldol IVP 2 mg Q4 PRN Administration Agitation Dexmedetomidine HCl 400 mcg/ 100 mls @ 4.64 mls/hr 11/27/17 08:56 11/30/17 09 :30 Sodium Chloride IV 0 mcg/kg/hr .[id number] [facility] 0 mls/hr Protocol Titration 0.2 MCG/KG/HR Piperacillin Sod/Tazobactam 100 mls @ 100 mls/hr 11/27/17 20:00 11/30/17 08: 30 Sod 2.25 gm/ Sodium Chloride IVPB 100 mls/hr 0200,0800,1400,2000 [facility] Administration Protocol Vancomycin HCl 750 mg/ Sodium 250 mls @ 166.667 mls/hr 11/28/17 16:00 16:30 Chloride IVPB 166.667 mls/hr DAILY@1600 [facility] Administration Protocol Insulin Human Lispro 0 units 11/26/17 11:41 11/30/17 05:26 Humalog SC Not Given Q6H [facility] Protocol Ketorolac Tromethamine 30 mg 11/26/17 11:15 11/29/17 22:48 Toradol IVP 30 mg Q6 PRN Administration Pain, moderate (4-7) Lidocaine 2 ea 11/21/17 09:00 11/30/17 09:07 Lidoderm TD 2 ea DAILY [facility] Administration Methylprednisolone 40 mg 11/27/17 10:00 11/30/17 09:07 Solu-Medrol IV 40 mg Q24H [facility] Administration Nicotine 1 patch 11/18/17 09:45 11/30/17 08:26 Nicoderm Cq TD 1 patch DAILY [facility] Administration Pantoprazole Sodium 40 mg 11/26/17 09:00 11/30/17 08:27 Protonix Susp NG 40 mg DAILY [facility] Administration Thiamine HCl 100 mg 11/21/17 09:00 11/30/17 08:27 Vitamin B1 Tab PO 100 mg DAILY [facility] Administration - Patient Studies Lab Studies: Microbiology Studies 11/29/17 13:14 Urine Culture - Final Urine,Catheterized No Growth (<1,000 CFU/ML) 11/25/17 16:51 Blood Culture - Preliminary Blood-Venous NO GROWTH AFTER 4 DAYS Lab Studies 11/30/17 11/30/17 11/30/17 Range/Units 04:57 04:25 04:25 WBC (4.8-10.8) K/uL RBC (3.80-5.20) Mil/uL Hgb (12.0-16.0) g/dL Hct (34.0-47.0) % MCV (81.0-99.0) fl MCH (27.0-31.0) pg MCHC (33.0-37.0) g/dL RDW (11.5-14.5) % Plt Count (130-400) K/uL pCO2 48 H (35-45) mm/Hg pO2 87 (80-100) mm/Hg HCO3 35.6 H (21-28) mmol/L ABG pH 7.51 H (7.35-7.45) ABG Total CO2 39.8 H (22-28) mmol/L ABG O2 Saturation 98.5 H (95-98) % ABG O2 Content 14.0 L (15-23) ML/dL ABG Base Excess 13.7 H (-2.0-3.0) mmol/L ABG Hemoglobin 10.3 L (11.7-17.4) g/dL ABG Carboxyhemoglobin 1.9 H (0.5-1.5) % POC ABG HHb (Measured) 1.5 (0.0-5.0) % ABG Methemoglobin 0.9 (0.0-3.0) % ABG O2 Capacity 14.2 L (16-24) mL/dL Dwight Test Yes A-a O2 Difference 138.0 mm/Hg Hgb O2 Saturation 95.7 (95.0-98.0) % Vent Mode Prvc/ac Mechanical Rate 10 FiO2 40.0 % Tidal Volume 500 PEEP 5 Sodium 138 (132-148) mmol/l Potassium 3.3 L (3.6-5.0) MMOL/L Chloride 96 L (98-107) mmol/L Carbon Dioxide 36 H (22-30) mmol/L Anion Gap 9 L (10-20) BUN 44 H (7-17) mg/dl Creatinine 1.4 H (0.7-1.2) mg/dl Est GFR ( Amer) 47 Est GFR (Non-Af Amer) 39 POC Glucose (mg/dL) 86 (65-110) mg/dL Random Glucose 81 (65-105) mg/dL Calcium 8.0 L (8.4-10.2) mg/dL Urine Color (YELLOW) Urine Clarity (Clear) Urine pH (5.0-8.0) Ur Specific [place] (1.003-1.030) Urine Protein (NEGATIVE) mg/dL Urine Glucose (UA) (Normal) mg/dL Urine Ketones (NEGATIVE) mg/dL Urine Blood (NEGATIVE) Urine Nitrate (NEGATIVE) Urine Bilirubin (NEGATIVE) Urine Urobilinogen (0.2-1.0) mg/dL Ur Leukocyte Esterase (Negative) [place]/uL Urine RBC (Auto) (0-3) /hpf Urine Microscopic WBC (0-5) /hpf Ur Squamous Epith Cells (0-5) /hpf Urine Bacteria (<OCC) 11/30/17 11/29/17 11/29/17 Range/Units 04:25 21:19 17:50 WBC 9.0 (4.8-10.8) K/uL RBC 2.98 L (3.80-5.20) Mil/uL Hgb 9.9 L (12.0-16.0) g/dL Hct 29.0 L (34.0-47.0) % MCV 97.4 (81.0-99.0) fl MCH 33.4 H (27.0-31.0) pg MCHC 34.2 (33.0-37.0) g/dL RDW 13.4 (11.5-14.5) % Plt Count 156 (130-400) K/uL pCO2 (35-45) mm/Hg pO2 (80-100) mm/Hg HCO3 (21-28) mmol/L ABG pH (7.35-7.45) ABG Total CO2 (22-28) mmol/L ABG O2 Saturation (95-98) % ABG O2 Content (15-23) ML/dL ABG Base Excess (-2.0-3.0) mmol/L ABG Hemoglobin (11.7-17.4) g/dL ABG Carboxyhemoglobin (0.5-1.5) % POC ABG HHb (Measured) (0.0-5.0) % ABG Methemoglobin (0.0-3.0) % ABG O2 Capacity (16-24) mL/dL Dwight Test A-a O2 Difference mm/Hg Hgb O2 Saturation (95.0-98.0) % Vent Mode Mechanical Rate FiO2 % Tidal Volume PEEP Sodium (132-148) mmol/l Potassium (3.6-5.0) MMOL/L Chloride (98-107) mmol/L Carbon Dioxide (22-30) mmol/L Anion Gap (10-20) BUN (7-17) mg/dl Creatinine (0.7-1.2) mg/dl Est GFR ( Amer) Est GFR (Non-Af Amer) POC Glucose (mg/dL) 167 H 174 H (65-110) mg/dL Random Glucose (65-105) mg/dL Calcium (8.4-10.2) mg/dL Urine Color (YELLOW) Urine Clarity (Clear) Urine pH (5.0-8.0) Ur Specific [place] (1.003-1.030) Urine Protein (NEGATIVE) mg/dL Urine Glucose (UA) (Normal) mg/dL Urine Ketones (NEGATIVE) mg/dL Urine Blood (NEGATIVE) Urine Nitrate (NEGATIVE) Urine Bilirubin (NEGATIVE) Urine Urobilinogen (0.2-1.0) mg/dL Ur Leukocyte Esterase (Negative) [place]/uL Urine RBC (Auto) (0-3) /hpf Urine Microscopic WBC (0-5) /hpf Ur Squamous Epith Cells (0-5) /hpf Urine Bacteria (<OCC) /11/18 Range/Units 13:14 WBC (4.8-10.8) K/uL RBC (3.80-5.20) Mil/uL Hgb (12.0-16.0) g/dL Hct (34.0-47.0) % MCV (81.0-99.0) fl MCH (27.0-31.0) pg MCHC (33.0-37.0) g/dL RDW (11.5-14.5) % Plt Count (130-400) K/uL pCO2 (35-45) mm/Hg pO2 (80-100) mm/Hg HCO3 (21-28) mmol/L ABG pH (7.35-7.45) ABG Total CO2 (22-28) mmol/L ABG O2 Saturation (95-98) % ABG O2 Content (15-23) ML/dL ABG Base Excess (-2.0-3.0) mmol/L ABG Hemoglobin (11.7-17.4) g/dL ABG Carboxyhemoglobin (0.5-1.5) % POC ABG HHb (Measured) (0.0-5.0) % ABG Methemoglobin (0.0-3.0) % ABG O2 Capacity (16-24) mL/dL Dwight Test A-a O2 Difference mm/Hg Hgb O2 Saturation (95.0-98.0) % Vent Mode Mechanical Rate FiO2 % Tidal Volume PEEP Sodium (132-148) mmol/l Potassium (3.6-5.0) MMOL/L Chloride (98-107) mmol/L Carbon Dioxide (22-30) mmol/L Anion Gap (10-20) BUN (7-17) mg/dl Creatinine (0.7-1.2) mg/dl Est GFR ( Amer) Est GFR (Non-Af Amer) POC Glucose (mg/dL) (65-110) mg/dL Random Glucose (65-105) mg/dL Calcium (8.4-10.2) mg/dL Urine Color Yellow (YELLOW) Urine Clarity Slighty-cloudy (Clear) Urine pH 6.0 (5.0-8.0) Ur Specific [place] 1.023 (1.003-1.030) Urine Protein Negative (NEGATIVE) mg/dL Urine Glucose (UA) 150 (Normal) mg/dL Urine Ketones Negative (NEGATIVE) mg/dL Urine Blood Negative (NEGATIVE) Urine Nitrate Negative (NEGATIVE) Urine Bilirubin Negative (NEGATIVE) Urine Urobilinogen 0.2-1.0 (0.2-1.0) mg/dL Ur Leukocyte Esterase Neg (Negative) [place]/uL Urine RBC (Auto) 4 H (0-3) /hpf Urine Microscopic WBC 4 (0-5) /hpf Ur Squamous Epith Cells < 1 (0-5) /hpf Urine Bacteria Rare (<OCC) Laboratory Results - last 24 hr 11/29/17 11/29/17 11/29/17 13:14 17:50 21:19 WBC RBC Hgb Hct MCV MCH MCHC RDW Plt Count pCO2 pO2 HCO3 ABG pH ABG Total CO2 ABG O2 Saturation ABG O2 Content ABG Base Excess ABG Hemoglobin ABG Carboxyhemoglobin POC ABG HHb (Measured) ABG Methemoglobin ABG O2 Capacity Dwight Test A-a O2 Difference Hgb O2 Saturation Vent Mode Mechanical Rate FiO2 Tidal Volume PEEP Sodium Potassium Chloride Carbon Dioxide Anion Gap BUN Creatinine Est GFR ( Amer) Est GFR (Non-Af Amer) POC Glucose (mg/dL) 174 H 167 H Random Glucose Calcium Urine Color Yellow Urine Clarity Slighty-cloudy Urine pH 6.0 Ur Specific [place] 1.023 Urine Protein Negative Urine Glucose (UA) 150 Urine Ketones Negative Urine Blood Negative Urine Nitrate Negative Urine Bilirubin Negative Urine Urobilinogen 0.2-1.0 Ur Leukocyte Esterase Neg Urine RBC (Auto) 4 H Urine Microscopic WBC 4 Ur Squamous Epith Cells < 1 Urine Bacteria Rare 11/30/17 11/30/17 11/30/17 04:25 04:25 04:25 WBC 9.0 RBC 2.98 L Hgb 9.9 L Hct 29.0 L MCV 97.4 MCH 33.4 H MCHC 34.2 RDW 13.4 Plt Count 156 pCO2 pO2 HCO3 ABG pH ABG Total CO2 ABG O2 Saturation ABG O2 Content ABG Base Excess ABG Hemoglobin ABG Carboxyhemoglobin POC ABG HHb (Measured) ABG Methemoglobin ABG O2 Capacity Dwight Test A-a O2 Difference Hgb O2 Saturation Vent Mode Mechanical Rate FiO2 Tidal Volume PEEP Sodium 138 Potassium 3.3 L Chloride 96 L Carbon Dioxide 36 H Anion Gap 9 L BUN 44 H Creatinine 1.4 H Est GFR ( Amer) 47 Est GFR (Non-Af Amer) 39 POC Glucose (mg/dL) 86 Random Glucose 81 Calcium 8.0 L Urine Color Urine Clarity Urine pH Ur Specific [place] Urine Protein Urine Glucose (UA) Urine Ketones Urine Blood Urine Nitrate Urine Bilirubin Urine Urobilinogen Ur Leukocyte Esterase Urine RBC (Auto) Urine Microscopic WBC Ur Squamous Epith Cells Urine Bacteria 11/30/17 04:57 WBC RBC Hgb Hct MCV MCH MCHC RDW Plt Count pCO2 48 H pO2 87 HCO3 35.6 H ABG pH 7.51 H ABG Total CO2 39.8 H ABG O2 Saturation 98.5 H ABG O2 Content 14.0 L ABG Base Excess 13.7 H ABG Hemoglobin 10.3 L ABG Carboxyhemoglobin 1.9 H POC ABG HHb (Measured) 1.5 ABG Methemoglobin 0.9 ABG O2 Capacity 14.2 L Dwight Test Yes A-a O2 Difference 138.0 Hgb O2 Saturation 95.7 Vent Mode Prvc/ac Mechanical Rate 10 FiO2 40.0 Tidal Volume 500 PEEP 5 Sodium Potassium Chloride Carbon Dioxide Anion Gap BUN Creatinine Est GFR ( Amer) Est GFR (Non-Af Amer) POC Glucose (mg/dL) Random Glucose Calcium Urine Color Urine Clarity Urine pH Ur Specific [place] Urine Protein Urine Glucose (UA) Urine Ketones Urine Blood Urine Nitrate Urine Bilirubin Urine Urobilinogen Ur Leukocyte Esterase Urine RBC (Auto) Urine Microscopic WBC Ur Squamous Epith Cells Urine Bacteria Fingerstick Blood Sugar Results: 86 Review of Systems - Review of Systems Systems not reviewed;Unavailable: Intubated Assessment/Plan (1) Respiratory arrest Assessment and plan: 57yo F. PMHx Anxiety, Depression, ETOH abuse, Gastritis, and Asthma. p/w asthma exacerbation that progressed to respiratory failure with cardiac arrest. Intubated (11/17), reintubated (11/19). Neuro: alert, follows commands. ativan/haldol prn. Toradol prn for pain. Pulm: acute respiratory failure on PRVC. COPD, decreased Solumedrol 40 IV q24h. Tolerating PS trials, will move toward extubation. CV: hemodynamically stable Hem:no acute issues Renal: diuresing on lasix 40m IV daily, acetazolamide IV q6h for metabolic alkalosis. Endo: elevated BS while on steroids, increased SISS for coverge. GI: NPO, Jevity@55, free water flushes 150ml q4h. ID: [id number] for yeast found in sputum. Blood cultures - sent off. DVT proph - Lovenox GI proph - protonix khoury for strict I/O's during acute illness Code status - full code Critical Care Time spent 35 minutes Multi-disciplinary rounds were performed with house staff, nursing, speech therapy, respiratory therapy, pharmacy and nutrition with integrated input from the primary team/attending and other consulting services. The documented time is cumulative and includes review of patient data/exams/labs/chart review and examination of the patient on rounds and throughout the day; time is exclusive of any procedures or teaching time. Current Visit: Yes Status: Acute Comment: S/P chest compression with Rib fractures Patient Successfully extubated No PTX Pain controlled Incentive spirometer
[2017-12-01 04:55] LABS: HEMOGLOBIN 9.4 g/dL (12.0-16.0); MEAN CORPUSCULAR HEMOGLOBIN 33.1 pg (27.0-31.0); MEAN CORPUSCULAR HGB CONC 33.8 g/dL (33.0-37.0); RBC 2.84 Mil/uL (3.80-5.20); RED CELL DISTRIBUTION WIDTH 13.4 % (11.5-14.5); WHITE BLOOD COUNT 9.3 K/uL (4.8-10.8)
[2017-12-01 05:04] LABS: CALCIUM 8.7 mg/dL (8.4-10.2)
[2017-12-01] MEDS: Insulin Lispro (humaLOG) 100 Units/ml Inj SC SCH ×3 (07:16→17:25)
--- NOTE | 2017-12-01 08:12 | CP.PCM.PN ---
Subjective - Date & Time of Evaluation Date of Evaluation: 11/30/17 Time of Evaluation: 15:15 - Subjective Subjective: Seen and examined at the bed side. Extubated and Tolerating well, and following Commands. +Dysphonia and Horse voices. Objective - Vital Signs/Intake and Output Vital Signs (last 24 hours): Temp Pulse Resp BP Pulse Ox 98.7 F 82 26 H 135/77 100 12/01/17 07:58 12/01/17 07:58 12/01/17 07:58 12/01/17 07:58 12/01/17 07:58 Intake and Output: 12/01/17 12/01/17 06:59 18:59 Intake Total 124 Output Total 840 60 Balance -716 -60 - Medications Medications: Current Medications Acetaminophen (Tylenol 650mg/20.3ml Solution Ud) 650 mg PO Q6 PRN PRN Reason: temp > 100.6 Last Admin: 11/27/17 21:58 Dose: 650 mg Acetazolamide (Diamox 500 Mg Inj) 250 mg IV Q6 [facility] Stop: 12/01/17 10:01 Last Admin: 12/01/17 04:29 Dose: 250 mg Bupropion HCl (Wellbutrin) 75 mg PO DAILY [facility] Last Admin: 11/30/17 08:30 Dose: 75 mg Folic Acid (Folic Acid) 1 mg PO DAILY [facility] Last Admin: 11/30/17 08:27 Dose: 1 mg Furosemide (Lasix) 40 mg IVP DAILY [facility] Last Admin: 11/30/17 08:32 Dose: 40 mg Haloperidol Lactate (Haldol) 2 mg IVP Q4 PRN PRN Reason: Agitation Last Admin: 12/01/17 02:17 Dose: 2 mg Dexmedetomidine HCl 400 mcg/ (Sodium Chloride) 100 mls @ 4.64 mls/hr IV .[id number] [facility]; 0.2 MCG/KG/HR PRN Reason: Protocol Last Titration: 11/30/17 09:30 Dose: 0 mcg/kg/hr, 0 mls/hr Vancomycin HCl 750 mg/ Sodium (Chloride) 250 mls @ 166.667 mls/hr IVPB DAILY@ 1600 [facility] PRN Reason: Protocol Last Admin: 11/30/17 16:18 Dose: 166.667 mls/hr Insulin Human Lispro (Humalog) 0 units SC Q6H [facility] PRN Reason: Protocol Last Admin: 12/01/17 07:16 Dose: Not Given Ketorolac Tromethamine (Toradol) 30 mg IVP Q6 PRN PRN Reason: Pain, moderate (4-7) Last Admin: 11/30/17 17:53 Dose: 30 mg Lidocaine (Lidoderm) 2 ea TD DAILY [facility] Last Admin: 11/30/17 09:07 Dose: 2 ea Methylprednisolone (Solu-Medrol) 40 mg IV Q24H [facility] Last Admin: 11/30/17 09:07 Dose: 40 mg Nicotine (Nicoderm Cq) 1 patch TD DAILY [facility] Last Admin: 11/30/17 08:26 Dose: 1 patch Pantoprazole Sodium (Protonix Susp) 40 mg NG DAILY [facility] Last Admin: 11/30/17 08:27 Dose: 40 mg Thiamine HCl (Vitamin B1 Tab) 100 mg PO DAILY [facility] Last Admin: 11/30/17 08:27 Dose: 100 mg - Labs Labs: 12/01/17 04:27 12/01/17 04:27 PT 12.7 Seconds (9.8-13.1) 11/21/17 04:20 INR 1.1 (0.9-1.2) 11/21/17 04:20 APTT 24.9 Seconds (25.6-37.1) L 11/21/17 04:20 - Constitutional Appears: Non-toxic, Chronically Ill - Head Exam Head Exam: ATRAUMATIC, NORMAL INSPECTION, NORMOCEPHALIC - Eye Exam Eye Exam: EOMI, Normal appearance, PERRL Pupil Exam: NORMAL ACCOMODATION, PERRL - ENT Exam ENT Exam: Mucous Membranes Moist, Normal Exam - Neck Exam Neck Exam: Full ROM, Normal Inspection. absent: Lymphadenopathy - Respiratory Exam Respiratory Exam: Decreased Breath Sounds, Clear to Ausculation Bilateral, Rales - Cardiovascular Exam Cardiovascular Exam: REGULAR RHYTHM, +S1, +S2. absent: Murmur - GI/Abdominal Exam GI & Abdominal Exam: Soft, Normal Bowel Sounds. absent: Tenderness - Extremities Exam Extremities Exam: Full ROM, Normal Capillary Refill, Normal Inspection. absent : Joint Swelling, Pedal Edema - Back Exam Back Exam: NORMAL INSPECTION - Neurological Exam Neurological Exam: Alert, Awake, CN II-XII Intact, Normal Gait, Oriented x3 - Psychiatric Exam Psychiatric exam: Normal Affect, Normal Mood - Skin Skin Exam: Dry, Intact, Normal Color, Warm Assessment and Plan (1) Respiratory arrest Assessment & Plan: Acute Respiratory Failure S/P Extubation today B/L Pneuomonia Vs Lung Contusion COPD/Asthma Exacerbation Continue Treatment as per Hall Director Recommendation with Duoneb RTC, IV Steroid and IV Antibiotics Status: Acute (2) Schizoaffective disorder Status: Chronic (3) Chest wall pain Assessment & Plan: Multiple Rib Fracture ?Pulmonary Contusion and Hematoma CV Surgeon and Pumonolgist ON Boadr. PAin medication PRN Status: Acute
[2017-12-01] MEDS ORDERED: Potassium Chloride 20 mEq 100 ML IVPB ONE (08:16)
[2017-12-01] MEDS: MethylPREDNISolone 40 mg Vial IV SCH (09:00)
[2017-12-01] MEDS: Lidocaine 5% Patch TD SCH (09:01)
[2017-12-01] MEDS: Pantoprazole 40 mg Susp UD NG SCH (09:06)
[2017-12-01 11:16] LABS: ABG ALLEN TEST YES; ARTERIAL BLOOD GAS HCO3 29.2 mmol/L (21-28); ARTERIAL BLOOD GAS HEMOGLOBIN 10.6 g/dL (11.7-17.4); ARTERIAL BLOOD GAS O2 CAPACITY 14.7 mL/dL (16-24); ARTERIAL BLOOD GAS O2 CONTENT 14.6 ML/dL (15-23); ARTERIAL BLOOD GAS O2 SAT 99.2 % (95-98); ARTERIAL BLOOD GAS PCO2 42 mm/Hg (35-45); ARTERIAL BLOOD GAS PH 7.46 (7.35-7.45); ARTERIAL BLOOD GAS PO2 108 mm/Hg (80-100); ARTERIAL BLOOD GAS TCO2 31.2 mmol/L (22-28)
--- NOTE | 2017-12-01 13:24 | CP.CCUPN ---
CCU Subjective - Physician Review Events Since Last Encounter (Free Text): 12/01/17 13:21 feelling better, but not completely coherent when she speaks. CCU Objective - Vital Signs / Intake & Output Vital Signs (Last 4 hours): Vital Signs Temp Pulse Resp BP Pulse Ox 12/01/17 12:00 98.6 F 89 34 H 120/70 97 12/01/17 10:00 90 23 140/79 99 Intake and Output (Last 8hrs): Intake & Output 11/30/17 12/01/17 12/01/17 22:59 06:59 14:59 Intake Total 460 14 100 Output Total 1520 620 450 Balance -1060 -606 -350 Intake: IV 460 14 100 Output: Urine 1500 550 300 Urethral (Khoury) 1500 550 300 Stool 20 70 150 - Physical Exam Head: Positive for: Atraumatic, Normocephalic Pupils: Positive for: PERRL, Sluggish Extroacular Muscles: Positive for: EOMI Conjunctiva: Positive for: Normal. Negative for: Injected, Icteric Mouth: Positive for: Moist Mucous Membranes Pharnyx: Positive for: Normal Nose (Internal): Positive for: Normal Inspection Neck: Positive for: Normal Range of Motion, Trachea Midline. Negative for: Meningeal Signs, MIDLINE TENDERNESS, Paraspinal Tenderness, JVD, Lymphadenopathy , Bruit, Other Respiratory/Chest: Positive for: Wheezes, Decreased Breath Sounds, Rales, Rhonchi. Negative for: Respiratory Distress, Accessory Muscle Use Cardiovascular: Positive for: Regular Rate and Rhythm, Normal S1, S2, Peripheal Pulses Present. Negative for: Murmurs, Irregular Rhythm, Tachycardic, Bradycardic Abdomen: Positive for: Normal Bowel Sounds. Negative for: Tenderness, Distention, Peritoneal Signs, Rebound, Guarding Upper Extremity: Positive for: Normal Inspection, NORMAL PULSES, Capillary Refill < 2s. Negative for: Cyanosis, Edema Lower Extremity: Positive for: Normal Inspection, NORMAL PULSES, Capillary Refill < 2 s. Negative for: Edema, CALF TENDERNESS Neurological: Positive for: GCS=15, CN II-XII Intact, Speech Normal, Motor Func Grossly Intact, Normal Sensory Function Psychiatric: Positive for: Alert, Oriented x 3 - Medications Active Medications: Active Medications Generic Name Dose Route Start Last Admin Trade Name Freq PRN Reason Stop Dose Admin Acetaminophen 650 mg 11/27/17 21:09 11/27/17 21:58 Tylenol 650mg/20.3ml Solution Ud PO 650 mg Q6 PRN Administration temp > 100.6 Bupropion HCl 75 mg 11/19/17 09:00 12/01/17 09:27 Wellbutrin PO 75 mg DAILY [facility] Administration Folic Acid 1 mg 11/20/17 10:00 12/01/17 09:27 Folic Acid PO 1 mg DAILY [facility] Administration Haloperidol Lactate 2 mg 11/18/17 09:13 12/01/17 02:17 Haldol IVP 2 mg Q4 PRN Administration Agitation Insulin Human Lispro 0 units 11/26/17 11:41 12/01/17 10:53 Humalog SC Not Given Q6H [facility] Protocol Lidocaine 2 ea 11/21/17 09:00 12/01/17 09:01 Lidoderm TD 2 ea DAILY [facility] Administration Methylprednisolone 40 mg 11/27/17 10:00 12/01/17 09:00 Solu-Medrol IV 40 mg Q24H [facility] Administration Nicotine 1 patch 11/18/17 09:45 12/01/17 09:02 Nicoderm Cq TD 1 patch DAILY [facility] Administration Pantoprazole Sodium 40 mg 12/01/17 09:15 12/01/17 10:56 Protonix Inj IVP 40 mg DAILY [facility] Administration - Patient Studies Lab Studies: Microbiology Studies 11/25/17 16:51 Blood Culture - Final Blood-Venous NO GROWTH AFTER 5 DAYS Gram Stain - Final TEST NOT PERFORMED 11/29/17 13:14 Urine Culture - Final Urine,Catheterized No Growth (<1,000 CFU/ML) Lab Studies 12/01/17 12/01/17 12/01/17 Range/Units 11:00 10:49 04:38 WBC (4.8-10.8) K/uL RBC (3.80-5.20) Mil/uL Hgb (12.0-16.0) g/dL Hct (34.0-47.0) % MCV (81.0-99.0) fl MCH (27.0-31.0) pg MCHC (33.0-37.0) g/dL RDW (11.5-14.5) % Plt Count (130-400) K/uL pCO2 42 (35-45) mm/Hg pO2 108 H (80-100) mm/Hg HCO3 29.2 H (21-28) mmol/L ABG pH 7.46 H (7.35-7.45) ABG Total CO2 31.2 H (22-28) mmol/L ABG O2 Saturation 99.2 H (95-98) % ABG O2 Content 14.6 L (15-23) ML/dL ABG Base Excess 5.5 H (-2.0-3.0) mmol/L ABG Hemoglobin 10.6 L (11.7-17.4) g/dL ABG Carboxyhemoglobin 1.6 H (0.5-1.5) % POC ABG HHb (Measured) 0.8 (0.0-5.0) % ABG Methemoglobin 0.9 (0.0-3.0) % ABG O2 Capacity 14.7 L (16-24) mL/dL Dwight Test Yes A-a O2 Difference 125.0 mm/Hg Hgb O2 Saturation 96.7 (95.0-98.0) % Vent Mode Venti mask FiO2 40.0 % Sodium (132-148) mmol/l Potassium (3.6-5.0) MMOL/L Chloride (98-107) mmol/L Carbon Dioxide (22-30) mmol/L Anion Gap (10-20) BUN (7-17) mg/dl Creatinine (0.7-1.2) mg/dl Est GFR ( Amer) Est GFR (Non-Af Amer) POC Glucose (mg/dL) 133 H 113 H (65-110) mg/dL Random Glucose (65-105) mg/dL Calcium (8.4-10.2) mg/dL 12/01/17 12/01/17 11/30/17 Range/Units 04:27 04:27 21:26 WBC 9.3 (4.8-10.8) K/uL RBC 2.84 L (3.80-5.20) Mil/uL Hgb 9.4 L (12.0-16.0) g/dL Hct 27.8 L (34.0-47.0) % MCV 98.0 (81.0-99.0) fl MCH 33.1 H (27.0-31.0) pg MCHC 33.8 (33.0-37.0) g/dL RDW 13.4 (11.5-14.5) % Plt Count 148 (130-400) K/uL pCO2 (35-45) mm/Hg pO2 (80-100) mm/Hg HCO3 (21-28) mmol/L ABG pH (7.35-7.45) ABG Total CO2 (22-28) mmol/L ABG O2 Saturation (95-98) % ABG O2 Content (15-23) ML/dL ABG Base Excess (-2.0-3.0) mmol/L ABG Hemoglobin (11.7-17.4) g/dL ABG Carboxyhemoglobin (0.5-1.5) % POC ABG HHb (Measured) (0.0-5.0) % ABG Methemoglobin (0.0-3.0) % ABG O2 Capacity (16-24) mL/dL Dwight Test A-a O2 Difference mm/Hg Hgb O2 Saturation (95.0-98.0) % Vent Mode FiO2 % Sodium 141 (132-148) mmol/l Potassium 3.4 L (3.6-5.0) MMOL/L Chloride 100 (98-107) mmol/L Carbon Dioxide 31 H (22-30) mmol/L Anion Gap 13 (10-20) BUN 44 H (7-17) mg/dl Creatinine 1.7 H (0.7-1.2) mg/dl Est GFR ( Amer) 37 Est GFR (Non-Af Amer) 31 POC Glucose (mg/dL) 142 H (65-110) mg/dL Random Glucose 111 H (65-105) mg/dL Calcium 8.7 (8.4-10.2) mg/dL 11/30/17 Range/Units 16:19 WBC (4.8-10.8) K/uL RBC (3.80-5.20) Mil/uL Hgb (12.0-16.0) g/dL Hct (34.0-47.0) % MCV (81.0-99.0) fl MCH (27.0-31.0) pg MCHC (33.0-37.0) g/dL RDW (11.5-14.5) % Plt Count (130-400) K/uL pCO2 (35-45) mm/Hg pO2 (80-100) mm/Hg HCO3 (21-28) mmol/L ABG pH (7.35-7.45) ABG Total CO2 (22-28) mmol/L ABG O2 Saturation (95-98) % ABG O2 Content (15-23) ML/dL ABG Base Excess (-2.0-3.0) mmol/L ABG Hemoglobin (11.7-17.4) g/dL ABG Carboxyhemoglobin (0.5-1.5) % POC ABG HHb (Measured) (0.0-5.0) % ABG Methemoglobin (0.0-3.0) % ABG O2 Capacity (16-24) mL/dL Wdight Test A-a O2 Difference mm/Hg Hgb O2 Saturation (95.0-98.0) % Vent Mode FiO2 % Sodium (132-148) mmol/l Potassium (3.6-5.0) MMOL/L Chloride (98-107) mmol/L Carbon Dioxide (22-30) mmol/L Anion Gap (10-20) BUN (7-17) mg/dl Creatinine (0.7-1.2) mg/dl Est GFR ( Amer) Est GFR (Non-Af Amer) POC Glucose (mg/dL) 229 H (65-110) mg/dL Random Glucose (65-105) mg/dL Calcium (8.4-10.2) mg/dL Laboratory Results - last 24 hr 11/30/17 11/30/17 12/01/17 16:19 21:26 04:27 WBC 9.3 RBC 2.84 L Hgb 9.4 L Hct 27.8 L MCV 98.0 MCH 33.1 H MCHC 33.8 RDW 13.4 Plt Count 148 pCO2 pO2 HCO3 ABG pH ABG Total CO2 ABG O2 Saturation ABG O2 Content ABG Base Excess ABG Hemoglobin ABG Carboxyhemoglobin POC ABG HHb (Measured) ABG Methemoglobin ABG O2 Capacity Dwight Test A-a O2 Difference Hgb O2 Saturation Vent Mode FiO2 Sodium Potassium Chloride Carbon Dioxide Anion Gap BUN Creatinine Est GFR ( Amer) Est GFR (Non-Af Amer) POC Glucose (mg/dL) 229 H 142 H Random Glucose Calcium 12/01/17 12/01/17 12/01/17 04:27 04:38 10:49 WBC RBC Hgb Hct MCV MCH MCHC RDW Plt Count pCO2 pO2 HCO3 ABG pH ABG Total CO2 ABG O2 Saturation ABG O2 Content ABG Base Excess ABG Hemoglobin ABG Carboxyhemoglobin POC ABG HHb (Measured) ABG Methemoglobin ABG O2 Capacity Dwight Test A-a O2 Difference Hgb O2 Saturation Vent Mode FiO2 Sodium 141 Potassium 3.4 L Chloride 100 Carbon Dioxide 31 H Anion Gap 13 BUN 44 H Creatinine 1.7 H Est GFR ( Amer) 37 Est GFR (Non-Af Amer) 31 POC Glucose (mg/dL) 113 H 133 H Random Glucose 111 H Calcium 8.7 12/01/17 11:00 WBC RBC Hgb Hct MCV MCH MCHC RDW Plt Count pCO2 42 pO2 108 H HCO3 29.2 H ABG pH 7.46 H ABG Total CO2 31.2 H ABG O2 Saturation 99.2 H ABG O2 Content 14.6 L ABG Base Excess 5.5 H ABG Hemoglobin 10.6 L ABG Carboxyhemoglobin 1.6 H POC ABG HHb (Measured) 0.8 ABG Methemoglobin 0.9 ABG O2 Capacity 14.7 L Dwight Test Yes A-a O2 Difference 125.0 Hgb O2 Saturation 96.7 Vent Mode Venti mask FiO2 40.0 Sodium Potassium Chloride Carbon Dioxide Anion Gap BUN Creatinine Est GFR ( Amer) Est GFR (Non-Af Amer) POC Glucose (mg/dL) Random Glucose Calcium Fingerstick Blood Sugar Results: 133 Review of Systems - Review of Systems All systems: reviewed and no additional remarkable complaints except (no complaints) Assessment/Plan (1) Respiratory arrest Assessment and plan: 57yo F. PMHx Anxiety, Depression, ETOH abuse, Gastritis, and Asthma. p/w asthma exacerbation that progressed to respiratory failure with cardiac arrest. Intubated (11/17), reintubated (11/19). Extubated (11/30). Neuro: alert, follows commands. Wellbutrin for depression. Pulm: extubated (11/30), breathing well on nasal canula oxygen. COPD, stopping IV steroids. CV: hemodynamically stable Hem:no acute issues Renal: diuresing caused metabolic alkalosis, acetazolamide IV q6h, can stop tomorrow. Stopped lasix. Endo: elevated BS while on steroids, SISS for coverage, can stop if sugars stabilize now off of steroids. GI: NPO, s/s eval tomorrow. ID: stopped all abx. no signs of infection. OOB to chair, PT eval, s/s eval. DVT proph - Lovenox GI proph - protonix khoury for strict I/O's during acute illness Code status - full code Critical Care Time spent 35 minutes Multi-disciplinary rounds were performed with house staff, nursing, speech therapy, respiratory therapy, pharmacy and nutrition with integrated input from the primary team/attending and other consulting services. The documented time is cumulative and includes review of patient data/exams/labs/chart review and examination of the patient on rounds and throughout the day; time is exclusive of any procedures or teaching time. Current Visit: Yes Status: Acute Priority: High Comment: S/P chest compression with Rib fractures Patient Successfully extubated No PTX Pain controlled Incentive spirometer
--- NOTE | 2017-12-01 16:49 | CP.PCM.PN ---
Subjective - Date & Time of Evaluation Date of Evaluation: 12/01/17 Time of Evaluation: 16:05 Objective - Vital Signs/Intake and Output Vital Signs (last 24 hours): Temp Pulse Resp BP Pulse Ox 98.6 F 89 34 H 120/70 97 12/01/17 12:00 12/01/17 12:00 12/01/17 12:00 12/01/17 12:00 12/01/17 12:00 Intake and Output: 12/01/17 12/01/17 06:59 18:59 Intake Total 124 100 Output Total 840 450 Balance -716 -350 - Medications Medications: Current Medications Acetaminophen (Tylenol 650mg/20.3ml Solution Ud) 650 mg PO Q6 PRN PRN Reason: temp > 100.6 Last Admin: 11/27/17 21:58 Dose: 650 mg Bupropion HCl (Wellbutrin) 75 mg PO DAILY [facility] Last Admin: 12/01/17 09:27 Dose: 75 mg Folic Acid (Folic Acid) 1 mg PO DAILY [facility] Last Admin: 12/01/17 09:27 Dose: 1 mg Haloperidol Lactate (Haldol) 2 mg IVP Q4 PRN PRN Reason: Agitation Last Admin: 12/01/17 02:17 Dose: 2 mg Insulin Human Lispro (Humalog) 0 units SC Q6H [facility] PRN Reason: Protocol Last Admin: 12/01/17 10:53 Dose: Not Given Lidocaine (Lidoderm) 2 ea TD DAILY [facility] Last Admin: 12/01/17 09:01 Dose: 2 ea Nicotine (Nicoderm Cq) 1 patch TD DAILY [facility] Last Admin: 12/01/17 09:02 Dose: 1 patch Pantoprazole Sodium (Protonix Inj) 40 mg IVP DAILY [facility] Last Admin: 12/01/17 10:56 Dose: 40 mg - Labs Labs: 12/01/17 04:27 12/01/17 04:27 PT 12.7 Seconds (9.8-13.1) 11/21/17 04:20 INR 1.1 (0.9-1.2) 11/21/17 04:20 APTT 24.9 Seconds (25.6-37.1) L 11/21/17 04:20 Assessment and Plan (1) Respiratory arrest Status: Acute (2) Schizoaffective disorder Status: Chronic (3) Chest wall pain Status: Acute
[2017-12-02] MEDS: Insulin Lispro (humaLOG) 100 Units/ml Inj SC SCH ×5 (00:11→23:22)
[2017-12-02] MEDS: Albuterol-Ipratrop 3 mg / 0.5 (3 ml) UD INH PRN (05:37)
[2017-12-02] MEDS ORDERED: Dexmedetomidine Hydrochloride 400 MCG in Sodium Chloride 0.9% 96 ML IV ONE (06:22)
[2017-12-02 06:37] LABS: HEMOGLOBIN 10.6 g/dL (12.0-16.0); MEAN CELL VOLUME 97.5 fl (81.0-99.0); MEAN CORPUSCULAR HEMOGLOBIN 33.3 pg (27.0-31.0); MEAN CORPUSCULAR HGB CONC 34.1 g/dL (33.0-37.0); RBC 3.18 Mil/uL (3.80-5.20); RED CELL DISTRIBUTION WIDTH 13.5 % (11.5-14.5); WHITE BLOOD COUNT 9.5 K/uL (4.8-10.8)
[2017-12-02] MEDS: Lidocaine 5% Patch TD SCH (10:18)
[2017-12-02] MEDS: Tiotropium 18 mcg Cap For Inhalation INH SCH (10:20)
--- NOTE | 2017-12-02 11:34 | CP.CCUPN ---
CCU Subjective - Physician Review Events Since Last Encounter (Free Text): 12/02/17 16:15 The patient was seen and examined at the bedside, medical records reviewed, and management issues were discussed and formulated with the house staff. Events reviewed. 59 year old Active Heavy Smoker Female with PMHx of HTN, Arthritis, Asthma, Back Problems (c-spine, l-spine herniated discs), Depression, Gastritis, Anxiety and Schizophrenia Who Initially presented to the ED with shortness of breath x 1 day, Patient became increasingly labored breathing and while wondering down the hallway in ER, she collapsed with gasping respiration and went into respiratory and cardiac arrest. Code Blue was called in the ED and CPR was begun. She received two doses of Epinephrine before return of Pulse. She was intubated by the ED physician. Patient sustained multiple Ribs fx and Chest wall contusion. Hospital course also noted for GRETCHEN, now improving Interval events Patient Successfully extubated to BIPAP on 11/30 and now tolerating nasal cannula patient has been confused, Intermittently agitated, otherwise hemodynamically stable She received Haldol overnight for agitation. Also Psych consult called Adequate saturation of 94-98% on 3L NC Improved respiratory status Completed IV Methylprednisolone (Solu-Medrol) treatment Also all antibiotics discontinued Afebrile Patient scheduled for Repeat chest CT chest CCU Objective - Vital Signs / Intake & Output Intake and Output (Last 8hrs): Intake & Output 12/01/17 12/02/17 12/02/17 22:59 06:59 14:59 Intake Total 70 10 0 Output Total 500 100 Balance -430 10 -100 Intake: IV 0 0 0 Oral 70 10 0 Output: Urine 450 100 Urethral (Thrasher) 450 100 Stool 50 - Physical Exam Head: Positive for: Atraumatic, Normocephalic Pupils: Positive for: PERRL, Sluggish Extroacular Muscles: Positive for: EOMI Conjunctiva: Positive for: Normal. Negative for: Injected, Icteric Mouth: Positive for: Moist Mucous Membranes Pharnyx: Positive for: Normal Nose (Internal): Positive for: Normal Inspection Neck: Positive for: Normal Range of Motion, Trachea Midline. Negative for: Meningeal Signs, MIDLINE TENDERNESS, Paraspinal Tenderness, JVD, Lymphadenopathy , Bruit, Other Respiratory/Chest: Positive for: Wheezes, Decreased Breath Sounds, Rales, Rhonchi. Negative for: Respiratory Distress, Accessory Muscle Use Cardiovascular: Positive for: Regular Rate and Rhythm, Normal S1, S2, Peripheal Pulses Present. Negative for: Murmurs, Irregular Rhythm, Tachycardic, Bradycardic Abdomen: Positive for: Normal Bowel Sounds. Negative for: Tenderness, Distention, Peritoneal Signs, Rebound, Guarding Upper Extremity: Positive for: Normal Inspection, NORMAL PULSES, Capillary Refill < 2s. Negative for: Cyanosis, Edema Lower Extremity: Positive for: Normal Inspection, NORMAL PULSES, Capillary Refill < 2 s. Negative for: Edema, CALF TENDERNESS Neurological: Positive for: GCS=15, CN II-XII Intact, Speech Normal, Motor Func Grossly Intact, Normal Sensory Function Psychiatric: Positive for: Alert, Oriented x 3 - Medications Active Medications: Active Medications Generic Name Dose Route Start Last Admin Trade Name Freq PRN Reason Stop Dose Admin Acetaminophen 650 mg 11/27/17 21:09 11/27/17 21:58 Tylenol 650mg/20.3ml Solution Ud PO 650 mg Q6 PRN Administration temp > 100.6 Albuterol/Ipratropium 3 ml 12/01/17 18:51 12/02/17 05:37 Duoneb 3 Mg/0.5 Mg (3 Ml) Ud INH 3 ml RQ6 PRN Administration Shortness of Breath Bupropion HCl 75 mg 11/19/17 09:00 12/02/17 10:17 Wellbutrin PO 75 mg DAILY [facility] Administration Folic Acid 1 mg 11/20/17 10:00 12/02/17 10:17 Folic Acid PO 1 mg DAILY [facility] Administration Haloperidol Lactate 2 mg 11/18/17 09:13 12/02/17 01:58 Haldol IVP 2 mg Q4 PRN Administration Agitation Insulin Human Lispro 0 units 11/26/17 11:41 12/02/17 06:09 Humalog SC Not Given Q6H [facility] Protocol Lidocaine 2 ea 11/21/17 09:00 12/02/17 10:18 Lidoderm TD 2 ea DAILY [facility] Administration Nicotine 1 patch 11/18/17 09:45 12/02/17 10:19 Nicoderm Cq TD 1 patch DAILY [facility] Administration Pantoprazole Sodium 40 mg 12/01/17 09:15 12/02/17 10:20 Protonix Inj IVP 40 mg DAILY [facility] Administration Tiotropium Snover 18 mcg 12/02/17 09:00 12/02/17 10:20 Spiriva INH 18 mcg DAILY [facility] Administration - Patient Studies Lab Studies: Lab Studies 12/02/17 12/02/17 12/02/17 Range/Units 06:24 06:24 06:01 WBC 9.5 (4.8-10.8) K/uL RBC 3.18 L (3.80-5.20) Mil/uL Hgb 10.6 L (12.0-16.0) g/dL Hct 31.0 L (34.0-47.0) % MCV 97.5 (81.0-99.0) fl MCH 33.3 H (27.0-31.0) pg MCHC 34.1 (33.0-37.0) g/dL RDW 13.5 (11.5-14.5) % Plt Count 182 (130-400) K/uL Sodium 140 (132-148) mmol/l Potassium 3.3 L (3.6-5.0) MMOL/L Chloride 105 (98-107) mmol/L Carbon Dioxide 25 (22-30) mmol/L Anion Gap 13 (10-20) BUN 36 H (7-17) mg/dl Creatinine 1.5 H (0.7-1.2) mg/dl Est GFR ( Amer) 43 Est GFR (Non-Af Amer) 36 POC Glucose (mg/dL) 89 (65-110) mg/dL Random Glucose 94 (65-105) mg/dL Calcium 9.0 (8.4-10.2) mg/dL C. difficile Ag & Toxin (NEGATIVE) 12/01/17 12/01/17 12/01/17 Range/Units Unknown 23:24 17:24 WBC (4.8-10.8) K/uL RBC (3.80-5.20) Mil/uL Hgb (12.0-16.0) g/dL Hct (34.0-47.0) % MCV (81.0-99.0) fl MCH (27.0-31.0) pg MCHC (33.0-37.0) g/dL RDW (11.5-14.5) % Plt Count (130-400) K/uL Sodium (132-148) mmol/l Potassium (3.6-5.0) MMOL/L Chloride (98-107) mmol/L Carbon Dioxide (22-30) mmol/L Anion Gap (10-20) BUN (7-17) mg/dl Creatinine (0.7-1.2) mg/dl Est GFR ( Amer) Est GFR (Non-Af Amer) POC Glucose (mg/dL) 138 H 248 H (65-110) mg/dL Random Glucose (65-105) mg/dL Calcium (8.4-10.2) mg/dL C. difficile Ag & Toxin Negative (NEGATIVE) Laboratory Results - last 24 hr 12/01/17 12/01/17 12/01/17 17:24 23:24 Unknown WBC RBC Hgb Hct MCV MCH MCHC RDW Plt Count Sodium Potassium Chloride Carbon Dioxide Anion Gap BUN Creatinine Est GFR ( Amer) Est GFR (Non-Af Amer) POC Glucose (mg/dL) 248 H 138 H Random Glucose Calcium C. difficile Ag & Toxin Negative 12/02/17 12/02/17 12/02/17 06:01 06:24 06:24 WBC 9.5 RBC 3.18 L Hgb 10.6 L Hct 31.0 L MCV 97.5 MCH 33.3 H MCHC 34.1 RDW 13.5 Plt Count 182 Sodium 140 Potassium 3.3 L Chloride 105 Carbon Dioxide 25 Anion Gap 13 BUN 36 H Creatinine 1.5 H Est GFR ( Amer) 43 Est GFR (Non-Af Amer) 36 POC Glucose (mg/dL) 89 Random Glucose 94 Calcium 9.0 C. difficile Ag & Toxin Fingerstick Blood Sugar Results: 89 Review of Systems - Cardiovascular Cardiovascular: absent: Chest Pain - Respiratory Respiratory: absent: Cough, Dyspnea, Hemoptysis - Gastrointestinal Gastrointestinal: absent: Abdominal Pain Critical Care Progress Note - Extremities/Vascular Does the Patient have a Central Venous Catheter?: Yes Does the Patient need a Central Venous Catheter?: Yes Does the Patient have a Thrasher Catheter?: Yes Does the Patient need a Thrasher Catheter?: No (Will remove today) Assessment/Plan (1) Chronic respiratory failure with hypercapnia Current Visit: Yes Status: Acute Comment: Patient successfully extubated on 11/30, breathing well on nasal canula oxygen No PTX Pain controlled Incentive spirometer (2) Respiratory arrest Current Visit: Yes Status: Acute Priority: High Comment: S/P chest compression with Rib fractures Patient Successfully extubated No PTX Pain controlled Incentive spirometer (3) COPD exacerbation Current Visit: Yes Status: Acute Comment: Completed IV Methylprednisolone (Solu-Medrol) treatement Albuterol/Ipratropium (Duoneb) 3 ml INH RQ6 PRN Continue Tiotropium Snover (Spiriva) 18 mcg INH DAILY [facility] (4) Schizophrenia Current Visit: No Status: Acute Comment: Seen by Psych, started on Bupropion HCl (Wellbutrin) 75 mg PO DAILY Continue PRN Haldol (5) Chest wall pain Current Visit: No Status: Acute Priority: High Comment: Patient sustained multiple Ribs fx and Chest wall contusion. Patient scheduled for Repeat chest CT PRN Analgesia
[2017-12-02 14:07] LABS: ABG ALLEN TEST YES; ARTERIAL BLOOD GAS O2 SAT 99.1 % (95-98); ARTERIAL BLOOD GAS PCO2 39 mm/Hg (35-45); ARTERIAL BLOOD GAS PH 7.39 (7.35-7.45); ARTERIAL BLOOD GAS PO2 92 mm/Hg (80-100); ARTERIAL BLOOD GAS TCO2 24.8 mmol/L (22-28)
--- NOTE | 2017-12-02 14:44 | CP.PCM.PN ---
Subjective - Date & Time of Evaluation Date of Evaluation: 12/02/17 Time of Evaluation: 14:39 - Subjective Subjective: Pt s/e at the bedside. c/o Hungry-awaiting tray. Extubated since yesterday. vss. CT chest-pending. a/p: Making satisfactory progress. Awaiting ct chest. Continue current care. Objective - Vital Signs/Intake and Output Vital Signs (last 24 hours): Temp Pulse Resp BP Pulse Ox 98.4 F 71 22 99/58 L 99 12/02/17 08:00 12/02/17 10:00 12/02/17 10:00 12/02/17 10:00 12/02/17 10:00 Intake and Output: 12/02/17 12/02/17 06:59 18:59 Intake Total 30 30 Output Total 160 Balance 30 -130 - Medications Medications: Current Medications Acetaminophen (Tylenol 650mg/20.3ml Solution Ud) 650 mg PO Q6 PRN PRN Reason: temp > 100.6 Last Admin: 11/27/17 21:58 Dose: 650 mg Albuterol/Ipratropium (Duoneb 3 Mg/0.5 Mg (3 Ml) Ud) 3 ml INH RQ6 PRN PRN Reason: Shortness of Breath Last Admin: 12/02/17 05:37 Dose: 3 ml Bupropion HCl (Wellbutrin) 75 mg PO DAILY [facility] Last Admin: 12/02/17 10:17 Dose: 75 mg Folic Acid (Folic Acid) 1 mg PO DAILY [facility] Last Admin: 12/02/17 10:17 Dose: 1 mg Haloperidol Lactate (Haldol) 2 mg IVP Q4 PRN PRN Reason: Agitation Last Admin: 12/02/17 01:58 Dose: 2 mg Insulin Human Lispro (Humalog) 0 units SC Q6H [facility] PRN Reason: Protocol Last Admin: 12/02/17 06:09 Dose: Not Given Lidocaine (Lidoderm) 2 ea TD DAILY [facility] Last Admin: 12/02/17 10:18 Dose: 2 ea Nicotine (Nicoderm Cq) 1 patch TD DAILY [facility] Last Admin: 12/02/17 10:19 Dose: 1 patch Pantoprazole Sodium (Protonix Inj) 40 mg IVP DAILY [facility] Last Admin: 12/02/17 10:20 Dose: 40 mg Tiotropium [place]arrass (Spiriva) 18 mcg INH DAILY [facility] Last Admin: 12/02/17 10:20 Dose: 18 mcg - Labs Labs: 12/02/17 06:24 12/02/17 06:24 PT 12.7 Seconds (9.8-13.1) 11/21/17 04:20 INR 1.1 (0.9-1.2) 11/21/17 04:20 APTT 24.9 Seconds (25.6-37.1) L 11/21/17 04:20
--- NOTE | 2017-12-02 18:27 | CP.PCM.PN ---
Subjective - Date & Time of Evaluation Date of Evaluation: 12/02/17 Time of Evaluation: 18:05 Objective - Vital Signs/Intake and Output Vital Signs (last 24 hours): Temp Pulse Resp BP Pulse Ox 98.2 F 68 21 109/64 97 12/02/17 12:00 12/02/17 12:00 12/02/17 12:00 12/02/17 12:00 12/02/17 12:00 Intake and Output: 12/02/17 12/02/17 06:59 18:59 Intake Total 30 230 Output Total 340 Balance 30 -110 - Medications Medications: Current Medications Acetaminophen (Tylenol 650mg/20.3ml Solution Ud) 650 mg PO Q6 PRN PRN Reason: temp > 100.6 Last Admin: 11/27/17 21:58 Dose: 650 mg Albuterol/Ipratropium (Duoneb 3 Mg/0.5 Mg (3 Ml) Ud) 3 ml INH RQ6 PRN PRN Reason: Shortness of Breath Last Admin: 12/02/17 05:37 Dose: 3 ml Bupropion HCl (Wellbutrin) 75 mg PO DAILY [facility] Last Admin: 12/02/17 10:17 Dose: 75 mg Folic Acid (Folic Acid) 1 mg PO DAILY [facility] Last Admin: 12/02/17 10:17 Dose: 1 mg Haloperidol Lactate (Haldol) 2 mg IVP Q4 PRN PRN Reason: Agitation Last Admin: 12/02/17 01:58 Dose: 2 mg Insulin Human Lispro (Humalog) 0 units SC Q6H [facility] PRN Reason: Protocol Last Admin: 12/02/17 17:35 Dose: Not Given Lidocaine (Lidoderm) 2 ea TD DAILY [facility] Last Admin: 12/02/17 10:18 Dose: 2 ea Nicotine (Nicoderm Cq) 1 patch TD DAILY [facility] Last Admin: 12/02/17 10:19 Dose: 1 patch Pantoprazole Sodium (Protonix Inj) 40 mg IVP DAILY [facility] Last Admin: 12/02/17 10:20 Dose: 40 mg Tiotropium [place] (Spiriva) 18 mcg INH DAILY [facility] Last Admin: 12/02/17 10:20 Dose: 18 mcg - Labs Labs: 12/02/17 06:24 12/02/17 06:24 PT 12.7 Seconds (9.8-13.1) 11/21/17 04:20 INR 1.1 (0.9-1.2) 11/21/17 04:20 APTT 24.9 Seconds (25.6-37.1) L 11/21/17 04:20 Assessment and Plan (1) Respiratory arrest Status: Acute (2) Schizoaffective disorder Status: Chronic (3) Chest wall pain Status: Acute
[2017-12-02] MEDS ORDERED: Potassium Chloride 20 mEq/15 ml LIQ UD PO ONE (19:30)
[2017-12-03] MEDS: Insulin Lispro (humaLOG) 100 Units/ml Inj SC SCH ×4 (05:02→23:42)
[2017-12-03 05:50] LABS: HEMOGLOBIN 10.1 g/dL (12.0-16.0); MEAN CELL VOLUME 96.9 fl (81.0-99.0); MEAN CORPUSCULAR HEMOGLOBIN 32.9 pg (27.0-31.0); RBC 3.06 Mil/uL (3.80-5.20); RED CELL DISTRIBUTION WIDTH 13.9 % (11.5-14.5); WHITE BLOOD COUNT 6.9 K/uL (4.8-10.8)
[2017-12-03 06:10] LABS: ALBUMIN 2.9 g/dL (3.5-5.0); CALCIUM 9.1 mg/dL (8.4-10.2)
--- NOTE | 2017-12-03 07:58 | CP.CCUPN ---
CCU Subjective - Physician Review Subjective (Free Text): 12/03/17 The patient was seen and examined at the bedside, medical records reviewed, and management issues were discussed and formulated with the house staff. Events reviewed. 59 year old Active Heavy Smoker Female with PMHx of HTN, Arthritis, Asthma, Back Problems (c-spine, l-spine herniated discs), Depression, Gastritis, Anxiety and Schizophrenia Who initially presented to the ED with shortness of breath x 1 day, Patient became increasingly labored breathing and while wondering down the hallway in ER, she collapsed with gasping respiration and went into respiratory and cardiac arrest. Shana Wright was called in the ED and CPR was begun. She received two doses of Epinephrine before return of Pulse. She was intubated by the ED physician. Patient sustained multiple Ribs fx and Chest wall contusion. Hospital course also noted for GRETCHEN, now improving Patient Successfully extubated to BIPAP on 11/30 and now tolerating nasal cannula Patient has been confused, intermittently agitated, and otherwise hemodynamically stable No Haldol over last 24H Improved respiratory status, Adequate saturation of 94-98% on 2L NC Completed IV Methylprednisolone (Solu-Medrol) treatment Also all antibiotics discontinued Afebrile Repeat chest CT chest yesterday with increased pleural effusion CCU Objective - Vital Signs / Intake & Output Vital Signs (Last 4 hours): Vital Signs Temp Pulse Resp BP Pulse Ox 12/03/17 06:00 80 19 109/66 100 12/03/17 04:00 98.9 F 89 19 133/84 98 Intake and Output (Last 8hrs): Intake & Output 12/02/17 12/03/17 12/03/17 22:59 06:59 14:59 Intake Total 220 120 0 Output Total 120 450 Balance 100 -330 0 Intake: IV 0 Oral 220 120 Output: Urine 120 450 Urethral (Thrasher) 120 Urine, Voided 450 - Physical Exam Physical Exam Limitations: Positive for: Clinical Condition Head: Positive for: Atraumatic, Normocephalic Pupils: Positive for: PERRL, Sluggish Extroacular Muscles: Positive for: EOMI Conjunctiva: Positive for: Normal. Negative for: Injected, Icteric Mouth: Positive for: Moist Mucous Membranes Pharnyx: Positive for: Normal. Negative for: ERYTHEMA, EXUDATE Nose (Internal): Positive for: Normal Inspection. Negative for: No Active Bleeding Neck: Positive for: Normal Range of Motion, Trachea Midline. Negative for: Meningeal Signs, MIDLINE TENDERNESS, Paraspinal Tenderness, JVD, Lymphadenopathy , Bruit, Other Respiratory/Chest: Positive for: Decreased Breath Sounds, Rales, Rhonchi. Negative for: Respiratory Distress, Accessory Muscle Use, Wheezes Cardiovascular: Positive for: Regular Rate and Rhythm, Normal S1, S2, Peripheal Pulses Present. Negative for: Murmurs, Irregular Rhythm, Tachycardic, Bradycardic Abdomen: Positive for: Normal Bowel Sounds. Negative for: Tenderness, Distention, Peritoneal Signs, Rebound, Guarding Upper Extremity: Positive for: Normal Inspection, NORMAL PULSES, Capillary Refill < 2s. Negative for: Cyanosis, Edema Lower Extremity: Positive for: Normal Inspection, NORMAL PULSES, Capillary Refill < 2 s. Negative for: Edema, CALF TENDERNESS Neurological: Positive for: GCS=15, CN II-XII Intact, Speech Normal, Motor Func Grossly Intact, Normal Sensory Function Psychiatric: Positive for: Alert, Oriented x 3 - Medications Active Medications: Active Medications Generic Name Dose Route Start Last Admin Trade Name Freq PRN Reason Stop Dose Admin Acetaminophen 650 mg 11/27/17 21:09 11/27/17 21:58 Tylenol 650mg/20.3ml Solution Ud PO 650 mg Q6 PRN Administration temp > 100.6 Acetaminophen 650 mg 12/03/17 04:46 12/03/17 04:57 Tylenol 325mg Tab PO 650 mg Q6 PRN Administration Pain, Mild (1-3) Albuterol/Ipratropium 3 ml 12/01/17 18:51 12/02/17 05:37 Duoneb 3 Mg/0.5 Mg (3 Ml) Ud INH 3 ml RQ6 PRN Administration Shortness of Breath Bupropion HCl 75 mg 11/19/17 09:00 12/02/17 10:17 Wellbutrin PO 75 mg DAILY [facility] Administration Folic Acid 1 mg 11/20/17 10:00 12/02/17 10:17 Folic Acid PO 1 mg DAILY [facility] Administration Haloperidol Lactate 2 mg 11/18/17 09:13 12/02/17 01:58 Haldol IVP 2 mg Q4 PRN Administration Agitation Insulin Human Lispro 0 units 11/26/17 11:41 12/03/17 05:02 Humalog SC Not Given Q6H [facility] Protocol Lidocaine 2 ea 11/21/17 09:00 12/02/17 10:18 Lidoderm TD 2 ea DAILY [facility] Administration Nicotine 1 patch 11/18/17 09:45 12/02/17 10:19 Nicoderm Cq TD 1 patch DAILY [facility] Administration Pantoprazole Sodium 40 mg 12/01/17 09:15 12/02/17 10:20 Protonix Inj IVP 40 mg DAILY [facility] Administration Tiotropium [place] 18 mcg 12/02/17 09:00 12/02/17 10:20 Spiriva INH 18 mcg DAILY [facility] Administration - Patient Studies Lab Studies: Lab Studies 12/03/17 12/03/17 12/03/17 Range/Units 05:00 04:20 04:20 WBC 6.9 (4.8-10.8) K/uL RBC 3.06 L (3.80-5.20) Mil/uL Hgb 10.1 L (12.0-16.0) g/dL Hct 29.7 L (34.0-47.0) % MCV 96.9 (81.0-99.0) fl MCH 32.9 H (27.0-31.0) pg MCHC 34.0 (33.0-37.0) g/dL RDW 13.9 (11.5-14.5) % Plt Count 166 (130-400) K/uL pCO2 (35-45) mm/Hg pO2 (80-100) mm/Hg HCO3 (21-28) mmol/L ABG pH (7.35-7.45) ABG Total CO2 (22-28) mmol/L ABG O2 Saturation (95-98) % ABG Base Excess (-2.0-3.0) mmol/L Dwight Test ABG Potassium (3.6-5.2) mmol/L A-a O2 Difference mm/Hg Sodium 140 (132-148) mmol/L Chloride 107 (98-107) mmol/L Glucose (65-105) mg/dL Lactate (0.7-2.1) mmol/L FiO2 % Potassium 3.5 L (3.6-5.0) MMOL/L Carbon Dioxide 22 (22-30) mmol/L Anion Gap 15 (10-20) BUN 32 H (7-17) mg/dl Creatinine 1.4 H (0.7-1.2) mg/dl Est GFR ( Amer) 47 Est GFR (Non-Af Amer) 39 POC Glucose (mg/dL) 93 (65-110) mg/dL Random Glucose 90 (65-105) mg/dL Calcium 9.1 (8.4-10.2) mg/dL Total Bilirubin 0.6 (0.2-1.3) mg/dl AST 52 H D (14-36) U/L ALT 52 D (9-52) U/L Alkaline Phosphatase 58 (38-126) U/L Total Protein 5.8 L (6.3-8.2) G/DL Albumin 2.9 L (3.5-5.0) g/dL Globulin 2.9 (2.2-3.9) gm/dL Albumin/Globulin Ratio 1.0 (1.0-2.1) Arterial Blood Potassium (3.6-5.2) mmol/L 12/02/17 12/02/17 12/02/17 Range/Units 23:19 17:16 13:53 WBC (4.8-10.8) K/uL RBC (3.80-5.20) Mil/uL Hgb (12.0-16.0) g/dL Hct (34.0-47.0) % MCV (81.0-99.0) fl MCH (27.0-31.0) pg MCHC (33.0-37.0) g/dL RDW (11.5-14.5) % Plt Count (130-400) K/uL pCO2 39 (35-45) mm/Hg pO2 92 (80-100) mm/Hg HCO3 24.0 (21-28) mmol/L ABG pH 7.39 (7.35-7.45) ABG Total CO2 24.8 (22-28) mmol/L ABG O2 Saturation 99.1 H (95-98) % ABG Base Excess -1.2 (-2.0-3.0) mmol/L Dwight Test Yes ABG Potassium 3.2 L (3.6-5.2) mmol/L A-a O2 Difference 9.0 mm/Hg Sodium 142.0 (132-148) mmol/L Chloride 110.0 H (98-107) mmol/L Glucose 159 H (65-105) mg/dL Lactate 0.9 (0.7-2.1) mmol/L FiO2 21.0 % Potassium (3.6-5.0) MMOL/L Carbon Dioxide (22-30) mmol/L Anion Gap (10-20) BUN (7-17) mg/dl Creatinine (0.7-1.2) mg/dl Est GFR ( Amer) Est GFR (Non-Af Amer) POC Glucose (mg/dL) 109 141 H (65-110) mg/dL Random Glucose (65-105) mg/dL Calcium (8.4-10.2) mg/dL Total Bilirubin (0.2-1.3) mg/dl AST (14-36) U/L ALT (9-52) U/L Alkaline Phosphatase (38-126) U/L Total Protein (6.3-8.2) G/DL Albumin (3.5-5.0) g/dL Globulin (2.2-3.9) gm/dL Albumin/Globulin Ratio (1.0-2.1) Arterial Blood Potassium 3.2 L (3.6-5.2) mmol/L 12/02/17 Range/Units 12:03 WBC (4.8-10.8) K/uL RBC (3.80-5.20) Mil/uL Hgb (12.0-16.0) g/dL Hct (34.0-47.0) % MCV (81.0-99.0) fl MCH (27.0-31.0) pg MCHC (33.0-37.0) g/dL RDW (11.5-14.5) % Plt Count (130-400) K/uL pCO2 (35-45) mm/Hg pO2 (80-100) mm/Hg HCO3 (21-28) mmol/L ABG pH (7.35-7.45) ABG Total CO2 (22-28) mmol/L ABG O2 Saturation (95-98) % ABG Base Excess (-2.0-3.0) mmol/L Dwight Test ABG Potassium (3.6-5.2) mmol/L A-a O2 Difference mm/Hg Sodium (132-148) mmol/L Chloride (98-107) mmol/L Glucose (65-105) mg/dL Lactate (0.7-2.1) mmol/L FiO2 % Potassium (3.6-5.0) MMOL/L Carbon Dioxide (22-30) mmol/L Anion Gap (10-20) BUN (7-17) mg/dl Creatinine (0.7-1.2) mg/dl Est GFR ( Amer) Est GFR (Non-Af Amer) POC Glucose (mg/dL) 108 (65-110) mg/dL Random Glucose (65-105) mg/dL Calcium (8.4-10.2) mg/dL Total Bilirubin (0.2-1.3) mg/dl AST (14-36) U/L ALT (9-52) U/L Alkaline Phosphatase (38-126) U/L Total Protein (6.3-8.2) G/DL Albumin (3.5-5.0) g/dL Globulin (2.2-3.9) gm/dL Albumin/Globulin Ratio (1.0-2.1) Arterial Blood Potassium (3.6-5.2) mmol/L Laboratory Results - last 24 hr 12/02/17 12/02/17 12/02/17 12:03 13:53 17:16 WBC RBC Hgb Hct MCV MCH MCHC RDW Plt Count pCO2 39 pO2 92 HCO3 24.0 ABG pH 7.39 ABG Total CO2 24.8 ABG O2 Saturation 99.1 H ABG Base Excess -1.2 Dwight Test Yes ABG Potassium 3.2 L A-a O2 Difference 9.0 Sodium 142.0 Chloride 110.0 H Glucose 159 H Lactate 0.9 FiO2 21.0 Potassium Carbon Dioxide Anion Gap BUN Creatinine Est GFR ( Amer) Est GFR (Non-Af Amer) POC Glucose (mg/dL) 108 141 H Random Glucose Calcium Total Bilirubin AST ALT Alkaline Phosphatase Total Protein Albumin Globulin Albumin/Globulin Ratio Arterial Blood Potassium 3.2 L 12/02/17 12/03/17 12/03/17 23:19 04:20 04:20 WBC 6.9 RBC 3.06 L Hgb 10.1 L Hct 29.7 L MCV 96.9 MCH 32.9 H MCHC 34.0 RDW 13.9 Plt Count 166 pCO2 pO2 HCO3 ABG pH ABG Total CO2 ABG O2 Saturation ABG Base Excess Dwight Test ABG Potassium A-a O2 Difference Sodium 140 Chloride 107 Glucose Lactate FiO2 Potassium 3.5 L Carbon Dioxide 22 Anion Gap 15 BUN 32 H Creatinine 1.4 H Est GFR ( Amer) 47 Est GFR (Non-Af Amer) 39 POC Glucose (mg/dL) 109 Random Glucose 90 Calcium 9.1 Total Bilirubin 0.6 AST 52 H D ALT 52 D Alkaline Phosphatase 58 Total Protein 5.8 L Albumin 2.9 L Globulin 2.9 Albumin/Globulin Ratio 1.0 Arterial Blood Potassium 12/03/17 05:00 WBC RBC Hgb Hct MCV MCH MCHC RDW Plt Count pCO2 pO2 HCO3 ABG pH ABG Total CO2 ABG O2 Saturation ABG Base Excess Dwight Test ABG Potassium A-a O2 Difference Sodium Chloride Glucose Lactate FiO2 Potassium Carbon Dioxide Anion Gap BUN Creatinine Est GFR ( Amer) Est GFR (Non-Af Amer) POC Glucose (mg/dL) 93 Random Glucose Calcium Total Bilirubin AST ALT Alkaline Phosphatase Total Protein Albumin Globulin Albumin/Globulin Ratio Arterial Blood Potassium Fingerstick Blood Sugar Results: 93 Review of Systems - Cardiovascular Cardiovascular: absent: Chest Pain, Diaphoresis - Respiratory Respiratory: absent: Cough, Dyspnea, Wheezing - Gastrointestinal Gastrointestinal: absent: Abdominal Pain, Coffee Ground Emesis, Melena, Nausea, Vomiting Critical Care Progress Note - Extremities/Vascular Does the Patient have a Central Venous Catheter?: No Does the Patient need a Central Venous Catheter?: No Does the Patient have a Thrasher Catheter?: No Does the Patient need a Thrasher Catheter?: No - Nutrition Nutrition: Nutrition Category Date Time Status Dysphagia/Modified Consistency Diet [DIET] Diets 12/02/17 Dinner Active Assessment/Plan (1) Chronic respiratory failure with hypercapnia Current Visit: Yes Status: Acute Comment: Patient successfully extubated on 11/30, breathing well on nasal canula oxygen No PTX Pain controlled Incentive spirometer (2) Respiratory arrest Current Visit: Yes Status: Acute Priority: High Comment: S/P chest compression with Rib fractures Patient Successfully extubated No PTX Pain controlled Incentive spirometer (3) COPD exacerbation Current Visit: Yes Status: Acute Comment: Completed IV Methylprednisolone (Solu-Medrol) treatement Albuterol/Ipratropium (Duoneb) 3 ml INH RQ6 PRN Continue Tiotropium [place] (Spiriva) 18 mcg INH DAILY [facility] (4) Schizophrenia Current Visit: No Status: Acute Comment: Seen by Psych, started on Bupropion HCl (Wellbutrin) 75 mg PO DAILY Continue PRN Haldol (5) Chest wall pain Current Visit: No Status: Acute Priority: High Comment: Patient sustained multiple Ribs fx and Chest wall contusion. Patient scheduled for Repeat chest CT PRN Analgesia
[2017-12-03] MEDS: Tiotropium 18 mcg Cap For Inhalation INH SCH (08:49)
[2017-12-03] MEDS: Lidocaine 5% Patch TD SCH (08:50)
--- NOTE | 2017-12-03 10:17 | CT ---
PROCEDURE: CT Chest without contrast HISTORY: Re-eval of injuries COMPARISON: CT chest dated 11/21/2017. TECHNIQUE: Contiguous axial images were obtained through the chest without intravenous contrast enhancement. Sagittal and coronal reconstructions were performed. Radiation dose (DLP): 608.3 mGy-cm. This CT exam was performed using one or more of the following dose reduction techniques: Automated exposure control, adjustment of the mA and/or kV according to patient size, and/or use of iterative reconstruction technique. FINDINGS: LUNGS: Improved interstitial changes with residual areas of change. Visualized airway clear. MEDIASTINUM: Unremarkable thoracic aorta. No aneurysm. Cardiomegaly. Main pulmonary artery unremarkable. No vascular congestion. No lymphadenopathy. PLEURA: Area fluid subjacent to the 2nd costochondral junction extending across the thoracic wall measuring 5.2 x 4.0 cm. Pleural thickening subjacent to many of the below described rib fractures. Trace bilateral pleural effusions, left slightly larger than right. No pneumothorax. BONES: Reduction of left 1st costochondral junction fracture with improved alignment. Reduction of left 2nd anterolateral fracture in near-anatomic alignment. Minimally displaced left anterior and lateral 3rd rib fractures with evidence of healing. Reduction of the left lateral 4th rib fracture with mild persistent displacement. Stable appearance of left anterior 4th rib fracture. Reduction of left lateral 5th rib fracture with overlap. Increased degree of overlap with respect to the left lateral 6th rib fracture. Reduction of left anterolateral 7th rib fracture. Stable appearance of old posterior lateral 9th rib fracture. Stable appearance of right anterolateral 2nd -5th rib fractures. Healing sternal fractures. UPPER ABDOMEN: Grossly unremarkable. OTHER FINDINGS: Right upper extremity PICC with catheter tip at the cavoatrial junction. IMPRESSION: Overall improved appearance of sternal and extensive bilateral rib fractures with persistent and new displaced/ overlapping left-sided rib fractures as described in detail above.
[2017-12-03] MEDS: Albuterol-Ipratrop 3 mg / 0.5 (3 ml) UD INH PRN ×2 (10:33→16:42)
[2017-12-04] MEDS: Insulin Lispro (humaLOG) 100 Units/ml Inj SC SCH ×3 (05:26→17:02)
[2017-12-04] MEDS: Albuterol-Ipratrop 3 mg / 0.5 (3 ml) UD INH PRN ×3 (05:42→19:09)
[2017-12-04] MEDS ORDERED: Chlorhexidine Gluconate 1 APPL/PKT TP ONE (05:44)
[2017-12-04 05:49] LABS: MEAN CELL VOLUME 96.3 fl (81.0-99.0); MEAN CORPUSCULAR HEMOGLOBIN 32.6 pg (27.0-31.0); MEAN CORPUSCULAR HGB CONC 33.9 g/dL (33.0-37.0); RBC 3.39 Mil/uL (3.80-5.20); RED CELL DISTRIBUTION WIDTH 13.3 % (11.5-14.5); WHITE BLOOD COUNT 7.6 K/uL (4.8-10.8)
[2017-12-04 06:02] LABS: ALBUMIN 3.3 g/dL (3.5-5.0); CALCIUM 9.6 mg/dL (8.4-10.2)
[2017-12-04] MEDS: Lidocaine 5% Patch TD SCH (09:14)
[2017-12-04] MEDS: Tiotropium 18 mcg Cap For Inhalation INH SCH (09:16)
--- NOTE | 2017-12-04 11:33 | CP.CCUPN ---
CCU Subjective - Physician Review Subjective (Free Text): Awake and non-distressed, denies any chest discomfort on inspiration, appears congested, but is able to cough, though has difficulty expectorating phelgm. Other VS and I/Os reviewed. No fever spikes last 24H. ROS: No other pertinent negs or positives on 10+ system review obtainable from intubated and sedated patient. PMSFH: All other Nursing and physician documentation reviewed to date; no new pertinent info noted relevant to current medical problems. EXAM- HEENT: no icterus, no gaze preference, pupils equal and reactive NECK: No JVD, supple, carotids equal upstroke bilat/no bruits CHEST: decreased BS bases, no wheezes audible, decreased crepitus over L upper and lateral chest, bilateral ecchymoses HEART: regular tachy, distant, S1S2, no rubs. ABD: soft, no distention, no tympany, no palp tenderness, BS hypoactive. EXT: No peripheral/ digital cyanosis, no calf tenderness or palpable cords, distal pulses intact and symmetrical. NEURO: no focal motor deficits SKIN: no rashes, warm and dry. LABS: WBC= 7.6 HGB= 11.0 PLTs= 159K Yc=076 K= 3.3 HN=492 HCO3= 21 BUN/Cr= 35/1.4 NH=074 CT Chest 12/02 results reviewed: some ribs are re-aligned and healing, IMPRESSION / MAJOR PROBLEMS NOW: 1. Bilateral / Multiple Rib fractures with bilateral pneumonitis 2. s/p Cardio-Resp Arrest 3. COPD / Asthma Exacerb 4. Acute blood loss Anemia 5. Azotemia, r/o GRETCHEN 6. H/o ETOH Abuse PLAN: 1. Frequent oral suctioning, incentive spiromerty, mobilization OOB as tolerated. 2. K supplementation. 3. completed course of empiric abx therapy. 4. Lasix IV PRN for now. 5. Hgb levels have been stable. 6. PT eval and Tx for severe deconditioning. CCU Objective - Vital Signs / Intake & Output Vital Signs (Last 4 hours): Vital Signs Temp Pulse Resp BP Pulse Ox 12/04/17 10:00 98 H 31 H 144/95 H 95 12/04/17 08:00 100 F H 99 H 33 H 154/88 H 98 Intake and Output (Last 8hrs): Intake & Output 12/03/17 12/04/17 12/04/17 22:59 06:59 14:59 Intake Total 120 60 Balance 120 60 Intake: IV 0 Oral 120 60 Other: # Voids Urine, Voided 2 1 # Bowel Movements 1 1 - Patient Studies Fingerstick Blood Sugar Results: 112
--- NOTE | 2017-12-04 13:08 | CP.PCM.PN ---
Subjective - Date & Time of Evaluation Date of Evaluation: 12/04/17 Time of Evaluation: 13:01 - Subjective Subjective: Pt s/e. Awake and communicative. No chest wall pain. vss. + Flail chest but good [address] of chest: In general, satisfactory functional alignment and some evidence of healing process. a/p: 1. Rib fxs-do not need surgical intervention at this time. 2. Flail chest with good 02 saturation. 3. Continue current care. 4. d/w Dr. [place]. Objective - Vital Signs/Intake and Output Vital Signs (last 24 hours): Temp Pulse Resp BP Pulse Ox 100 F H 98 H 31 H 144/95 H 95 12/04/17 08:00 12/04/17 10:00 12/04/17 10:00 12/04/17 10:00 12/04/17 10:00 Intake and Output: 12/04/17 12/04/17 06:59 18:59 Intake Total 180 Balance 180 - Medications Medications: Current Medications Acetaminophen (Tylenol 650mg/20.3ml Solution Ud) 650 mg PO Q6 PRN PRN Reason: temp > 100.6 Last Admin: 11/27/17 21:58 Dose: 650 mg Acetaminophen (Tylenol 325mg Tab) 650 mg PO Q6 PRN PRN Reason: Pain, Mild (1-3) Last Admin: 12/03/17 04:57 Dose: 650 mg Albuterol/Ipratropium (Duoneb 3 Mg/0.5 Mg (3 Ml) Ud) 3 ml INH RQ6 PRN PRN Reason: Shortness of Breath Last Admin: 12/04/17 11:33 Dose: 3 ml Bupropion HCl (Wellbutrin) 75 mg PO DAILY [facility] Last Admin: 12/04/17 09:16 Dose: 75 mg Folic Acid (Folic Acid) 1 mg PO DAILY [facility] Last Admin: 12/04/17 09:14 Dose: 1 mg Haloperidol Lactate (Haldol) 2 mg IVP Q4 PRN PRN Reason: Agitation Last Admin: 12/03/17 23:42 Dose: 2 mg Insulin Human Lispro (Humalog) 0 units SC Q6H [facility] PRN Reason: Protocol Last Admin: 12/04/17 12:06 Dose: Not Given Lidocaine (Lidoderm) 2 ea TD DAILY [facility] Last Admin: 12/04/17 09:14 Dose: 2 ea Nicotine (Nicoderm Cq) 1 patch TD DAILY [facility] Last Admin: 12/04/17 09:15 Dose: 1 patch Pantoprazole Sodium (Protonix Inj) 40 mg IVP DAILY [facility] Last Admin: 12/04/17 09:15 Dose: 40 mg Tiotropium [place] (Spiriva) 18 mcg INH DAILY [facility] Last Admin: 12/04/17 09:16 Dose: 18 mcg - Labs Labs: 12/04/17 04:20 12/04/17 04:20 PT 12.7 Seconds (9.8-13.1) 11/21/17 04:20 INR 1.1 (0.9-1.2) 11/21/17 04:20 APTT 24.9 Seconds (25.6-37.1) L 11/21/17 04:20
--- NOTE | 2017-12-04 23:56 | CP.PCM.PN ---
Subjective - Date & Time of Evaluation Date of Evaluation: 12/03/17 Time of Evaluation: 17:20 Objective - Vital Signs/Intake and Output Vital Signs (last 24 hours): Temp Pulse Resp BP Pulse Ox 98.2 F 101 H 35 H 143/85 100 12/04/17 21:18 12/04/17 18:00 12/04/17 18:00 12/04/17 18:00 12/04/17 18:00 Intake and Output: 12/04/17 12/05/17 18:59 06:59 Output Total 125 Balance -125 - Medications Medications: Current Medications Acetaminophen (Tylenol 650mg/20.3ml Solution Ud) 650 mg PO Q6 PRN PRN Reason: temp > 100.6 Last Admin: 11/27/17 21:58 Dose: 650 mg Acetaminophen (Tylenol 325mg Tab) 650 mg PO Q6 PRN PRN Reason: Pain, Mild (1-3) Last Admin: 12/04/17 21:18 Dose: 650 mg Albuterol/Ipratropium (Duoneb 3 Mg/0.5 Mg (3 Ml) Ud) 3 ml INH RQ6 PRN PRN Reason: Shortness of Breath Last Admin: 12/04/17 19:09 Dose: 3 ml Bupropion HCl (Wellbutrin) 75 mg PO DAILY [facility] Last Admin: 12/04/17 09:16 Dose: 75 mg Folic Acid (Folic Acid) 1 mg PO DAILY [facility] Last Admin: 12/04/17 09:14 Dose: 1 mg Haloperidol Lactate (Haldol) 2 mg IVP Q4 PRN PRN Reason: Agitation Last Admin: 12/03/17 23:42 Dose: 2 mg Insulin Human Lispro (Humalog) 0 units SC Q6H [facility] PRN Reason: Protocol Last Admin: 12/04/17 17:02 Dose: Not Given Lidocaine (Lidoderm) 2 ea TD DAILY [facility] Last Admin: 12/04/17 09:14 Dose: 2 ea Nicotine (Nicoderm Cq) 1 patch TD DAILY [facility] Last Admin: 12/04/17 09:15 Dose: 1 patch Pantoprazole Sodium (Protonix Inj) 40 mg IVP DAILY [facility] Last Admin: 12/04/17 09:15 Dose: 40 mg Tiotropium [place] (Spiriva) 18 mcg INH DAILY [facility] Last Admin: 05/16/18 09:16 Dose: 18 mcg - Labs Labs: 12/04/17 04:20 12/04/17 04:20 PT 12.7 Seconds (9.8-13.1) 11/21/17 04:20 INR 1.1 (0.9-1.2) 11/21/17 04:20 APTT 24.9 Seconds (25.6-37.1) L 11/21/17 04:20 Assessment and Plan (1) Respiratory arrest Status: Acute (2) Schizoaffective disorder Status: Chronic (3) Chest wall pain Status: Acute
--- NOTE | 2017-12-04 23:57 | CP.PCM.PN ---
Subjective - Date & Time of Evaluation Date of Evaluation: 12/04/17 Time of Evaluation: 16:20 Objective - Vital Signs/Intake and Output Vital Signs (last 24 hours): Temp Pulse Resp BP Pulse Ox 98.2 F 101 H 35 H 143/85 100 12/04/17 21:18 12/04/17 18:00 12/04/17 18:00 12/04/17 18:00 12/04/17 18:00 Intake and Output: 12/04/17 12/05/17 18:59 06:59 Output Total 125 Balance -125 - Medications Medications: Current Medications Acetaminophen (Tylenol 650mg/20.3ml Solution Ud) 650 mg PO Q6 PRN PRN Reason: temp > 100.6 Last Admin: 11/27/17 21:58 Dose: 650 mg Acetaminophen (Tylenol 325mg Tab) 650 mg PO Q6 PRN PRN Reason: Pain, Mild (1-3) Last Admin: 12/04/17 21:18 Dose: 650 mg Albuterol/Ipratropium (Duoneb 3 Mg/0.5 Mg (3 Ml) Ud) 3 ml INH RQ6 PRN PRN Reason: Shortness of Breath Last Admin: 12/04/17 19:09 Dose: 3 ml Bupropion HCl (Wellbutrin) 75 mg PO DAILY [facility] Last Admin: 12/04/17 09:16 Dose: 75 mg Folic Acid (Folic Acid) 1 mg PO DAILY [facility] Last Admin: 12/04/17 09:14 Dose: 1 mg Haloperidol Lactate (Haldol) 2 mg IVP Q4 PRN PRN Reason: Agitation Last Admin: 12/03/17 23:42 Dose: 2 mg Insulin Human Lispro (Humalog) 0 units SC Q6H [facility] PRN Reason: Protocol Last Admin: 12/04/17 17:02 Dose: Not Given Lidocaine (Lidoderm) 2 ea TD DAILY [facility] Last Admin: 12/04/17 09:14 Dose: 2 ea Nicotine (Nicoderm Cq) 1 patch TD DAILY [facility] Last Admin: 12/04/17 09:15 Dose: 1 patch Pantoprazole Sodium (Protonix Inj) 40 mg IVP DAILY [facility] Last Admin: 12/04/17 09:15 Dose: 40 mg Tiotropium [place] (Spiriva) 18 mcg INH DAILY [facility] Last Admin: 05/16/18 09:16 Dose: 18 mcg - Labs Labs: 12/04/17 04:20 12/04/17 04:20 PT 12.7 Seconds (9.8-13.1) 11/21/17 04:20 INR 1.1 (0.9-1.2) 11/21/17 04:20 APTT 24.9 Seconds (25.6-37.1) L 11/21/17 04:20 Assessment and Plan (1) Respiratory arrest Status: Acute (2) Schizoaffective disorder Status: Chronic (3) Chest wall pain Status: Acute
[2017-12-05] MEDS: Insulin Lispro (humaLOG) 100 Units/ml Inj SC SCH ×4 (01:50→17:47)
[2017-12-05 05:41] LABS: MEAN CELL VOLUME 95.9 fl (81.0-99.0); MEAN CORPUSCULAR HEMOGLOBIN 32.6 pg (27.0-31.0); MEAN CORPUSCULAR HGB CONC 33.9 g/dL (33.0-37.0); RBC 3.37 Mil/uL (3.80-5.20); RED CELL DISTRIBUTION WIDTH 13.7 % (11.5-14.5)
[2017-12-05 05:58] LABS: CALCIUM 9.5 mg/dL (8.4-10.2)
--- NOTE | 2017-12-05 06:56 | CP.CCUPN ---
CCU Subjective - Physician Review Subjective (Free Text): Awake and has tolerated getting OOB to chair. She does still exhibit paradoxical motion of the sternum during respirations, but SPO2 is maintained and previous hypercarbia has resolved. Overall, still slow to respond. Other VS and I/Os reviewed. No fever spikes last 24H. Low counts with I/O's due to urine incontinence. ROS: No other pertinent negs or positives on 10+ system review obtainable from intubated and sedated patient. PMSFH: All other Nursing and physician documentation reviewed to date; no new pertinent info noted relevant to current medical problems. EXAM- HEENT: no icterus, no gaze preference, pupils equal and reactive NECK: No JVD, supple, carotids equal upstroke bilat/no bruits CHEST: decreased BS bases, no wheezes audible, decreased crepitus over L upper and lateral chest, bilateral ecchymoses HEART: regular tachy, distant, S1S2, no rubs. ABD: soft, no distention, no tympany, no palp tenderness, BS hypoactive. EXT: No peripheral/ digital cyanosis, no calf tenderness or palpable cords, distal pulses intact and symmetrical. NEURO: no focal motor deficits SKIN: no rashes, warm and dry. LABS: WBC= 8.0 HGB= 11.0 PLTs= 161K Be=231 K= 3.5 ED=477 HCO3= 23 BUN/Cr= 25/1.3 DL=257 CT Chest 12/02 results reviewed: some ribs are re-aligned and healing, IMPRESSION / MAJOR PROBLEMS NOW: 1. Bilateral / Multiple Rib fractures with bilateral pneumonitis 2. s/p Cardio-Resp Arrest 3. COPD / Asthma Exacerb 4. Acute blood loss Anemia 5. Azotemia, r/o GRETCHEN 6. H/o ETOH Abuse PLAN: 1. Frequent oral suctioning, incentive spiromerty, mobilization OOB as tolerated. 2. Discuseed with ThorSurg, will contine to monitor resp status in ICU. 3. completed course of empiric abx therapy. 4. Lasix IV PRN for now.K supplementation. 5. Hgb levels have been stable. 6. Will decrease Wellbutrin dose for excessive sedation. 7. PT eval and Tx for severe deconditioning. CCU Objective - Vital Signs / Intake & Output Intake and Output (Last 8hrs): Intake & Output 05/16/18 05/16/18 05/17/18 14:59 22:59 06:59 Intake Total 0 0 Output Total 125 Balance -125 0 0 Intake: IV 0 Oral 0 0 Output: Urine 125 Urine, Voided 125 Other: # Voids Urine, Voided 1 # Bowel Movements 1
[2017-12-05] MEDS: Tiotropium 18 mcg Cap For Inhalation INH SCH (09:02)
[2017-12-05] MEDS: Lidocaine 5% Patch TD SCH (10:36)
[2017-12-05] MEDS: Potassium Chloride 20 mEq/15 ml LIQ UD PO SCH (10:40)
[2017-12-05] MEDS: Albuterol-Ipratrop 3 mg / 0.5 (3 ml) UD INH SCH ×2 (15:36→19:03)
[2017-12-06] MEDS: Insulin Lispro (humaLOG) 100 Units/ml Inj SC SCH ×5 (00:17→21:12)
[2017-12-06 05:27] LABS: MEAN CELL VOLUME 96.6 fl (81.0-99.0); MEAN CORPUSCULAR HEMOGLOBIN 32.9 pg (27.0-31.0); RBC 3.34 Mil/uL (3.80-5.20); RED CELL DISTRIBUTION WIDTH 13.6 % (11.5-14.5); WHITE BLOOD COUNT 8.3 K/uL (4.8-10.8)
[2017-12-06] MEDS: Albuterol-Ipratrop 3 mg / 0.5 (3 ml) UD INH SCH ×3 (07:25→19:05)
[2017-12-06 07:27] LABS: ALB/GLOB RATIO 1.1 (1.0-2.1); ALBUMIN 3.4 g/dL (3.5-5.0); CALCIUM 9.7 mg/dL (8.4-10.2)
[2017-12-06] MEDS: Tiotropium 18 mcg Cap For Inhalation INH SCH (09:02)
[2017-12-06] MEDS: Lidocaine 5% Patch TD SCH (09:06)
[2017-12-06] MEDS: Enoxaparin 40 mg Syringe SC SCH (09:16)
[2017-12-06] MEDS: Fluticasone-Salmeterol 100-50mcg Diskus IH SCH ×2 (09:18→21:16)
[2017-12-06] MEDS: Potassium Chloride 20 mEq/15 ml LIQ UD PO SCH (09:38)
[2017-12-06] MEDS: Pantoprazole 40 mg EC Tab PO SCH (09:42)
--- NOTE | 2017-12-06 13:53 | PN ---
DATE: 12/06/2017 SUBJECTIVE: The patient was extubated. She denies any chest pain. No reports of ventricular arrhythmia. PHYSICAL EXAMINATION: VITAL SIGNS: Blood pressure 134/76, heart rate 98, temperature 97.6, and respirations 20. HEENT: Normocephalic. CHEST: Bilateral rhonchi. HEART: S1 and S2 regular. EXTREMITIES: Trace leg edema. LABORATORY DATA: Today's SMA-7 is within normal limits except for glucose of 120, BUN and creatinine are 25 and 1.3. Today's hemoglobin and hematocrit are 11 and 32.3. White count and platelet count are within normal limits. Chest CT scan report, which was performed on the appearance of the sternal and extensive bilateral rib fractures with persistent displaced/overlapping left-sided rib fractures as described. ASSESSMENT: 1. Status post respiratory failure. 2. Bilateral multiple rib fractures. 3. Bilateral pneumonia. 4. Prerenal azotemia. 5. EtOH abuse. RECOMMENDATIONS: Continue current Advair, albuterol, folic acid, and p.r.n. IV Haldol. Continue subcutaneous Lovenox 40 mg once a day, Norvasc 5 mg once a day, potassium chloride 20 mEq daily orally, and thiamine 100 mg once a day. Aditya Abraham MD
--- NOTE | 2017-12-06 14:44 | CP.PCM.PN ---
Subjective - Date & Time of Evaluation Date of Evaluation: 12/06/17 Time of Evaluation: 14:39 - Subjective Subjective: Patient seen and examined at bedside. PAtietn has no specific complaints Objective - Vital Signs/Intake and Output Vital Signs (last 24 hours): Temp Pulse Resp BP Pulse Ox 97.6 F 102 H 22 151/95 H 97 12/06/17 12:00 12/06/17 14:00 12/06/17 14:00 12/06/17 14:00 12/06/17 14:00 Intake and Output: 12/06/17 12/06/17 06:59 18:59 Intake Total 120 Output Total 250 200 Balance -130 -200 - Medications Medications: Current Medications Acetaminophen (Tylenol 325mg Tab) 650 mg PO Q6 PRN PRN Reason: Pain, Mild (1-3) Last Admin: 12/05/17 21:17 Dose: 650 mg Acyclovir (Zovirax) 800 mg PO 5XD [facility] PRN Reason: Protocol Last Admin: 12/06/17 09:04 Dose: 800 mg Albuterol/Ipratropium (Duoneb 3 Mg/0.5 Mg (3 Ml) Ud) 3 ml INH RQ6 [facility] Last Admin: 12/06/17 13:06 Dose: 3 ml Amlodipine Besylate (Norvasc) 5 mg PO DAILY [facility] Last Admin: 12/06/17 09:17 Dose: 5 mg Bupropion HCl (Wellbutrin) 75 mg PO DAILY [facility] Last Admin: 12/04/17 09:16 Dose: 75 mg Enoxaparin Sodium (Lovenox) 40 mg SC DAILY [facility] PRN Reason: Protocol Last Admin: 12/06/17 09:16 Dose: 40 mg Famotidine (Pepcid) 20 mg PO DAILY [facility] Last Admin: 12/06/17 09:36 Dose: 20 mg Folic Acid (Folic Acid) 1 mg PO DAILY [facility] Last Admin: 12/06/17 09:02 Dose: 1 mg Haloperidol Lactate (Haldol) 2 mg IVP Q4 PRN PRN Reason: Agitation Last Admin: 12/03/17 23:42 Dose: 2 mg Insulin Human Lispro (Humalog) 0 units SC ACHS [facility] PRN Reason: Protocol Last Admin: 12/06/17 12:00 Dose: Not Given Lidocaine (Lidoderm) 2 ea TD DAILY [facility] Last Admin: 12/06/17 09:06 Dose: 2 ea Montelukast Sodium (Singulair) 10 mg PO HS [facility] Nicotine (Nicoderm Cq) 1 patch TD DAILY [facility] Last Admin: 12/06/17 09:02 Dose: 1 patch Pantoprazole Sodium (Protonix Ec Tab) 40 mg PO DAILY [facility] Last Admin: 12/06/17 09:42 Dose: 40 mg Potassium Chloride (Potassium Chloride Oral Soln) 20 meq PO DAILY [facility] Last Admin: 12/06/17 09:38 Dose: 20 meq Fluticasone/Salmeterol (Advair Diskus 100/50) 1 puff IH Q12 [facility] Last Admin: 12/06/17 09:18 Dose: 1 puff Thiamine HCl (Vitamin B1 Tab) 100 mg PO DAILY [facility] Last Admin: 12/06/17 09:03 Dose: 100 mg Tiotropium [place] (Spiriva) 18 mcg INH DAILY [facility] Last Admin: 12/06/17 09:02 Dose: 18 mcg - Labs Labs: 12/06/17 04:55 12/06/17 04:00 PT 12.7 Seconds (9.8-13.1) 11/21/17 04:20 INR 1.1 (0.9-1.2) 11/21/17 04:20 APTT 24.9 Seconds (25.6-37.1) L 11/21/17 04:20 - Head Exam Head Exam: ATRAUMATIC, NORMAL INSPECTION, NORMOCEPHALIC - Respiratory Exam Respiratory Exam: Clear to Ausculation Bilateral Additional comments: paradoxical anterior chest movement - Cardiovascular Exam Cardiovascular Exam: REGULAR RHYTHM, +S1, +S2 - GI/Abdominal Exam GI & Abdominal Exam: Normal Bowel Sounds Assessment and Plan - Assessment and Plan (Free Text) Assessment: Chronic moderate ASthma: s/p acute astham attack, now tolerating nebulizers -add LABA -add singular -patient is now wheezing -Flail chest: d/w Dr. Reeves, advsied no surgical intervention; however reqeusted repeat CT chest -obtain PFT to obtain dynamic flow volume study to determine effect of flai chest -HSV: on acyclovir -continue all other medications -patient remains hemodynamically stable with stable breathing pattern. -PT/OT -no khoury/no central line d/w ICu team and Dr. Reeves
[2017-12-06] MEDS ORDERED: Iodixanol 320 MG/ML 100 ML BOTTLE IV ONE (15:39)
[2017-12-06] MEDS ORDERED: Sodium Chloride 0.9% 50 ML IV ONE (15:39)
--- NOTE | 2017-12-06 17:01 | CT ---
PROCEDURE: CT Chest with contrast HISTORY: rib fx COMPARISON: None. TECHNIQUE: Contiguous axial images were obtained through the chest with intravenous contrast enhancement. Sagittal and coronal reconstructions were performed. IV contrast: 90 cc of contrast Radiation dose (DLP): 652 mGy-cm. This CT exam was performed using one or more of the following dose reduction techniques: Automated exposure control, adjustment of the mA and/or kV according to patient size, and/or use of iterative reconstruction technique. FINDINGS: LUNGS: Clear lungs. Visualized airway clear. MEDIASTINUM: Unremarkable thoracic aorta. No aneurysm or dissection. Normal sized heart. Main pulmonary artery unremarkable. No vascular congestion. No lymphadenopathy. PLEURA: No significant change in a bilobed 5.6 centimeter cystic mass or fluid collection in the anterior left apical segment with destruction of adjacent ribs in intrusion into the left anterior chest wall. Additional cystic mass or fluid collection along the left lateral chest wall with adjacent rib destruction measuring roughly 2.0 centimeters. Small to moderate size left pleural effusion with compressive atelectasis at the left base. Overall findings not significant change from prior examination. BONES: Re- demonstration of multiple left-sided rib fractures. UPPER ABDOMEN: Grossly unremarkable. OTHER FINDINGS: Right PICC line in place. IMPRESSION: No significant change in a bilobed 5.6 centimeter cystic mass or fluid collection in the anterior left apical segment with destruction of adjacent ribs in intrusion into the left anterior chest wall. Additional cystic mass or fluid collection along the left lateral chest wall with adjacent rib destruction measuring roughly 2.0 centimeters. Small to moderate size left pleural effusion with compressive atelectasis at the left base. Overall findings not significant change from prior examination.
--- NOTE | 2017-12-06 23:59 | CP.PCM.PN ---
Subjective - Date & Time of Evaluation Date of Evaluation: 12/05/17 Time of Evaluation: 17:20 Objective - Vital Signs/Intake and Output Vital Signs (last 24 hours): Temp Pulse Resp BP Pulse Ox 98.6 F 104 H 25 H 123/80 95 12/06/17 20:00 12/06/17 22:00 12/06/17 22:00 12/06/17 22:00 12/06/17 22:00 Intake and Output: 12/06/17 12/07/17 18:59 06:59 Intake Total 50 Output Total 200 Balance -150 - Medications Medications: Current Medications Acetaminophen (Tylenol 325mg Tab) 650 mg PO Q6 PRN PRN Reason: Pain, Mild (1-3) Last Admin: 12/05/17 21:17 Dose: 650 mg Acyclovir (Zovirax) 800 mg PO 5XD [facility] PRN Reason: Protocol Last Admin: 12/06/17 21:16 Dose: 800 mg Albuterol/Ipratropium (Duoneb 3 Mg/0.5 Mg (3 Ml) Ud) 3 ml INH RQ6 [facility] Last Admin: 12/06/17 19:05 Dose: 3 ml Amlodipine Besylate (Norvasc) 5 mg PO DAILY [facility] Last Admin: 12/06/17 09:17 Dose: 5 mg Bupropion HCl (Wellbutrin) 75 mg PO DAILY [facility] Last Admin: 12/04/17 09:16 Dose: 75 mg Enoxaparin Sodium (Lovenox) 40 mg SC DAILY [facility] PRN Reason: Protocol Last Admin: 12/06/17 09:16 Dose: 40 mg Famotidine (Pepcid) 20 mg PO DAILY [facility] Last Admin: 12/06/17 09:36 Dose: 20 mg Folic Acid (Folic Acid) 1 mg PO DAILY [facility] Last Admin: 12/06/17 09:02 Dose: 1 mg Haloperidol Lactate (Haldol) 2 mg IVP Q4 PRN PRN Reason: Agitation Last Admin: 12/03/17 23:42 Dose: 2 mg Insulin Human Lispro (Humalog) 0 units SC ACHS [facility] PRN Reason: Protocol Last Admin: 12/06/17 21:12 Dose: Not Given Lidocaine (Lidoderm) 2 ea TD DAILY [facility] Last Admin: 12/06/17 09:06 Dose: 2 ea Montelukast Sodium (Singulair) 10 mg PO HS [facility] Last Admin: 12/06/17 21:16 Dose: 10 mg Nicotine (Nicoderm Cq) 1 patch TD DAILY [facility] Last Admin: 12/06/17 09:02 Dose: 1 patch Pantoprazole Sodium (Protonix Ec Tab) 40 mg PO DAILY [facility] Last Admin: 12/06/17 09:42 Dose: 40 mg Potassium Chloride (Potassium Chloride Oral Soln) 20 meq PO DAILY [facility] Last Admin: 12/06/17 09:38 Dose: 20 meq Fluticasone/Salmeterol (Advair Diskus 100/50) 1 puff IH Q12 [facility] Last Admin: 12/06/17 21:16 Dose: 1 puff Thiamine HCl (Vitamin B1 Tab) 100 mg PO DAILY [facility] Last Admin: 12/06/17 09:03 Dose: 100 mg Tiotropium [place] (Spiriva) 18 mcg INH DAILY [facility] Last Admin: 12/06/17 09:02 Dose: 18 mcg - Labs Labs: 12/06/17 04:55 12/06/17 04:00 PT 12.7 Seconds (9.8-13.1) 11/21/17 04:20 INR 1.1 (0.9-1.2) 11/21/17 04:20 APTT 24.9 Seconds (25.6-37.1) L 11/21/17 04:20 Assessment and Plan (1) Respiratory arrest Status: Acute (2) Schizoaffective disorder Status: Chronic (3) Chest wall pain Status: Acute
--- NOTE | 2017-12-07 00:01 | CP.PCM.PN ---
Subjective - Date & Time of Evaluation Date of Evaluation: 12/06/17 Time of Evaluation: 14:45 Objective - Vital Signs/Intake and Output Vital Signs (last 24 hours): Temp Pulse Resp BP Pulse Ox 98.6 F 104 H 25 H 123/80 95 12/06/17 20:00 12/06/17 22:00 12/06/17 22:00 12/06/17 22:00 12/06/17 22:00 Intake and Output: 12/06/17 12/07/17 18:59 06:59 Intake Total 50 Output Total 200 Balance -150 - Medications Medications: Current Medications Acetaminophen (Tylenol 325mg Tab) 650 mg PO Q6 PRN PRN Reason: Pain, Mild (1-3) Last Admin: 12/05/17 21:17 Dose: 650 mg Acyclovir (Zovirax) 800 mg PO 5XD [facility] PRN Reason: Protocol Last Admin: 12/06/17 21:16 Dose: 800 mg Albuterol/Ipratropium (Duoneb 3 Mg/0.5 Mg (3 Ml) Ud) 3 ml INH RQ6 [facility] Last Admin: 12/06/17 19:05 Dose: 3 ml Amlodipine Besylate (Norvasc) 5 mg PO DAILY [facility] Last Admin: 12/06/17 09:17 Dose: 5 mg Bupropion HCl (Wellbutrin) 75 mg PO DAILY [facility] Last Admin: 12/04/17 09:16 Dose: 75 mg Enoxaparin Sodium (Lovenox) 40 mg SC DAILY [facility] PRN Reason: Protocol Last Admin: 12/06/17 09:16 Dose: 40 mg Famotidine (Pepcid) 20 mg PO DAILY [facility] Last Admin: 12/06/17 09:36 Dose: 20 mg Folic Acid (Folic Acid) 1 mg PO DAILY [facility] Last Admin: 12/06/17 09:02 Dose: 1 mg Haloperidol Lactate (Haldol) 2 mg IVP Q4 PRN PRN Reason: Agitation Last Admin: 12/03/17 23:42 Dose: 2 mg Insulin Human Lispro (Humalog) 0 units SC ACHS [facility] PRN Reason: Protocol Last Admin: 12/06/17 21:12 Dose: Not Given Lidocaine (Lidoderm) 2 ea TD DAILY [facility] Last Admin: 12/06/17 09:06 Dose: 2 ea Montelukast Sodium (Singulair) 10 mg PO HS [facility] Last Admin: 12/06/17 21:16 Dose: 10 mg Nicotine (Nicoderm Cq) 1 patch TD DAILY [facility] Last Admin: 12/06/17 09:02 Dose: 1 patch Pantoprazole Sodium (Protonix Ec Tab) 40 mg PO DAILY [facility] Last Admin: 12/06/17 09:42 Dose: 40 mg Potassium Chloride (Potassium Chloride Oral Soln) 20 meq PO DAILY [facility] Last Admin: 12/06/17 09:38 Dose: 20 meq Fluticasone/Salmeterol (Advair Diskus 100/50) 1 puff IH Q12 [facility] Last Admin: 12/06/17 21:16 Dose: 1 puff Thiamine HCl (Vitamin B1 Tab) 100 mg PO DAILY [facility] Last Admin: 12/06/17 09:03 Dose: 100 mg Tiotropium [place] (Spiriva) 18 mcg INH DAILY [facility] Last Admin: 12/06/17 09:02 Dose: 18 mcg - Labs Labs: 12/06/17 04:55 12/06/17 04:00 PT 12.7 Seconds (9.8-13.1) 11/21/17 04:20 INR 1.1 (0.9-1.2) 11/21/17 04:20 APTT 24.9 Seconds (25.6-37.1) L 11/21/17 04:20 Assessment and Plan (1) Respiratory arrest Status: Acute (2) Schizoaffective disorder Status: Chronic (3) Chest wall pain Status: Acute
[2017-12-07] MEDS: Albuterol-Ipratrop 3 mg / 0.5 (3 ml) UD INH SCH ×4 (01:00→19:06)
[2017-12-07 05:50] LABS: BASO % 0.7 % (0.0-2.0); EOS # 0.5 K/uL (0.0-0.7); EOS % 7.7 % (0.0-4.0); HEMOGLOBIN 10.9 g/dL (12.0-16.0); LYMPH # 0.9 K/uL (1.0-4.3); LYMPH % 13.9 % (20.0-40.0); MEAN CORPUSCULAR HEMOGLOBIN 32.3 pg (27.0-31.0); MONO # 0.6 K/uL (0.0-0.8); NEUT # 4.3 K/uL (1.8-7.0); NEUT % 68.7 % (50.0-75.0); NRBC % 0.1 % (0.0-0.0); RBC 3.39 Mil/uL (3.80-5.20); RED CELL DISTRIBUTION WIDTH 13.4 % (11.5-14.5); WHITE BLOOD COUNT 6.2 K/uL (4.8-10.8)
[2017-12-07 06:02] LABS: ALBUMIN 3.4 g/dL (3.5-5.0); CALCIUM 9.8 mg/dL (8.4-10.2)
[2017-12-07] MEDS: Fluticasone-Salmeterol 100-50mcg Diskus IH SCH ×2 (09:17→20:39)
[2017-12-07] MEDS: Lidocaine 5% Patch TD SCH (09:18)
[2017-12-07] MEDS: Enoxaparin 40 mg Syringe SC SCH (09:19)
[2017-12-07] MEDS: Potassium Chloride 20 mEq/15 ml LIQ UD PO SCH (09:20)
[2017-12-07] MEDS: Pantoprazole 40 mg EC Tab PO SCH (09:21)
[2017-12-07] MEDS: Tiotropium 18 mcg Cap For Inhalation INH SCH (09:21)
[2017-12-07] MEDS: Insulin Lispro (humaLOG) 100 Units/ml Inj SC SCH ×4 (11:19→22:00)
[2017-12-07] MEDS ORDERED: Potassium Chloride 20 mEq 100 ML IVPB SCH (15:00)
[2017-12-08] MEDS: Albuterol-Ipratrop 3 mg / 0.5 (3 ml) UD INH SCH ×4 (00:59→19:03)
[2017-12-08 05:22] LABS: HEMOGLOBIN 10.7 g/dL (12.0-16.0); MEAN CELL VOLUME 95.2 fl (81.0-99.0); MEAN CORPUSCULAR HEMOGLOBIN 32.3 pg (27.0-31.0); RBC 3.31 Mil/uL (3.80-5.20); RED CELL DISTRIBUTION WIDTH 13.1 % (11.5-14.5); WHITE BLOOD COUNT 5.6 K/uL (4.8-10.8)
[2017-12-08 05:42] LABS: BLOOD UREA NITROGEN 17 mg/dl (7-17); CALCIUM 7.8 mg/dL (8.4-10.2); GFR AFRICAN-AMERICAN > 60; GFR NON-AFRICAN AMERICAN > 60
[2017-12-08] MEDS: Insulin Lispro (humaLOG) 100 Units/ml Inj SC SCH ×4 (06:48→22:14)
[2017-12-08] MEDS: Fluticasone-Salmeterol 100-50mcg Diskus IH SCH ×2 (08:46→20:51)
[2017-12-08] MEDS: Enoxaparin 40 mg Syringe SC SCH (08:47)
[2017-12-08] MEDS: Tiotropium 18 mcg Cap For Inhalation INH SCH (08:48)
[2017-12-08] MEDS: Pantoprazole 40 mg EC Tab PO SCH (08:49)
[2017-12-08] MEDS: Potassium Chloride 20 mEq/15 ml LIQ UD PO SCH (08:50)
[2017-12-08] MEDS: Lidocaine 5% Patch TD SCH (08:50)
[2017-12-08] MEDS ORDERED: Potassium Chloride 20 mEq/15 ml LIQ UD PO ONE (09:30)
--- NOTE | 2017-12-08 14:08 | PN ---
DATE: 12/08/2017 CRITICAL CARE PROGRESS NOTE LOCATION: The patient in ICU bed 432. TIME SPENT: 35 minutes. IDENTIFICATION DATA: The patient is seen and evaluated at the bedside. Past medical, surgical, social and family history reviewed. HISTORY OF PRESENT ILLNESS: A 57-year-old moderately obese female with history of asthma and major depression, admitted with acute exacerbation of asthma developed asystole status post cardiopulmonary resuscitation with multiple rib fractures and noted flail chest, loculated hematoma and left pleural effusion, extubated. She remains alert and awake, but confused, agitated at times. PHYSICAL EXAMINATION: VITAL SIGNS: Temperature of 98.2, heart rate of 111 to 116 and regular, blood pressure of 134/80, mean arterial pressure 98, respiratory rate of 21, thoracoabdominal, and saturation 97% on oxygen supplement 2 liters nasal cannula. INTAKE AND OUTPUT: Intake and output noted, negative balance. HEENT: Examination of head, eyes, ears, nose and throat: Pupils are reactive. Conjunctivae are pink. Sclerae are white. CHEST: Bilateral breath sounds less on the left compared to right. Mild tenderness over left anterior chest wall. Flail chest _noted. HEART: Rhythm regular. S1 and S2 normal. No audible murmur. ABDOMEN: Bowel sounds present and soft. Liver and spleen not palpable. Bladder not distended. EXTREMITIES: Dependent edema. DP present and equal in intensity. NEUROLOGIC: On examination, moves all four extremities. Agitated, but able to follow commands. CURRENT MEDICATIONS: Tylenol 650 q. 6 hours. p.r.n., Zovirax 800 mg p.o. five times daily, albuterol/Atrovent inhalation 3 mL via nebulizer q. 6 hours., Norvasc 5 mg p.o. daily, Wellbutrin 75 mg p.o. daily Lovenox 40 mg subcutaneous daily, Pepcid 20 mg p.o. daily, folic acid 1 mg p.o. daily, and Haldol 2 mg IV q. 4 hours. p.r.n. for agitation. Accu-Chek with regular insulin coverage, Lidoderm patch daily, Singulair 10 mg p.o. at bedtime, nicotine patch daily, Protonix EC 40 mg p.o. daily, potassium chloride at 20 mEq p.o. daily, Advair Diskus 1 puff twice daily, and Spiriva 18 mcg daily. IMPRESSION AND PLAN: 1. Neurologic: Alert and awake, but intermittent confusion, history of for major depression. Remains combative and agitated at times. Status post brief cardiopulmonary resuscitation, suspect anoxic insult. 2. Pulmonary: Hypoxic respiratory failure status post intubation and extubated, I have noted bilateral lung infiltrate and suspected focal hemorrhage versus aspiration pneumonia, multiple rib fractures as noted on the CT chest with flail chest, but functioning well with no airway compromise.. Continue antibiotics Zosyn and levofloxacin. 3. Cardiac: Telemetry sinus rhythm, no acute arrhythmias status post brief period of cardiorespiratory arrest. 4. Hematology: Leukocytosis trending down. 5. Renal: Insufficiency improved. 6. Infectious Diseases: Status post aspiration pneumonia. 7. Gastrointestinal: No acute issues. 8. Psychiatric: History of depression on Wellbutrin 75 mg p.o. daily. Tito Rodriguez MD [facility]
--- NOTE | 2017-12-08 21:45 | CP.PCM.PN ---
Subjective - Date & Time of Evaluation Date of Evaluation: 12/07/17 Time of Evaluation: 18:25 Objective - Vital Signs/Intake and Output Vital Signs (last 24 hours): Temp Pulse Resp BP Pulse Ox 98.4 F 114 H 29 H 110/78 98 12/08/17 20:00 12/08/17 20:00 12/08/17 20:00 12/08/17 20:00 12/08/17 20:00 Intake and Output: 12/08/17 12/09/17 18:59 06:59 Intake Total 250 Output Total 500 Balance -250 - Medications Medications: Current Medications Acetaminophen (Tylenol 325mg Tab) 650 mg PO Q6 PRN PRN Reason: Pain, Mild (1-3) Last Admin: 12/05/17 21:17 Dose: 650 mg Acyclovir (Zovirax) 800 mg PO 5XD [facility] PRN Reason: Protocol Last Admin: 12/08/17 20:52 Dose: Not Given Albuterol/Ipratropium (Duoneb 3 Mg/0.5 Mg (3 Ml) Ud) 3 ml INH RQ6 [facility] Last Admin: 12/08/17 19:03 Dose: 3 ml Amlodipine Besylate (Norvasc) 5 mg PO DAILY [facility] Last Admin: 12/08/17 08:47 Dose: 5 mg Bupropion HCl (Wellbutrin) 75 mg PO DAILY [facility] Last Admin: 12/04/17 09:16 Dose: 75 mg Enoxaparin Sodium (Lovenox) 40 mg SC DAILY [facility] PRN Reason: Protocol Last Admin: 12/08/17 08:47 Dose: 40 mg Famotidine (Pepcid) 20 mg PO DAILY [facility] Last Admin: 12/08/17 08:55 Dose: 20 mg Folic Acid (Folic Acid) 1 mg PO DAILY [facility] Last Admin: 12/08/17 08:48 Dose: 1 mg Haloperidol Lactate (Haldol) 2 mg IVP Q4 PRN PRN Reason: Agitation Last Admin: 12/07/17 11:18 Dose: 2 mg Insulin Human Lispro (Humalog) 0 units SC ACHS [facility] PRN Reason: Protocol Last Admin: 12/08/17 18:04 Dose: Not Given Lidocaine (Lidoderm) 2 ea TD DAILY [facility] Last Admin: 12/08/17 08:50 Dose: 2 ea Montelukast Sodium (Singulair) 10 mg PO HS [facility] Last Admin: 12/08/17 21:01 Dose: Not Given Nicotine (Nicoderm Cq) 1 patch TD DAILY [facility] Last Admin: 12/08/17 08:49 Dose: 1 patch Pantoprazole Sodium (Protonix Ec Tab) 40 mg PO DAILY [facility] Last Admin: 12/08/17 08:49 Dose: 40 mg Potassium Chloride (Potassium Chloride Oral Soln) 20 meq PO DAILY [facility] Last Admin: 12/08/17 08:50 Dose: 20 meq Fluticasone/Salmeterol (Advair Diskus 100/50) 1 puff IH Q12 [facility] Last Admin: 12/08/17 20:51 Dose: Not Given Thiamine HCl (Vitamin B1 Tab) 100 mg PO DAILY [facility] Last Admin: 12/08/17 08:48 Dose: 100 mg Tiotropium [place] (Spiriva) 18 mcg INH DAILY [facility] Last Admin: 12/08/17 08:48 Dose: 18 mcg - Labs Labs: 12/08/17 04:41 12/08/17 04:41 PT 12.7 Seconds (9.8-13.1) 11/21/17 04:20 INR 1.1 (0.9-1.2) 11/21/17 04:20 APTT 24.9 Seconds (25.6-37.1) L 11/21/17 04:20 Assessment and Plan (1) Respiratory arrest Status: Acute (2) Schizoaffective disorder Status: Chronic (3) Chest wall pain Status: Acute
--- NOTE | 2017-12-08 21:46 | CP.PCM.PN ---
Subjective - Date & Time of Evaluation Date of Evaluation: 12/08/17 Time of Evaluation: 15:05 Objective - Vital Signs/Intake and Output Vital Signs (last 24 hours): Temp Pulse Resp BP Pulse Ox 98.4 F 114 H 29 H 110/78 98 12/08/17 20:00 12/08/17 20:00 12/08/17 20:00 12/08/17 20:00 12/08/17 20:00 Intake and Output: 12/08/17 12/09/17 18:59 06:59 Intake Total 250 Output Total 500 Balance -250 - Medications Medications: Current Medications Acetaminophen (Tylenol 325mg Tab) 650 mg PO Q6 PRN PRN Reason: Pain, Mild (1-3) Last Admin: 12/05/17 21:17 Dose: 650 mg Acyclovir (Zovirax) 800 mg PO 5XD [facility] PRN Reason: Protocol Last Admin: 12/08/17 20:52 Dose: Not Given Albuterol/Ipratropium (Duoneb 3 Mg/0.5 Mg (3 Ml) Ud) 3 ml INH RQ6 [facility] Last Admin: 12/08/17 19:03 Dose: 3 ml Amlodipine Besylate (Norvasc) 5 mg PO DAILY [facility] Last Admin: 12/08/17 08:47 Dose: 5 mg Bupropion HCl (Wellbutrin) 75 mg PO DAILY [facility] Last Admin: 12/04/17 09:16 Dose: 75 mg Enoxaparin Sodium (Lovenox) 40 mg SC DAILY [facility] PRN Reason: Protocol Last Admin: 12/08/17 08:47 Dose: 40 mg Famotidine (Pepcid) 20 mg PO DAILY [facility] Last Admin: 12/08/17 08:55 Dose: 20 mg Folic Acid (Folic Acid) 1 mg PO DAILY [facility] Last Admin: 12/08/17 08:48 Dose: 1 mg Haloperidol Lactate (Haldol) 2 mg IVP Q4 PRN PRN Reason: Agitation Last Admin: 12/07/17 11:18 Dose: 2 mg Insulin Human Lispro (Humalog) 0 units SC ACHS [facility] PRN Reason: Protocol Last Admin: 12/08/17 18:04 Dose: Not Given Lidocaine (Lidoderm) 2 ea TD DAILY [facility] Last Admin: 12/08/17 08:50 Dose: 2 ea Montelukast Sodium (Singulair) 10 mg PO HS [facility] Last Admin: 12/08/17 21:01 Dose: Not Given Nicotine (Nicoderm Cq) 1 patch TD DAILY [facility] Last Admin: 12/08/17 08:49 Dose: 1 patch Pantoprazole Sodium (Protonix Ec Tab) 40 mg PO DAILY [facility] Last Admin: 12/08/17 08:49 Dose: 40 mg Potassium Chloride (Potassium Chloride Oral Soln) 20 meq PO DAILY [facility] Last Admin: 12/08/17 08:50 Dose: 20 meq Fluticasone/Salmeterol (Advair Diskus 100/50) 1 puff IH Q12 [facility] Last Admin: 12/08/17 20:51 Dose: Not Given Thiamine HCl (Vitamin B1 Tab) 100 mg PO DAILY [facility] Last Admin: 12/08/17 08:48 Dose: 100 mg Tiotropium [place] (Spiriva) 18 mcg INH DAILY [facility] Last Admin: 12/08/17 08:48 Dose: 18 mcg - Labs Labs: 12/08/17 04:41 12/08/17 04:41 PT 12.7 Seconds (9.8-13.1) 11/21/17 04:20 INR 1.1 (0.9-1.2) 11/21/17 04:20 APTT 24.9 Seconds (25.6-37.1) L 11/21/17 04:20 Assessment and Plan (1) Respiratory arrest Status: Acute (2) Schizoaffective disorder Status: Chronic (3) Chest wall pain Status: Acute
[2017-12-09] MEDS: Albuterol-Ipratrop 3 mg / 0.5 (3 ml) UD INH SCH ×4 (01:18→19:47)
[2017-12-09 06:03] LABS: MEAN CELL VOLUME 95.6 fl (81.0-99.0); MEAN CORPUSCULAR HEMOGLOBIN 32.6 pg (27.0-31.0); MEAN CORPUSCULAR HGB CONC 34.1 g/dL (33.0-37.0); RBC 3.38 Mil/uL (3.80-5.20); RED CELL DISTRIBUTION WIDTH 13.2 % (11.5-14.5); WHITE BLOOD COUNT 5.6 K/uL (4.8-10.8)
[2017-12-09] MEDS: Insulin Lispro (humaLOG) 100 Units/ml Inj SC SCH ×4 (06:51→21:46)
[2017-12-09] MEDS: Fluticasone-Salmeterol 100-50mcg Diskus IH SCH ×2 (08:31→21:35)
[2017-12-09] MEDS: Enoxaparin 40 mg Syringe SC SCH (08:33)
[2017-12-09] MEDS: Pantoprazole 40 mg EC Tab PO SCH (08:33)
[2017-12-09] MEDS: Tiotropium 18 mcg Cap For Inhalation INH SCH (08:33)
[2017-12-09] MEDS: Potassium Chloride 20 mEq/15 ml LIQ UD PO SCH (08:34)
--- NOTE | 2017-12-09 08:38 | PN ---
DATE: 12/07/2017 CRITICAL CARE PROGRESS NOTE LOCATION: The patient is in ICU bed number 432. TIME SPENT: 35 minutes. HISTORY OF PRESENT ILLNESS: The patient is seen and evaluated at the bedside. Past medical, surgical and social and family history reviewed. A 57-year-old moderately obese female with a history of asthma and major depression, admitted with progressively worsening shortness of breath, found on the floor unresponsive status post cardiopulmonary resuscitation and intubation. Extubated currently on oxygen supplement by nasal cannula. She noted to have bilateral multiple rib fractures with flail chest, but saturating well. Overnight normotensive, afebrile. Telemetry sinus rhythm. PHYSICAL EXAMINATION: VITAL SIGNS: Temperature of 98.6, heart rate of 100, respiratory rate of 22, blood pressure of 133/85, oxygen saturation of 99%. Weight is 167 pounds. INTAKE AND OUTPUT: Intake of 50 and output of 200, negative balance 150. HEENT: Examination of head, eyes, ears, nose and throat, pupils reactive. Conjunctivae are pink. Sclerae are white. NECK: Supple. Trachea is central. RESPIRATORY: Bilateral breath sounds, diminished intensity. Scattered rhonchi. Tenderness over the anterior chest wall. No subcutaneous emphysema. Flail chest present. CARDIOVASCULAR: Heart rhythm is regular. S1 and S2 normal. ABDOMEN: Bowel sounds are present. Soft. Liver and spleen not palpable. GENITOURINARY: Bladder not distended. EXTREMITIES: With trace edema. Dorsalis pedis palpable. NEUROLOGIC: Remains wakeful, less agitated and combative. CURRENT MEDICATIONS Tylenol 650 q. 6 hours. p.r.n., Zovirax 800 mg p.o. five times daily, albuterol/Atrovent inhalation 3 mL q. 6 hours., Norvasc 5 mg p.o. daily, Wellbutrin 75 mg p.o. daily, Lovenox 40 subcutaneous daily, Pepcid 20 mg daily, folic acid 1 mg p.o. daily, Haldol 2 mg IV q. 4 hours. p.r.n., Accu-Chek with regular insulin coverage, Lidoderm patch daily, Singulair 10 mg daily, nicotine one patch 14 mg patch daily, Protonix EC 40 mg p.o. daily, Advair 1 puff twice daily, thiamine 100 mg p.o. daily, and Spiriva 18 mcg 1 puff daily. LABORATORY DATA: WBC of 6.2, hemoglobin of 10.9, hematocrit of 32.2, and platelet count of 163, neutrophils of 68.7, lymphocytes of 13.9, and monocytes of 9. PT of 12.7, INR of 1.1, and PTT of 24.9. ABG pending. SMA-7: Sodium of 143, potassium of 3.4, chloride of 105, CO2 of 24, blood urea nitrogen of 21, and creatinine of 1.3. Random glucose of 132, calcium of 9.8, phosphorus of 4.6, and magnesium of 1.8. Total bilirubin of 0.8, AST of 39, ALT of 54, total protein of 6.9, and albumin of 3.04. Urinalysis is negative. Toxicology is positive for opiates. Serology is negative for influenza A and B. Microbiology: Sputum culture for positive yeast. Urine culture is negative. Blood culture no growth. DIAGNOSTIC DATA: Chest CT on 12/06/2017 shows no significant change in 5.6-cm cystic mass and fluid collection in the anterior left apical segment with destruction of adjacent ribs in intrusion into the left anterior chest wall and a small to moderate-sized left pleural effusion. IMPRESSION AND PLAN: 1. Neurologic: Remains wakeful, less combative and history of major depression: 2. Pulmonary: Hypoxic respiratory failure, bilateral rib fractures with flail chest. She remains functional and saturating over 94%. Cystic mass in the left apical versus the contained hematoma, small left pleural effusion. History of asthma. Currently stable on DuoNeb 3 mL via nebulizer q. 6 hours and Advair 1 puff twice daily. Status post active extubation remains without any distress. 3. Hematology: Leukocytosis resolved secondary to pneumonia. Stable hemoglobin and hematocrit and normal platelet count. 4. Gastrointestinal: No acute issues. 5. Renal: Hypokalemia. Supplement potassium. 6. Continue deep venous thrombosis and gastrointestinal prophylaxis. Out of bed to chair as tolerated. Consider occupational therapy and physical therapy. Closely monitor respiratory status. Tito Rodriguez MD [facility]
[2017-12-09] MEDS: Lidocaine 5% Patch TD SCH (08:39)
--- NOTE | 2017-12-09 11:08 | CP.CCUPN ---
CCU Subjective - Physician Review Subjective (Free Text): 12/09/17 11:03 The patient was seen and examined at the bedside, medical records reviewed, and management issues were discussed and formulated with the house staff. Events reviewed. 59 year old Active Heavy Smoker Female with PMHx of HTN, Arthritis, Asthma, Back Problems (c-spine, l-spine herniated discs), Depression, Gastritis, Anxiety and Schizophrenia Who initially presented to the ED with shortness of breath x 1 day, Patient became increasingly labored breathing and while wondering down the hallway in ER, she collapsed with gasping respiration and went into respiratory and cardiac arrest. Code Blue was called in the ED and CPR was begun. She received two doses of Epinephrine before return of Pulse. She was intubated by the ED physician. Patient sustained multiple Ribs fx and Chest wall contusion. Hospital course also noted for GRETCHEN, now improving Patient Successfully extubated to BIPAP on 11/30 and now tolerating nasal cannula Patient has been confused, intermittently agitated, and otherwise hemodynamically stable No Haldol over last 24H Improved respiratory status, Adequate saturation of 94-98% on 2L NC Completed IV Methylprednisolone (Solu-Medrol) treatment Also all antibiotics discontinued Afebrile Patient remains with Tachycardia, No pain, No signs of withdrwal Electrolytes reviewed, K 4.2, Mg level ordered i switched the Norvasc to Lopressor 25 mg PO BID will holding parameters CCU Objective - Vital Signs / Intake & Output Vital Signs (Last 4 hours): Vital Signs Temp Pulse Resp BP Pulse Ox 12/09/17 08:35 139/87 12/09/17 08:00 98.2 F 110 H 19 139/87 100 Intake and Output (Last 8hrs): Intake & Output 12/08/17 12/09/17 12/09/17 22:59 06:59 14:59 Intake Total 250 Output Total 500 Balance -250 Intake: IV 0 Oral 250 Output: Urine 500 Urine, Voided 500 Other: # Voids Urine, Voided 3 - Physical Exam Head: Positive for: Atraumatic, Normocephalic Pupils: Positive for: PERRL, Sluggish Extroacular Muscles: Positive for: EOMI Conjunctiva: Positive for: Normal. Negative for: Injected, Icteric Mouth: Positive for: Moist Mucous Membranes Pharnyx: Positive for: Normal. Negative for: ERYTHEMA, EXUDATE Nose (Internal): Positive for: Normal Inspection. Negative for: No Active Bleeding Neck: Positive for: Normal Range of Motion, Trachea Midline. Negative for: Meningeal Signs, MIDLINE TENDERNESS, Paraspinal Tenderness, JVD, Lymphadenopathy , Bruit, Other Respiratory/Chest: Positive for: Decreased Breath Sounds, Rales, Rhonchi. Negative for: Respiratory Distress, Accessory Muscle Use, Wheezes Cardiovascular: Positive for: Regular Rate and Rhythm, Normal S1, S2, Peripheal Pulses Present. Negative for: Murmurs, Irregular Rhythm, Tachycardic, Bradycardic Abdomen: Positive for: Normal Bowel Sounds. Negative for: Tenderness, Distention, Peritoneal Signs, Rebound, Guarding Upper Extremity: Positive for: Normal Inspection, NORMAL PULSES, Capillary Refill < 2s. Negative for: Cyanosis, Edema Lower Extremity: Positive for: Normal Inspection, NORMAL PULSES, Capillary Refill < 2 s. Negative for: Edema, CALF TENDERNESS Neurological: Positive for: GCS=15, CN II-XII Intact, Speech Normal, Motor Func Grossly Intact, Normal Sensory Function Psychiatric: Positive for: Alert, Oriented x 3 - Medications Active Medications: Active Medications Generic Name Dose Route Start Last Admin Trade Name Freq PRN Reason Stop Dose Admin Acetaminophen 650 mg 12/03/17 04:46 12/05/17 21:17 Tylenol 325mg Tab PO 650 mg Q6 PRN Administration Pain, Mild (1-3) Acyclovir 800 mg 12/05/17 21:00 12/09/17 08:32 Zovirax PO 800 mg 5XD [facility]ELOPE Administration Protocol Albuterol/Ipratropium 3 ml 12/06/17 14:00 12/09/17 07:38 Duoneb 3 Mg/0.5 Mg (3 Ml) Ud INH 3 ml RQ6 [facility] Administration Amlodipine Besylate 5 mg 12/06/17 09:00 12/09/17 08:35 Norvasc PO 5 mg DAILY [facility] Administration Bupropion HCl 75 mg 11/19/17 09:00 12/04/17 09:16 Wellbutrin PO 75 mg DAILY [facility] Administration Famotidine 20 mg 12/06/17 09:00 12/09/17 08:51 Pepcid PO Not Given DAILY [facility] Folic Acid 1 mg 11/20/17 10:00 12/09/17 08:35 Folic Acid PO 1 mg DAILY [facility] Administration Haloperidol Lactate 2 mg 11/18/17 09:13 12/07/17 11:18 Haldol IVP 2 mg Q4 PRN Administration Agitation Insulin Human Lispro 0 units 12/06/17 11:30 12/09/17 06:51 Humalog SC Not Given ACHS [facility] Protocol Lidocaine 2 ea 11/21/17 09:00 12/09/17 08:39 Lidoderm TD 2 ea DAILY [facility] Administration Montelukast Sodium 10 mg 12/06/17 22:00 12/08/17 21:01 Singulair PO Not Given HS [facility] Nicotine 1 patch 11/18/17 09:45 12/09/17 08:35 Nicoderm Cq TD 1 patch DAILY [facility] Administration Pantoprazole Sodium 40 mg 12/06/17 09:00 12/09/17 08:33 Protonix Ec Tab PO 40 mg DAILY [facility] Administration Potassium Chloride 20 meq 12/05/17 10:00 12/09/17 08:34 Potassium Chloride Oral Soln PO 20 meq DAILY [facility] Administration Fluticasone/Salmeterol 1 puff 12/06/17 09:00 12/09/17 08:31 Advair Diskus 100/50 IH 1 puff Q12 [facility] Administration Thiamine HCl 100 mg 12/05/17 10:00 12/09/17 08:33 Vitamin B1 Tab PO 100 mg DAILY [facility] Administration Tiotropium [place] 18 mcg 12/02/17 09:00 12/09/17 08:33 Spiriva INH 18 mcg DAILY [facility] Administration - Patient Studies Lab Studies: Lab Studies 12/09/17 12/09/17 12/09/17 Range/Units 05:30 05: 04:50 WBC 5.6 (4.8-10.8) K/uL RBC 3.38 L (3.80-5.20) Mil/uL Hgb 11.0 L (12.0-16.0) g/dL Hct 32.3 L (34.0-47.0) % MCV 95.6 (81.0-99.0) fl MCH 32.6 H (27.0-31.0) pg MCHC 34.1 (33.0-37.0) g/dL RDW 13.2 (11.5-14.5) % Plt Count 196 (130-400) K/uL Sodium 145 (132-148) mmol/l Potassium 4.2 (3.6-5.0) MMOL/L Chloride 107 (98-107) mmol/L Carbon Dioxide 23 (22-30) mmol/L Anion Gap 19 (10-20) BUN 26 H (7-17) mg/dl Creatinine 1.4 H (0.7-1.2) mg/dl Est GFR ( Amer) 47 Est GFR (Non-Af Amer) 39 POC Glucose (mg/dL) 118 H (65-110) mg/dL Random Glucose 126 H (65-105) mg/dL Calcium 10.0 (8.4-10.2) mg/dL 12/08/17 12/08/17 Range/Units 21:11 17:00 WBC (4.8-10.8) K/uL RBC (3.80-5.20) Mil/uL Hgb (12.0-16.0) g/dL Hct (34.0-47.0) % MCV (81.0-99.0) fl MCH (27.0-31.0) pg MCHC (33.0-37.0) g/dL RDW (11.5-14.5) % Plt Count (130-400) K/uL Sodium (132-148) mmol/l Potassium (3.6-5.0) MMOL/L Chloride (98-107) mmol/L Carbon Dioxide (22-30) mmol/L Anion Gap (10-20) BUN (7-17) mg/dl Creatinine (0.7-1.2) mg/dl Est GFR ( Amer) Est GFR (Non-Af Amer) POC Glucose (mg/dL) 126 H 116 H (65-110) mg/dL Random Glucose (65-105) mg/dL Calcium (8.4-10.2) mg/dL Laboratory Results - last 24 hr 12/08/17 12/08/17 12/09/17 17:00 21:11 04:50 WBC 5.6 RBC 3.38 L Hgb 11.0 L Hct 32.3 L MCV 95.6 MCH 32.6 H MCHC 34.1 RDW 13.2 Plt Count 196 Sodium Potassium Chloride Carbon Dioxide Anion Gap BUN Creatinine Est GFR ( Amer) Est GFR (Non-Af Amer) POC Glucose (mg/dL) 116 H 126 H Random Glucose Calcium 05/21/18 05/21/18 05:17 05:30 WBC RBC Hgb Hct MCV MCH MCHC RDW Plt Count Sodium 145 Potassium 4.2 Chloride 107 Carbon Dioxide 23 Anion Gap 19 BUN 26 H Creatinine 1.4 H Est GFR ( Amer) 47 Est GFR (Non-Af Amer) 39 POC Glucose (mg/dL) 118 H Random Glucose 126 H Calcium 10.0 Fingerstick Blood Sugar Results: 118 Review of Systems - Cardiovascular Cardiovascular: absent: Chest Pain, Chest Pain at Rest, Chest Pain with Activity , Claudication, Diaphoresis - Respiratory Respiratory: absent: Cough, Dyspnea, Hemoptysis, Dyspnea on Exertion, Wheezing - Gastrointestinal Gastrointestinal: absent: Abdominal Pain, Nausea, Vomiting Critical Care Progress Note - Nutrition Nutrition: Nutrition Category Date Time Status Dysphagia/Modified Consistency Diet [DIET] Diets 12/02/17 Dinner Active Assessment/Plan (1) Chronic respiratory failure with hypercapnia Current Visit: Yes Status: Acute Comment: Patient successfully extubated on 11/30, breathing well on nasal canula oxygen No PTX Pain controlled Incentive spirometer (2) Respiratory arrest Current Visit: Yes Status: Acute Priority: High Comment: S/P chest compression with Rib fractures Patient Successfully extubated No PTX Pain controlled Incentive spirometer (3) COPD exacerbation Current Visit: Yes Status: Acute Comment: Completed IV Methylprednisolone (Solu-Medrol) treatement Albuterol/Ipratropium (Duoneb) 3 ml INH RQ6 PRN Continue Tiotropium [place] (Spiriva) 18 mcg INH DAILY [facility] (4) Schizophrenia Current Visit: No Status: Acute Comment: Seen by Psych, started on Bupropion HCl (Wellbutrin) 75 mg PO DAILY Continue PRN Haldol (5) Chest wall pain Current Visit: No Status: Acute Priority: High Comment: Patient sustained multiple Ribs fx and Chest wall contusion. Patient scheduled for Repeat chest CT PRN Analgesia (6) Sinus tachycardia Current Visit: Yes Status: Acute Comment: Patient remains with Tachycardia, No pain, No signs of withdrwal Electrolytes reviewed, K 4.2, Mg level ordered i switched the Norvasc to Lopressor 25 mg PO BID will holding parameters
--- NOTE | 2017-12-09 12:53 | CP.PCM.PN ---
Subjective - Date & Time of Evaluation Date of Evaluation: 12/09/17 Time of Evaluation: 12:42 - Subjective Subjective: Pt s/e at the bedside. Sinus tach. Otherwise vss. Satisfactory O2 sat on 2l nc. Paradoxical chest wall movent - Not interfering oxygenation. ct of chest (12/06/17): two hematoms(Ist rib and 2nd rib fx sites), left; Min left pleural effusion left with associated atelectsis. a/p: 1. multiple rib fx bilat. 2. Hematomas, 1st and 2nd fib fx sites. 3. Min pleural effusion, left and atelectsis due to external compression- No intervention indicated at this time. 4. Flail chest due to mltliple rib fx -No surgical intervention indicated at this time. 5. Sinus tach-treatment as per Dr. Lam. 6.d/w Dr. Carrillo. Objective - Vital Signs/Intake and Output Vital Signs (last 24 hours): Temp Pulse Resp BP Pulse Ox 98.6 F 110 H 18 114/79 97 12/09/17 12:00 12/09/17 12:00 12/09/17 12:00 12/09/17 12:00 12/09/17 12:00 Intake and Output: 12/09/17 12/09/17 06:59 18:59 Intake Total 50 Output Total 200 Balance -150 - Medications Medications: Current Medications Acetaminophen (Tylenol 325mg Tab) 650 mg PO Q6 PRN PRN Reason: Pain, Mild (1-3) Last Admin: 12/05/17 21:17 Dose: 650 mg Acyclovir (Zovirax) 800 mg PO 5XD [facility] PRN Reason: Protocol Last Admin: 12/09/17 08:32 Dose: 800 mg Albuterol/Ipratropium (Duoneb 3 Mg/0.5 Mg (3 Ml) Ud) 3 ml INH RQ6 [facility] Last Admin: 12/09/17 07:38 Dose: 3 ml Bupropion HCl (Wellbutrin) 75 mg PO DAILY [facility] Last Admin: 12/04/17 09:16 Dose: 75 mg Famotidine (Pepcid) 20 mg PO DAILY [facility] Last Admin: 12/09/17 08:51 Dose: Not Given Folic Acid (Folic Acid) 1 mg PO DAILY [facility] Last Admin: 12/09/17 08:35 Dose: 1 mg Haloperidol Lactate (Haldol) 2 mg IVP Q4 PRN PRN Reason: Agitation Last Admin: 12/07/17 11:18 Dose: 2 mg Insulin Human Lispro (Humalog) 0 units SC ACHS [facility] PRN Reason: Protocol Last Admin: 12/09/17 11:28 Dose: Not Given Lidocaine (Lidoderm) 2 ea TD DAILY [facility] Last Admin: 12/09/17 08:39 Dose: 2 ea Metoprolol Tartrate (Lopressor) 25 mg PO Q12 [facility] Montelukast Sodium (Singulair) 10 mg PO HS [facility] Last Admin: 12/08/17 21:01 Dose: Not Given Nicotine (Nicoderm Cq) 1 patch TD DAILY [facility] Last Admin: 12/09/17 08:35 Dose: 1 patch Pantoprazole Sodium (Protonix Ec Tab) 40 mg PO DAILY [facility] Last Admin: 12/09/17 08:33 Dose: 40 mg Potassium Chloride (Potassium Chloride Oral Soln) 20 meq PO DAILY [facility] Last Admin: 12/09/17 08:34 Dose: 20 meq Fluticasone/Salmeterol (Advair Diskus 100/50) 1 puff IH Q12 [facility] Last Admin: 12/09/17 08:31 Dose: 1 puff Thiamine HCl (Vitamin B1 Tab) 100 mg PO DAILY [facility] Last Admin: 12/09/17 08:33 Dose: 100 mg Tiotropium [place] (Spiriva) 18 mcg INH DAILY [facility] Last Admin: 12/09/17 08:33 Dose: 18 mcg - Labs Labs: 12/09/17 04:50 12/09/17 05:17 PT 12.7 Seconds (9.8-13.1) 11/21/17 04:20 INR 1.1 (0.9-1.2) 11/21/17 04:20 APTT 24.9 Seconds (25.6-37.1) L 11/21/17 04:20
[2017-12-10] MEDS: Albuterol-Ipratrop 3 mg / 0.5 (3 ml) UD INH SCH ×4 (01:00→19:08)
--- NOTE | 2017-12-10 04:50 | CP.PCM.PN ---
Subjective - Date & Time of Evaluation Date of Evaluation: 12/09/17 Time of Evaluation: 10:15 - Subjective Subjective: Seen and examined at the bed side. More awake and less dysphonic. Continued to be Tachycardic. Upgraded to soft mechanical diet. Occassional cough. Objective - Vital Signs/Intake and Output Vital Signs (last 24 hours): Temp Pulse Resp BP Pulse Ox 99.3 F 99 H 23 117/77 94 L 12/10/17 00:00 12/10/17 02:00 12/10/17 02:00 12/10/17 02:00 12/10/17 02:00 Intake and Output: 12/09/17 12/10/17 18:59 06:59 Intake Total 420 Output Total 200 Balance 220 - Medications Medications: Current Medications Acetaminophen (Tylenol 325mg Tab) 650 mg PO Q6 PRN PRN Reason: Pain, Mild (1-3) Last Admin: 12/05/17 21:17 Dose: 650 mg Acyclovir (Zovirax) 800 mg PO 5XD [facility] PRN Reason: Protocol Last Admin: 12/09/17 21:36 Dose: 800 mg Albuterol/Ipratropium (Duoneb 3 Mg/0.5 Mg (3 Ml) Ud) 3 ml INH RQ6 [facility] Last Admin: 12/10/17 01:00 Dose: 3 ml Bupropion HCl (Wellbutrin) 75 mg PO DAILY [facility] Last Admin: 12/04/17 09:16 Dose: 75 mg Famotidine (Pepcid) 20 mg PO DAILY [facility] Last Admin: 12/09/17 08:51 Dose: Not Given Folic Acid (Folic Acid) 1 mg PO DAILY [facility] Last Admin: 12/09/17 08:35 Dose: 1 mg Haloperidol Lactate (Haldol) 2 mg IVP Q4 PRN PRN Reason: Agitation Last Admin: 12/07/17 11:18 Dose: 2 mg Insulin Human Lispro (Humalog) 0 units SC ACHS [facility] PRN Reason: Protocol Last Admin: 12/09/17 21:46 Dose: Not Given Lidocaine (Lidoderm) 2 ea TD DAILY [facility] Last Admin: 12/09/17 08:39 Dose: 2 ea Metoprolol Tartrate (Lopressor) 25 mg PO Q12 [facility] Last Admin: 12/09/17 21:35 Dose: 25 mg Montelukast Sodium (Singulair) 10 mg PO HS [facility] Last Admin: 12/09/17 21:35 Dose: 10 mg Nicotine (Nicoderm Cq) 1 patch TD DAILY [facility] Last Admin: 12/09/17 08:35 Dose: 1 patch Pantoprazole Sodium (Protonix Ec Tab) 40 mg PO DAILY [facility] Last Admin: 12/09/17 08:33 Dose: 40 mg Potassium Chloride (Potassium Chloride Oral Soln) 20 meq PO DAILY [facility] Last Admin: 12/09/17 08:34 Dose: 20 meq Fluticasone/Salmeterol (Advair Diskus 100/50) 1 puff IH Q12 [facility] Last Admin: 12/09/17 21:35 Dose: 1 puff Thiamine HCl (Vitamin B1 Tab) 100 mg PO DAILY [facility] Last Admin: 12/09/17 08:33 Dose: 100 mg Tiotropium [place] (Spiriva) 18 mcg INH DAILY [facility] Last Admin: 12/09/17 08:33 Dose: 18 mcg - Labs Labs: 12/09/17 04:50 12/09/17 05:17 PT 12.7 Seconds (9.8-13.1) 11/21/17 04:20 INR 1.1 (0.9-1.2) 11/21/17 04:20 APTT 24.9 Seconds (25.6-37.1) L 11/21/17 04:20 - Constitutional Appears: No Acute Distress - Head Exam Head Exam: ATRAUMATIC, NORMAL INSPECTION, NORMOCEPHALIC - Eye Exam Eye Exam: EOMI, Normal appearance, PERRL Pupil Exam: NORMAL ACCOMODATION - ENT Exam ENT Exam: Mucous Membranes Moist, Normal Exam - Neck Exam Neck Exam: Full ROM, Normal Inspection - Respiratory Exam Respiratory Exam: Clear to Ausculation Bilateral, NORMAL BREATHING PATTERN - Cardiovascular Exam Cardiovascular Exam: Tachycardia, +S1, +S2 - GI/Abdominal Exam GI & Abdominal Exam: Guarding, Soft, Normal Bowel Sounds - Extremities Exam Extremities Exam: Full ROM, Normal Capillary Refill, Normal Inspection - Back Exam Back Exam: Full ROM, NORMAL INSPECTION. absent: CVA tenderness (L), CVA tenderness (R) - Neurological Exam Neurological Exam: Alert, Awake - Psychiatric Exam Psychiatric exam: Anxious, Flat Affect, Normal Affect - Skin Skin Exam: Dry, Intact, Normal Color Assessment and Plan (1) Respiratory arrest Assessment & Plan: Acute Respiratory Failure S/P Extubation S/P Cardiac Arrest, and CPR with Rib Fractures and Lung Contusions B/L Pneumonia Continue Respiratory Therapy and Oxygen C/w Current Care O2 Via NC Status: Acute (2) Sinus tachycardia Status: Acute (3) Schizoaffective disorder Status: Chronic (4) Chest wall pain Status: Chronic
[2017-12-10 05:35] LABS: HEMOGLOBIN 11.5 g/dL (12.0-16.0); MEAN CELL VOLUME 95.6 fl (81.0-99.0); MEAN CORPUSCULAR HGB CONC 34.5 g/dL (33.0-37.0); RBC 3.5 Mil/uL (3.80-5.20); RED CELL DISTRIBUTION WIDTH 13.3 % (11.5-14.5); WHITE BLOOD COUNT 6.2 K/uL (4.8-10.8)
--- NOTE | 2017-12-10 08:35 | PN ---
DATE: 12/09/2017 SUBJECTIVE: The patient underwent physical therapy. She does complain of sharp chest pain as well as productive cough. PHYSICAL EXAMINATION: VITAL SIGNS: Blood pressure 122/73, heart rate 107, temperature 98.6, and respirations 18. HEENT: Normocephalic. CHEST: Diffuse bilateral rhonchi. HEART: S1 and S2 regular. EXTREMITIES: No edema. LABORATORY DATA: Today's hemoglobin and hematocrit 11 and 32.2, white count and platelet count are within normal limit. Today's BUN and creatinine are 26 and 1.4. Today's sugar is 126. Rest of BMP is within normal limits. Chest x-ray without contrast, no significant change 5.6 cm cystic mass or fluid collection in anterior left apical segment with destruction of adjacent ribs and anterior chest wall. Additional cystic mass of fluid collection along the left lateral chest wall with adjacent rib destruction measuring roughly 2.4 cm. Small to moderate sized left pleural effusion with compression atelectasis. Overall findings, no significant change from prior examination. ASSESSMENT: 1. Status post respiratory failure. 2. Multiple bilateral rib fracture with hematoma in the first and second left rib fractures. 3. Mild pleural effusion. 4. Sinus tachycardia is a physiologic response to the patient's rib pain as well as shortness of breath. 5. EtOH abuse. RECOMMENDATIONS: Continue current albuterol inhaler. Continue Advair 1 puff every 12 hours, Haldol 2 mg every 4 hours p.r.n., Lopressor 25 mg twice a day, nicotine patch, oral potassium and chloride replacement, and thiamine 100 mg orally daily. Aditya Abraham MD
[2017-12-10] MEDS: Fluticasone-Salmeterol 100-50mcg Diskus IH SCH ×2 (08:57→21:32)
[2017-12-10] MEDS: Tiotropium 18 mcg Cap For Inhalation INH SCH (08:58)
[2017-12-10] MEDS: Pantoprazole 40 mg EC Tab PO SCH (08:58)
[2017-12-10] MEDS: Potassium Chloride 20 mEq/15 ml LIQ UD PO SCH (09:43)
[2017-12-10] MEDS: Lidocaine 5% Patch TD SCH (09:44)
[2017-12-10] MEDS: Insulin Lispro (humaLOG) 100 Units/ml Inj SC SCH ×4 (09:46→22:00)
--- NOTE | 2017-12-10 13:46 | CP.PCM.PN ---
Subjective - Date & Time of Evaluation Date of Evaluation: 12/10/17 Time of Evaluation: 13:39 - Subjective Subjective: Pt s/e at bedside. Awake and alert; Having lunch on the bed. Communicative. vss. Paradoxical chest wall motion remains but O2 sat satisfactory. a/p: Continue current care. Objective - Vital Signs/Intake and Output Vital Signs (last 24 hours): Temp Pulse Resp BP Pulse Ox 98.6 F 108 H 23 131/82 94 L 12/10/17 08:00 12/10/17 10:00 12/10/17 10:00 12/10/17 10:00 12/10/17 10:00 Intake and Output: 12/10/17 12/10/17 06:59 18:59 Intake Total 300 Output Total 400 Balance -100 - Medications Medications: Current Medications Acetaminophen (Tylenol 325mg Tab) 650 mg PO Q6 PRN PRN Reason: Pain, Mild (1-3) Last Admin: 12/05/17 21:17 Dose: 650 mg Acyclovir (Zovirax) 800 mg PO 5XD [facility] PRN Reason: Protocol Last Admin: 12/10/17 12:11 Dose: 800 mg Albuterol/Ipratropium (Duoneb 3 Mg/0.5 Mg (3 Ml) Ud) 3 ml INH RQ6 [facility] Last Admin: 12/10/17 07:51 Dose: 3 ml Bupropion HCl (Wellbutrin) 75 mg PO DAILY [facility] Last Admin: 12/04/17 09:16 Dose: 75 mg Famotidine (Pepcid) 20 mg PO DAILY [facility] Last Admin: 12/10/17 09:44 Dose: Not Given Folic Acid (Folic Acid) 1 mg PO DAILY [facility] Last Admin: 12/10/17 09:46 Dose: 1 mg Haloperidol Lactate (Haldol) 2 mg IVP Q4 PRN PRN Reason: Agitation Last Admin: 12/07/17 11:18 Dose: 2 mg Insulin Human Lispro (Humalog) 0 units SC ACHS [facility] PRN Reason: Protocol Last Admin: 12/10/17 12:09 Dose: 4 u Lidocaine (Lidoderm) 2 ea TD DAILY [facility] Last Admin: 12/10/17 09:44 Dose: 2 ea Metoprolol Tartrate (Lopressor) 25 mg PO Q12 [facility] Last Admin: 12/10/17 09:42 Dose: 25 mg Montelukast Sodium (Singulair) 10 mg PO HS [facility] Last Admin: 12/09/17 21:35 Dose: 10 mg Nicotine (Nicoderm Cq) 1 patch TD DAILY [facility] Last Admin: 12/10/17 09:42 Dose: 1 patch Pantoprazole Sodium (Protonix Ec Tab) 40 mg PO DAILY [facility] Last Admin: 12/10/17 08:58 Dose: 40 mg Potassium Chloride (Potassium Chloride Oral Soln) 20 meq PO DAILY [facility] Last Admin: 12/10/17 09:43 Dose: 20 meq Fluticasone/Salmeterol (Advair Diskus 100/50) 1 puff IH Q12 [facility] Last Admin: 12/10/17 08:57 Dose: 1 puff Thiamine HCl (Vitamin B1 Tab) 100 mg PO DAILY [facility] Last Admin: 12/10/17 09:47 Dose: 100 mg Tiotropium [place] (Spiriva) 18 mcg INH DAILY [facility] Last Admin: 12/10/17 08:58 Dose: 18 mcg - Labs Labs: 12/10/17 04:50 12/10/17 04:50 PT 12.7 Seconds (9.8-13.1) 11/21/17 04:20 INR 1.1 (0.9-1.2) 11/21/17 04:20 APTT 24.9 Seconds (25.6-37.1) L 11/21/17 04:20
--- NOTE | 2017-12-10 14:32 | PN ---
DATE: 12/10/2017 SUBJECTIVE: The patient according to daughter is confused. She is experiencing cough, O2 saturation in the 90s on nasal O2. PHYSICAL EXAMINATION: VITAL SIGNS: Blood pressure 131/82, heart rate 108, temperature 98.6, and respirations 23. HEENT: Normocephalic. CHEST: Diffuse bilateral rhonchi. HEART: S1 and S2 regular. EXTREMITIES: No edema. LABORATORY DATA: Today's hemoglobin and hematocrit are 11.5 and 33.5. White count and platelet count are within normal limits. Today's BUN and creatinine are 3 and 1.4 respectively. ASSESSMENT: 1. Status post respiratory failure. 2. Bilateral rib fracture and sternal fracture. 3. Chronic obstructive lung disease. 4. Prerenal azotemia. 5. EtOH abuse. 6. Mild pleural effusion. RECOMMENDATIONS: Continue current folic acid 1 mg Haldol 2 mg intravenously every 4 hours p.r.n., Lopressor 25 mg twice a day, potassium chloride solution 20 mEq once a day, Singulair 10 mg at bedtime, and thiamine 100 mg once a day. Aditya Abraham MD
[2017-12-10] MEDS ORDERED: Pneumococcal 23-Valent Vaccine IM ONE (21:00)
--- NOTE | 2017-12-10 22:19 | PN ---
CRITICAL CARE PROGRESS NOTE DATE: 12/10/2017 LOCATION: The patient in ICU, bed 432. TIME SPENT: 25 minutes. SUBJECTIVE: The patient is seen and evaluated at the bedside. Her past medical, surgical, family, and social history reviewed. A 57-year-old moderately obese female with history of asthma, major depression, admitted with acute exacerbation of asthma, developed asystole, status post cardiopulmonary resuscitation, with multiple rib fractures, lung contusion and subsequent flail chest, loculated hematoma and left pleural effusion, remains extubated, more wakeful than before, but confused and agitated at times, history of bipolar disorder, overnight normotensive, afebrile, on oxygen supplement, saturating over 94%. OBJECTIVE: GENERAL: This morning; alert, awake, tolerating diet, complaining of pain on deep breath on palpation of the chest wall, occasional productive cough. VITAL SIGNS: Temperature 99.5, heart rate 96, respiratory rate 22, thoracoabdominal, blood pressure 120/78, and mean arterial pressure 81. Intake 250 and output 500, negative balance 250. Weight 167 pounds. HEAD, EYES, EARS, NOSE AND THROAT: Pupils are reactive. Conjunctivae pink. Sclerae are white. NECK: Supple. Trachea central. CHEST: Bilateral breath sounds less on the left compared to right. Mild tenderness over the left anterior chest wall. Flail chest present. HEART: Rhythm regular. S1 and S2 normal. No audible murmur. ABDOMEN: Bowel sounds present. Soft. Liver and spleen not palpable. Bladder not distended. EXTREMITIES: Dependent edema. DP palpable. NEUROLOGIC: Moves all four extremities, agitated at times, but able to follow commands. CURRENT MEDICATIONS: Include Tylenol 650 every 6 hours p.r.n. for mild pain, Zovirax 800 mg p.o. 5 times daily, albuterol/Atrovent inhalation 3 mL via nebulizer every 6 hours, Wellbutrin 75 mg p.o. daily, Pepcid 20 mg p.o. daily, folic acid 1 mg daily, Haldol 2 mg IV every 4 hours p.r.n., Accu-Chek with regular insulin coverage, Lidoderm patch daily, metoprolol 25 mg every 12 hours, Singulair 10 mg daily, nicotine patch 14 mg daily, Advair 100/50 one puff twice daily, and tiotropium bromide 18 mcg inhalation daily. LABORATORY DATA: WBC 6.2, hemoglobin 11.5, hematocrit 33.5, and platelet count of 213. SMA-7; sodium 143, potassium 3.8, chloride 103, CO2 of 26, blood urea nitrogen 30, creatinine 1.4, and glucose 123. Microbiology; yeast in the sputum culture positive. Chest CT done on 12/06/2017, clear lungs, visualized airway is clear. No significant change in the bilobed, 5.6-cm cystic mass or fluid collection in the anterior left apical segment with destruction of the adjacent ribs, cystic mass or fluid collection along the left lateral chest wall with adjacent rib destruction, and [id number] size left pleural effusion. IMPRESSION AND PLAN: 1. Neurologic: Alert, awake, but intermittent confusion, history of major depression. Remains combative and agitated at times. Status post brief cardiopulmonary resuscitation, suspected hypoxic anoxic injury; toxic metabolic encephalopathy, resolved. 2. Pulmonary: Hypoxic respiratory failure, status post multiple intubation x2, now extubated on 2 L nasal cannula. Status post resuscitation with multiple bilateral rib fractures and lung contusion, hematoma, and flail chest stable. History of asthma. Continue Advair 100/50 mcg 1 puff twice daily, DuoNeb 3 mL via nebulizer every 6 hours, Spiriva 18 mcg daily, and out of bed to chair. Occupational therapy and physical therapy as tolerated. 3. Cardiac: Telemetry sinus rhythm, no acute arrhythmias, rate controlled on metoprolol twice daily. 4. Hematology: Leukocytosis trending down. Anemia secondary to acute blood loss superimposed on chronic hemoglobin remains stable. 5. Renal: Renal insufficiency improved, acute on chronic. 6. Infectious disease: Status post aspiration pneumonia, improved and stable. 7. Gastrointestinal: No acute issues. 8. Psychiatric: History of major depression. Continue Wellbutrin and follow up with psych. Tito Rodriguez MD MTDD
[2017-12-11] MEDS: Albuterol-Ipratrop 3 mg / 0.5 (3 ml) UD INH SCH ×4 (01:05→19:16)
--- NOTE | 2017-12-11 02:00 | CP.PCM.PN ---
Subjective - Date & Time of Evaluation Date of Evaluation: 12/10/17 Time of Evaluation: 16:20 - Subjective Subjective: Seen and examined at the bed side. States feeling better. Tolerating PO intake. Continue to be sinus tachycardic. Today resting HR is about 90-100 BPM. Objective - Vital Signs/Intake and Output Vital Signs (last 24 hours): Temp Pulse Resp BP Pulse Ox 98.9 F 97 H 16 106/70 95 12/11/17 00:10 12/11/17 00:10 12/11/17 00:10 12/11/17 00:10 12/11/17 00:10 Intake and Output: 12/10/17 12/11/17 18:59 06:59 Intake Total 650 120 Output Total 1100 0 Balance -450 120 - Medications Medications: Current Medications Acetaminophen (Tylenol 325mg Tab) 650 mg PO Q6 PRN PRN Reason: Pain, Mild (1-3) Last Admin: 12/05/17 21:17 Dose: 650 mg Albuterol/Ipratropium (Duoneb 3 Mg/0.5 Mg (3 Ml) Ud) 3 ml INH RQ6 [facility] Last Admin: 12/10/17 19:08 Dose: 3 ml Bupropion HCl (Wellbutrin) 75 mg PO DAILY [facility] Last Admin: 12/04/17 09:16 Dose: 75 mg Famotidine (Pepcid) 20 mg PO DAILY [facility] Last Admin: 12/10/17 09:44 Dose: Not Given Folic Acid (Folic Acid) 1 mg PO DAILY [facility] Last Admin: 12/10/17 09:46 Dose: 1 mg Haloperidol Lactate (Haldol) 2 mg IVP Q4 PRN PRN Reason: Agitation Last Admin: 12/07/17 11:18 Dose: 2 mg Insulin Human Lispro (Humalog) 0 units SC ACHS [facility] PRN Reason: Protocol Last Admin: 12/10/17 17:39 Dose: Not Given Lidocaine (Lidoderm) 2 ea TD DAILY [facility] Last Admin: 12/10/17 09:44 Dose: 2 ea Metoprolol Tartrate (Lopressor) 25 mg PO Q12 [facility] Last Admin: 12/10/17 21:35 Dose: 25 mg Montelukast Sodium (Singulair) 10 mg PO HS [facility] Last Admin: 12/10/17 21:36 Dose: 10 mg Nicotine (Nicoderm Cq) 1 patch TD DAILY [facility] Last Admin: 12/10/17 09:42 Dose: 1 patch Pantoprazole Sodium (Protonix Ec Tab) 40 mg PO DAILY [facility] Last Admin: 12/10/17 08:58 Dose: 40 mg Potassium Chloride (Potassium Chloride Oral Soln) 20 meq PO DAILY [facility] Last Admin: 12/10/17 09:43 Dose: 20 meq Fluticasone/Salmeterol (Advair Diskus 100/50) 1 puff IH Q12 [facility] Last Admin: 12/10/17 21:32 Dose: 1 puff Thiamine HCl (Vitamin B1 Tab) 100 mg PO DAILY [facility] Last Admin: 12/10/17 09:47 Dose: 100 mg Tiotropium [place] (Spiriva) 18 mcg INH DAILY [facility] Last Admin: 12/10/17 08:58 Dose: 18 mcg - Labs Labs: 12/10/17 04:50 12/10/17 04:50 PT 12.7 Seconds (9.8-13.1) 11/21/17 04:20 INR 1.1 (0.9-1.2) 11/21/17 04:20 APTT 24.9 Seconds (25.6-37.1) L 11/21/17 04:20 - Constitutional Appears: Well, No Acute Distress - Head Exam Head Exam: ATRAUMATIC, NORMAL INSPECTION, NORMOCEPHALIC - Eye Exam Eye Exam: EOMI, Normal appearance, PERRL Pupil Exam: NORMAL ACCOMODATION, PERRL - ENT Exam ENT Exam: Mucous Membranes Moist, Normal Exam - Neck Exam Neck Exam: Full ROM, Normal Inspection. absent: Lymphadenopathy - Respiratory Exam Respiratory Exam: Clear to Ausculation Bilateral, NORMAL BREATHING PATTERN - Cardiovascular Exam Cardiovascular Exam: REGULAR RHYTHM, +S1, +S2. absent: Murmur - GI/Abdominal Exam GI & Abdominal Exam: Soft, Normal Bowel Sounds. absent: Tenderness - Extremities Exam Extremities Exam: Full ROM, Normal Capillary Refill, Normal Inspection. absent : Joint Swelling, Pedal Edema - Back Exam Back Exam: Full ROM, NORMAL INSPECTION - Neurological Exam Neurological Exam: Alert, Awake, CN II-XII Intact, Normal Gait, Oriented x3 - Psychiatric Exam Psychiatric exam: Flat Affect, Normal Affect, Normal Mood - Skin Skin Exam: Dry, Intact, Normal Color, Warm Assessment and Plan (1) Respiratory arrest Assessment & Plan: Acute Respiratory Failure S/P Extubation S/P Cardiac Arrest, and CPR with Rib Fractures and Lung Contusions B/L Pneumonia Continue Respiratory Therapy and Oxygen C/w Current Care O2 Via NC Status: Acute (2) Sinus tachycardia Status: Acute (3) Schizoaffective disorder Status: Chronic (4) Chest wall pain Pain Meds PRN Status: Acute
[2017-12-11] MEDS: Tiotropium 18 mcg Cap For Inhalation INH SCH (09:12)
[2017-12-11] MEDS: Insulin Lispro (humaLOG) 100 Units/ml Inj SC SCH ×4 (09:13→22:12)
[2017-12-11] MEDS: Potassium Chloride 20 mEq/15 ml LIQ UD PO SCH (09:14)
[2017-12-11] MEDS: Pantoprazole 40 mg EC Tab PO SCH (09:15)
[2017-12-11] MEDS: Fluticasone-Salmeterol 100-50mcg Diskus IH SCH ×2 (14:28→21:59)
--- NOTE | 2017-12-11 15:09 | CP.PCM.PN ---
Subjective - Date & Time of Evaluation Date of Evaluation: 12/11/17 Time of Evaluation: 15:01 - Subjective Subjective: Pt s/e at the bed side. awake and alert in bed and communicative. Transferred out of ICU to Tele unit. Vss WBC's: 6.2 Hb: 11.5 O2 sat: 95 on 2L nc. Paradoxical chest wall motion - stable/without SOB. AP: 1. making a satisfactory progress. 2. CXR in am. Objective - Vital Signs/Intake and Output Vital Signs (last 24 hours): Temp Pulse Resp BP Pulse Ox 98.8 F 88 20 131/85 95 12/11/17 11:53 12/11/17 11:53 12/11/17 11:53 12/11/17 11:53 12/11/17 11:53 Intake and Output: 12/11/17 12/11/17 06:59 18:59 Intake Total 120 Output Total 0 Balance 120 - Medications Medications: Current Medications Acetaminophen (Tylenol 325mg Tab) 650 mg PO Q6 PRN PRN Reason: Pain, Mild (1-3) Last Admin: 12/05/17 21:17 Dose: 650 mg Albuterol/Ipratropium (Duoneb 3 Mg/0.5 Mg (3 Ml) Ud) 3 ml INH RQ6 [facility] Last Admin: 12/11/17 13:34 Dose: 3 ml Bupropion HCl (Wellbutrin) 75 mg PO DAILY [facility] Last Admin: 12/04/17 09:16 Dose: 75 mg Famotidine (Pepcid) 20 mg PO DAILY [facility] Last Admin: 12/11/17 09:12 Dose: 20 mg Folic Acid (Folic Acid) 1 mg PO DAILY [facility] Last Admin: 12/11/17 09:14 Dose: 1 mg Haloperidol Lactate (Haldol) 2 mg IVP Q4 PRN PRN Reason: Agitation Last Admin: 12/07/17 11:18 Dose: 2 mg Insulin Human Lispro (Humalog) 0 units SC ACHS [facility] PRN Reason: Protocol Last Admin: 12/11/17 14:56 Dose: Not Given Lidocaine (Lidoderm) 2 ea TD DAILY [facility] Last Admin: 12/10/17 09:44 Dose: 2 ea Metoprolol Tartrate (Lopressor) 25 mg PO Q12 [facility] Last Admin: 12/11/17 09:11 Dose: 25 mg Montelukast Sodium (Singulair) 10 mg PO HS [facility] Last Admin: 12/10/17 21:36 Dose: 10 mg Nicotine (Nicoderm Cq) 1 patch TD DAILY [facility] Last Admin: 12/11/17 09:14 Dose: 1 patch Pantoprazole Sodium (Protonix Ec Tab) 40 mg PO DAILY [facility] Last Admin: 12/11/17 09:15 Dose: 40 mg Potassium Chloride (Potassium Chloride Oral Soln) 20 meq PO DAILY [facility] Last Admin: 12/11/17 09:14 Dose: 20 meq Fluticasone/Salmeterol (Advair Diskus 100/50) 1 puff IH Q12 [facility] Last Admin: 12/10/17 21:32 Dose: 1 puff Thiamine HCl (Vitamin B1 Tab) 100 mg PO DAILY [facility] Last Admin: 12/11/17 09:12 Dose: 100 mg Tiotropium [place] (Spiriva) 18 mcg INH DAILY [facility] Last Admin: 12/11/17 09:12 Dose: 18 mcg - Labs Labs: 12/10/17 04:50 12/10/17 04:50 PT 12.7 Seconds (9.8-13.1) 11/21/17 04:20 INR 1.1 (0.9-1.2) 11/21/17 04:20 APTT 24.9 Seconds (25.6-37.1) L 11/21/17 04:20
[2017-12-11] MEDS: Lidocaine 5% Patch TD SCH (16:01)
--- NOTE | 2017-12-11 19:36 | PN ---
DATE: 12/11/2017 SUBJECTIVE: The patient is transferred to telemetry. No reported hypotension or ventricular arrhythmia. PHYSICAL EXAMINATION VITAL SIGNS: Blood pressure 102/65, heart rate 88, temperature 98.2, and respirations 18. HEENT: Normocephalic. CHEST: Diffuse bilateral rhonchi. HEART: S1 and S2 regular. EXTREMITIES: No edema. LABORATORY DATA: Today's blood sugars are 118, 286 and 107 respectively. ASSESSMENT: 1. Status post respiratory failure. 2. Bilateral rib fracture and sternal fracture. 3. Chronic obstructive lung disease. 4. Uncontrolled diabetes mellitus. 5. Renal insufficiency. RECOMMENDATIONS: Continue current bronchodilators, Protonix 40 mg once a day, potassium chloride 20 mEq orally once a day, thiamine 100 mg once a day, and Spiriva 18 mcg inhalation daily. Aditya Abraham MD
[2017-12-12] MEDS: Albuterol-Ipratrop 3 mg / 0.5 (3 ml) UD INH SCH ×5 (01:13→20:00)
[2017-12-12 06:32] LABS: HEMOGLOBIN 10.8 g/dL (12.0-16.0); MEAN CELL VOLUME 94.8 fl (81.0-99.0); MEAN CORPUSCULAR HEMOGLOBIN 33.1 pg (27.0-31.0); MEAN CORPUSCULAR HGB CONC 34.9 g/dL (33.0-37.0); RBC 3.26 Mil/uL (3.80-5.20); RED CELL DISTRIBUTION WIDTH 12.9 % (11.5-14.5); WHITE BLOOD COUNT 6.5 K/uL (4.8-10.8)
[2017-12-12 06:40] LABS: CALCIUM 9.6 mg/dL (8.4-10.2)
[2017-12-12] MEDS: Insulin Lispro (humaLOG) 100 Units/ml Inj SC SCH ×4 (07:08→21:55)
--- NOTE | 2017-12-12 08:54 | RAD ---
PROCEDURE: CHEST RADIOGRAPH, 1 VIEW HISTORY: Rib fractures and hemotoma COMPARISON: CT chest dated 12/02/2017. FINDINGS: LUNGS: Clear. PLEURA: Scattered areas of left lateral pleural thickening. No pneumothorax or pleural fluid seen. CARDIOVASCULAR: Cardiomediastinal silhouette stably enlarged. OSSEOUS STRUCTURES: Multiple bilateral rib fractures with persistent displacement of a few left lateral fractures. VISUALIZED UPPER ABDOMEN: Normal. OTHER FINDINGS: Removal of enteric tube. Right upper extremity PICC, unchanged. IMPRESSION: Redemonstration of multiple bilateral rib fractures with persistent displacement of a few left lateral fractures. Similar scattered areas of left lateral pleural thickening. No focal consolidation or pleural effusion.
[2017-12-12] MEDS: Fluticasone-Salmeterol 100-50mcg Diskus IH SCH ×2 (09:06→21:16)
[2017-12-12] MEDS: Tiotropium 18 mcg Cap For Inhalation INH SCH (09:08)
[2017-12-12] MEDS: Potassium Chloride 20 mEq/15 ml LIQ UD PO SCH (09:09)
[2017-12-12] MEDS: Pantoprazole 40 mg EC Tab PO SCH (09:10)
[2017-12-12] MEDS: Lidocaine 5% Patch TD SCH (09:11)
--- NOTE | 2017-12-12 12:31 | CP.PCM.PN ---
Subjective - Date & Time of Evaluation Date of Evaluation: 12/12/17 Time of Evaluation: 12:29 - Subjective Subjective: Pt s/e. vss cxr-No consolidations nor effusuions. Multiple bilat rib fx. Paradoxical motion remains but not clinically signifiant. a/p: continue current therapy. Objective - Vital Signs/Intake and Output Vital Signs (last 24 hours): Temp Pulse Resp BP Pulse Ox 98.0 F 83 20 119/76 95 12/12/17 08:09 12/12/17 09:07 12/12/17 08:09 12/12/17 09:07 12/12/17 08:09 - Medications Medications: Current Medications Acetaminophen (Tylenol 325mg Tab) 650 mg PO Q6 PRN PRN Reason: Pain, Mild (1-3) Last Admin: 12/12/17 04:32 Dose: 650 mg Albuterol/Ipratropium (Duoneb 3 Mg/0.5 Mg (3 Ml) Ud) 3 ml INH RQ6 [facility] Last Admin: 12/12/17 07:58 Dose: 3 ml Bupropion HCl (Wellbutrin) 75 mg PO DAILY [facility] Last Admin: 12/04/17 09:16 Dose: 75 mg Famotidine (Pepcid) 20 mg PO DAILY [facility] Last Admin: 12/12/17 09:10 Dose: 20 mg Folic Acid (Folic Acid) 1 mg PO DAILY [facility] Last Admin: 12/12/17 09:07 Dose: 1 mg Insulin Human Lispro (Humalog) 0 units SC ACHS [facility] PRN Reason: Protocol Last Admin: 12/12/17 07:08 Dose: 4 u Lidocaine (Lidoderm) 2 ea TD DAILY [facility] Last Admin: 12/12/17 09:11 Dose: 2 ea Metoprolol Tartrate (Lopressor) 25 mg PO Q12 [facility] Last Admin: 12/12/17 09:07 Dose: 25 mg Montelukast Sodium (Singulair) 10 mg PO HS [facility] Last Admin: 12/11/17 21:59 Dose: 10 mg Nicotine (Nicoderm Cq) 1 patch TD DAILY [facility] Last Admin: 12/12/17 09:10 Dose: 1 patch Pantoprazole Sodium (Protonix Ec Tab) 40 mg PO DAILY [facility] Last Admin: 12/12/17 09:10 Dose: 40 mg Potassium Chloride (Potassium Chloride Oral Soln) 20 meq PO DAILY [facility] Last Admin: 12/12/17 09:09 Dose: 20 meq Fluticasone/Salmeterol (Advair Diskus 100/50) 1 puff IH Q12 [facility] Last Admin: 12/12/17 09:06 Dose: 1 puff Thiamine HCl (Vitamin B1 Tab) 100 mg PO DAILY [facility] Last Admin: 12/12/17 09:10 Dose: 100 mg Tiotropium [place] (Spiriva) 18 mcg INH DAILY [facility] Last Admin: 12/12/17 09:08 Dose: 18 mcg - Labs Labs: 12/12/17 04:55 12/12/17 04:55 PT 12.7 Seconds (9.8-13.1) 11/21/17 04:20 INR 1.1 (0.9-1.2) 11/21/17 04:20 APTT 24.9 Seconds (25.6-37.1) L 11/21/17 04:20
--- NOTE | 2017-12-12 16:00 | PN ---
DATE: 12/12/2017 SUBJECTIVE: The patient is sleepy. She is in no apparent distress. No reported ventricular arrhythmia. PHYSICAL EXAMINATION: VITAL SIGNS: Blood pressure 119/76, heart rate 83, temperature 98, and respirations 20. HEENT: Normocephalic. CHEST: Bilateral rhonchi. HEART: S1 and S2 regular. LABORATORY DATA: Today, hemoglobin and hematocrit 10.8 and 30.9, white count and platelet count are within normal limit. SMA-7 is within normal limits except for BUN and creatinine of 25 and 1.4 respectively, glucose of 121. Today's chest x-ray report redemonstration of multiple bilateral rib fractures with persistent displacement of left lateral fractures. ASSESSMENT: 1. Status post respiratory failure. 2. Chronic obstructive lung disease. 3. Acute renal insufficiency. 4. Alcohol abuse. RECOMMENDATIONS: Continue current Lopressor, folic acid, albuterol inhaler, oral Pepcid, calcium chloride oral solution, oral thiamine, and Spiriva. Aditya Abraham MD
--- NOTE | 2017-12-12 21:57 | CP.PCM.PN ---
Subjective - Date & Time of Evaluation Date of Evaluation: 12/12/17 Time of Evaluation: 17:15 - Subjective Subjective: Seen and examined at the bed side. No New complaint. Objective - Vital Signs/Intake and Output Vital Signs (last 24 hours): Temp Pulse Resp BP Pulse Ox 98.4 F 91 H 18 125/79 93 L 12/12/17 20:06 12/12/17 21:21 12/12/17 20:06 12/12/17 21:21 12/12/17 20:06 - Medications Medications: Current Medications Acetaminophen (Tylenol 325mg Tab) 650 mg PO Q6 PRN PRN Reason: Pain, Mild (1-3) Last Admin: 12/12/17 21:13 Dose: 650 mg Albuterol/Ipratropium (Duoneb 3 Mg/0.5 Mg (3 Ml) Ud) 3 ml INH RQ6 [facility] Last Admin: 12/12/17 20:00 Dose: Not Given Bupropion HCl (Wellbutrin) 75 mg PO DAILY [facility] Last Admin: 12/04/17 09:16 Dose: 75 mg Famotidine (Pepcid) 20 mg PO DAILY [facility] Last Admin: 12/12/17 09:10 Dose: 20 mg Folic Acid (Folic Acid) 1 mg PO DAILY [facility] Last Admin: 12/12/17 09:07 Dose: 1 mg Insulin Human Lispro (Humalog) 0 units SC ACHS [facility] PRN Reason: Protocol Last Admin: 12/12/17 21:55 Dose: Not Given Lidocaine (Lidoderm) 2 ea TD DAILY [facility] Last Admin: 12/12/17 09:11 Dose: 2 ea Metoprolol Tartrate (Lopressor) 25 mg PO Q12 [facility] Last Admin: 12/12/17 21:21 Dose: 25 mg Montelukast Sodium (Singulair) 10 mg PO HS [facility] Last Admin: 12/12/17 21:22 Dose: 10 mg Nicotine (Nicoderm Cq) 1 patch TD DAILY [facility] Last Admin: 12/12/17 09:10 Dose: 1 patch Pantoprazole Sodium (Protonix Ec Tab) 40 mg PO DAILY [facility] Last Admin: 12/12/17 09:10 Dose: 40 mg Potassium Chloride (Potassium Chloride Oral Soln) 20 meq PO DAILY [facility] Last Admin: 12/12/17 09:09 Dose: 20 meq Fluticasone/Salmeterol (Advair Diskus 100/50) 1 puff IH Q12 [facility] Last Admin: 12/12/17 21:16 Dose: 1 puff Thiamine HCl (Vitamin B1 Tab) 100 mg PO DAILY [facility] Last Admin: 12/12/17 09:10 Dose: 100 mg Tiotropium [place] (Spiriva) 18 mcg INH DAILY [facility] Last Admin: 12/12/17 09:08 Dose: 18 mcg - Labs Labs: 12/12/17 04:55 12/12/17 04:55 PT 12.7 Seconds (9.8-13.1) 11/21/17 04:20 INR 1.1 (0.9-1.2) 11/21/17 04:20 APTT 24.9 Seconds (25.6-37.1) L 11/21/17 04:20 Assessment and Plan (1) Respiratory arrest Assessment & Plan: Acute Respiratory Failure S/P Extubation S/P Cardiac Arrest, and CPR with Rib Fractures and Lung Contusions B/L Pneumonia Continue Respiratory Therapy and Oxygen C/w Current Care O2 Via [place] Status: Acute (2) Sinus tachycardia Status: Acute (3) Schizoaffective disorder Status: Chronic (4) Chest wall pain Pain Meds PRN Status: Acute
[2017-12-13] MEDS: Albuterol-Ipratrop 3 mg / 0.5 (3 ml) UD INH SCH ×4 (01:05→19:25)
[2017-12-13] MEDS: Insulin Lispro (humaLOG) 100 Units/ml Inj SC SCH ×4 (08:11→22:30)
[2017-12-13] MEDS: Lidocaine 5% Patch TD SCH (09:33)
[2017-12-13] MEDS: Tiotropium 18 mcg Cap For Inhalation INH SCH (09:34)
[2017-12-13] MEDS: Fluticasone-Salmeterol 100-50mcg Diskus IH SCH ×2 (09:34→21:35)
[2017-12-13] MEDS: Potassium Chloride 20 mEq/15 ml LIQ UD PO SCH (09:35)
[2017-12-13] MEDS: Pantoprazole 40 mg EC Tab PO SCH (09:35)
[2017-12-13] MEDS: oxyCODONE 10 mg ER Tab (oxyCONTIN) PO SCH ×2 (09:37→21:38)
--- NOTE | 2017-12-13 12:18 | CP.PCM.PN ---
Subjective - Date & Time of Evaluation Date of Evaluation: 12/13/17 Time of Evaluation: 12:07 - Subjective Subjective: Pt s/e at the bedside. c/o lack of appetite. vss hb-10.5 wbc-6.5k Paradoxical motion-clinically no significant No sob. O2 sat satisfactory. a/p: continue current care. Objective - Vital Signs/Intake and Output Vital Signs (last 24 hours): Temp Pulse Resp BP Pulse Ox 98.0 F 86 20 118/76 97 12/13/17 08:18 12/13/17 09:34 12/13/17 08:18 12/13/17 09:34 12/13/17 08:18 - Medications Medications: Current Medications Acetaminophen (Tylenol 325mg Tab) 650 mg PO Q6 PRN PRN Reason: Pain, Mild (1-3) Last Admin: 12/13/17 06:40 Dose: 650 mg Albuterol/Ipratropium (Duoneb 3 Mg/0.5 Mg (3 Ml) Ud) 3 ml INH RQ6 [facility] Last Admin: 12/13/17 07:39 Dose: 3 ml Bupropion HCl (Wellbutrin) 75 mg PO DAILY [facility] Last Admin: 12/13/17 09:34 Dose: 75 mg Famotidine (Pepcid) 20 mg PO DAILY [facility] Last Admin: 12/13/17 09:35 Dose: 20 mg Folic Acid (Folic Acid) 1 mg PO DAILY [facility] Last Admin: 12/13/17 09:34 Dose: 1 mg Insulin Human Lispro (Humalog) 0 units SC ACHS [facility] PRN Reason: Protocol Last Admin: 12/13/17 08:11 Dose: Not Given Lidocaine (Lidoderm) 2 ea TD DAILY [facility] Last Admin: 12/13/17 09:33 Dose: 2 ea Metoprolol Tartrate (Lopressor) 25 mg PO Q12 [facility] Last Admin: 12/13/17 09:34 Dose: 25 mg Montelukast Sodium (Singulair) 10 mg PO HS [facility] Last Admin: 12/12/17 21:22 Dose: 10 mg Nicotine (Nicoderm Cq) 1 patch TD DAILY [facility] Last Admin: 12/13/17 09:34 Dose: 1 patch Oxycodone HCl (Oxycontin Extended Release Tab) 10 mg PO Q12 [facility] Stop: 12/16/17 09:31 Last Admin: 12/13/17 09:37 Dose: 10 mg Pantoprazole Sodium (Protonix Ec Tab) 40 mg PO DAILY [facility] Last Admin: 12/13/17 09:35 Dose: 40 mg Potassium Chloride (Potassium Chloride Oral Soln) 20 meq PO DAILY [facility] Last Admin: 12/13/17 09:35 Dose: 20 meq Fluticasone/Salmeterol (Advair Diskus 100/50) 1 puff IH Q12 [facility] Last Admin: 12/13/17 09:34 Dose: 1 puff Thiamine HCl (Vitamin B1 Tab) 100 mg PO DAILY [facility] Last Admin: 12/13/17 09:35 Dose: 100 mg Tiotropium [place] (Spiriva) 18 mcg INH DAILY [facility] Last Admin: 12/13/17 09:34 Dose: 18 mcg - Labs Labs: 12/12/17 04:55 12/12/17 04:55 PT 12.7 Seconds (9.8-13.1) 11/21/17 04:20 INR 1.1 (0.9-1.2) 11/21/17 04:20 APTT 24.9 Seconds (25.6-37.1) L 11/21/17 04:20
--- NOTE | 2017-12-13 20:47 | PN ---
DATE: 12/13/2017 SUBJECTIVE: The patient is oriented to place, time and person. No reported ventricular tachycardia. The patient's son is at the bedside. PHYSICAL EXAMINATION: VITAL SIGNS: Blood pressure 116/71, heart rate 89, temperature 98.4, and respirations 20. HEENT: Normocephalic. CHEST: Diffuse bilateral rhonchi. HEART: S1 and S2 regular. EXTREMITIES: No edema. LABORATORY DATA: Today's blood sugars 136 and 139. ASSESSMENT: 1. Status post respiratory arrest. 2. Multiple rib fractures as well as sternal fracture. 3. Ethanol abuse. 4. History of depression. RECOMMENDATIONS: Continue current bronchodilator, continue Lopressor 25 mg twice a day, Pepcid 20 mg orally once a day, oxycodone 10 mg every 12 hours, Protonix 40 mg once a day, and thiamine 100 mg once a day. Aditya Abraham MD
--- NOTE | 2017-12-13 22:09 | CP.PCM.PN ---
Subjective - Date & Time of Evaluation Date of Evaluation: 12/13/17 Time of Evaluation: 19:00 - Subjective Subjective: Seen and examined at the bed side. States feeling better. Advanced D/c Planning to [facility] tomorrow. Objective - Vital Signs/Intake and Output Vital Signs (last 24 hours): Temp Pulse Resp BP Pulse Ox 98.2 F 92 H 18 127/76 93 L 12/13/17 20:19 12/13/17 21:36 12/13/17 20:19 12/13/17 21:36 12/13/17 20:19 - Medications Medications: Current Medications Acetaminophen (Tylenol 325mg Tab) 650 mg PO Q6 PRN PRN Reason: Pain, Mild (1-3) Last Admin: 12/13/17 17:33 Dose: 650 mg Albuterol/Ipratropium (Duoneb 3 Mg/0.5 Mg (3 Ml) Ud) 3 ml INH RQ6 [facility] Last Admin: 12/13/17 19:25 Dose: 3 ml Bupropion HCl (Wellbutrin) 75 mg PO DAILY [facility] Last Admin: 12/13/17 09:34 Dose: 75 mg Famotidine (Pepcid) 20 mg PO DAILY [facility] Last Admin: 12/13/17 09:35 Dose: 20 mg Folic Acid (Folic Acid) 1 mg PO DAILY [facility] Last Admin: 12/13/17 09:34 Dose: 1 mg Insulin Human Lispro (Humalog) 0 units SC ACHS [facility] PRN Reason: Protocol Last Admin: 12/13/17 17:34 Dose: 2 u Lidocaine (Lidoderm) 2 ea TD DAILY [facility] Last Admin: 12/13/17 09:33 Dose: 2 ea Metoprolol Tartrate (Lopressor) 25 mg PO Q12 [facility] Last Admin: 12/13/17 21:36 Dose: 25 mg Montelukast Sodium (Singulair) 10 mg PO HS [facility] Last Admin: 12/13/17 21:37 Dose: 10 mg Nicotine (Nicoderm Cq) 1 patch TD DAILY [facility] Last Admin: 12/13/17 09:34 Dose: 1 patch Oxycodone HCl (Oxycontin Extended Release Tab) 10 mg PO Q12 [facility] Stop: 12/16/17 09:31 Last Admin: 12/13/17 21:38 Dose: 10 mg Pantoprazole Sodium (Protonix Ec Tab) 40 mg PO DAILY [facility] Last Admin: 12/13/17 09:35 Dose: 40 mg Potassium Chloride (Potassium Chloride Oral Soln) 20 meq PO DAILY [facility] Last Admin: 12/13/17 09:35 Dose: 20 meq Fluticasone/Salmeterol (Advair Diskus 100/50) 1 puff IH Q12 [facility] Last Admin: 12/13/17 21:35 Dose: 1 puff Thiamine HCl (Vitamin B1 Tab) 100 mg PO DAILY [facility] Last Admin: 12/13/17 09:35 Dose: 100 mg Tiotropium [place] (Spiriva) 18 mcg INH DAILY [facility] Last Admin: 12/13/17 09:34 Dose: 18 mcg Tramadol HCl (Ultram) 50 mg PO Q6 PRN PRN Reason: Pain, moderate (4-7) - Labs Labs: 12/12/17 04:55 12/12/17 04:55 PT 12.7 Seconds (9.8-13.1) 11/21/17 04:20 INR 1.1 (0.9-1.2) 11/21/17 04:20 APTT 24.9 Seconds (25.6-37.1) L 11/21/17 04:20 Assessment and Plan (1) Respiratory arrest Assessment & Plan: Acute Respiratory Failure S/P Extubation S/P Cardiac Arrest, and CPR with Rib Fractures and Lung Contusions B/L Pneumonia Continue Respiratory Therapy and Oxygen C/w Current Care O2 Via NC Status: Acute (2) Sinus tachycardia Status: Acute (3) Schizoaffective disorder Status: Chronic (4) Chest wall pain- Improved Pain Meds PRN D/w the PAtent and RN, and for D/c Planning to [facility]. Status: Acute
[2017-12-14] MEDS: Albuterol-Ipratrop 3 mg / 0.5 (3 ml) UD INH SCH ×2 (01:03→07:37)
[2017-12-14 08:06] VITALS: RESP 20
[2017-12-14] MEDS: Insulin Lispro (humaLOG) 100 Units/ml Inj SC SCH (08:31)
[2017-12-14] MEDS: Fluticasone-Salmeterol 100-50mcg Diskus IH SCH (09:49)
[2017-12-14] MEDS: Lidocaine 5% Patch TD SCH (09:50)
[2017-12-14] MEDS: Tiotropium 18 mcg Cap For Inhalation INH SCH (09:53)
[2017-12-14] MEDS: Pantoprazole 40 mg EC Tab PO SCH (09:53)
[2017-12-14] MEDS: oxyCODONE 10 mg ER Tab (oxyCONTIN) PO SCH (09:59)
[2017-12-14] MEDS: Potassium Chloride 20 mEq/15 ml LIQ UD PO SCH ×2 (10:00→10:13)
[2017-12-14 12:48] VITALS: BP 122/81; PULSE 86; TEMP 98.4; O2SAT 94
== END 2017-12-14 14:18 | DRG 584 ==
LOC: H.ER 22:51 → H.ERHOLD 11-17 01:16 → H.ICU/CCU 11-17 06:29 → H.TEL 12-10 21:38
PROVIDERS: ADMIT Internal Medicine; ATTEND Internal Medicine
PROC: 0BH17EZ Insertion of Endotracheal Airway into Trachea, Via Natural or Artificial Opening (ICD-10-PCS; principal; 2017-11-17)
PROC: 5A1955Z Respiratory Ventilation, Greater than 96 Consecutive Hours (ICD-10-PCS; 2017-11-17)
DX: A41.9 Sepsis, unspecified organism (principal); J18.9 Pneumonia, unspecified organism; I46.9 Cardiac arrest, cause unspecified; J96.21 Acute and chronic respiratory failure with hypoxia; J96.22 Acute and chronic respiratory failure with hypercapnia; N17.9 Acute kidney failure, unspecified; J44.1 Chronic obstructive pulmonary disease with (acute) exacerbation; J44.0 Chronic obstructive pulmonary disease with (acute) lower respiratory infection; F25.9 Schizoaffective disorder, unspecified; D62 Acute posthemorrhagic anemia; E11.65 Type 2 diabetes mellitus with hyperglycemia; E87.6 Hypokalemia; S22.5XXA Flail chest, initial encounter for closed fracture; J90 Pleural effusion, not elsewhere classified; R32 Unspecified urinary incontinence; E87.4 Mixed disorder of acid-base balance; F41.9 Anxiety disorder, unspecified; F32.9 Major depressive disorder, single episode, unspecified; I10 Essential (primary) hypertension; J20.9 Acute bronchitis, unspecified; Z90.710 Acquired absence of both cervix and uterus; G93.41 Metabolic encephalopathy; I27.20 Pulmonary hypertension, unspecified; S27.329A Contusion of lung, unspecified, initial encounter; E66.9 Obesity, unspecified; Z98.51 Tubal ligation status; Z87.01 Personal history of pneumonia (recurrent); R65.20 Severe sepsis without septic shock; F10.10 Alcohol abuse, uncomplicated; F17.210 Nicotine dependence, cigarettes, uncomplicated

== ENCOUNTER 2018-03-12 16:16 | Emergency (ER) | payer OTHER ==
[2018-03-12 16:16] VITALS: BMI 54.4
[2018-03-12 16:23] VITALS: RESP 18; O2SAT 97
--- NOTE | 2018-03-12 18:33 | RAD ---
HISTORY: COMPARISON: 02/21/2018. TECHNIQUE: Chest PA and lateral FINDINGS: LINES AND TUBES: None. LUNG AND PLEURA: The right lung is well inflated and clear. There is blunting of the left costophrenic angle and haziness along the left lateral wall. HEART AND MEDIASTINUM: The heart is not enlarged. The hilar and mediastinal contours are within normal limits. SKELETAL STRUCTURES: The bony structures are within normal limits for the patient's age. VISUALIZED UPPER ABDOMEN: Normal. OTHER FINDINGS: None. IMPRESSION: Blunting of the left costophrenic angle and haziness along the left lateral wall could represent effusion. Underlying airspace disease cannot be excluded. Follow-up is advised.
--- NOTE | 2018-03-12 18:34 | RAD ---
Date of service: 03/12/2018 PROCEDURE: Radiographs of both shoulders HISTORY: BL shoulder/sternum and rib pain COMPARISON: No prior. FINDINGS: BONES: Right shoulder: Normal. No fracture. Left shoulder: Normal. No fracture. JOINTS: Right shoulder: Mild degenerative osteoarthrosis in the acromioclavicular joint. The glenohumeral joint is normal. . Left shoulder: Mild degenerative osteoarthrosis in the glenohumeral joint. The acromioclavicular joint is normal. . SOFT TISSUES: Right shoulder: Grossly unremarkable. Right shoulder: Grossly unremarkable. OTHER FINDINGS: None. IMPRESSION: No acute fracture or dislocation. Mild degenerative osteoarthrosis in the right acromioclavicular joint. Mild degenerative osteoarthrosis in the left glenohumeral joint.
--- NOTE | 2018-03-12 18:36 | RAD ---
Date of service: 03/12/2018 PROCEDURE: Radiographs of the clavicles. HISTORY: bilateral shoulder/sternum and rib pain COMPARISON: None. FINDINGS: CLAVICLES: Right Clavicle: No fracture or focal lesion. Left Clavicle: No fracture or focal lesion. JOINTS: No dislocation. SOFT TISSUES: Grossly unremarkable. OTHER FINDINGS: None. IMPRESSION: No acute fracture or dislocation.
[2018-03-12 19:51] VITALS: BP 136/78; PULSE 95; TEMP 98.3
--- NOTE | 2018-03-12 22:27 | ED PDOC ---
Upper Extremity Pain/Injury Time Seen by Provider: 03/12/18 16:33 Chief Complaint (Nursing): Upper Extremity Problem/Injury Chief Complaint (Provider): Upper Extremity Problem/Injury History Per: Patient History/Exam Limitations: no limitations Onset/Duration Of Symptoms: Days Current Symptoms Are (Timing): Still Present Quality: "Pain" Additional Complaint(s): 58 year old female presents to the ED with bilateral shoulder pain and rib pain. She describes pain as constant and worse with movement. Patient states her heart stopped few months and while saving her, doctors broke multiple ribs ( chest compressions). She states since then she has chronic pain on both ribs and she has chronic arthritis limited to foot, ankle, knee pain however last 2 weeks, she has pain to both shoulders. Denies chest pain, shortness of breath, abdominal pain, trauma, falls, swelling or redness to neither shoulder. PMD: Dr. Estrada Past Medical History Reviewed: Historical Data, Nursing Documentation, Vital Signs Vital Signs: Last Vital Signs Temp 98.3 F 03/12/18 19:51 Pulse 95 H 03/12/18 19:51 Resp 18 03/12/18 19:51 BP 136/78 03/12/18 19:51 Pulse Ox 97 03/12/18 19:51 - Medical History PMH: Anxiety, Arthritis, Asthma, Back Problems (c-spine, l-spine herniated discs ), Depression, Gastritis, HTN, Schizophrenia Denies: HIV, Chronic Kidney Disease - Family History Family History: States: Unknown Family Hx - Immunization History Hx Tetanus Toxoid Vaccination: No Hx Influenza Vaccination: No Hx Pneumococcal Vaccination: No - Home Medications Home Medications: Ambulatory Orders Medication Instructions Recorded Gabapentin [Neurontin] 300 mg PO TID 07/20/14 Bupropion HCl [Wellbutrin] 75 mg PO DAILY 09/03/15 Famotidine [Pepcid] 20 mg PO BID #0 tab 09/05/15 Acetaminophen [Tylenol 325mg tab] 650 mg PO Q6 PRN tab 12/13/17 Albuterol/Ipratropium [Duoneb 3 3 ml INH RQ6 neb 12/13/17 mg/0.5 mg (3 ml) UD] Fluticasone/Salmeterol 100/50 1 puff IH Q12 puff 12/13/17 [Advair Diskus 100/50] Folic Acid 1 mg PO DAILY tab 12/13/17 Lidocaine 5% [Lidoderm] 2 ea TD DAILY patch 12/13/17 Metoprolol Tartrate [Lopressor] 25 mg PO Q12 tab 12/13/17 Montelukast [Singulair] 10 mg PO HS tab 12/13/17 Nicotine 14 mg/24 hr [Nicoderm CQ] 1 patch TD DAILY patch 12/13/17 Pantoprazole [Protonix EC Tab] 40 mg PO DAILY ect 12/13/17 Thiamine [Vitamin B1 Tab] 100 mg PO DAILY tab 12/13/17 Tiotropium [Spiriva] 18 mcg INH DAILY cap 12/13/17 oxyCODONE [oxyCONTIN Extended 10 mg PO Q12 #10 tab 12/13/17 Release Tab] - Allergies Allergies/Adverse Reactions: Allergies Allergy/AdvReac Type Severity Reaction Status Date / Time prednisone Allergy unknown Verified 08/09/17 03:53 Review of Systems ROS Statement: Except As Marked, All Systems Reviewed And Found Negative Constitutional: Negative for: Other (trauma or fall) Cardiovascular: Negative for: Chest Pain Respiratory: Negative for: Shortness of Breath Musculoskeletal: Positive for: Shoulder Pain (bilateral), Other (rib pain) Psych: Negative for: Suicidal ideation (homicidal ideation ) Physical Exam - Reviewed Nursing Documentation Reviewed: Yes Vital Signs Reviewed: Yes - Physical Exam Appears: Positive for: Well, Non-toxic, No Acute Distress Head Exam: Positive for: ATRAUMATIC, NORMAL INSPECTION, NORMOCEPHALIC Skin: Positive for: Normal Color, Warm, Dry Eye Exam: Positive for: Normal appearance, EOMI, PERRL ENT: Positive for: Normal ENT Inspection Neck: Positive for: Normal, Painless ROM, Supple. Negative for: Decreased ROM Cardiovascular/Chest: Positive for: Regular Rate, Rhythm, Other (well healed surgical scar on midline sternal). Negative for: Murmur Respiratory: Positive for: Normal Breath Sounds. Negative for: Respiratory Distress Gastrointestinal/Abdominal: Positive for: Normal Exam, Bowel Sounds, Soft. Negative for: Tenderness Back: Positive for: Normal Inspection Extremity: Positive for: Normal ROM (both shoulders, palpable perptitus at movement active or passive), Other (full ROM of lower extremity, no swelling, ambulatory, eating and moving extremity prior to exam ). Negative for: Tenderness, Pedal Edema, Swelling (ecchymosis) Neurologic/Psych: Positive for: Alert, Oriented (x3). Negative for: Motor/ Sensory Deficits - ECG O2 Sat by Pulse Oximetry: 97 (RA) Pulse Ox Interpretation: Normal Medical Decision Making Medical Decision Making: Time: 1745 Initial Impression: Initial Plan: --Chest Two Views [RAD] --Clavicle Complete Bilateral [RAD] --Shoulder Min 2 Views Bilateral [RAD] --Toradol 30mg --Shoulder Left [RAD] --Shoulder Right [RAD] --Reevaluation Time: 1829 TECHNIQUE:Chest PA and lateral FINDINGS: LINES AND TUBES: None. LUNG AND PLEURA: The right lung is well inflated and clear. There is blunting of the left costophrenic angle and haziness along the left lateral wall. HEART AND MEDIASTINUM: The heart is not enlarged. The hilar and mediastinal contours are within normal limits. SKELETAL STRUCTURES: The bony structures are within normal limits for the patient's age. VISUALIZED UPPER ABDOMEN: Normal. OTHER FINDINGS: None. IMPRESSION: Blunting of the left costophrenic angle and haziness along the left lateral wall could represent effusion. Underlying airspace disease cannot be excluded. Follow-up is advised. Time: 1830 PROCEDURE: Radiographs of both shoulders HISTORY: BL shoulder/sternum and rib pain COMPARISON: No prior. FINDINGS: BONES: Right shoulder: Normal. No fracture. Left shoulder: Normal. No fracture. JOINTS: Right shoulder: Mild degenerative osteoarthrosis in the acromioclavicular joint. The glenohumeral joint is normal. . Left shoulder: Mild degenerative osteoarthrosis in the glenohumeral joint. The acromioclavicular joint is normal. . SOFT TISSUES: Right shoulder: Grossly unremarkable. Right shoulder: Grossly unremarkable. OTHER FINDINGS: None. IMPRESSION: No acute fracture or dislocation. Mild degenerative osteoarthrosis in the right acromioclavicular joint. Mild degenerative osteoarthrosis in the left glenohumeral joint. Time: 1832 PROCEDURE: Radiographs of the clavicles. HISTORY: bilateral shoulder/sternum and rib pain COMPARISON: None. FINDINGS: CLAVICLES: Right Clavicle: No fracture or focal lesion. Left Clavicle: No fracture or focal lesion. JOINTS: No dislocation. SOFT TISSUES: Grossly unremarkable. OTHER FINDINGS: None. IMPRESSION: No acute fracture or dislocation. Patient with shoulder clavicle shows no acute injury. Chest xray presents left effusion but no rib injury. Reassessment shows patient has stable vitals and refused to be back on monitor. Pain improved with Toradol. Discussed findings on chest x-ray to patient. Patient states she has follow-up in 2 weeks with pain control doctor and discuss need for further pain control. Scribe Attestation: Documented by Kelsy Tabares, acting as a scribe for Caitlyn Clemons MD Provider Scribe Attestation: All medical record entries made by the Scribe were at my direction and personally dictated by me. I have reviewed the chart and agree that the record accurately reflects my personal performance of the history, physical exam, medical decision making, and the department course for this patient. I have also personally directed, reviewed, and agree with the discharge instructions and disposition. Disposition - Clinical Impression Clinical Impression: Chronic shoulder pain - Disposition Additional Instructions: You were evaluated today for shoulder and rib pain. The xrays show that you have no broken bones or other bony abnormality. There was a small abnormality on your chest xray and as we discussed, you will need to follow up with your primary doctor. Follow up with your marine painter for arthritic pain. Return to the emergency department if you develop trouble breathing or chest pain. Instructions: Chronic Pain (DC) Forms: [place] (Portuguese)
== END 2018-03-12 19:59 | disposition home or self-care (01) ==
LOC: H.ER 16:16
DX: M25.512 Pain in left shoulder (principal); M25.511 Pain in right shoulder; Z86.59 Personal history of other mental and behavioral disorders; G89.29 Other chronic pain; I10 Essential (primary) hypertension; J45.909 Unspecified asthma, uncomplicated; M19.012 Primary osteoarthritis, left shoulder
CPT/HCPCS: 71046; 73000; 73030; 96372; 99284; J1885

== ENCOUNTER 2018-03-25 18:59 | Emergency (ER) | payer OTHER ==
[2018-03-25 18:59] VITALS: BMI 54.4
[2018-03-25 19:21] VITALS: O2SAT 96
[2018-03-25] MEDS ORDERED: Sodium Chloride 0.9% 1,000 ML IV STA (21:14)
--- NOTE | 2018-03-25 21:21 | ED PDOC ---
HPI: Abdomen Time Seen by Provider: 03/25/18 20:36 Chief Complaint (Nursing): Abdominal Pain Chief Complaint (Provider): abdominal pain History Per: Patient History/Exam Limitations: no limitations Onset/Duration Of Symptoms: Days (1 week), Waxing/Waning Location Of Pain/Discomfort: Epigastric Associated Symptoms: Nausea, Vomiting Additional Complaint(s): 58 y/o female presents for evaluation of intermittent upper abdominal pain x 1 week. Associated nausea, vomiting. Patient also reports right upper arm pain x 3 days; states area was swollen initially and looked bruised. Denies known trauma. Denies fever, headache, dizziness, chest pain, shortness of breath, palpitations, changes in bowel movements, urinary symptoms. Past Medical History Reviewed: Historical Data, Nursing Documentation, Vital Signs Vital Signs: Last Vital Signs Temp 98.5 F 03/25/18 19:18 Pulse 110 H 03/25/18 19:18 Resp 16 03/25/18 19:18 BP 119/84 03/25/18 19:18 Pulse Ox 96 03/26/18 02:05 - Medical History PMH: Anxiety, Arthritis, Asthma, Back Problems (c-spine, l-spine herniated discs ), Depression, Gastritis, HTN, Schizophrenia Denies: HIV, Chronic Kidney Disease - Surgical History Surgical History: No Surg Hx - Family History Family History: States: Unknown Family Hx - Immunization History Hx Tetanus Toxoid Vaccination: No Hx Influenza Vaccination: No Hx Pneumococcal Vaccination: No - Home Medications Home Medications: Ambulatory Orders Medication Instructions Recorded Gabapentin [Neurontin] 300 mg PO TID 07/20/14 Bupropion HCl [Wellbutrin] 75 mg PO DAILY 09/03/15 Famotidine [Pepcid] 20 mg PO BID #0 tab 09/05/15 Acetaminophen [Tylenol 325mg tab] 650 mg PO Q6 PRN tab 12/13/17 Albuterol/Ipratropium [Duoneb 3 3 ml INH RQ6 neb 12/13/17 mg/0.5 mg (3 ml) UD] Fluticasone/Salmeterol 100/50 1 puff IH Q12 puff 12/13/17 [Advair Diskus 100/50] Folic Acid 1 mg PO DAILY tab 12/13/17 Lidocaine 5% [Lidoderm] 2 ea TD DAILY patch 12/13/17 Metoprolol Tartrate [Lopressor] 25 mg PO Q12 tab 12/13/17 Montelukast [Singulair] 10 mg PO HS tab 12/13/17 Nicotine 14 mg/24 hr [Nicoderm CQ] 1 patch TD DAILY patch 12/13/17 Pantoprazole [Protonix EC Tab] 40 mg PO DAILY ect 12/13/17 Thiamine [Vitamin B1 Tab] 100 mg PO DAILY tab 12/13/17 Tiotropium [Spiriva] 18 mcg INH DAILY cap 12/13/17 oxyCODONE [oxyCONTIN Extended 10 mg PO Q12 #10 tab 12/13/17 Release Tab] - Allergies Allergies/Adverse Reactions: Allergies Allergy/AdvReac Type Severity Reaction Status Date / Time prednisone Allergy unknown Verified 03/25/18 19:17 Review of Systems ROS Statement: Except As Marked, All Systems Reviewed And Found Negative Gastrointestinal: Positive for: Nausea, Vomiting, Abdominal Pain Musculoskeletal: Positive for: Arm Pain Physical Exam - Reviewed Nursing Documentation Reviewed: Yes Vital Signs Reviewed: Yes - Physical Exam Appears: Positive for: Well, Non-toxic, No Acute Distress Head Exam: Positive for: ATRAUMATIC, NORMAL INSPECTION, NORMOCEPHALIC Skin: Positive for: Normal Color Eye Exam: Positive for: Normal appearance ENT: Positive for: Normal ENT Inspection Cardiovascular/Chest: Positive for: Regular Rate, Rhythm Respiratory: Positive for: Normal Breath Sounds Gastrointestinal/Abdominal: Positive for: Bowel Sounds, Soft, Tenderness ( epigastric, ruq) Back: Positive for: Normal Inspection Extremity: Positive for: Normal ROM, Swelling (right upper arm ecchymosis; palpable nontender mass in bicep area noted upon flexion of bicep muscle; no erythema, warmth, fluctuance noted) Neurologic/Psych: Positive for: Alert, Oriented (x) - Laboratory Results Result Diagrams: 03/25/18 23:05 03/25/18 23:05 - ECG ECG: Positive for: Viewed By Me (reviewed by ED attending) ECG Rhythm: Positive for: Sinus Rhythm O2 Sat by Pulse Oximetry: 96 - Progress ED Course And Treament: EXAM: US Duplex Right Upper Extremity Veins EXAM DATE/TIME: 03/25/2018 9:14 PM CLINICAL HISTORY: 58 years old, female; Pain; Arn, upper; Right; Additional info: Right arm swelling/bruising TECHNIQUE: Real-time duplex ultrasound scan of the right upper extremity veins integrating B-mode twodimensional vascular structure, Doppler spectral analysis, color flow Doppler imaging and compression. COMPARISON: No relevant prior studies available. FINDINGS: The grayscale evaluation demonstrates that the lumens of the venous structures are anechoic and compressible. Color duplex evaluation demonstrates normal venous wave forms with normal augmentation. The submitted images demonstrate a heterogeneous, approximately 1.5 x 1.7 x 1 cm nodule in the soft tissue. The exact location of this nodule is not identified on the images. The vascular ultrasound technologist reported this nodule is in the "area of interest." IMPRESSION: 1. No DVT in the right upper extremity. 2. The submitted images demonstrate a heterogeneous, approximately 1.5 x 1.7 x 1 cm nodule in the soft tissue. The exact location of this nodule is not identified on the images. The vascular ultrasound technologist reported this nodule is in the "area of interest." This nodule could be a hematoma, a phlegmon, or neoplasm. A request to speak to the vascular ultrasound technologist was made at 11:30 PM EDT on 03/25/2018. At the time of submission to this report, the vascular ultrasound technologist had not been reached. EXAM: US Abdomen Limited, Right Upper Quadrant EXAM DATE/TIME: 03/25/2018 9:14 PM CLINICAL HISTORY: 58 years old, female; Pain; Abdominal pain; Epigastric; Additional info: Upper abd pain TECHNIQUE: Real-time ultrasound of the abdomen with image documentation. Examination is focused on the right upper quadrant. COMPARISON: No relevant prior studies available. FINDINGS: Liver: There is a diffuse increase in hepatic parenchymal echogenicity, consistent with fatty infiltration. No hepatic mass. Gallbladder: The vascular ultrasound technologist reported no sonographic Rich's sign. There are gallstones and gallbladder sludge. There is gallbladder wall thickening, up to 5 mm. Common bile duct: Normal. No stones. No dilation. Pancreas: Visualized pancreas is unremarkable. Right kidney: Normal. No mass. No hydronephrosis. IMPRESSION: 1. The vascular ultrasound technologist reported no sonographic Rich's sign. There are gallstones and gallbladder sludge. There is gallbladder wall thickening, up to 5 mm. Differential considerations for thickened gallbladder adams are acute cholecystitis, gallbladder hyperplastic cholecystosis, liver disease, or hypoalbuminemia. 2. Fatty liver. Patient evaluated by surgical nurse on-call Dr. Razo; recommends admission to service for acute cholecystitis and plan for surgery Patient states she needs to go home at this time and check on her son and will come back in the morning Patient advised she will need to sign out against medical advice, and risks of doing so Patient AAOx3; demonstrates full understanding of risks and still wishes to leave Advised to follow up with surgery. Strict return precautions given Disposition - Clinical Impression Clinical Impression: Cholecystitis, Mass of right upper extremity, Left against medical advice - Patient ED Disposition Is Patient to be Admitted: No Counseled Patient/Family Regarding: Studies Performed, Diagnosis, Need For Followup - Disposition Referrals: Cinthya Bragg MD [Staff Provider] - Disposition: Against Medical Advice Disposition Time: 01:55 Condition: STABLE Instructions: Gallstones, Leaving Against Medical Advice Forms: [facility] (Hungarian)
[2018-03-25 22:32] LABS: SQUAMOUS EPITHIAL 4 /hpf (0-5); URINE BILIRUBIN NEGATIVE (NEGATIVE); URINE BLOOD NEGATIVE (NEGATIVE); URINE CLARITY SLIGHTY-CLOUDY (Clear); URINE COLOR YELLOW (YELLOW); URINE GLUCOSE (UA) 50 mg/dL (Normal); URINE LEUKOCYTE ESTERASE NEG Leu/uL (Negative); URINE PROTEIN 30 mg/dL (NEGATIVE)
[2018-03-25 23:21] LABS: BASO # 0.1 K/uL (0.0-0.2); EOS # 0.2 K/uL (0.0-0.7); EOS % 2.2 % (0.0-4.0); LYMPH # 2.3 K/uL (1.0-4.3); LYMPH % 32.9 % (20.0-40.0); MEAN CELL VOLUME 93.6 fl (81.0-99.0); MEAN CORPUSCULAR HEMOGLOBIN 32.6 pg (27.0-31.0); MEAN CORPUSCULAR HGB CONC 34.8 g/dL (33.0-37.0); MEAN PLATELET VOLUME 6.9 fl (7.2-11.7); MONO # 0.8 K/uL (0.0-0.8); MONO % 11.1 % (0.0-10.0); NEUT # 3.7 K/uL (1.8-7.0); NEUT % 52.8 % (50.0-75.0); NRBC % 0.1 % (0.0-0.0); RBC 4.28 Mil/uL (3.80-5.20); RED CELL DISTRIBUTION WIDTH 13.1 % (11.5-14.5)
[2018-03-25 23:26] LABS: INR 1.1; PROTHROMBIN TIME 11.7 Seconds (9.8-13.1)
[2018-03-25 23:29] LABS: ALB/GLOB RATIO 1.3 (1.0-2.1); ALBUMIN 4.1 g/dL (3.5-5.0); ALT/SGPT 203 U/L (9-52); AST/SGOT 158 U/L (14-36); BLOOD UREA NITROGEN 14 mg/dl (7-17); CALCIUM 9.5 mg/dL (8.4-10.2); GFR NON-AFRICAN AMERICAN > 60; LIPASE 80 U/L (23-300); PARTIAL THROMBOPLASTIN TIME 33.9 Seconds (25.6-37.1)
--- NOTE | 2018-03-26 00:27 | CP.PCM.CON ---
History of Present Illness - History of Present Illness History of Present Illness: General Surgery Consult Note for Dr. Bragg Reason for consult: abdominal pain, cholelithiasis, suspected cholecystitis 58 F with PMH that includes HTN, DM, Anxiety, Arthritis presents to [facility] for complaint of epigastric abdominal pain. Patient seen and evaluated in the ED. Patient states that pain began 1 week ago with it getting worse over the last day. Patient states that she has had pain like this in the past. Most recent episode before this was a few months ago. Patient states pain initially started after eating. Over the past week, patient reports episodes of nausea/vomiting with NBNB emesis. She rates pain as moderate to severe. She describes pain as intermittent and sharp located in epigastric region radiating to RUQ and back. Eating drinking aggravates pain while rest sometimes alleviates it. Denies any sick contacts or recent illness. Denies fever/chills, chest pain,, SOB, palpitations, urinary symptoms. ABUS was done in ED and revealed cholelithiasis , sludge, GB wall thickening (see full report). PMH: PSH: Meds: unknown, does not have list ALL: prednisone FH: unknown Social: denies tobacco/EtOH/illicit drug use Review of Systems - Review of Systems All systems: reviewed and no additional remarkable complaints except (as per HPI ) Past Patient History - Infectious Disease Hx of Infectious Diseases: None - Past Medical History & Family History Past Medical History?: Yes - Past Social History Smoking Status: Heavy Smoker > 10 Cigarettes Daily - CARDIAC Hx Hypertension: Yes - PULMONARY Hx Asthma: Yes - NEUROLOGICAL Hx Neurological Disorder: No - HEENT Hx HEENT Problems: Yes Hx Cataracts: Yes - RENAL Hx Chronic Kidney Disease: No - ENDOCRINE/METABOLIC Hx Endocrine Disorders: No - HEMATOLOGICAL/ONCOLOGICAL Hx Human Immunodeficiency Virus (HIV): No - INTEGUMENTARY Hx Dermatological Problems: No - MUSCULOSKELETAL/RHEUMATOLOGICAL Hx Arthritis: Yes - GASTROINTESTINAL Hx Gastritis: Yes - GENITOURINARY/GYNECOLOGICAL Hx Genitourinary Disorders: No - PSYCHIATRIC Hx Anxiety: Yes Hx Depression: Yes Hx Schizophrenia: Yes - SURGICAL HISTORY Hx Surgeries: Yes Hx Cataract Extraction: Yes (bilateral) Hx Tubal Ligation: Yes - ANESTHESIA Hx Anesthesia: Yes Hx Anesthesia Reactions: No Hx Malignant Hyperthermia: No Meds Allergies/Adverse Reactions: Allergies Allergy/AdvReac Type Severity Reaction Status Date / Time prednisone Allergy unknown Verified 03/25/18 19:17 Physical Exam - Constitutional Appears: Non-toxic, No Acute Distress - Head Exam Head Exam: ATRAUMATIC, NORMOCEPHALIC - Eye Exam Eye Exam: EOMI, Normal appearance Pupil Exam: PERRL - ENT Exam ENT Exam: Mucous Membranes Moist - Respiratory Exam Respiratory Exam: NORMAL BREATHING PATTERN - Cardiovascular Exam Cardiovascular Exam: Tachycardia - GI/Abdominal Exam GI & Abdominal Exam: Normal Bowel Sounds, Soft, Tenderness (epigastric/RUQ). absent: Distended, Firm, Mass, Rebound, Rigid - Extremities Exam Extremities exam: Positive for: normal capillary refill. Negative for: calf tenderness - Back Exam Back exam: absent: CVA tenderness (L), CVA tenderness (R) - Neurological Exam Neurological exam: Alert, Oriented x3 - Psychiatric Exam Psychiatric exam: Normal Affect, Normal Mood - Skin Skin Exam: Dry, Intact, Warm Results - Vital Signs Recent Vital Signs: Last Vital Signs Temp 98.5 F 03/25/18 19:18 Pulse 110 H 03/25/18 19:18 Resp 16 03/25/18 19:18 BP 119/84 03/25/18 19:18 Pulse Ox 96 03/26/18 00:00 - Labs Result Diagrams: 03/25/18 23:05 03/25/18 23:05 Labs: Laboratory Results - last 24 hr 03/25/18 03/25/18 03/25/18 22:20 23:05 23:05 WBC 7.0 RBC 4.28 Hgb 14.0 D Hct 40.1 MCV 93.6 MCH 32.6 H MCHC 34.8 RDW 13.1 Plt Count 303 MPV 6.9 L Neut % (Auto) 52.8 Lymph % (Auto) 32.9 [place] % (Auto) 11.1 H Eos % (Auto) 2.2 Baso % (Auto) 1.0 Neut # (Auto) 3.7 Lymph # (Auto) 2.3 [place] # (Auto) 0.8 Eos # (Auto) 0.2 Baso # (Auto) 0.1 PT INR APTT Sodium 139 Potassium 3.2 L Chloride 102 Carbon Dioxide 30 Anion Gap 10 BUN 14 Creatinine 0.8 Est GFR ( Amer) > 60 Est GFR (Non-Af Amer) > 60 Random Glucose 88 Calcium 9.5 Total Bilirubin 0.5 AST 158 H D ALT 203 H D Alkaline Phosphatase 276 H D Total Protein 7.2 Albumin 4.1 Globulin 3.1 Albumin/Globulin Ratio 1.3 Lipase 80 Urine Color Yellow Urine Clarity Slighty-cloudy Urine pH 5.0 Ur Specific [place] 1.028 Urine Protein 30 Urine Glucose (UA) 50 Urine Ketones Negative Urine Blood Negative Urine Nitrate Negative Urine Bilirubin Negative Urine Urobilinogen 2.0 H Ur Leukocyte Esterase Neg Urine RBC (Auto) 3 Urine Microscopic WBC < 1 Ur Squamous Epith Cells 4 03/25/18 23:05 WBC RBC Hgb Hct MCV MCH MCHC RDW Plt Count MPV Neut % (Auto) Lymph % (Auto) [place] % (Auto) Eos % (Auto) Baso % (Auto) Neut # (Auto) Lymph # (Auto) [place] # (Auto) Eos # (Auto) Baso # (Auto) PT 11.7 INR 1.1 APTT 33.9 Sodium Potassium Chloride Carbon Dioxide Anion Gap BUN Creatinine Est GFR ( Amer) Est GFR (Non-Af Amer) Random Glucose Calcium Total Bilirubin AST ALT Alkaline Phosphatase Total Protein Albumin Globulin Albumin/Globulin Ratio Lipase Urine Color Urine Clarity Urine pH Ur Specific [place] Urine Protein Urine Glucose (UA) Urine Ketones Urine Blood Urine Nitrate Urine Bilirubin Urine Urobilinogen Ur Leukocyte Esterase Urine RBC (Auto) Urine Microscopic WBC Ur Squamous Epith Cells Assessment & Plan - Assessment and Plan (Free Text) Assessment: 58 F who presents for abdominal pain with ABUS findings of cholelithiasis, sludge, GB wall thickening Plan: -NPO -IV fluids -IV abx -Analgescis/Anti-emetics PRN -I's&O's -Medical management as per primary -further recommendations as per Dr. Yemi Razo PGY2 - Date & Time Date: 03/26/18 Time: 01:00
[2018-03-26] MEDS ORDERED: Lactated Ringer's 1,000 ML IV SCH (02:15)
[2018-03-26 03:11] VITALS: BP 136/98; PULSE 101; RESP 18; TEMP 98
[2018-03-26] MEDS ORDERED: Piperacillin/Tazobact 3.375 GM in Sodium Chloride 0.9% 100 ML IVPB SCH (04:00)
--- NOTE | 2018-03-26 08:22 | CARD ---
APPROVED REPORT Date of service: 03/25/2018 <Conclusion> Normal sinus rhythm Normal ECG
--- NOTE | 2018-03-26 12:55 | US ---
Date of service: 03/25/2018 PROCEDURE: Right Upper Extremity Venous Duplex Exam HISTORY: right arm swelling/bruising PRIORS: None. TECHNIQUE: Right upper extremity, internal jugular, subclavian, axillary, brachial, ulnar, radial, basilic and upper cephalic veins were evaluated. Flow was assessed with color Doppler, compressibility, assessment of phasic flow and augmentation response. Report prepared by agricultural engineering technologist. FINDINGS: RIGHT: 1. Internal Jugular: 1.1. Compressibility - Fully compressible: Thrombus - None : Flow - Phasic: Augmentation -Normal: Reflux - None. 2. Subclavian: 2.1. Compressibility - Fully compressible: Thrombus - None : Flow - Phasic: Augmentation -Normal: Reflux - None. 3. Axillary: 3.1. Compressibility - Fully compressible: Thrombus - None : Flow - Phasic: Augmentation -Normal: Reflux - None. 4. Brachial: 4.1. Compressibility - Fully compressible: Thrombus - None: Flow - Phasic: Augmentation -Normal: Reflux - None. 5. Ulnar: 5.1. Compressibility - Fully compressible: Thrombus - None: Flow - Phasic: Augmentation -Normal: Reflux - None. 6. Radial: 6.1. Compressibility - Fully compressible: Thrombus - None: Flow - Phasic: Augmentation - Normal: Reflux - None. 7. Cephalic: 7.1. Compressibility - Fully compressible: Thrombus - None: Flow - Phasic: Augmentation -Normal: Reflux - None. 8. Basilic: 8.1. Compressibility - Fully compressible: Thrombus - None: Flow - Phasic: Augmentation -Normal: Reflux - None. OTHER FINDINGS: Right: Soft tissue mass corresponding to the anatomic area of interest, solid without vascularity 1.5 x 1.7 x 1 cm. IMPRESSION: Right: No evidence of vein thrombosis of the right upper extremity with excellent venous flow. Normal valve function noted of the right side. Soft tissue mass she she corresponding to area of interest right upper extremity. Concordant results (preliminary interpretation) provided by [facility]. Procedure Completed: 22:43 Preliminary ([facility]) Report: Dictated and Authenticated: 23:54 Final Interpretation: 12:53 March 26, 2018.
--- NOTE | 2018-03-26 13:08 | US ---
Date of service: 03/25/2018 HISTORY: upper abd pain COMPARISON: None. TECHNIQUE: Sonographic evaluation of the right upper quadrant of the abdomen. FINDINGS: LIVER: Measures 13.2 cm in length. Hepatopedal blood flow. Fatty infiltration manifest ultrasonographically as increased echogenicity of the liver parenchyma. No mass. No intrahepatic bile duct dilatation. GALLBLADDER: Gallstones, sludge in gallbladder edema up present. No sonographic Rich sign elicited at the time of the examination. COMMON BILE DUCT: Measures 4.5 mm. No stones. No dilatation. PANCREAS: Unremarkable as visualized. No mass. No ductal dilatation. RIGHT KIDNEY: Measures 4.9 x 11.1 cm in length. Normal echogenicity. No calculus, mass, or hydronephrosis. AORTA: No aneurysmal dilatation. IVC: Unremarkable. OTHER FINDINGS: None . IMPRESSION: Gallstones, sludge, gallbladder wall thickening without sonographic Rich's sign. Findings nonetheless suspicious for acute cholecystitis. Concordant results (preliminary interpretation) provided by [facility]. Procedure Completed: 22:03 Preliminary ([facility]) Report: Dictated and Authenticated: 23:58. Final Interpretation: 13:06. March 26, 2018.
== END 2018-03-26 01:55 | disposition left against medical advice (07) ==
LOC: H.ER 18:59
DX: K81.9 Cholecystitis, unspecified (principal); R22.31 Localized swelling, mass and lump, right upper limb; F17.210 Nicotine dependence, cigarettes, uncomplicated; I10 Essential (primary) hypertension; J45.909 Unspecified asthma, uncomplicated; Z98.51 Tubal ligation status; K80.00 Calculus of gallbladder with acute cholecystitis without obstruction; Z86.59 Personal history of other mental and behavioral disorders
CPT/HCPCS: 76705; 80053; 81003; 83690; 85025; 85610; 85730; 93005; 93971; 96361; 96374; 96375; 99285; J1885; J2405; J7030

== ENCOUNTER 2018-04-21 09:55 | Emergency (ER) | payer OTHER ==
[2018-04-21 09:55] VITALS: BMI 54.4
[2018-04-21] MEDS ORDERED: Sodium Chloride 0.9% 1,000 ML IV STA (10:51)
--- NOTE | 2018-04-21 11:19 | ED PDOC ---
HPI:Nausea, Vomiting, Diarrhea Time Seen by Provider: 04/21/18 10:38 Chief Complaint (Nursing): GI Problem Chief Complaint (Provider): nausea, vomit and dizziness History Per: Patient History/Exam Limitations: no limitations Onset/Duration Of Symptoms: Hrs (today) Current Symptoms Are (Timing): Still Present Associated Symptoms: Nausea, Vomiting Additional Complaint(s): Octavia Guerrero is a 58 year old female, with a past medical history of HTN and gastritis, who presents to the emergency department on referral from an outpatient pre op visit due to nausea, vomit and mild dizziness onset today. Patient states she woke up feeling nauseous and vomited several times, non bloody and non bilious. She also reports having x3 episodes of diarrhea after which she became weak and lightheaded. Patient was ambulatory with steady gait and reports she has a scheduled surgery on right arm tomorrow prompting concern for ED visit. She wants to be evaluated to find out if she can still have the surgery. She denies any syncope, focal or neurological deficits, chest pain or shortness of breath. Patient is otherwise has been recently in good health with no further medical complaints. PMD: None provided. Past Medical History Reviewed: Historical Data, Nursing Documentation, Vital Signs Vital Signs: Last Vital Signs Temp 97 F L 04/21/18 09:58 Pulse 111 H 04/21/18 09:58 Resp 18 04/21/18 09:58 BP 148/93 H 04/21/18 09:58 Pulse Ox 100 04/21/18 09:58 - Medical History PMH: Anxiety, Arthritis, Asthma, Back Problems (c-spine, l-spine herniated discs), Depression, Gastritis, HTN, Schizophrenia Denies: HIV, Chronic Kidney Disease - Surgical History Surgical History: No Surg Hx - Family History Family History: States: Unknown Family Hx - Immunization History Hx Tetanus Toxoid Vaccination: No Hx Influenza Vaccination: No Hx Pneumococcal Vaccination: No - Home Medications Home Medications: Ambulatory Orders Medication Instructions Recorded Albuterol Sulfate [Ventolin Hfa] 2 puff IH Q6 PRN 03/26/18 Latanoprost [Xalatan] 1 drop EACHEYE HS 03/26/18 RX: Cyclobenzaprine [Flexeril] 5 mg PO Q12 PRN 03/26/18 RX: traMADol [Ultram] 50 mg PO Q6 PRN 03/26/18 Turmeric Root Extract [Turmeric] 500 mg PO DAILY 03/26/18 buPROPion [Wellbutrin] 75 mg PO DAILY 03/26/18 clonazePAM [Klonopin] 1 mg PO BID PRN 03/26/18 - Allergies Allergies/Adverse Reactions: Allergies Allergy/AdvReac Type Severity Reaction Status Date / Time hydromorphone [From Dilaudid] Allergy ITCHING Verified 03/27/18 06:24 prednisone Allergy unknown Verified 03/26/18 13:51 Review of Systems ROS Statement: Except As Marked, All Systems Reviewed And Found Negative Constitutional: Positive for: Weakness Cardiovascular: Negative for: Chest Pain Respiratory: Negative for: Shortness of Breath Gastrointestinal: Positive for: Nausea, Vomiting, Diarrhea Neurological: Positive for: Dizziness Physical Exam - Reviewed Nursing Documentation Reviewed: Yes Vital Signs Reviewed: Yes - Physical Exam Appears: Positive for: No Acute Distress Head Exam: Positive for: ATRAUMATIC, NORMOCEPHALIC Skin: Positive for: Normal Color (Extraocular muscles intact. Glaucoma of the right eye), Warm, Dry Eye Exam: Positive for: Normal appearance, EOMI, PERRL Neck: Positive for: Painless ROM Cardiovascular/Chest: Positive for: Regular Rate, Rhythm. Negative for: Murmur Respiratory: Positive for: Normal Breath Sounds. Negative for: Respiratory Distress Gastrointestinal/Abdominal: Positive for: Normal Exam, Soft. Negative for: Tenderness, Guarding, Rebound Back: Positive for: Normal Inspection. Negative for: L CVA Tenderness, R CVA Tenderness, Vertebral Tenderness Extremity: Positive for: Normal ROM (upper and lower extremities). Negative for: Tenderness, Deformity, Swelling Neurologic/Psych: Positive for: Alert, Oriented - Laboratory Results Result Diagrams: 04/21/18 11:55 04/21/18 11:55 - ECG O2 Sat by Pulse Oximetry: 100 (RA) Pulse Ox Interpretation: Normal Medical Decision Making Medical Decision Making: Time: 10:38 Initial Impression: Work up for gastroenteritis vs other abdominal pathologies. No suspicion for neurological etiology at this time. Labs, IV fluids, Zofran and reassess patient. Initial Plan:: --VBG --EKG --CMP --Lipase --CBC w/ differential --Sodium Chloride 1,000 ml IV 1,000 mls/hr --Zofran Inj 4 mg IVP --Urinalysis --Reevaluation Scribe Attestation: Documented by Jose Yoder, acting as a scribe for Caitlyn Clemons MD. Provider Scribe Attestation: All medical record entries made by the Scribe were at my direction and per sonally dictated by me. I have reviewed the chart and agree that the record accurately reflects my personal performance of the history, physical exam, medical decision making, and the department course for this patient. I have also personally directed, reviewed, and agree with the discharge instructions and disposition. Time: 1400 -- All labs within normal limits. Patient is no longer vomiting and reports shoulder pain has improved. Patient is tolerating PO. Patient to be discharged home. Patient given copied of lab results to show PMD. Patient will contact surgeon to see if surgery is still scheduled for tomorrow. Return parameters also discussed with the patient. ____ Scribe Attestation: Documented by Erendira Mohan acting as a scribe for Caitlyn Clemons MD. Provider Scribe Attestation: All medical record entries made by the Scribe were at my direction and personally dictated by me. I have reviewed the chart and agree that the record accurately reflects my personal performance of the history, physical exam, medical decision making, and the department course for this patient. I have also personally directed, reviewed, and agree with the discharge instructions and disposition. Disposition - Clinical Impression Clinical Impression: Gastroenteritis - Disposition Disposition: Routine/Home Disposition Time: 14:00 Condition: IMPROVED Additional Instructions: Call your primary medical doctor for further treatment. Increase water intake for the next 24 hours, especially if diarrhea continues. Return to the emergency department if symptoms worsen or if new symptoms develop. Instructions: Gastritis (DC) Forms: [facility] (Chinese) Print Language: MOHAWK
[2018-04-21 11:38] LABS: VENOUS BLOOD GAS BASE EXCESS 2.2 mmol/L (0.0-2.0); VENOUS BLOOD GAS PCO2 39 mmHg (40-60); VENOUS BLOOD GAS PO2 43 mm/Hg (30-55); VENOUS BLOOD PH 7.44 (7.32-7.43)
[2018-04-21 12:16] LABS: BASO % 0.4 % (0.0-2.0); EOS # 0.2 K/uL (0.0-0.7); EOS % 1.8 % (0.0-4.0); HEMOGLOBIN 12.6 g/dL (12.0-16.0); LYMPH # 1.5 K/uL (1.0-4.3); LYMPH % 17.7 % (20.0-40.0); MEAN CELL VOLUME 93.8 fl (81.0-99.0); MEAN CORPUSCULAR HGB CONC 35.2 g/dL (33.0-37.0); MEAN PLATELET VOLUME 7.2 fl (7.2-11.7); MONO # 0.7 K/uL (0.0-0.8); MONO % 7.6 % (0.0-10.0); NEUT # 6.3 K/uL (1.8-7.0); NEUT % 72.5 % (50.0-75.0); NRBC % 0.1 % (0.0-0.0); RBC 3.83 Mil/uL (3.80-5.20); RED CELL DISTRIBUTION WIDTH 12.9 % (11.5-14.5); SQUAMOUS EPITHIAL 4 /hpf (0-5); URINE BACTERIA RARE (<OCC); URINE BILIRUBIN NEGATIVE (NEGATIVE); URINE BLOOD NEGATIVE (NEGATIVE); URINE CLARITY SLIGHTY-CLOUDY (Clear); URINE COLOR AMBER (YELLOW); URINE GLUCOSE (UA) NEG (Normal); URINE LEUKOCYTE ESTERASE NEG Leu/uL (Negative); URINE PROTEIN 30 mg/dL (NEGATIVE); WHITE BLOOD COUNT 8.7 K/uL (4.8-10.8)
[2018-04-21 12:23] LABS: ALB/GLOB RATIO 1.2 (1.0-2.1); ALBUMIN 3.8 g/dL (3.5-5.0); ALT/SGPT 34 U/L (9-52); AST/SGOT 29 U/L (14-36); BLOOD UREA NITROGEN 15 mg/dl (7-17); CALCIUM 9.5 mg/dL (8.4-10.2); GFR NON-AFRICAN AMERICAN > 60; LIPASE 45 U/L (23-300)
[2018-04-21 13:22] VITALS: BP 136/87; PULSE 94; RESP 17; TEMP 98.8
[2018-04-21] MEDS ORDERED: Oxycodone/Acetaminophen 5/325 mg Tab PO STA (13:47)
--- NOTE | 2018-04-21 13:53 | CARD ---
APPROVED REPORT Date of service: 04/21/2018 EKG Measurement Heart [id number] <Conclusion> Normal sinus rhythm Normal ECG
[2018-04-21 14:03] VITALS: O2SAT 100
== END 2018-04-21 14:28 | disposition home or self-care (01) ==
LOC: H.ER 09:55
DX: K52.9 Noninfective gastroenteritis and colitis, unspecified (principal); R19.7 Diarrhea, unspecified; I10 Essential (primary) hypertension
CPT/HCPCS: 80053; 81003; 82803; 83690; 85025; 93005; 96374; 99283; J2405; J7030

== ENCOUNTER 2018-05-20 14:02 | Emergency (ER) | payer OTHER ==
[2018-05-20 14:02] VITALS: BMI 54.4
--- NOTE | 2018-05-20 14:59 | ED PDOC ---
HPI: CCC, URI, Sore Throat Time Seen by Provider: 05/20/18 14:23 Chief Complaint (Nursing): Upper Extremity Problem/Injury Chief Complaint (Provider): cough and wheezing History Per: Patient History/Exam Limitations: no limitations Onset/Duration Of Symptoms: Days (x1 month), Intermittent Episodes, Persistent Current Symptoms Are (Timing): Still Present Associated Symptoms: denies: Fever, Chills Additional Complaint(s): Shlomo Guerrero is a 58 year old female, with a past medical history of asthma, HTN, diabetes and arthritis, who presents to the emergency department for evaluation of cough and wheezing ongoing for x1 month. She describes cough as intermittent and persistent, she came here last month for the same symptoms but states they didn't do anything or prescribe any medications. Patient has not taken anything for her symptoms besides nebulizer and pump which she takes occasionally. Patient hasn't followed up with Dr. Estrada in regards to her cough. She denies any fever, chills, chest pain or leg swelling. Patient is also complaining of chronic joint pain from bad arthritis. She reports having a mechanical fall x1 month ago, she landed on her arms but didn't sustain any specific injury. However, patient states pain on her bilateral shoulders was exacerbated. She was prescribed pain killers by pain management, Dr. Gage, but without any relief. She denies any other medical complaints. PMD: Dr. Estrada in [facility] Pain management: Dr. Gage Past Medical History Reviewed: Historical Data, Nursing Documentation, Vital Signs Vital Signs: Last Vital Signs Temp 98.3 F 05/20/18 14:06 Pulse 109 H 05/20/18 14:06 Resp 21 05/20/18 14:06 BP 165/80 H 05/20/18 14:06 Pulse Ox 97 05/20/18 14:06 - Medical History PMH: Anxiety, Arthritis, Asthma, Back Problems (c-spine, l-spine herniated discs), Depression, Diabetes, Gastritis, HTN, Schizophrenia Denies: HIV, Chronic Kidney Disease - Surgical History Other surgeries: hysterectomy, tubal ligation and cataract extraction - Family History Family History: States: Unknown Family Hx - Social History Ex-Smoker (has not smoked in the last 12 months): Yes Alcohol: None Drugs: Denies - Immunization History Hx Tetanus Toxoid Vaccination: No Hx Influenza Vaccination: No Hx Pneumococcal Vaccination: No - Home Medications Home Medications: Ambulatory Orders Medication Instructions Recorded Cyclobenzaprine [Flexeril] 5 mg PO Q12 PRN 03/26/18 Latanoprost [Xalatan] 1 drop EACHEYE HS 03/26/18 Turmeric Root Extract [Turmeric] 500 mg PO DAILY 03/26/18 buPROPion [Wellbutrin] 75 mg PO DAILY 03/26/18 clonazePAM [Klonopin] 1 mg PO BID PRN 03/26/18 traMADol [Ultram] 50 mg PO Q6 PRN 03/26/18 Albuterol HFA [Ventolin HFA 90 2 puff IH [id number] #1 inh 05/20/18 mcg/actuation (8 g)] Albuterol Sulfate [Ventolin Hfa] 2 puff IH Q6 PRN #1 hfa.aer.ad 05/20/18 Azithromycin [Z-Rehan] 250 mg PO ASDIR #6 tab 05/20/18 Benzonatate [Tessalon Perles] 100 mg PO TID #15 sgl 05/20/18 - Allergies Allergies/Adverse Reactions: Allergies Allergy/AdvReac Type Severity Reaction Status Date / Time hydromorphone [From Dilaudid] Allergy ITCHING Verified 05/20/18 14:04 prednisone Allergy unknown Verified 05/20/18 14:04 Review of Systems ROS Statement: Except As Marked, All Systems Reviewed And Found Negative Constitutional: Negative for: Fever, Chills Cardiovascular: Negative for: Chest Pain, Edema Respiratory: Positive for: Cough, Wheezing Musculoskeletal: Positive for: Shoulder Pain (b/l ) Physical Exam - Reviewed Nursing Documentation Reviewed: Yes Vital Signs Reviewed: Yes - Physical Exam Appears: Positive for: No Acute Distress (comfortable) Head Exam: Positive for: ATRAUMATIC, NORMAL INSPECTION, NORMOCEPHALIC Skin: Positive for: Normal Color, Warm, Dry Eye Exam: Positive for: Normal appearance, EOMI, PERRL ENT: Positive for: Normal ENT Inspection Neck: Positive for: Normal, Painless ROM, Supple Cardiovascular/Chest: Positive for: Regular Rate, Rhythm, Other (normal distal pulses). Negative for: Murmur Respiratory: Positive for: Wheezing (occasional expiratory). Negative for: Respiratory Distress Gastrointestinal/Abdominal: Positive for: Normal Exam, Soft. Negative for: Tenderness, Guarding, Rebound Back: Positive for: Normal Inspection. Negative for: L CVA Tenderness, R CVA Tenderness, Vertebral Tenderness Extremity: Positive for: Normal ROM (upper and lower extremities). Negative for: Deformity, Swelling Neurologic/Psych: Positive for: Alert, Oriented. Negative for: Motor/Sensory Deficits - ECG O2 Sat by Pulse Oximetry: 97 (RA) Pulse Ox Interpretation: Normal - Radiology X-Ray: Viewed By Me, Read By Radiologist X-Ray Interpretation: No Acute Disease Medical Decision Making Medical Decision Making: Time: 14:23 Initial Impression: wheezing and cough. Diagnosis of asthma exacerbation vs bronchitis. Initial Plan: --Chest two views (PA/LAT) [RAD] --Toradol 30 mg IM --Reevaluation Will Rx prednisone and cough medication to go home with. 15:33 CXR FINDINGS: LUNGS: No active pulmonary disease. PLEURA: No significant pleural effusion identified. No pneumothorax apparent. CARDIOVASCULAR: Aortic atherosclerotic calcifications. Cardiomediastinal silhouette stably prominent. OSSEOUS STRUCTURES: Unchanged. VISUALIZED UPPER ABDOMEN: Right upper quadrant surgical clips. OTHER FINDINGS: None. IMPRESSION: No active disease. ----- Scribe Attestation: Documented by Jose Yoder, acting as a scribe for Molly Gutiérrez MD. Provider Scribe Attestation: All medical record entries made by the Scribe were at my direction and personally dictated by me. I have reviewed the chart and agree that the record accurately reflects my personal performance of the history, physical exam, medical decision making, and the department course for this patient. I have also personally directed, reviewed, and agree with the discharge instructions and disposition. Disposition - Clinical Impression Clinical Impression: Asthma attack - Patient ED Disposition Is Patient to be Admitted: No Doctor Will See Patient In The: Office Counseled Patient/Family Regarding: Studies Performed, Diagnosis, Need For Followup - Disposition Referrals: Antonia Estrada MD [Medical Doctor] - Disposition: Routine/Home Disposition Time: 15:52 Condition: GOOD Additional Instructions: SHLOMO GUERRERO, thank you for letting us take care of you today. Your provider was Molly Gutiérrez MD and you were treated for ARM PAIN. The emergency medical care you received today was directed at your acute symptoms. If you were prescribed any medication, please fill it and take as directed. It may take several days for your symptoms to resolve. Return to the Emergency Department if your symptoms worsen, do not improve, or if you have any other problems. Please contact your doctor or call one of the physicians/clinics you have been referred to that are listed on the Patient Visit Information form that is included in your discharge packet. Bring any paperwork you were given at discharge with you along with any medications you are taking to your follow up visit. Our treatment cannot replace ongoing medical care by a primary care provider outside of the emergency department. Thank you for allowing the [facility] team to be part of your care today. If you had an X-Ray or CT scan: A Radiologist will review the ED reading if any change in treatment is needed we will contact you. If you had a blood, urine, or wound culture: It will take several days for the results, if any change in treatment is needed we will contact you. If you had an STI test: It will take 48 hours for the results. Please call after 1 week if you have not heard back. Prescriptions: Albuterol HFA [Ventolin HFA 90 mcg/actuation (8 g)] 2 puff IH [id number] #1 inh Albuterol Sulfate [Ventolin Hfa] 2 puff IH Q6 PRN #1 hfa.aer.ad PRN Reason: Shortness Of Breath Azithromycin [Z-Rehan] 250 mg PO ASDIR #6 tab Benzonatate [Tessalon Perles] 100 mg PO TID #15 sgl Instructions: Asthma, Adult (DC)
--- NOTE | 2018-05-20 15:37 | RAD ---
Date of service: 05/20/2018 HISTORY: couigh wheezing COMPARISON: Chest radiograph dated 03/26/2018. TECHNIQUE: Chest PA and lateral FINDINGS: LUNGS: No active pulmonary disease. PLEURA: No significant pleural effusion identified. No pneumothorax apparent. CARDIOVASCULAR: Aortic atherosclerotic calcifications. Cardiomediastinal silhouette stably prominent. OSSEOUS STRUCTURES: Unchanged. VISUALIZED UPPER ABDOMEN: Right upper quadrant surgical clips. OTHER FINDINGS: None. IMPRESSION: No active disease.
[2018-05-20 16:08] VITALS: BP 129/80; PULSE 83; RESP 18; TEMP 97.9; O2SAT 96
== END 2018-05-20 16:22 | disposition home or self-care (01) ==
LOC: H.ER 14:02
DX: J45.909 Unspecified asthma, uncomplicated (principal)
CPT/HCPCS: 71046; 96372; 99285; J1885